=== PATIENT | male | born 1990 | race Caucasian/White ===

== ENCOUNTER 2017-03-31 16:52 | Emergency (ER) | payer BC, OTHER ==
[~2017-03-31] VITALS: Ht 175.3 cm; Wt 5.0 kg
[~2017-03-31 16:52] MED LIST: DIAZ5 PO; VIST50CA PO
[2017-03-31 16:57] VITALS: BP 122/81; PULSE 81; RESP 16; TEMP 98.4; O2SAT 99
[2017-03-31] MEDS ORDERED: IBUP-232 PO (17:19)
[2017-03-31] MEDS ORDERED: NORC5TAB PO (17:19)
[2017-03-31] MEDS ORDERED: ORPH100T99 PO (17:19)
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
== END 2017-03-31 17:25 | disposition home or self-care (01) ==
LOC: PHEFT 16:52
DX: S16.1XXA Strain of muscle, fascia and tendon at neck level, initial encounter (principal); M54.5 Low back pain; F17.210 Nicotine dependence, cigarettes, uncomplicated; V43.52XA Car driver injured in collision with other type car in traffic accident, initial encounter; Y93.89 Activity, other specified; Y92.410 Unspecified street and highway as the place of occurrence of the external cause; Y99.8 Other external cause status
CPT/HCPCS: 99283

== ENCOUNTER 2017-06-12 03:24 | Emergency (ER) | payer BC, OTHER ==
[~2017-06-12] VITALS: Ht 175.3 cm; Wt 61.4 kg
[~2017-06-12 03:24] MED LIST changes: -DIAZ5 PO; +IBUP-232 PO; +NORC5TAB PO; +ORPH100T99 PO; -VIST50CA PO
[2017-06-12 03:29] VITALS: BP 135/85; PULSE 80; RESP 12; TEMP 98.2; O2SAT 100
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
[2017-06-12] MEDS ORDERED: PERC5TAB12 PO ×2 (03:56)
[2017-06-12] MEDS ORDERED: oxyCODONE/ACETAMINOPHEN 10 MG/325 MG TAB PO ONE ×2 (04:00)
[2017-06-12] MEDS ORDERED: SILVER SULFADIAZINE 1% CR 50 GM JAR TOPICAL ONE ×2 (04:15)
[2017-06-12 04:33] VITALS: BP 132/71; RESP 16
== END 2017-06-12 04:33 | disposition home or self-care (01) ==
LOC: PHED 03:24
DX: T22.212A Burn of second degree of left forearm, initial encounter (principal); T20.13XA Burn of first degree of chin, initial encounter; T31.0 Burns involving less than 10% of body surface; F17.200 Nicotine dependence, unspecified, uncomplicated; Z86.69 Personal history of other diseases of the nervous system and sense organs; Z86.59 Personal history of other mental and behavioral disorders; X10.2XXA Contact with fats and cooking oils, initial encounter; Y92.511 Restaurant or cafe as the place of occurrence of the external cause; Y99.0 Civilian activity done for income or pay
CPT/HCPCS: 16020

== ENCOUNTER 2018-06-14 08:54 | Inpatient (IN) ==
[2018-06-14 09:54] LABS: Baso % (Auto) 0.3 % (0.0-2.0); Eos # (Auto) 0.1 th/mm3 (0.0-0.4); Eos % (Auto) 0.7 % (0.0-4.0); Hematocrit 43.6 % (39.0-51.0); Hemoglobin 15.2 gm/dL (13.0-17.0); Lymph # (Auto) 2.5 th/mm3 (1.0-4.8); Lymph % (Auto) 17.3 % (9.0-44.0); Mean Corpuscular HGB Conc 34.8 % (32.0-36.0); Mean Corpuscular Hemoglobin 29.2 pg (27.0-34.0); Mean Corpuscular Volume 83.9 fL (80.0-100.0); Mean Platelet Volume 8.1 fL (7.0-11.0); Mono # (Auto) 1.2 th/mm3 (0.0-0.9); Mono % (Auto) 8.2 % (0.0-8.0); Neut # (Auto) 10.4 th/mm3 (1.8-7.7); Neut % (Auto) 73.5 % (16.0-70.0); Platelet Count 254 th/mm3 (150-450); Red Cell Distribution Width 13.5 % (11.6-17.2); White Blood Count 14.2 th/mm3 (4.0-11.0)
[2018-06-14 10:15] LABS: Anion Gap 10 meq/L (5-15); Blood Urea Nitrogen 16 mg/dL (7-18); Calcium 7.8 mg/dL (8.5-10.1); Carbon Dioxide 25.8 meq/L (21.0-32.0); Chloride 105 meq/L (98-107); Glomerular Filtration Rate Greater Than 89 mL/min (>89); Glucose,Random 104 mg/dL (74-106); Potassium 3.5 meq/L (3.5-5.1); Sodium 141 meq/L (136-145)
[2018-06-14] MEDS ORDERED: Sod Chloride 0.9% Inj 1,000 ML IV.SIG ONE ×3 (10:44→13:05)
[2018-06-14 12:41] LABS: CKMB Percent 1.1 % (0.0-4.0); Creatine Kinase MB 4.1 ng/mL (0.5-3.6)
--- NOTE | 2018-06-14 13:03 | ED ---
HPI General Chief Complaint: Overdose Stated Complaint: Medical Time Seen by Provider: 06/14/18 09:20 Mode of arrival: EMS Limitations: altered mental status History of Present Illness HPI Narrative: The patient is a 27-year-old male brought in by [facility] after drug overdose. Reportedly the patient has been having history of opiate abuse and IV drug abuse and as per boyfriend that came later he was missing last night he came this morning around 6:30 AM and he was unconsolable complaining of abdominal pain thrashing around therefore his boyfriend called EMS. On arrival here will follow that the patient had done cocaine, meth, marijuana and MDMA. Onset (ago): unknown Intent: unwilling to say How Overdose Was Discovered: family/friend present at time Context: Intentional Overdose: drug/ETOH problems Context: Accidental Overdose: wanted to get high Associated symptoms: paranoia and hallucinations Treatments Prior to Arrival: IV fluids Related Data Home Medications Medication Instructions Recorded Confirmed No Known Home Medications 06/14/18 06/14/18 Allergies Allergy/AdvReac Type Severity Reaction Status Date / Time isosorbide Allergy Severe THROAT Verified 06/14/18 12:44 SWELLS nitroglycerin Allergy Severe THROAT Verified 06/14/18 12:44 SWELLS nitroprusside sodium Allergy Severe THROAT Verified 06/14/18 12:44 SWELLS sulfite Allergy Severe THROAT Verified 06/14/18 12:44 SWELLS penicillin G AdvReac Severe STS SHOCK, Verified 06/14/18 12:44 RASH Review of Systems ROS Unobtainable ROS Unobtainable: unobtainable due to mental status PMFSH Medical History Medical History Medical history unknown (Acute) Social History Social History Second Hand Smoke Exposure: Yes Smoking Status: Current every day smoker Tobacco Type: Cigarettes How Often Do You Have a Drink Containing Alcohol: 2 to 3 times a week Recent Travel in [facility] within the Last 8 Weeks: No Recent Out of Country Travel within the Last 8 Weeks: No Substance Abuse Detail Methamphetamine: Substance Use Status: Active Route Used Substance Abuse: By Mouth Marijuana: Substance Use Status: Active Route Used Substance Abuse: Inhalation Other: Substance Use Type Other:: AMY Substance Use Status: Active Route Used Substance Abuse: By Mouth Immunization History Tetanus Immunization: Unable to Assess Hx Influenza Vaccine This Season: Unable to Assess Exam Narrative Exam Narrative: GENERAL: Patient is awake thrashing all extremities in distress grunting not answering questions. Appears to have akathisia SKIN: Focused skin assessment warm/dry. HEAD: Atraumatic. Normocephalic. EYES: Pupils equal and round. No scleral icterus. No injection or drainage. ENT: No nasal bleeding or discharge. Mucous membranes pink and moist. NECK: Trachea midline. No JVD. CARDIOVASCULAR: Sinus tachycardia. No murmur appreciated. RESPIRATORY: No accessory muscle use. Clear to auscultation. Breath sounds equal bilaterally. GASTROINTESTINAL: Abdomen soft, non-tender, nondistended. Hepatic and splenic margins not palpable. MUSCULOSKELETAL: No obvious deformities. No clubbing. No cyanosis. No edema. NEUROLOGICAL: Awake and alert. No obvious cranial nerve deficits. Motor grossly within normal limits. Normal speech. PSYCHIATRIC: Unable to assess Course Hospital Course: And received several doses of IV Ativan to assist with his psychosis secondary to stimulants. He had several episodes of coffee-ground emesis for which she was given Protonix drip. Imaging was not suggestive of free air. Initial Documented Vital Signs Temperature 98.2 F 06/14/18 09:55 Pulse Rate 89 06/14/18 09:55 Respiratory Rate 21 06/14/18 09:55 Blood Pressure 140/74 06/14/18 09:55 Pulse Oximetry 96 06/14/18 09:55 Last Documented Vital Signs Temperature 98.9 F 06/14/18 17:54 Pulse Rate 123 H 06/14/18 17:56 Respiratory Rate 18 06/14/18 17:56 Blood Pressure 169/89 H 06/14/18 17:56 Pulse Oximetry 95 06/14/18 14:10 Critical Care Time Critical Care Time: Yes Total Critical Care Time: 45 Attestation: Aggregate critical care time was 45 minutes. Time to perform other separately billable procedures was not included in the critical care time. My time did not include minutes spent treating any other patients simultaneously or on activities that did not directly contribute to the patient's treatment. The services I provided to this patient were to treat and/or prevent clinically significant deterioration that could result in: Permanent disability loss of current living style I provided critical care services requiring my management, as noted below: Chart data review, documentation time, medication orders and management, vital sign assessments/reviewing monitor data, ordering and reviewing lab tests, ordering and interpreting/reviewing x-rays and diagnostic studies, care of the patient and discussion of the patient with the admitting physicians. Medical Decision Making MDM Narrative Medical decision making narrative: Patient with acute psychosis secondary to polysubstance abuse. Mildly elevated CK for which he was given IV fluids. She was given several doses of IV Ativan. He also had a coffee-ground emesis for which he was put on Protonix drip. Hemodynamically stable admitting team will order a psych evaluation. Medical Screen Exam Complete: Yes Emergency Medical Condition: Yes Lab Data Lab results reviewed: Yes I reviewed the patient's lab results. Result diagrams: 06/14/18 09:15 06/14/18 09:15 Lab Results 06/14/18 06/14/18 06/14/18 Range/Units 09:15 09:15 09:15 WBC 14.2 H (4.0-11.0) th/mm3 RBC 5.20 (4.50-5.90) mil/mm3 Hgb 15.2 (13.0-17.0) gm/dL Hct 43.6 (39.0-51.0) % MCV 83.9 (80.0-100.0) fL MCH 29.2 (27.0-34.0) pg MCHC 34.8 (32.0-36.0) % RDW 13.5 (11.6-17.2) % Plt Count 254 (150-450) th/mm3 MPV 8.1 (7.0-11.0) fL Neut % (Auto) 73.5 H (16.0-70.0) % Lymph % (Auto) 17.3 (9.0-44.0) % Sherman % (Auto) 8.2 H (0.0-8.0) % Eos % (Auto) 0.7 (0.0-4.0) % Baso % (Auto) 0.3 (0.0-2.0) % Neut # (Auto) 10.4 H (1.8-7.7) th/mm3 Lymph # (Auto) 2.5 (1.0-4.8) th/mm3 Sherman # (Auto) 1.2 H (0.0-0.9) th/mm3 Eos # (Auto) 0.1 (0.0-0.4) th/mm3 Baso # (Auto) 0.0 (0.0-0.2) th/mm3 WBC Differential . Differential Comment Auto diff final Sodium 141 (136-145) meq/L Potassium 3.5 (3.5-5.1) meq/L Chloride 105 (98-107) meq/L Carbon Dioxide 25.8 (21.0-32.0) meq/L Anion Gap 10 (5-15) meq/L BUN 16 (7-18) mg/dL Creatinine 0.89 (0.60-1.30) mg/dL Estimated GFR Greater than 89 (>89) mL/min Random Glucose 104 (74-106) mg/dL Calcium 7.8 L (8.5-10.1) mg/dL Total Creatine Kinase 374 H (39-308) U/L CK-MB (CK-2) 4.1 H (0.5-3.6) ng/mL CK-MB (CK-2) % 1.1 (0.0-4.0) % Troponin I (0.02-0.05) ng/mL Urine Opiates Screen (Neg) Ur Barbiturates Screen (Neg) Ur Amphetamine Screen (Neg) U Benzodiazepines Scrn (Neg) Urine Cocaine Screen (Neg) U Cannabinoids Screen (Neg) Serum Alcohol Less than 3 (0-5) mg/dL Hepatitis A IgM Ab (Nonreactive) Hep Bs Antigen (Nonreactive) Hep B Core IgM Ab (Nonreactive) Hep C IgG Ab (Nonreactive) 06/14/18 06/14/18 06/14/18 Range/Units 15:00 15:50 17:25 WBC (4.0-11.0) th/mm3 RBC (4.50-5.90) mil/mm3 Hgb (13.0-17.0) gm/dL Hct (39.0-51.0) % MCV (80.0-100.0) fL MCH (27.0-34.0) pg MCHC (32.0-36.0) % RDW (11.6-17.2) % Plt Count (150-450) th/mm3 MPV (7.0-11.0) fL Neut % (Auto) (16.0-70.0) % Lymph % (Auto) (9.0-44.0) % Sherman % (Auto) (0.0-8.0) % Eos % (Auto) (0.0-4.0) % Baso % (Auto) (0.0-2.0) % Neut # (Auto) (1.8-7.7) th/mm3 Lymph # (Auto) (1.0-4.8) th/mm3 Sherman # (Auto) (0.0-0.9) th/mm3 Eos # (Auto) (0.0-0.4) th/mm3 Baso # (Auto) (0.0-0.2) th/mm3 WBC Differential Differential Comment Sodium (136-145) meq/L Potassium (3.5-5.1) meq/L Chloride (98-107) meq/L Carbon Dioxide (21.0-32.0) meq/L Anion Gap (5-15) meq/L BUN (7-18) mg/dL Creatinine (0.60-1.30) mg/dL Estimated GFR (>89) mL/min Random Glucose (74-106) mg/dL Calcium (8.5-10.1) mg/dL Total Creatine Kinase (39-308) U/L CK-MB (CK-2) (0.5-3.6) ng/mL CK-MB (CK-2) % (0.0-4.0) % Troponin I Less than 0.02 L (0.02-0.05) ng/mL Urine Opiates Screen Neg (Neg) Ur Barbiturates Screen Neg (Neg) Ur Amphetamine Screen Pos H (Neg) U Benzodiazepines Scrn Neg (Neg) Urine Cocaine Screen Neg (Neg) U Cannabinoids Screen Pos H (Neg) Serum Alcohol (0-5) mg/dL Hepatitis A IgM Ab Nonreactive (Nonreactive) Hep Bs Antigen Nonreactive (Nonreactive) Hep B Core IgM Ab Nonreactive (Nonreactive) Hep C IgG Ab Reactive H (Nonreactive) Discharge Plan Discharge Disposition Patient Disposition: 30 Still Patient Discharge Condition Condition: Stable Discharge Details Diagnosis: Acute psychosis, Substance abuse, Amphetamine abuse, continuous Physicians Team ED Provider: Ferny Blount Primary Care Provider: Primary Care Hueyi,Sara Attending Provider: Vey,Gunjan Other Providers: Remi Tran Discharge Interventions Interventions: ED Discharge Assessment Last Done: 06/14/18 17:40 Vital Signs Last Done: 06/14/18 17:56 Status ED Status: Left Department Discharge Information Discharge Date/Time: 06/14/18 17:40
[2018-06-14] MEDS: Pantoprazole Inj 80 MG in Sodium Chlor 0.9% Inj 100 ML IV.CONT SCH (13:30)
--- NOTE | 2018-06-14 14:05 | P.HPFP ---
History of Present Illness Primary Care Physician: No Primary Care Physician <Gunjan Simms - 06/14/18 20:58> No Primary Care Physician <Fadumo Mooney - 06/14/18 17:25> Chief Complaint: Overdose <Fadumo Mooney - 06/14/18 17:25> History of Present Illness: History provided by patient's boyfriend as the patient is thrashing about and unable to respond to questions. 27-year-old male who presented to the ED via [facility] after drug overdose. Boyfriend states patient has a history of opioid addiction and IV drug use and has been clean for many years, but the boyfriend noticed patient's behavior changing over the last month. Patient's boyfriend states that the patient woke him up this morning about 6:30 AM begging for him to help him, grunting, and complaining of severe abdominal pain. Patient's boyfriend states that the patient has a history of Dilaudid and Suboxone use. He also uses cocaine, meth, marijuana, and MDMA. Boyfriend is not sure which substances patient used last night and this morning, but is confident that he overdosed. Patient has a history of severe gastritis in which he uses Zantac. Patient had 1 bout of coffee ground emesis in the ED. The boyfriend is not aware of any other past medical or surgical history. <Fadumo Mooney - 06/14/18 18:02> - Diagnosis (1) Overdose (2) Gastritis (3) Weight loss (4) IVDU (intravenous drug user) (5) Nutrition, metabolism, and development symptoms (6) DVT prophylaxis <Gunjan Simms - 06/14/18 20:58> (1) Overdose (2) Gastritis (3) Weight loss (4) IVDU (intravenous drug user) (5) Nutrition, metabolism, and development symptoms (6) DVT prophylaxis <Fadumo Mooney 06/14/18 17:29> Inpatient Certification: I certify that the inpatient services were ordered in accordance with Medicare regulations governing the order. This includes certification that hospital inpatient services are reasonable and necessary and in the case of services not specified as inpatient-only under 42 CFR 419.22(n), that they are appropriately provided as inpatient services in accordance to with the 2-midnight benchmark under 43 CFR 412.3(e) <Gunjan Simms 06/14/18 20:58> Review of Systems unobtainable due to mental status <VinicioFadumo Gaines 06/14/18 17:25> PMFSH - History History Provided By: Significant Other <CataudayFadumo A 06/14/18 17:25> - Medical / Surgical Hx Neg / Unobtainable Medical Problems Denied: Unable to Obtain <VinicioFadumo Gaines 06/14/18 17:25> Surgical History: Unable to Obtain <VinicioFadumo Gaines 06/14/18 17:25> - Medical History Medical History: Medical History (Last Updated 06/14/18 @ 09:57 by Carlito Marin) Medical history unknown <Gunjan Simms 06/14/18 20:58> Medical History (Last Updated 06/14/18 @ 09:57 by Carlito Marin) Medical history unknown <VinicioFadumo Gaines 06/14/18 14:05> - Tobacco History Second Hand Smoke Exposure: Yes <QuirinoaditividalFadumo Gaines 06/14/18 14:05> Tobacco Use In Past 30 Days: Yes <VinicioFadumo A 06/14/18 14:05> Smoking Status: Current every day smoker <QuirinoreannaFadumo A 06/14/18 14:05> Tobacco Type: Cigarettes <VinicioFadumo A 06/14/18 14:05> - Alcohol History How Often Do You Have a Drink Containing Alcohol: 2 to 3 times a week < VinicioFadumo A 06/14/18 14:05> - Substance Use Type Marijuana Status: Active <VinicioFadumo Aaron 06/14/18 14:05> Route Used: Inhalation <VinicioFadumo Aaron 06/14/18 14:05> Methamphetamine Status: Active <VinicioFadumo Aaron 06/14/18 14:05> Route Used: By Mouth <Fadumo Mooney Aaron 06/14/18 14:05> Other Type: AMY <Fadumo Mooney - 06/14/18 14:05> Status: Active <Fadumo Mooney 06/14/18 14:05> Route Used: By Mouth <Fadumo Mooney 06/14/18 14:05> - Travel History Recent Travel in the [facility] Within the Last 8 Weeks: No <Fadumo Mooney 01/26 14:05> Recent Travel Out of the Country Within the Last 8 Weeks: No <Fadumo Mooney 06/14/18 14:05> - Immunization History Tetanus Immunization: Unable to Assess <Fadumo Mooney 06/14/18 14:05> Hx Influenza Vaccine This Season: Unable to Assess <Fadumo Mooney 14:05> Medications and Allergies Allergies Allergy/AdvReac Type Severity Reaction Status Date / Time isosorbide Allergy Severe THROAT Verified 06/14/18 12:44 SWELLS nitroglycerin Allergy Severe THROAT Verified 06/14/18 12:44 SWELLS nitroprusside sodium Allergy Severe THROAT Verified 06/14/18 12:44 SWELLS sulfite Allergy Severe THROAT Verified 06/14/18 12:44 SWELLS penicillin G AdvReac Severe STS SHOCK, Verified 06/14/18 12:44 RASH <Gunjan Simms - 06/14/18 20:58> Home Medications Medication Instructions Recorded Confirmed Type No Known Home Medications 06/14/18 06/14/18 History <Gunjan Simms - 06/14/18 20:58> Active Medications: Active Medications Acetaminophen (Tylenol) 650 mg PO Q4H PRN PRN Reason: Temp > 100.4 Al Hydroxide/Mg Hydroxide (Milk Of Magnesia Liq) 30 ml PO Q12H PRN PRN Reason: Mild Constipation Bisacodyl (Dulcolax Supp) 10 mg RECTAL DAILY PRN PRN Reason: SEVERE CONSITIPATION Flumazenil (Romazecon Inj) 0.2 mg IV.PUSH Q1M PRN PRN Reason: OVERSEDATION Haloperidol Lactate (Haldol Inj) 1 mg IV.PUSH Q15M PRN PRN Reason: for severe agitation Pantoprazole Sodium 80 mg/ (Sodium Chloride) 100 mls @ 10 mls/hr IV.CONT CONT [facility] Last Admin: 06/14/18 13:30 Dose: 10 mls/hr Sodium Chloride (Ns Inj) 1,000 mls @ 120 mls/hr IV.CONT .Q8H20M [facility] Last Admin: 06/14/18 17:26 Dose: 120 mls/hr Lactulose (Lactulose Liq) 30 ml PO DAILY PRN PRN Reason: SEVERE CONSITIPATION Lorazepam (Ativan) 1 mg PO Q4H PRN PRN Reason: for CIWA 8-10 Lorazepam (Ativan Inj) 2 mg IV.PUSH Q2H PRN PRN Reason: for CIWA 11-14 Last Admin: 06/14/18 18:53 Dose: 2 mg Lorazepam (Ativan Inj) 2 mg IV.PUSH Q1H PRN PRN Reason: for CIWA 15-20 Lorazepam (Ativan Inj) 2 mg IV.PUSH Q15M PRN PRN Reason: for CIWA > 20 Last Admin: 06/14/18 19:55 Dose: 2 mg Lorazepam (Ativan Inj) 1 mg IV.PUSH Q4H PRN PRN Reason: for CIWA 8-10 Lorazepam (Ativan) 2 mg PO Q2H PRN PRN Reason: for CIWA 11-14 Ondansetron HCl (Zofran Inj) 4 mg IV.PUSH Q6H PRN PRN Reason: NAUSEA OR VOMITING Sennosides (Senokot) 17.2 mg PO Q12H PRN PRN Reason: Moderate Constipation <Gunjan Simms - 06/14/18 20:58> Active Medications Pantoprazole Sodium 80 mg/ (Sodium Chloride) 100 mls @ 10 mls/hr IV.CONT CONT [facility] Last Admin: 06/14/18 13:30 Dose: 10 mls/hr <Fadumo Mooney - 06/14/18 14:05> Exam Vital signs: Vital Signs 06/14/18 09:55 06/14/18 12:45 06/14/18 12:51 Temperature 98.2 F Pulse Rate 89 121 H 121 H Respiratory Rate 21 16 25 H Blood Pressure 140/74 204/139 H 231/95 H Pulse Oximetry 96 95 95 06/14/18 14:10 06/14/18 14:15 06/14/18 17:54 Temperature 98.9 F Pulse Rate 110 H 130 H Respiratory Rate 18 Blood Pressure 129/75 119/75 Pulse Oximetry 95 06/14/18 17:56 Temperature Pulse Rate 123 H Respiratory Rate 18 Blood Pressure 169/89 H Pulse Oximetry Intake & Output 06/14/18 06/14/18 06/15/18 06:59 18:59 06:59 Intake Total 1000 / 1000 Output Total 300 / 300 Balance 700 / 700 Weight 79.379 kg Intake: IV 1000 / 1000 NS Inj 1,000 ML @ Wide Open IV. 1000 / 1000 SIG BOLUS ONE Rx#:[id number] Output: Urine 300 / 300 <Gunjan Simms - 06/14/18 20:58> Vital Signs 06/14/18 09:55 06/14/18 12:45 06/14/18 12:51 Temperature 98.2 F Pulse Rate 89 121 H 121 H Respiratory Rate 21 16 25 H Blood Pressure 140/74 204/139 H 231/95 H Pulse Oximetry 96 95 95 Intake & Output 06/13/18 06/14/18 06/14/18 18:59 06:59 18:59 Intake Total 1000 / 1000 Balance 1000 / 1000 Weight 79.379 kg Intake: IV 1000 / 1000 NS Inj 1,000 ML @ Wide Open IV. 1000 / 1000 SIG BOLUS ONE Rx#:[id number] <Fadumo Mooney - 06/14/18 14:05> Narrative: General: Patient in distress, thrashing all 4 extremities, grunting, unresponsive to questioning, cachectic Extremities: Full range of motion Respiratory: nonlabored breathing <Fadumo Mooney - 06/14/18 18:02> Results - Labs Result diagrams: 06/14/18 09:15 06/14/18 09:15 <DemiMarisole - 06/14/18 20:58> Abnormal lab results 06/14/18 06/14/18 06/14/18 Range/Units 09:15 09:15 09:15 WBC 14.2 H (4.0-11.0) th/mm3 Neut % (Auto) 73.5 H (16.0-70.0) % [place] % (Auto) 8.2 H (0.0-8.0) % Neut # (Auto) 10.4 H (1.8-7.7) th/mm3 [place] # (Auto) 1.2 H (0.0-0.9) th/mm3 Calcium 7.8 L (8.5-10.1) mg/dL Total Bilirubin (0.2-1.0) mg/dL Indirect Bilirubin (0.0-0.8) mg/dL AST (15-37) U/L Total Creatine Kinase 374 H (39-308) U/L CK-MB (CK-2) 4.1 H (0.5-3.6) ng/mL Troponin I (0.02-0.05) ng/mL Total Protein (6.4-8.2) g/dL Ur Amphetamine Screen (Neg) U Cannabinoids Screen (Neg) Hep C IgG Ab (Nonreactive) 06/14/18 06/14/18 06/14/18 Range/Units 09:15 15:00 15:50 WBC (4.0-11.0) th/mm3 Neut % (Auto) (16.0-70.0) % [place] % (Auto) (0.0-8.0) % Neut # (Auto) (1.8-7.7) th/mm3 [place] # (Auto) (0.0-0.9) th/mm3 Calcium (8.5-10.1) mg/dL Total Bilirubin 1.5 H (0.2-1.0) mg/dL Indirect Bilirubin 1.3 H (0.0-0.8) mg/dL AST 40 H (15-37) U/L Total Creatine Kinase (39-308) U/L CK-MB (CK-2) (0.5-3.6) ng/mL Troponin I Less than 0.02 L (0.02-0.05) ng/mL Total Protein 6.0 L (6.4-8.2) g/dL Ur Amphetamine Screen (Neg) U Cannabinoids Screen (Neg) Hep C IgG Ab Reactive H (Nonreactive) 06/14/18 Range/Units 17:25 WBC (4.0-11.0) th/mm3 Neut % (Auto) (16.0-70.0) % [place] % (Auto) (0.0-8.0) % Neut # (Auto) (1.8-7.7) th/mm3 [place] # (Auto) (0.0-0.9) th/mm3 Calcium (8.5-10.1) mg/dL Total Bilirubin (0.2-1.0) mg/dL Indirect Bilirubin (0.0-0.8) mg/dL AST (15-37) U/L Total Creatine Kinase (39-308) U/L CK-MB (CK-2) (0.5-3.6) ng/mL Troponin I (0.02-0.05) ng/mL Total Protein (6.4-8.2) g/dL Ur Amphetamine Screen Pos H (Neg) U Cannabinoids Screen Pos H (Neg) Hep C IgG Ab (Nonreactive) Short CBC 06/14/18 Range/Units 09:15 WBC 14.2 H (4.0-11.0) th/mm3 Hgb 15.2 (13.0-17.0) gm/dL Hct 43.6 (39.0-51.0) % Plt Count 254 (150-450) th/mm3 [facility] 06/14/18 09:15 Sodium 141 Potassium 3.5 Chloride 105 Carbon Dioxide 25.8 BUN 16 Creatinine 0.89 Calcium 7.8 L Cardiac Enzymes 06/14/18 06/14/18 Range/Units 09:15 15:00 Total Creatine Kinase 374 H (39-308) U/L CK-MB (CK-2) 4.1 H (0.5-3.6) ng/mL Troponin I Less than 0.02 L (0.02-0.05) ng/mL Liver Function 06/14/18 Range/Units 09:15 Total Bilirubin 1.5 H (0.2-1.0) mg/dL Direct Bilirubin 0.2 (0.0-0.2) mg/dL AST 40 H (15-37) U/L ALT 42 (12-78) U/L Alkaline Phosphatase 65 (45-117) U/L Albumin 3.6 (3.4-5.0) g/dL <Gunjan Simms - 06/14/18 20:58> Abnormal lab results 06/14/18 06/14/18 06/14/18 Range/Units 09:15 09:15 09:15 WBC 14.2 H (4.0-11.0) th/mm3 Neut % (Auto) 73.5 H (16.0-70.0) % [place] % (Auto) 8.2 H (0.0-8.0) % Neut # (Auto) 10.4 H (1.8-7.7) th/mm3 [place] # (Auto) 1.2 H (0.0-0.9) th/mm3 Calcium 7.8 L (8.5-10.1) mg/dL Total Creatine Kinase 374 H (39-308) U/L CK-MB (CK-2) 4.1 H (0.5-3.6) ng/mL Short CBC 06/14/18 Range/Units 09:15 WBC 14.2 H (4.0-11.0) th/mm3 Hgb 15.2 (13.0-17.0) gm/dL Hct 43.6 (39.0-51.0) % Plt Count 254 (150-450) th/mm3 BMP 06/14/18 09:15 Sodium 141 Potassium 3.5 Chloride 105 Carbon Dioxide 25.8 BUN 16 Creatinine 0.89 Calcium 7.8 L Cardiac Enzymes 06/14/18 Range/Units 09:15 Total Creatine Kinase 374 H (39-308) U/L CK-MB (CK-2) 4.1 H (0.5-3.6) ng/mL <Fadumo Mooney - 06/14/18 14:05> - Imaging Impressions Abdomen X-Ray 06/14/18 00:00 CONCLUSION: 1. No radiopaque foreign body is noted. 2. No bowel obstruction, ileus or perforation. Chest X-Ray 06/14/18 00:00 CONCLUSION: Negative examination. <Gunjan Simms - 06/14/18 20:58> Caprini VTE Risk Assessment Caprini VTE Risk Assessment: No/Low Risk (score <= 1) <Fadumo Mooney - 01/26 17:25> Caprini Risk Assessment Model: Point Value = 1 Point Value = 2 Point Value = 3 Point Value = 5 Age 41-60 Minor surgery BMI > 25 kg/m2 Swollen legs Varicose veins or History of unexplained or recurrent spontaneous Oral contraceptives or hormone replacement Sepsis (< 1 month) Serious lung disease, including pneumonia (< 1 month) Abnormal pulmonary function Acute myocardial infarction Congestive heart failure (< 1 month) History of inflammatory bowel disease Medical patient at bed rest Age 61-74 Arthroscopic surgery Major open surgery (> 45 min) Laparoscopic surgery (> 45 min) Malignancy Confined to bed (> 72 hours) Immobilizing plaster cast Central venous access Age >= 75 History of VTE Family history of VTE Factor V Leiden Prothrombin [id number] Lupus anticoagulant Anticardiolipin antibodies Elevated serum homocysteine Heparin-induced thrombocytopenia Other congenital or acquired thrombophilia Stroke (< 1 month) Elective arthroplasty Hip, pelvis, or leg fracture Acute spinal cord injury (< 1 month) <Gunjan Simms - 06/14/18 20:58> Point Value = 1 Point Value = 2 Point Value = 3 Point Value = 5 Age 41-60 Minor surgery BMI > 25 kg/m2 Swollen legs Varicose veins or History of unexplained or recurrent spontaneous Oral contraceptives or hormone replacement Sepsis (< 1 month) Serious lung disease, including pneumonia (< 1 month) Abnormal pulmonary function Acute myocardial infarction Congestive heart failure (< 1 month) History of inflammatory bowel disease Medical patient at bed rest Age 61-74 Arthroscopic surgery Major open surgery (> 45 min) Laparoscopic surgery (> 45 min) Malignancy Confined to bed (> 72 hours) Immobilizing plaster cast Central venous access Age >= 75 History of VTE Family history of VTE Factor V Leiden Prothrombin [id number] Lupus anticoagulant Anticardiolipin antibodies Elevated serum homocysteine Heparin-induced thrombocytopenia Other congenital or acquired thrombophilia Stroke (< 1 month) Elective arthroplasty Hip, pelvis, or leg fracture Acute spinal cord injury (< 1 month) <Fadumo Mooney - 06/14/18 17:25> Prophylaxis Regimen: Total Risk Factor Score Risk Level Prophylaxis Regimen 0-1 Low Early ambulation 2 Moderate Order ONE of the following: *Sequential Compression Device (SCD) *Heparin 5000 units SQ BID 3-4 Higher Order ONE of the following medications: *Heparin 5000 units SQ TID *Enoxaparin/Lovenox 40 mg SQ daily (WT < 150 kg, CrCl > 30 mL/min) *Enoxaparin/Lovenox 30 mg SQ daily (WT < 150 kg, CrCl > 10-29 mL/min) *Enoxaparin/Lovenox 30 mg SQ BID (WT < 150 kg, CrCl > 30 mL/min) AND/OR *Sequential Compression Device (SCD) 5 or more Highest Order ONE of the following medications: *Heparin 5000 units SQ TID (Preferred with Epidurals) *Enoxaparin/Lovenox 40 mg SQ daily (WT < 150 kg, CrCl > 30 mL/min) *Enoxaparin/Lovenox 30 mg SQ daily (WT < 150 kg, CrCl > 10-29 mL/min) *Enoxaparin/Lovenox 30 mg SQ BID (WT < 150 kg, CrCl > 30 mL/min) AND *Sequential Compression Device (SCD) <Gunjan Simms - 06/14/18 20:58> Total Risk Factor Score Risk Level Prophylaxis Regimen 0-1 Low Early ambulation 2 Moderate Order ONE of the following: *Sequential Compression Device (SCD) *Heparin 5000 units SQ BID 3-4 Higher Order ONE of the following medications: *Heparin 5000 units SQ TID *Enoxaparin/Lovenox 40 mg SQ daily (WT < 150 kg, CrCl > 30 mL/min) *Enoxaparin/Lovenox 30 mg SQ daily (WT < 150 kg, CrCl > 10-29 mL/min) *Enoxaparin/Lovenox 30 mg SQ BID (WT < 150 kg, CrCl > 30 mL/min) AND/OR *Sequential Compression Device (SCD) 5 or more Highest Order ONE of the following medications: *Heparin 5000 units SQ TID (Preferred with Epidurals) *Enoxaparin/Lovenox 40 mg SQ daily (WT < 150 kg, CrCl > 30 mL/min) *Enoxaparin/Lovenox 30 mg SQ daily (WT < 150 kg, CrCl > 10-29 mL/min) *Enoxaparin/Lovenox 30 mg SQ BID (WT < 150 kg, CrCl > 30 mL/min) AND *Sequential Compression Device (SCD) <Fadumo Mooney - 06/14/18 14:05> Assessment and Plan - Assessment (1) Overdose Code(s): T50.901A - Poisoning by unspecified drugs, medicaments and biological substances, accidental (unintentional), initial encounter Status: Acute (2) Gastritis Code(s): K29.70 - Gastritis, unspecified, without bleeding Status: Acute (3) Weight loss Code(s): R63.4 - Abnormal weight loss Status: Acute (4) IVDU (intravenous drug user) Code(s): F19.90 - Other psychoactive substance use, unspecified, uncomplicated Status: Acute (5) Nutrition, metabolism, and development symptoms Code(s): R63.8 - Other symptoms and signs concerning food and fluid intake Status: Acute (6) DVT prophylaxis Status: Acute <Gunjan Simms - 06/14/18 20:58> (1) Overdose Code(s): T50.901A - Poisoning by unspecified drugs, medicaments and biological substances, accidental (unintentional), initial encounter Status: Acute Plan: 27 yo who overdosed on an unknown mixture of opiates, cocaine, meth, and MDMA admitted for acute psychosis. ED course: Patient received 1 mg lorazepam X4 in ED -Mild leukocytosis at 14.2 likely acute reactant -Calcium low at 7.8 -Creatine kinase 374 -Troponin <0.02 -OB\psych drug screen PENDING -Serum alcohol NEGATIVE -Sitter ordered -[facility] protocol -Monitor CBC, LFTs, UA, CMP -CXR and abdomen XR: ORDERED (2) Gastritis Code(s): K29.70 - Gastritis, unspecified, without bleeding Status: Acute Plan: 27-year-old male with coffee-ground emesis, and chronic gastritis. -Consult gastroenterology, appreciate recommendations -Protonix drip -NPO diet -Per gastroenterology note, will consider EGD once patient is stable. They will reevaluate within the next 24 hours. (3) Weight loss Code(s): R63.4 - Abnormal weight loss Status: Acute Plan: Patient has had a significant weight loss in the past month according to patient 's significant other. Gastritis versus drug use versus hepatitis versus immunodeficiency (HIV). -Supportive care -Continue fluids until patient is able to tolerate diet by mouth -Hepatitis panel pending -We will discuss HIV testing when patient is able to consent (4) IVDU (intravenous drug user) Code(s): F19.90 - Other psychoactive substance use, unspecified, uncomplicated Status: Acute Plan: Patient with a history of IV drug use. -Blood cultures pending -Hepatitis panel pending -Case management consult to help with possible rehab placement when stable if patient is willing (5) Nutrition, metabolism, and development symptoms Code(s): R63.8 - Other symptoms and signs concerning food and fluid intake Status: Acute Plan: -NPO diet -Continue fluids at 120 mils per hour (6) DVT prophylaxis Status: Acute Plan: -Bilateral SCDs for DVT prophylaxis <Fadumo Mooney - 06/14/18 17:29> - Attending Attestation Patient seen and examined in ED, discussed with resident team. I agree with assessment and management as documented and discussed with me. I certify that inpatient stay is warranted for reasons documented in resident H& P and that 2 midnight stay is expected. Overdose: Continue supportive care. Pt currently able to support his airway. Coffee ground emesis - Protonix, GI consult, zofran. EGD when stable. Abd x-ray nonrevealing. Additional diagnosis: leukocytosis: Likely secondary to drug use. No obvious infectious etiology. CXR nonrevealing. Blood cultures pending. <Gunjan Simms - 06/14/18 20:58>
[2018-06-14] MEDS ORDERED: Bisacodyl 10 MG Supp RECTAL PRN (14:06)
[2018-06-14] MEDS ORDERED: LORazepam 1 MG Tablet PO PRN (14:15)
--- NOTE | 2018-06-14 16:03 | P.CONGI ---
History of Present Illness Consult date: 06/14/18 Consult reason: Coffee-ground emesis, gastritis Chief complaint: Drug induced Psychosis, UGI Bleed History of Present Illness: This is a slim 27-year-old male who was brought into the emergency room by a male significant other when he was found at home in acute delirium and psychosis status post drug overdose. According to the record patient had been doing methamphetamines, Maria De Jesus and marijuana for the past 24 hours. According to significant other patient was screaming with gastric abdominal pain to minimal palpation and has been noted in the past to have possible GI ulcers and gastritis. Onset of the symptoms has been in the past 24 hours. patient also had 2 large coffee-ground hematocrit emesis, nausea and vomiting with symptoms of dyspepsia uncontrolled. Unable to evaluate pain scale, aggravating factors to his coffee-ground emesis and possible gastritis are probably related to illicit drugs. Patient has been on prescription Zantac for an unspecified length of time. Current labs show hemoglobin 15.2, WBC count 14.2, platelet count 185. Patient was also currently started on a Protonix drip. Gastroenterology was consulted for his gastritis and coffee-ground emesis and assist with this plan of care. Currently patient appears to be in acute psychosis with four-point restraints for his safety, padded rails and thrashing in the bed with his eyes closed. He is moaning at times and not responding to verbal communication. No known endoscopy in the past no known colonoscopy in the past unknown family history. Most of the information obtained is being gathered from his significant other in the chart. Current heart rate is labile between 108 and 130 patient is receiving IV Ativan. <Mercedes Mohamud - Last Filed: 06/14/18 15:47> Review of Systems unobtainable due to mental condition <Mercedes Mohamud - Last Filed: 06/14/18 15:47> [facility] - History History Provided By: Patient - Medical History Medical History: Medical History (Last Updated 06/14/18 @ 09:57 by Carlito Marin) Medical history unknown - Tobacco History Second Hand Smoke Exposure: Yes Tobacco Use In Past 30 Days: Yes Smoking Status: Current every day smoker Tobacco Type: Cigarettes - Alcohol History How Often Do You Have a Drink Containing Alcohol: 2 to 3 times a week - Substance Use Type Methamphetamine Status: Active Route Used: By Mouth Marijuana Status: Active Route Used: Inhalation Other Type: MARIA DE JESUS Status: Active Route Used: By Mouth - Travel History Recent Travel in the [place] Within the Last 8 Weeks: No Recent Travel Out of the Country Within the Last 8 Weeks: No - Immunization History Tetanus Immunization: Unable to Assess Hx Influenza Vaccine This Season: Unable to Assess <Mercedes Mohamud - Last Filed: 06/14/18 15:47> - Medical History Medical History: Medical History (Last Updated 06/14/18 @ 09:57 by Carlito Marin) Medical history unknown <Remi Tran - Last Filed: 06/14/18 18:05> Medications and Allergies Active Medications: Active Medications Acetaminophen (Tylenol) 650 mg PO Q4H PRN PRN Reason: Temp > 100.4 Al Hydroxide/Mg Hydroxide (Milk Of Magnesia Liq) 30 ml PO Q12H PRN PRN Reason: Mild Constipation Bisacodyl (Dulcolax Supp) 10 mg RECTAL DAILY PRN PRN Reason: SEVERE CONSITIPATION Flumazenil (Romazecon Inj) 0.2 mg IV.PUSH Q1M PRN PRN Reason: OVERSEDATION Haloperidol Lactate (Haldol Inj) 1 mg IV.PUSH Q15M PRN PRN Reason: for severe agitation Pantoprazole Sodium 80 mg/ (Sodium Chloride) 100 mls @ 10 mls/hr IV.CONT CONT TEOFILO Last Admin: 06/14/18 13:30 Dose: 10 mls/hr Sodium Chloride (Ns Inj) 1,000 mls @ 120 mls/hr IV.CONT .Q8H20M TEOFILO Lactulose (Lactulose Liq) 30 ml PO DAILY PRN PRN Reason: SEVERE CONSITIPATION Lorazepam (Ativan) 1 mg PO Q4H PRN PRN Reason: for CIWA 8-10 Lorazepam (Ativan Inj) 2 mg IV.PUSH Q2H PRN PRN Reason: for CIWA 11-14 Lorazepam (Ativan Inj) 2 mg IV.PUSH Q1H PRN PRN Reason: for CIWA 15-20 Lorazepam (Ativan Inj) 2 mg IV.PUSH Q15M PRN PRN Reason: for CIWA > 20 Lorazepam (Ativan Inj) 1 mg IV.PUSH Q4H PRN PRN Reason: for CIWA 8-10 Lorazepam (Ativan) 2 mg PO Q2H PRN PRN Reason: for CIWA 11-14 Ondansetron HCl (Zofran Inj) 4 mg IV.PUSH Q6H PRN PRN Reason: NAUSEA OR VOMITING Sennosides (Senokot) 17.2 mg PO Q12H PRN PRN Reason: Moderate Constipation <Mercedes Mohamud M - Last Filed: 06/14/18 15:47> Active Medications: Active Medications Acetaminophen (Tylenol) 650 mg PO Q4H PRN PRN Reason: Temp > 100.4 Al Hydroxide/Mg Hydroxide (Milk Of Magnesia Liq) 30 ml PO Q12H PRN PRN Reason: Mild Constipation Bisacodyl (Dulcolax Supp) 10 mg RECTAL DAILY PRN PRN Reason: SEVERE CONSITIPATION Flumazenil (Romazecon Inj) 0.2 mg IV.PUSH Q1M PRN PRN Reason: OVERSEDATION Haloperidol Lactate (Haldol Inj) 1 mg IV.PUSH Q15M PRN PRN Reason: for severe agitation Pantoprazole Sodium 80 mg/ (Sodium Chloride) 100 mls @ 10 mls/hr IV.CONT CONT [facility] Last Admin: 06/14/18 13:30 Dose: 10 mls/hr Sodium Chloride (Ns Inj) 1,000 mls @ 120 mls/hr IV.CONT .Q8H20M [facility] Last Admin: 06/14/18 17:26 Dose: 120 mls/hr Lactulose (Lactulose Liq) 30 ml PO DAILY PRN PRN Reason: SEVERE CONSITIPATION Lorazepam (Ativan) 1 mg PO Q4H PRN PRN Reason: for CIWA 8-10 Last Admin: 06/14/18 17:57 Dose: 1 mg Lorazepam (Ativan Inj) 2 mg IV.PUSH Q2H PRN PRN Reason: for CIWA 11-14 Last Admin: 06/14/18 17:58 Dose: 2 mg Lorazepam (Ativan Inj) 2 mg IV.PUSH Q1H PRN PRN Reason: for CIWA 15-20 Lorazepam (Ativan Inj) 2 mg IV.PUSH Q15M PRN PRN Reason: for CIWA > 20 Lorazepam (Ativan Inj) 1 mg IV.PUSH Q4H PRN PRN Reason: for CIWA 8-10 Lorazepam (Ativan) 2 mg PO Q2H PRN PRN Reason: for CIWA 11-14 Ondansetron HCl (Zofran Inj) 4 mg IV.PUSH Q6H PRN PRN Reason: NAUSEA OR VOMITING Sennosides (Senokot) 17.2 mg PO Q12H PRN PRN Reason: Moderate Constipation <Remi Tran - Last Filed: 06/14/18 18:05> Allergies Allergy/AdvReac Type Severity Reaction Status Date / Time isosorbide Allergy Severe THROAT Verified 06/14/18 12:44 SWELLS nitroglycerin Allergy Severe THROAT Verified 06/14/18 12:44 SWELLS nitroprusside sodium Allergy Severe THROAT Verified 06/14/18 12:44 SWELLS sulfite Allergy Severe THROAT Verified 06/14/18 12:44 SWELLS penicillin G AdvReac Severe STS SHOCK, Verified 06/14/18 12:44 RASH Home Medications Medication Instructions Recorded Confirmed Type No Known Home Medications 06/14/18 06/14/18 History Exam Vital signs: Vital Signs 06/14/18 09:55 06/14/18 12:45 06/14/18 12:51 Temperature 98.2 F Pulse Rate 89 121 H 121 H Respiratory Rate 21 16 25 H Blood Pressure 140/74 204/139 H 231/95 H Pulse Oximetry 96 95 95 06/14/18 14:10 Temperature Pulse Rate Respiratory Rate Blood Pressure Pulse Oximetry 95 Intake & Output 06/13/18 06/14/18 06/14/18 18:59 06:59 18:59 Intake Total 1000 / 1000 Balance 1000 / 1000 Weight 79.379 kg Intake: IV 1000 / 1000 NS Inj 1,000 ML @ Wide Open IV. 1000 / 1000 SIG BOLUS ONE Rx#:[id number] - Constitutional severe distress, thin, cachectic, combative, agitated - Routine HEENT Exam ENT: Present: mucous membranes dry - Routine Neck Exam Present: supple - Routine Abdominal Exam Present: rigid (taut, soft bowel sounds present) - Routine Extremities Exam Present: full ROM - Routine Neurological Exam Present: altered mental status, moving all extremities (Thrashing with uncontrollable 4 point extremity movement) <Mercedes Mohamud - Last Filed: 06/14/18 15:47> Vital signs: Vital Signs 06/14/18 09:55 06/14/18 12:45 06/14/18 12:51 Temperature 98.2 F Pulse Rate 89 121 H 121 H Respiratory Rate 21 16 25 H Blood Pressure 140/74 204/139 H 231/95 H Pulse Oximetry 96 95 95 06/14/18 14:10 06/14/18 14:15 06/14/18 17:54 Temperature 98.9 F Pulse Rate 110 H 130 H Respiratory Rate 18 Blood Pressure 129/75 119/75 Pulse Oximetry 95 06/14/18 17:56 Temperature Pulse Rate 123 H Respiratory Rate 18 Blood Pressure 169/89 H Pulse Oximetry Intake & Output 06/13/18 06/14/18 06/14/18 18:59 06:59 18:59 Intake Total 1000 / 1000 Balance 1000 / 1000 Weight 79.379 kg Intake: IV 1000 / 1000 NS Inj 1,000 ML @ Wide Open IV. 1000 / 1000 SIG BOLUS ONE Rx#:[id number] <Remi Tran - Last Filed: 06/14/18 18:05> Results - Labs CBC & Chem 7: 06/14/18 09:15 06/14/18 09:15 Labs: Laboratory Results - last 24 hr 06/14/18 06/14/18 06/14/18 09:15 09:15 09:15 WBC 14.2 H RBC 5.20 Hgb 15.2 Hct 43.6 MCV 83.9 MCH 29.2 MCHC 34.8 RDW 13.5 Plt Count 254 MPV 8.1 Neut % (Auto) 73.5 H Lymph % (Auto) 17.3 [place] % (Auto) 8.2 H Eos % (Auto) 0.7 Baso % (Auto) 0.3 Neut # (Auto) 10.4 H Lymph # (Auto) 2.5 [place] # (Auto) 1.2 H Eos # (Auto) 0.1 Baso # (Auto) 0.0 WBC Differential . Differential Comment Auto diff final Sodium 141 Potassium 3.5 Chloride 105 Carbon Dioxide 25.8 Anion Gap 10 BUN 16 Creatinine 0.89 Estimated GFR Greater than 89 Random Glucose 104 Calcium 7.8 L Total Creatine Kinase 374 H CK-MB (CK-2) 4.1 H CK-MB (CK-2) % 1.1 Serum Alcohol Less than 3 <Cade,Mercedes M - Last Filed: 06/14/18 15:47> - Labs CBC & Chem 7: 06/14/18 09:15 06/14/18 09:15 Labs: Laboratory Results - last 24 hr 06/14/18 06/14/18 06/14/18 09:15 09:15 09:15 WBC 14.2 H RBC 5.20 Hgb 15.2 Hct 43.6 MCV 83.9 MCH 29.2 MCHC 34.8 RDW 13.5 Plt Count 254 MPV 8.1 Neut % (Auto) 73.5 H Lymph % (Auto) 17.3 [place] % (Auto) 8.2 H Eos % (Auto) 0.7 Baso % (Auto) 0.3 Neut # (Auto) 10.4 H Lymph # (Auto) 2.5 [place] # (Auto) 1.2 H Eos # (Auto) 0.1 Baso # (Auto) 0.0 WBC Differential . Differential Comment Auto diff final Sodium 141 Potassium 3.5 Chloride 105 Carbon Dioxide 25.8 Anion Gap 10 BUN 16 Creatinine 0.89 Estimated GFR Greater than 89 Random Glucose 104 Calcium 7.8 L Total Creatine Kinase 374 H CK-MB (CK-2) 4.1 H CK-MB (CK-2) % 1.1 Troponin I Urine Opiates Screen Ur Barbiturates Screen Ur Amphetamine Screen U Benzodiazepines Scrn Urine Cocaine Screen U Cannabinoids Screen Serum Alcohol Less than 3 Hepatitis A IgM Ab Hep Bs Antigen Hep B Core IgM Ab Hep C IgG Ab 06/14/18 06/14/18 06/14/18 15:00 15:50 17:25 WBC RBC Hgb Hct MCV MCH MCHC RDW Plt Count MPV Neut % (Auto) Lymph % (Auto) [place] % (Auto) Eos % (Auto) Baso % (Auto) Neut # (Auto) Lymph # (Auto) [place] # (Auto) Eos # (Auto) Baso # (Auto) WBC Differential Differential Comment Sodium Potassium Chloride Carbon Dioxide Anion Gap BUN Creatinine Estimated GFR Random Glucose Calcium Total Creatine Kinase CK-MB (CK-2) CK-MB (CK-2) % Troponin I Less than 0.02 L Urine Opiates Screen Neg Ur Barbiturates Screen Neg Ur Amphetamine Screen Pos H U Benzodiazepines Scrn Neg Urine Cocaine Screen Neg U Cannabinoids Screen Pos H Serum Alcohol Hepatitis A IgM Ab Nonreactive Hep Bs Antigen Nonreactive Hep B Core IgM Ab Nonreactive Hep C IgG Ab Reactive H <Remi Tran - Last Filed: 06/14/18 18:05> Assessment and Plan (1) Upper GI bleed Status: Acute Code(s): K92.2 - Gastrointestinal hemorrhage, unspecified (2) Gastritis Status: Acute Code(s): K29.70 - Gastritis, unspecified, without bleeding - Plan 27-year-old male, came home early this a.m. some time with altered mental status and acute psychosis. This is probable due to an overdose of methamphetamines, Maria De Jesus, and and marijuana. Drug overdose with acute psychosis Coffee-ground emesis, vomiting 2 large amount this a.m. History of and acute gastritis and possible ulcers has been prescription Zantac for an undisclosed amount of time. This could be related to his drug inhalation. As well as GERD and dyspepsia Leukocytosis unspecified, Gastroenterology was been consulted to assist with patient's symptoms and plan of care. Currently the patient is unresponsive but is breathing on his own. Patient is tachycardic with heart rate anywhere from 108-130 sinus tach, nonresponsive to verbal stimuli. Patient has four-point restraints and thrashing in the bed with padded rails. Currently appears to be unstable for any procedures to be monitored for the next 24 hours. We will consider NG tube if patient continues to vomit, but currently concerned with the patient would pull it out and cause more trauma. Plan N.p.o. Consider EGD once patient is stable, will reevaluate within the next 24 hour. Protonix drip Monitor labs Supportive care to patient's family Further recommendations to follow Patient was seen per myself and Dr. Tran, this note was written on his behalf <Mercedes Mohamud - Last Filed: 06/14/18 15:47> (1) Upper GI bleed Status: Acute Code(s): K92.2 - Gastrointestinal hemorrhage, unspecified (2) Gastritis Status: Acute Code(s): K29.70 - Gastritis, unspecified, without bleeding - Attending Attestation Seen and examined with nani Long as above. Will follow up with you, currently not stable for EGD. Thank you for the consult. <Remi Tran - Last Filed: 06/14/18 18:05>
[2018-06-14] MEDS: Sod Chloride 0.9% Inj 1,000 ML IV.CONT SCH (17:26)
[2018-06-14 17:50] LABS: Benzodiazepine Urine With Conf Neg (Neg)
[2018-06-14 17:58] LABS: Amphetamine Urine With Conf Pos (Neg)
[2018-06-14 17:59] LABS: Hepatitis A IgM Antibody Nonreactive (Nonreactive)
[2018-06-14 18:00] LABS: Hepatitits B Surface Antigen Nonreactive (Nonreactive)
[2018-06-14 19:52] LABS: Albumin 3.6 g/dL (3.4-5.0)
--- NOTE | 2018-06-14 20:14 | XR ---
EXAM DATE: 06/14/2018 8:07 PM EDT AGE/SEX: 27 years / Male INDICATIONS: Evaluate for foreign body. CLINICAL DATA: This is the patient's initial encounter. Patient reports that signs and symptoms have been present for 1 day and indicates a pain score of Nonresponsive. MEDICAL/SURGICAL HISTORY: Non-responsive. Non-responsive. COMPARISON: . FINDINGS: A single AP view of the chest demonstrates the lungs to be symmetrically aerated without evidence of mass, infiltrate or effusion. The cardiomediastinal contours are unremarkable. Osseous structures a re intact. CONCLUSION: Negative examination. Electronically signed by: Remy Lau MD 06/14/2018 8:12 PM EDT
--- NOTE | 2018-06-14 20:18 | XR ---
EXAM DATE: 06/14/2018 8:08 PM EDT AGE/SEX: 27 years / Male INDICATIONS: Evaluate for foreign body. CLINICAL DATA: This is the patient's initial encounter. Patient reports that signs and symptoms have been present for 1 day and indicates a pain score of Nonresponsive. MEDICAL/SURGICAL HISTORY: Non-responsive. Non-responsive. COMPARISON: . FINDINGS: Examination of the abdomen demonstrates a normal bowel gas pattern. No free air is identified. No o rganomegaly is evident. Osseous structures are intact. No radiopaque foreign body is noted. CONCLUSION: 1. No radiopaque foreign body is noted. 2. No bowel obstruction, ileus or perforation. Electronically signed by: Remy Lau MD 06/14/2018 8:17 PM EDT
[2018-06-14 21:06] LABS: Baso % (Auto) 0.1 % (0.0-2.0); Hematocrit 57.3 % (39.0-51.0); Hemoglobin 19.3 gm/dL (13.0-17.0); Lymph # (Auto) 1.2 th/mm3 (1.0-4.8); Lymph % (Auto) 15.1 % (9.0-44.0); Mean Corpuscular HGB Conc 33.7 % (32.0-36.0); Mean Corpuscular Hemoglobin 28.9 pg (27.0-34.0); Mean Corpuscular Volume 85.8 fL (80.0-100.0); Mono # (Auto) 0.7 th/mm3 (0.0-0.9); Mono % (Auto) 9.1 % (0.0-8.0); Neut # (Auto) 5.8 th/mm3 (1.8-7.7); Neut % (Auto) 75.7 % (16.0-70.0); Platelet Count 316 th/mm3 (150-450); Red Blood Count 6.68 mil/mm3 (4.50-5.90); Red Cell Distribution Width 14.1 % (11.6-17.2); White Blood Count 7.7 th/mm3 (4.0-11.0)
--- NOTE | 2018-06-14 22:26 | P.PNADD ---
Addendum to Inpatient Note Reason for Addendum: Additional Documentation Additional information: Called poison control at 10:15PM. Discussed patient's case. They have low suspicion for MDMA at this time since patient is not hypothermic. Recommended aspirin, tylenol, PT/INR from earliest available blood draw. She recommends repeating the PT/INR as many street drugs have been cut with rat poison recently. She also recommended continued symptomatic support with lorazepam. Avoid beta blockers at this time.
[2018-06-15] MEDS: Sod Chloride 0.9% Inj 1,000 ML IV.CONT SCH (00:07)
[2018-06-15 03:11] LABS: Baso % (Auto) 0.1 % (0.0-2.0); Hematocrit 58.2 % (39.0-51.0); Hemoglobin 20.3 gm/dL (13.0-17.0); Lymph # (Auto) 1.5 th/mm3 (1.0-4.8); Lymph % (Auto) 13.7 % (9.0-44.0); Mean Corpuscular HGB Conc 34.9 % (32.0-36.0); Mean Corpuscular Hemoglobin 29.6 pg (27.0-34.0); Mean Corpuscular Volume 84.9 fL (80.0-100.0); Mean Platelet Volume 8.6 fL (7.0-11.0); Mono # (Auto) 0.9 th/mm3 (0.0-0.9); Neut # (Auto) 8.6 th/mm3 (1.8-7.7); Neut % (Auto) 78.2 % (16.0-70.0); Platelet Count 350 th/mm3 (150-450); Red Blood Count 6.86 mil/mm3 (4.50-5.90); Red Cell Distribution Width 13.9 % (11.6-17.2)
[2018-06-15 03:16] LABS: INR 1.5 Ratio; Prothrombin Time 15.5 sec (9.8-11.6)
[2018-06-15 03:37] LABS: Alanine Aminotransferase 38 U/L (12-78); Albumin 2.7 g/dL (3.4-5.0); Alkaline Phosphatase 49 U/L (45-117); Anion Gap 16 meq/L (5-15); Aspartate Aminotransferase 63 U/L (15-37); Blood Urea Nitrogen 28 mg/dL (7-18); Calcium 7.8 mg/dL (8.5-10.1); Carbon Dioxide 16.6 meq/L (21.0-32.0); Chloride 112 meq/L (98-107); Glomerular Filtration Rate 47 mL/min (>89); Glucose,Random 90 mg/dL (74-106); Potassium 4.7 meq/L (3.5-5.1); Sodium 145 meq/L (136-145); Total Protein 5.4 g/dL (6.4-8.2)
[2018-06-15] MEDS: Pantoprazole Inj 80 MG in Sodium Chlor 0.9% Inj 100 ML IV.CONT SCH (04:30)
[2018-06-15] MEDS ORDERED: Sod Chloride 0.9% Inj 1,000 ML IV.SIG SCH ×2 (06:34→21:45)
[2018-06-15] MEDS ORDERED: Dextrose 5%/NaCl 0.45% Inj 1,000 ML IV.CONT SCH (09:00)
[2018-06-15] MEDS: Dexmedetomidine Inj 200 MCG in Sodium Chlor 0.9% Inj 48 ML IV.CONT PRN ×3 (09:21→13:48)
[2018-06-15 09:39] LABS: Hematocrit 52.4 % (39.0-51.0); Hemoglobin 17.4 gm/dL (13.0-17.0); Lymph # (Auto) 1.3 th/mm3 (1.0-4.8); Lymph % (Auto) 9.4 % (9.0-44.0); Mean Corpuscular HGB Conc 33.3 % (32.0-36.0); Mean Corpuscular Volume 87.2 fL (80.0-100.0); Mean Platelet Volume 8.9 fL (7.0-11.0); Mono # (Auto) 1.2 th/mm3 (0.0-0.9); Mono % (Auto) 8.5 % (0.0-8.0); Neut # (Auto) 11.2 th/mm3 (1.8-7.7); Neut % (Auto) 82.1 % (16.0-70.0); Platelet Count 313 th/mm3 (150-450); White Blood Count 13.6 th/mm3 (4.0-11.0)
--- NOTE | 2018-06-15 09:49 | MB ---
cc: Tennille Henley MD DATE: 06/15/2018 HISTORY OF PRESENT ILLNESS: The patient is a 27-year-old male with a history of gastritis, opioid addiction, and IV drug use. He presented to [facility] ED via E-Evac with altered mental status and drug overdose. His urine drug screen was positive for amphetamines and cannabinoids. The patient also is complaining of severe abdominal pain on arrival. His initial laboratory data showed leukocytosis with a WBC of 14.2. The patient was admitted under family medicine and critical care medicine was consulted for critical care management. He was placed on a CIWA protocol by the primary team for his altered mental status. His labs today showed worsening renal function with creatinine of 1.75 from 0.89. He received approximately 3 liters of crystalloids. When seen, the patient is confused, thrashing in bed. History is limited and most of the history was obtained from reviewing medical records. He had a KUB yesterday, which showed no evidence of any obstruction, ileus, or perforation. In addition, a chest x-ray in the ED negative for acute process. NG tube was placed and he had approximately 150 of coffee-ground emesis. The patient was started on a Protonix drip and was seen by GI service. GI is planning for upper endoscopy when he is more stable. PAST MEDICAL HISTORY: Significant for gastritis and polysubstance abuse. PAST SURGICAL HISTORY: Unknown. ALLERGIES: MULTIPLE WHICH INCLUDE NITROGLYCERIN, ISOSORBIDE, PENICILLIN, SULFIDE. SOCIAL HISTORY: The patient is an active smoker, drinker. FAMILY HISTORY: Noncontributory to present illness. REVIEW OF SYSTEMS: As per HPI. The rest of review of systems is not obtainable. PHYSICAL EXAMINATION: GENERAL: A 27-year-old male, lethargic and restless in bed. VITAL SIGNS: Temperature 98, pulse of 122, blood pressure 107/76, saturation of 100% on room air. HEENT: Atraumatic, normocephalic. Pupils are equal, round, and reactive to accommodation. Extraocular muscles intact. Conjunctivae pink. Nonicteric sclerae. Oral mucosa within normal. NECK: Supple. No JVD, adenopathy ,or thyromegaly. Trachea in the midline. CARDIOVASCULAR: Tachycardic. Normal S1, S2. No murmurs, rubs, or gallops noted. PULMONARY: Bilateral air entry. No rales or wheezing. ABDOMEN: Soft, nontender. No distention. Positive bowel sounds. EXTREMITIES: No cyanosis, clubbing, edema. NEUROLOGIC: Restless, agitated. No focal sensory deficit. LABORATORY DATA: WBC 11, hemoglobin 20, hematocrit 58, platelet count 350. INR 1.5, PT 15.5. Sodium 145, potassium 4.7, chloride 112, CO2 of 16, BUN 28, creatinine 1.75, and glucose of 90. Total bilirubin 1.9, AST 63, ALT 38, alkaline phosphatase 49, albumin 2.7. Urine drug screen positive for amphetamines and cannabinoids. Hepatitis C IgG antibody reactive. RADIOGRAPHIC STUDIES: Chest x-ray and KUB, no acute findings. IMPRESSION: 1. Altered mental status. 2. Polysubstance abuse. Urine drug screen positive for amphetamines and cannabinoids. 3. Abdominal pain on arrival. 4. Acute kidney injury. 5. Elevated AST. 6. Hepatitis C. IgG antibody reactive. RECOMMENDATIONS: 1. Monitor neuro status closely and will place on a Precedex drip for agitation. 2. We will proceed with a CT scan of the brain without contrast to rule out acute intracranial process. 3. Continue with oxygen to maintain sats above 92%. 4. Bronchodilators and aspiration precautions. 5. If there is any worsening of mental status, we will proceed with intubation and mechanical ventilation for airway protection. A chest x-ray on arrival showed no acute findings. 6. Monitor heart rate and blood pressure closely and maintain MAP greater than 65 mmHg. 7. We will obtain baseline lactic acid level. 8. Monitor renal function, I's and O's, and avoid nephrotoxins. He received 3 liters of crystalloids so far. We will place on D5 1/2 NS at 100 mL an hour. 9. Continue with n.p.o. and Protonix drip. GI is following. Plan for EGD when more stable. 10. Monitor for signs of infection, which include fever and WBC. Follow up on blood cultures. Hold off on antibiotics at this time as there is no evidence of any infectious process. 11. Patient is for a CT abdomen and pelvis without contrast. 12. Place on sliding scale insulin with Accu-Cheks to maintain euglycemia. 13. Monitor CBC and coags. INR was 1.5 this morning. 14. GI prophylaxis on Protonix drip and DVT prophylaxis with SCDs for now given mild coagulopathy on arrival. 15. Further recommendations will be based on hospital course. MD BERNARD Fields/laura , 09:02 AM , 09:14 AM
[2018-06-15 09:51] LABS: Alanine Aminotransferase 46 U/L (12-78); Albumin 2.2 g/dL (3.4-5.0); Anion Gap 17 meq/L (5-15); Aspartate Aminotransferase 137 U/L (15-37); Blood Urea Nitrogen 39 mg/dL (7-18); Calcium 7.5 mg/dL (8.5-10.1); Carbon Dioxide 16.1 meq/L (21.0-32.0); Chloride 114 meq/L (98-107); Glomerular Filtration Rate 32 mL/min (>89); Glucose,Random 91 mg/dL (74-106); Potassium 4.6 meq/L (3.5-5.1); Sodium 147 meq/L (136-145)
[2018-06-15 10:14] LABS: Alkaline Phosphatase 41 U/L (45-117); Creatine Kinase 8857 U/L (39-308); Total Protein 4.6 g/dL (6.4-8.2)
[2018-06-15 10:32] LABS: CKMB Percent 0.2 % (0.0-4.0); Creatine Kinase MB 18.9 ng/mL (0.5-3.6)
[2018-06-15 11:06] LABS: Lymphocytes 4 % (9-44); Monocytes 1 % (0-8); Toxic Granulation 2+
[2018-06-15 11:07] LABS: Platelet Estimate Normal (Normal); Platelet Morphology Normal (Normal)
--- NOTE | 2018-06-15 11:12 | P.PNFP ---
Subjective Interval history: Patient was seen and examined this morning. He remains altered, confused, and restless in bed on the soft 4-limb restraints. An NG tube was placed overnight which returned about 150 mL's of coffee-ground emesis. <EkoYanique U - 06/15/18 11:49> Results - Labs Result diagrams: 06/15/18 14:30 06/15/18 14:30 <Gunjan Simms - 06/15/18 17:01> Abnormal lab results 06/14/18 06/14/18 06/14/18 Range/Units 09:15 15:00 15:00 WBC (4.0-11.0) th/mm3 RBC (4.50-5.90) mil/mm3 Hgb (13.0-17.0) gm/dL Hct (39.0-51.0) % Neut % (Auto) (16.0-70.0) % [place] % (Auto) (0.0-8.0) % Neut # (Auto) (1.8-7.7) th/mm3 [place] # (Auto) (0.0-0.9) th/mm3 Band Neuts % (Manual) (0-6) % Lymphocytes % (Manual) (9-44) % Metamyelocytes % (Man) (0-1) % Myelocytes % (Man) (0-0) % Abs Neuts (Manual) (1.8-7.7) th/mm3 Toxic Granulation (None) Platelet Morphology (Normal) PT (9.8-11.6) sec ABG pH (7.380-7.420) ABG pCO2 (38-42) mmHg ABG HCO3 (22-26) mmol/L ABG O2 Content (12.0-20.0) Vol % ABG Base Excess (-2-2) mmol/L Hemoglobin (12.0-16.0) G/DL Sodium (136-145) meq/L Chloride (98-107) meq/L Carbon Dioxide (21.0-32.0) meq/L Anion Gap (5-15) meq/L BUN (7-18) mg/dL Creatinine (0.60-1.30) mg/dL Estimated GFR (>89) mL/min POC Glucose (68-110) mg/dl Random Glucose (74-106) mg/dL Lactic Acid (0.4-2.0) mmol/L Calcium (8.5-10.1) mg/dL Phosphorus (2.5-4.9) mg/dL Total Bilirubin 1.5 H (0.2-1.0) mg/dL Indirect Bilirubin 1.3 H (0.0-0.8) mg/dL AST 40 H (15-37) U/L Alkaline Phosphatase (45-117) U/L Total Creatine Kinase (39-308) U/L CK-MB (CK-2) (0.5-3.6) ng/mL Troponin I Less than 0.02 L (0.02-0.05) ng/mL Total Protein 6.0 L (6.4-8.2) g/dL Albumin (3.4-5.0) g/dL Salicylates Less than 1.7 L (2.8-20.0) mg/dL Acetaminophen (10.0-30.0) mcg/mL Ur Amphetamine Screen (Neg) U Cannabinoids Screen (Neg) Hep C IgG Ab (Nonreactive) 06/14/18 06/14/18 06/14/18 Range/Units 15:00 15:50 17:25 WBC (4.0-11.0) th/mm3 RBC (4.50-5.90) mil/mm3 Hgb (13.0-17.0) gm/dL Hct (39.0-51.0) % Neut % (Auto) (16.0-70.0) % [place] % (Auto) (0.0-8.0) % Neut # (Auto) (1.8-7.7) th/mm3 [place] # (Auto) (0.0-0.9) th/mm3 Band Neuts % (Manual) (0-6) % Lymphocytes % (Manual) (9-44) % Metamyelocytes % (Man) (0-1) % Myelocytes % (Man) (0-0) % Abs Neuts (Manual) (1.8-7.7) th/mm3 Toxic Granulation (None) Platelet Morphology (Normal) PT (9.8-11.6) sec ABG pH (7.380-7.420) ABG pCO2 (38-42) mmHg ABG HCO3 (22-26) mmol/L ABG O2 Content (12.0-20.0) Vol % ABG Base Excess (-2-2) mmol/L Hemoglobin (12.0-16.0) G/DL Sodium (136-145) meq/L Chloride (98-107) meq/L Carbon Dioxide (21.0-32.0) meq/L Anion Gap (5-15) meq/L BUN (7-18) mg/dL Creatinine (0.60-1.30) mg/dL Estimated GFR (>89) mL/min POC Glucose (68-110) mg/dl Random Glucose (74-106) mg/dL Lactic Acid (0.4-2.0) mmol/L Calcium (8.5-10.1) mg/dL Phosphorus (2.5-4.9) mg/dL Total Bilirubin (0.2-1.0) mg/dL Indirect Bilirubin (0.0-0.8) mg/dL AST (15-37) U/L Alkaline Phosphatase (45-117) U/L Total Creatine Kinase (39-308) U/L CK-MB (CK-2) (0.5-3.6) ng/mL Troponin I (0.02-0.05) ng/mL Total Protein (6.4-8.2) g/dL Albumin (3.4-5.0) g/dL Salicylates (2.8-20.0) mg/dL Acetaminophen 4.9 L (10.0-30.0) mcg/mL Ur Amphetamine Screen Pos H (Neg) U Cannabinoids Screen Pos H (Neg) Hep C IgG Ab Reactive H (Nonreactive) 06/14/18 06/15/18 06/15/18 Range/Units 20:40 02:42 02:42 WBC (4.0-11.0) th/mm3 RBC 6.68 H 6.86 H (4.50-5.90) mil/mm3 Hgb 19.3 H D 20.3 H (13.0-17.0) gm/dL Hct 57.3 H 58.2 H (39.0-51.0) % Neut % (Auto) 75.7 H 78.2 H (16.0-70.0) % [place] % (Auto) 9.1 H (0.0-8.0) % Neut # (Auto) 8.6 H (1.8-7.7) th/mm3 [place] # (Auto) (0.0-0.9) th/mm3 Band Neuts % (Manual) (0-6) % Lymphocytes % (Manual) (9-44) % Metamyelocytes % (Man) (0-1) % Myelocytes % (Man) (0-0) % Abs Neuts (Manual) (1.8-7.7) th/mm3 Toxic Granulation (None) Platelet Morphology (Normal) PT 15.5 H (9.8-11.6) sec ABG pH (7.380-7.420) ABG pCO2 (38-42) mmHg ABG HCO3 (22-26) mmol/L ABG O2 Content (12.0-20.0) Vol % ABG Base Excess (-2-2) mmol/L Hemoglobin (12.0-16.0) G/DL Sodium (136-145) meq/L Chloride (98-107) meq/L Carbon Dioxide (21.0-32.0) meq/L Anion Gap (5-15) meq/L BUN (7-18) mg/dL Creatinine (0.60-1.30) mg/dL Estimated GFR (>89) mL/min POC Glucose (68-110) mg/dl Random Glucose (74-106) mg/dL Lactic Acid (0.4-2.0) mmol/L Calcium (8.5-10.1) mg/dL Phosphorus (2.5-4.9) mg/dL Total Bilirubin (0.2-1.0) mg/dL Indirect Bilirubin (0.0-0.8) mg/dL AST (15-37) U/L Alkaline Phosphatase (45-117) U/L Total Creatine Kinase (39-308) U/L CK-MB (CK-2) (0.5-3.6) ng/mL Troponin I (0.02-0.05) ng/mL Total Protein (6.4-8.2) g/dL Albumin (3.4-5.0) g/dL Salicylates (2.8-20.0) mg/dL Acetaminophen (10.0-30.0) mcg/mL Ur Amphetamine Screen (Neg) U Cannabinoids Screen (Neg) Hep C IgG Ab (Nonreactive) 06/15/18 06/15/18 06/15/18 Range/Units 02:42 08:52 08:52 WBC 13.6 H (4.0-11.0) th/mm3 RBC 6.00 H (4.50-5.90) mil/mm3 Hgb 17.4 H D (13.0-17.0) gm/dL Hct 52.4 H (39.0-51.0) % Neut % (Auto) 82.1 H (16.0-70.0) % [place] % (Auto) 8.5 H (0.0-8.0) % Neut # (Auto) 11.2 H (1.8-7.7) th/mm3 [place] # (Auto) 1.2 H (0.0-0.9) th/mm3 Band Neuts % (Manual) 65 H (0-6) % Lymphocytes % (Manual) 4 L (9-44) % Metamyelocytes % (Man) (0-1) % Myelocytes % (Man) (0-0) % Abs Neuts (Manual) 12.9 H (1.8-7.7) th/mm3 Toxic Granulation 2+ H (None) Platelet Morphology (Normal) PT (9.8-11.6) sec ABG pH (7.380-7.420) ABG pCO2 (38-42) mmHg ABG HCO3 (22-26) mmol/L ABG O2 Content (12.0-20.0) Vol % ABG Base Excess (-2-2) mmol/L Hemoglobin (12.0-16.0) G/DL Sodium 147 H (136-145) meq/L Chloride 112 H 114 H (98-107) meq/L Carbon Dioxide 16.6 L D 16.1 L (21.0-32.0) meq/L Anion Gap 16 H 17 H (5-15) meq/L BUN 28 H 39 H (7-18) mg/dL Creatinine 1.75 H 2.46 H (0.60-1.30) mg/dL Estimated GFR 47 L 32 L (>89) mL/min POC Glucose (68-110) mg/dl Random Glucose (74-106) mg/dL Lactic Acid (0.4-2.0) mmol/L Calcium 7.8 L 7.5 L (8.5-10.1) mg/dL Phosphorus (2.5-4.9) mg/dL Total Bilirubin 1.9 H 1.4 H (0.2-1.0) mg/dL Indirect Bilirubin (0.0-0.8) mg/dL AST 63 H 137 H (15-37) U/L Alkaline Phosphatase 41 L (45-117) U/L Total Creatine Kinase 8857 H (39-308) U/L CK-MB (CK-2) 18.9 H (0.5-3.6) ng/mL Troponin I (0.02-0.05) ng/mL Total Protein 5.4 L D 4.6 L D (6.4-8.2) g/dL Albumin 2.7 L D 2.2 L (3.4-5.0) g/dL Salicylates (2.8-20.0) mg/dL Acetaminophen (10.0-30.0) mcg/mL Ur Amphetamine Screen (Neg) U Cannabinoids Screen (Neg) Hep C IgG Ab (Nonreactive) 06/15/18 06/15/18 06/15/18 Range/Units 12:20 12:39 14:30 WBC (4.0-11.0) th/mm3 RBC (4.50-5.90) mil/mm3 Hgb (13.0-17.0) gm/dL Hct (39.0-51.0) % Neut % (Auto) (16.0-70.0) % [place] % (Auto) (0.0-8.0) % Neut # (Auto) (1.8-7.7) th/mm3 [place] # (Auto) (0.0-0.9) th/mm3 Band Neuts % (Manual) (0-6) % Lymphocytes % (Manual) (9-44) % Metamyelocytes % (Man) (0-1) % Myelocytes % (Man) (0-0) % Abs Neuts (Manual) (1.8-7.7) th/mm3 Toxic Granulation (None) Platelet Morphology (Normal) PT (9.8-11.6) sec ABG pH 7.36 L (7.380-7.420) ABG pCO2 24 L* (38-42) mmHg ABG HCO3 13 L* (22-26) mmol/L ABG O2 Content 24.5 H (12.0-20.0) Vol % ABG Base Excess -11.6 L (-2-2) mmol/L Hemoglobin 18.2 H (12.0-16.0) G/DL Sodium (136-145) meq/L Chloride (98-107) meq/L Carbon Dioxide (21.0-32.0) meq/L Anion Gap (5-15) meq/L BUN (7-18) mg/dL Creatinine (0.60-1.30) mg/dL Estimated GFR (>89) mL/min POC Glucose 146 H (68-110) mg/dl Random Glucose (74-106) mg/dL Lactic Acid 6.5 H* (0.4-2.0) mmol/L Calcium (8.5-10.1) mg/dL Phosphorus (2.5-4.9) mg/dL Total Bilirubin (0.2-1.0) mg/dL Indirect Bilirubin (0.0-0.8) mg/dL AST (15-37) U/L Alkaline Phosphatase (45-117) U/L Total Creatine Kinase (39-308) U/L CK-MB (CK-2) (0.5-3.6) ng/mL Troponin I (0.02-0.05) ng/mL Total Protein (6.4-8.2) g/dL Albumin (3.4-5.0) g/dL Salicylates (2.8-20.0) mg/dL Acetaminophen (10.0-30.0) mcg/mL Ur Amphetamine Screen (Neg) U Cannabinoids Screen (Neg) Hep C IgG Ab (Nonreactive) 06/15/18 06/15/18 06/15/18 Range/Units 14:30 14:30 14:30 WBC 16.1 H (4.0-11.0) th/mm3 RBC (4.50-5.90) mil/mm3 Hgb (13.0-17.0) gm/dL Hct (39.0-51.0) % Neut % (Auto) 81.7 H (16.0-70.0) % [place] % (Auto) (0.0-8.0) % Neut # (Auto) 13.1 H (1.8-7.7) th/mm3 [place] # (Auto) 1.1 H (0.0-0.9) th/mm3 Band Neuts % (Manual) 53 H (0-6) % Lymphocytes % (Manual) 3 L (9-44) % Metamyelocytes % (Man) 10 H (0-1) % Myelocytes % (Man) 1 H (0-0) % Abs Neuts (Manual) 14.7 H (1.8-7.7) th/mm3 Toxic Granulation (None) Platelet Morphology Enlarged H (Normal) PT 20.1 H (9.8-11.6) sec ABG pH (7.380-7.420) ABG pCO2 (38-42) mmHg ABG HCO3 (22-26) mmol/L ABG O2 Content (12.0-20.0) Vol % ABG Base Excess (-2-2) mmol/L Hemoglobin (12.0-16.0) G/DL Sodium 148 H (136-145) meq/L Chloride 114 H (98-107) meq/L Carbon Dioxide 18.9 L (21.0-32.0) meq/L Anion Gap (5-15) meq/L BUN 46 H (7-18) mg/dL Creatinine 2.91 H (0.60-1.30) mg/dL Estimated GFR 26 L (>89) mL/min POC Glucose (68-110) mg/dl Random Glucose 112 H (74-106) mg/dL Lactic Acid (0.4-2.0) mmol/L Calcium 7.1 L* (8.5-10.1) mg/dL Phosphorus 6.3 H (2.5-4.9) mg/dL Total Bilirubin 1.2 H (0.2-1.0) mg/dL Indirect Bilirubin (0.0-0.8) mg/dL AST 127 H (15-37) U/L Alkaline Phosphatase 37 L (45-117) U/L Total Creatine Kinase (39-308) U/L CK-MB (CK-2) (0.5-3.6) ng/mL Troponin I (0.02-0.05) ng/mL Total Protein 4.5 L (6.4-8.2) g/dL Albumin 2.0 L (3.4-5.0) g/dL Salicylates (2.8-20.0) mg/dL Acetaminophen (10.0-30.0) mcg/mL Ur Amphetamine Screen (Neg) U Cannabinoids Screen (Neg) Hep C IgG Ab (Nonreactive) Short CBC 06/14/18 06/15/18 06/15/18 Range/Units 20:40 02:42 08:52 WBC 7.7 11.0 13.6 H (4.0-11.0) th/mm3 Hgb 19.3 H D 20.3 H 17.4 H D (13.0-17.0) gm/dL Hct 57.3 H 58.2 H 52.4 H (39.0-51.0) % Plt Count 316 350 313 (150-450) th/mm3 06/15/18 Range/Units 14:30 WBC 16.1 H (4.0-11.0) th/mm3 Hgb 16.1 (13.0-17.0) gm/dL Hct 48.3 (39.0-51.0) % Plt Count 316 (150-450) th/mm3 BMP 06/15/18 06/15/18 06/15/18 02:42 08:52 14:30 Sodium 145 147 H 148 H Potassium 4.7 D 4.6 4.8 Chloride 112 H 114 H 114 H Carbon Dioxide 16.6 L D 16.1 L 18.9 L BUN 28 H 39 H 46 H Creatinine 1.75 H 2.46 H 2.91 H Calcium 7.8 L 7.5 L 7.1 L* Cardiac Enzymes 06/14/18 06/15/18 Range/Units 15:00 08:52 Total Creatine Kinase 8857 H (39-308) U/L CK-MB (CK-2) 18.9 H (0.5-3.6) ng/mL Troponin I Less than 0.02 L (0.02-0.05) ng/mL Liver Function 06/14/18 06/15/18 06/15/18 Range/Units 09:15 02:42 08:52 Total Bilirubin 1.5 H 1.9 H 1.4 H (0.2-1.0) mg/dL Direct Bilirubin 0.2 (0.0-0.2) mg/dL AST 40 H 63 H 137 H (15-37) U/L ALT 42 38 46 (12-78) U/L Alkaline Phosphatase 65 49 41 L (45-117) U/L Albumin 3.6 2.7 L D 2.2 L (3.4-5.0) g/dL 06/15/18 Range/Units 14:30 Total Bilirubin 1.2 H (0.2-1.0) mg/dL Direct Bilirubin (0.0-0.2) mg/dL AST 127 H (15-37) U/L ALT 44 (12-78) U/L Alkaline Phosphatase 37 L (45-117) U/L Albumin 2.0 L (3.4-5.0) g/dL <Gunjan Simms - 06/15/18 17:01> Abnormal lab results 06/14/18 06/14/18 06/14/18 Range/Units 09:15 09:15 15:00 WBC (4.0-11.0) th/mm3 RBC (4.50-5.90) mil/mm3 Hgb (13.0-17.0) gm/dL Hct (39.0-51.0) % Neut % (Auto) (16.0-70.0) % [place] % (Auto) (0.0-8.0) % Neut # (Auto) (1.8-7.7) th/mm3 [place] # (Auto) (0.0-0.9) th/mm3 Band Neuts % (Manual) (0-6) % Lymphocytes % (Manual) (9-44) % Abs Neuts (Manual) (1.8-7.7) th/mm3 Toxic Granulation (None) PT (9.8-11.6) sec Sodium (136-145) meq/L Chloride (98-107) meq/L Carbon Dioxide (21.0-32.0) meq/L Anion Gap (5-15) meq/L BUN (7-18) mg/dL Creatinine (0.60-1.30) mg/dL Estimated GFR (>89) mL/min Calcium (8.5-10.1) mg/dL Total Bilirubin 1.5 H (0.2-1.0) mg/dL Indirect Bilirubin 1.3 H (0.0-0.8) mg/dL AST 40 H (15-37) U/L Alkaline Phosphatase (45-117) U/L Total Creatine Kinase 374 H (39-308) U/L CK-MB (CK-2) 4.1 H (0.5-3.6) ng/mL Troponin I Less than 0.02 L (0.02-0.05) ng/mL Total Protein 6.0 L (6.4-8.2) g/dL Albumin (3.4-5.0) g/dL Salicylates (2.8-20.0) mg/dL Acetaminophen (10.0-30.0) mcg/mL Ur Amphetamine Screen (Neg) U Cannabinoids Screen (Neg) Hep C IgG Ab (Nonreactive) 06/14/18 06/14/18 06/14/18 Range/Units 15:00 15:00 15:50 WBC (4.0-11.0) th/mm3 RBC (4.50-5.90) mil/mm3 Hgb (13.0-17.0) gm/dL Hct (39.0-51.0) % Neut % (Auto) (16.0-70.0) % [place] % (Auto) (0.0-8.0) % Neut # (Auto) (1.8-7.7) th/mm3 [place] # (Auto) (0.0-0.9) th/mm3 Band Neuts % (Manual) (0-6) % Lymphocytes % (Manual) (9-44) % Abs Neuts (Manual) (1.8-7.7) th/mm3 Toxic Granulation (None) PT (9.8-11.6) sec Sodium (136-145) meq/L Chloride (98-107) meq/L Carbon Dioxide (21.0-32.0) meq/L Anion Gap (5-15) meq/L BUN (7-18) mg/dL Creatinine (0.60-1.30) mg/dL Estimated GFR (>89) mL/min Calcium (8.5-10.1) mg/dL Total Bilirubin (0.2-1.0) mg/dL Indirect Bilirubin (0.0-0.8) mg/dL AST (15-37) U/L Alkaline Phosphatase (45-117) U/L Total Creatine Kinase (39-308) U/L CK-MB (CK-2) (0.5-3.6) ng/mL Troponin I (0.02-0.05) ng/mL Total Protein (6.4-8.2) g/dL Albumin (3.4-5.0) g/dL Salicylates Less than 1.7 L (2.8-20.0) mg/dL Acetaminophen 4.9 L (10.0-30.0) mcg/mL Ur Amphetamine Screen (Neg) U Cannabinoids Screen (Neg) Hep C IgG Ab Reactive H (Nonreactive) 06/14/18 06/14/18 06/15/18 Range/Units 17:25 20:40 02:42 WBC (4.0-11.0) th/mm3 RBC 6.68 H 6.86 H (4.50-5.90) mil/mm3 Hgb 19.3 H D 20.3 H (13.0-17.0) gm/dL Hct 57.3 H 58.2 H (39.0-51.0) % Neut % (Auto) 75.7 H 78.2 H (16.0-70.0) % [place] % (Auto) 9.1 H (0.0-8.0) % Neut # (Auto) 8.6 H (1.8-7.7) th/mm3 [place] # (Auto) (0.0-0.9) th/mm3 Band Neuts % (Manual) (0-6) % Lymphocytes % (Manual) (9-44) % Abs Neuts (Manual) (1.8-7.7) th/mm3 Toxic Granulation (None) PT (9.8-11.6) sec Sodium (136-145) meq/L Chloride (98-107) meq/L Carbon Dioxide (21.0-32.0) meq/L Anion Gap (5-15) meq/L BUN (7-18) mg/dL Creatinine (0.60-1.30) mg/dL Estimated GFR (>89) mL/min Calcium (8.5-10.1) mg/dL Total Bilirubin (0.2-1.0) mg/dL Indirect Bilirubin (0.0-0.8) mg/dL AST (15-37) U/L Alkaline Phosphatase (45-117) U/L Total Creatine Kinase (39-308) U/L CK-MB (CK-2) (0.5-3.6) ng/mL Troponin I (0.02-0.05) ng/mL Total Protein (6.4-8.2) g/dL Albumin (3.4-5.0) g/dL Salicylates (2.8-20.0) mg/dL Acetaminophen (10.0-30.0) mcg/mL Ur Amphetamine Screen Pos H (Neg) U Cannabinoids Screen Pos H (Neg) Hep C IgG Ab (Nonreactive) 06/15/18 06/15/18 06/15/18 Range/Units 02:42 02:42 08:52 WBC (4.0-11.0) th/mm3 RBC (4.50-5.90) mil/mm3 Hgb (13.0-17.0) gm/dL Hct (39.0-51.0) % Neut % (Auto) (16.0-70.0) % [place] % (Auto) (0.0-8.0) % Neut # (Auto) (1.8-7.7) th/mm3 [place] # (Auto) (0.0-0.9) th/mm3 Band Neuts % (Manual) (0-6) % Lymphocytes % (Manual) (9-44) % Abs Neuts (Manual) (1.8-7.7) th/mm3 Toxic Granulation (None) PT 15.5 H (9.8-11.6) sec Sodium 147 H (136-145) meq/L Chloride 112 H 114 H (98-107) meq/L Carbon Dioxide 16.6 L D 16.1 L (21.0-32.0) meq/L Anion Gap 16 H 17 H (5-15) meq/L BUN 28 H 39 H (7-18) mg/dL Creatinine 1.75 H 2.46 H (0.60-1.30) mg/dL Estimated GFR 47 L 32 L (>89) mL/min Calcium 7.8 L 7.5 L (8.5-10.1) mg/dL Total Bilirubin 1.9 H 1.4 H (0.2-1.0) mg/dL Indirect Bilirubin (0.0-0.8) mg/dL AST 63 H 137 H (15-37) U/L Alkaline Phosphatase 41 L (45-117) U/L Total Creatine Kinase 8857 H (39-308) U/L CK-MB (CK-2) 18.9 H (0.5-3.6) ng/mL Troponin I (0.02-0.05) ng/mL Total Protein 5.4 L D 4.6 L D (6.4-8.2) g/dL Albumin 2.7 L D 2.2 L (3.4-5.0) g/dL Salicylates (2.8-20.0) mg/dL Acetaminophen (10.0-30.0) mcg/mL Ur Amphetamine Screen (Neg) U Cannabinoids Screen (Neg) Hep C IgG Ab (Nonreactive) 06/15/18 Range/Units 08:52 WBC 13.6 H (4.0-11.0) th/mm3 RBC 6.00 H (4.50-5.90) mil/mm3 Hgb 17.4 H D (13.0-17.0) gm/dL Hct 52.4 H (39.0-51.0) % Neut % (Auto) 82.1 H (16.0-70.0) % [place] % (Auto) 8.5 H (0.0-8.0) % Neut # (Auto) 11.2 H (1.8-7.7) th/mm3 [place] # (Auto) 1.2 H (0.0-0.9) th/mm3 Band Neuts % (Manual) 65 H (0-6) % Lymphocytes % (Manual) 4 L (9-44) % Abs Neuts (Manual) 12.9 H (1.8-7.7) th/mm3 Toxic Granulation 2+ H (None) PT (9.8-11.6) sec Sodium (136-145) meq/L Chloride (98-107) meq/L Carbon Dioxide (21.0-32.0) meq/L Anion Gap (5-15) meq/L BUN (7-18) mg/dL Creatinine (0.60-1.30) mg/dL Estimated GFR (>89) mL/min Calcium (8.5-10.1) mg/dL Total Bilirubin (0.2-1.0) mg/dL Indirect Bilirubin (0.0-0.8) mg/dL AST (15-37) U/L Alkaline Phosphatase (45-117) U/L Total Creatine Kinase (39-308) U/L CK-MB (CK-2) (0.5-3.6) ng/mL Troponin I (0.02-0.05) ng/mL Total Protein (6.4-8.2) g/dL Albumin (3.4-5.0) g/dL Salicylates (2.8-20.0) mg/dL Acetaminophen (10.0-30.0) mcg/mL Ur Amphetamine Screen (Neg) U Cannabinoids Screen (Neg) Hep C IgG Ab (Nonreactive) Short CBC 06/14/18 06/15/18 06/15/18 Range/Units 20:40 02:42 08:52 WBC 7.7 11.0 13.6 H (4.0-11.0) th/mm3 Hgb 19.3 H D 20.3 H 17.4 H D (13.0-17.0) gm/dL Hct 57.3 H 58.2 H 52.4 H (39.0-51.0) % Plt Count 316 350 313 (150-450) th/mm3 BMP 06/15/18 06/15/18 02:42 08:52 Sodium 145 147 H Potassium 4.7 D 4.6 Chloride 112 H 114 H Carbon Dioxide 16.6 L D 16.1 L BUN 28 H 39 H Creatinine 1.75 H 2.46 H Calcium 7.8 L 7.5 L Cardiac Enzymes 06/14/18 06/14/18 06/15/18 Range/Units 09:15 15:00 08:52 Total Creatine Kinase 374 H 8857 H (39-308) U/L CK-MB (CK-2) 4.1 H 18.9 H (0.5-3.6) ng/mL Troponin I Less than 0.02 L (0.02-0.05) ng/mL Liver Function 06/14/18 06/15/18 06/15/18 Range/Units 09:15 02:42 08:52 Total Bilirubin 1.5 H 1.9 H 1.4 H (0.2-1.0) mg/dL Direct Bilirubin 0.2 (0.0-0.2) mg/dL AST 40 H 63 H 137 H (15-37) U/L ALT 42 38 46 (12-78) U/L Alkaline Phosphatase 65 49 41 L (45-117) U/L Albumin 3.6 2.7 L D 2.2 L (3.4-5.0) g/dL <Yanique Zepeda U - 06/15/18 11:12> - Imaging Impressions Abdomen X-Ray 06/14/18 00:00 CONCLUSION: 1. No radiopaque foreign body is noted. 2. No bowel obstruction, ileus or perforation. Chest X-Ray 06/14/18 00:00 CONCLUSION: Negative examination. Chest X-Ray 06/15/18 00:00 CONCLUSION: Status post interval intubation with the tip of the endotracheal tube just above the level of the clavicles. The lungs are clear. Head CT 06/15/18 00:00 CONCLUSION: 1. Negative CT Head non contrast. . Abdomen/Pelvis CT 06/15/18 08:46 CONCLUSION: 1. Pneumoperitoneum with diffusely thickened fluid-filled small bowel and moderate amount of ascites. 2. Small bilateral pleural effusions. 3. I spoke with the clinical team concerning the findings. Chest X-Ray 06/15/18 16:23 CONCLUSION: Stable endotracheal tube with the tip just above the level of the clavicles. New right-sided central line which terminates within the mid SVC. <Gunjan Simms - 06/15/18 17:01> Impressions Abdomen X-Ray 06/14/18 00:00 CONCLUSION: 1. No radiopaque foreign body is noted. 2. No bowel obstruction, ileus or perforation. Chest X-Ray 06/14/18 00:00 CONCLUSION: Negative examination. <Yanique Zepeda U - 06/15/18 11:49> Physical Exam Vital signs: Vital Signs 06/14/18 17:54 06/14/18 17:56 06/14/18 20:00 Temperature 98.9 F 98 F Pulse Rate 130 H 123 H 129 H Respiratory Rate 18 43 H Blood Pressure 119/75 169/89 H 109/75 Pulse Oximetry 99 06/14/18 21:00 06/14/18 22:00 06/14/18 23:00 Temperature Pulse Rate 132 H 124 H 126 H Respiratory Rate 41 H 35 H 32 H Blood Pressure 105/63 98/66 L 121/67 Pulse Oximetry 98 98 98 06/14/18 23:25 06/15/18 00:00 06/15/18 01:00 Temperature 98 F Pulse Rate 125 H 127 H Respiratory Rate 30 H 44 H Blood Pressure 129/76 123/81 Pulse Oximetry 98 99 99 06/15/18 02:00 06/15/18 03:00 06/15/18 03:34 Temperature Pulse Rate 125 H 124 H Respiratory Rate 50 H 46 H Blood Pressure 137/64 111/58 L Pulse Oximetry 99 99 98 06/15/18 04:00 06/15/18 05:00 06/15/18 06:00 Temperature Pulse Rate 126 H 128 H 128 H Respiratory Rate 47 H 39 H 45 H Blood Pressure 136/60 137/92 H 114/70 Pulse Oximetry 96 98 98 06/15/18 07:00 06/15/18 08:00 06/15/18 09:00 Temperature 98.3 F Pulse Rate 128 H 135 H 124 H Respiratory Rate 45 H 49 H 38 H Blood Pressure 114/70 107/76 99/71 L Pulse Oximetry 99 97 97 06/15/18 09:29 06/15/18 09:42 06/15/18 10:00 Temperature Pulse Rate 125 H 123 H 122 H Respiratory Rate 38 H 40 H 38 H Blood Pressure 98/65 L Pulse Oximetry 98 98 95 06/15/18 10:09 06/15/18 11:00 06/15/18 11:07 Temperature Pulse Rate 123 H 122 H 120 H Respiratory Rate 37 H 37 H 38 H Blood Pressure 98/74 L 82/58 L Pulse Oximetry 98 98 97 06/15/18 15:18 Temperature Pulse Rate Respiratory Rate 24 Blood Pressure Pulse Oximetry 98 Intake & Output 06/14/18 06/15/18 06/15/18 18:59 06:59 18:59 Intake Total 1000 / 1000 1100 / 1100 100 / 100 Output Total 300 / 300 100 / 100 Balance 700 / 700 1000 / 1000 100 / 100 Weight 79.379 kg 68 kg Intake: IV 1000 / 1000 1100 / 1100 100 / 100 Precedex Inj 200 MCG In NS Inj 100 / 100 48 ML @ 0.2 MCG/KG/HR 3.4 mls/ hr IV.CONT TITRATE PRN Rx#: [id number] Protonix Inj 80 MG In NS Inj 100 / 100 100 ML @ 10 mls/hr IV.CONT CONT [facility] Rx#:[id number] NS Inj 1,000 ML @ 120 mls/hr IV 1000 / 1000 .CONT .Q8H20M [facility] Rx#:[id number] NS Inj 1,000 ML @ Wide Open IV. 1000 / 1000 SIG BOLUS ONE Rx#:[id number] Output: Urine 300 / 300 Urine Amount (Catheter) 100 / 100 Indwelling Urethral Catheter 100 / 100 <Marisol Simmse - 06/15/18 17:01> Vital Signs 06/14/18 12:45 06/14/18 12:51 06/14/18 14:10 Temperature Pulse Rate 121 H 121 H Respiratory Rate 16 25 H Blood Pressure 204/139 H 231/95 H Pulse Oximetry 95 95 95 06/14/18 14:15 06/14/18 17:54 06/14/18 17:56 Temperature 98.9 F Pulse Rate 110 H 130 H 123 H Respiratory Rate 18 18 Blood Pressure 129/75 119/75 169/89 H Pulse Oximetry 06/14/18 20:00 06/14/18 21:00 06/14/18 22:00 Temperature 98 F Pulse Rate 129 H 132 H 124 H Respiratory Rate 43 H 41 H 35 H Blood Pressure 109/75 105/63 98/66 L Pulse Oximetry 99 98 98 06/14/18 23:00 06/14/18 23:25 06/15/18 00:00 Temperature 98 F Pulse Rate 126 H 125 H Respiratory Rate 32 H 30 H Blood Pressure 121/67 129/76 Pulse Oximetry 98 98 99 06/15/18 01:00 06/15/18 02:00 06/15/18 03:00 Temperature Pulse Rate 127 H 125 H 124 H Respiratory Rate 44 H 50 H 46 H Blood Pressure 123/81 137/64 111/58 L Pulse Oximetry 99 99 99 06/15/18 03:34 06/15/18 04:00 06/15/18 05:00 Temperature Pulse Rate 126 H 128 H Respiratory Rate 47 H 39 H Blood Pressure 136/60 137/92 H Pulse Oximetry 98 96 98 06/15/18 06:00 06/15/18 07:00 06/15/18 08:00 Temperature 98.3 F Pulse Rate 128 H 128 H 135 H Respiratory Rate 45 H 45 H 49 H Blood Pressure 114/70 114/70 107/76 Pulse Oximetry 98 99 97 06/15/18 09:00 06/15/18 09:29 06/15/18 09:42 Temperature Pulse Rate 124 H 125 H 123 H Respiratory Rate 38 H 38 H 40 H Blood Pressure 99/71 L 98/65 L Pulse Oximetry 97 98 98 06/15/18 10:00 06/15/18 10:09 Temperature Pulse Rate 122 H 123 H Respiratory Rate 38 H 37 H Blood Pressure 98/74 L Pulse Oximetry 95 98 Intake & Output 06/14/18 06/15/18 06/15/18 18:59 06:59 18:59 Intake Total 1000 / 1000 1100 / 1100 50 / 50 Output Total 300 / 300 100 / 100 Balance 700 / 700 1000 / 1000 50 / 50 Weight 79.379 kg 68 kg Intake: IV 1000 / 1000 1100 / 1100 50 / 50 Precedex Inj 200 MCG In NS Inj 50 / 50 48 ML @ 0.2 MCG/KG/HR 3.4 mls/ hr IV.CONT TITRATE PRN Rx#: [id number] Protonix Inj 80 MG In NS Inj 100 / 100 100 ML @ 10 mls/hr IV.CONT CONT [facility] Rx#:[id number] NS Inj 1,000 ML @ 120 mls/hr IV 1000 / 1000 .CONT .Q8H20M [facility] Rx#:[id number] NS Inj 1,000 ML @ Wide Open IV. 1000 / 1000 SIG BOLUS ONE Rx#:[id number] Output: Urine 300 / 300 Urine Amount (Catheter) 100 / 100 Indwelling Urethral Catheter 100 / 100 <Yanique Zepeda - 06/15/18 11:12> Narrative: Gen: Patient lying in bed, trashing around, acutely altered, responded to some commands like to open eyes Skin: Warm and dry CV: Tachycardic rate and normal rhythm Resp: CTAB, unlabored breathing but the kidney Abd: Moderately firm to palpation, hypoactive bowel sounds Ext: No cyanosis or edema, calves nontender to palpation Neuro/psych: Not oriented 3 <Yanique Zepeda - 06/15/18 12:25> - Urinary Catheter Management Indwelling Urethral Catheter Cath placed during this visit: no <Gunjan Simms - 06/15/18 17:01> no <Yanique Zepeda - 06/15/18 12:27> Assessment and Plan - Assessment (1) Overdose Code(s): T50.901A - Poisoning by unspecified drugs, medicaments and biological substances, accidental (unintentional), initial encounter Status: Acute (2) Rhabdomyolysis Code(s): M62.82 - Rhabdomyolysis Status: Acute (3) ARMANI (acute kidney injury) Code(s): N17.9 - Acute kidney failure, unspecified Status: Acute (4) Gastritis Code(s): K29.70 - Gastritis, unspecified, without bleeding Status: Acute (5) Weight loss Code(s): R63.4 - Abnormal weight loss Status: Acute (6) IVDU (intravenous drug user) Code(s): F19.90 - Other psychoactive substance use, unspecified, uncomplicated Status: Acute (7) Nutrition, metabolism, and development symptoms Code(s): R63.8 - Other symptoms and signs concerning food and fluid intake Status: Acute (8) DVT prophylaxis Status: Acute <DemiGunjan - 06/15/18 17:01> (1) Overdose Code(s): T50.901A - Poisoning by unspecified drugs, medicaments and biological substances, accidental (unintentional), initial encounter Status: Acute Plan: -Mild leukocytosis at 13.6 likely acute reactant -OB\psych drug screen positive for amphetamine and cannabinoids, negative for opiates, other metabolites are pending PENDING -Serum alcohol and aspirin NEGATIVE -Sitter ordered -Ballast Regulator Operator consulted -appreciate help management * Started on Precedex drip for agitation * CT abdomen and pelvis pending * CT head without contrast to rule out acute intracranial process * Lactic acid level pending * Continuous monitoring of heart rate and BP, maintain map greater than 65 mmHg * Maintain oxygen saturation above 92% * Monitor CBC and coags, INR 1 was 1.5 this morning * Start D5 half-normal saline at 100 mL/h (2) Rhabdomyolysis Code(s): M62.82 - Rhabdomyolysis Status: Acute Plan: -CK 374 on admission -Increase to 8857 today -Currently on bicarb drip with dextrose at 125 mL's per hour -Continue IV hydration (3) ARMANI (acute kidney injury) Code(s): N17.9 - Acute kidney failure, unspecified Status: Acute Plan: -Creatinine 1.75 this a.m with anion gap of 16 -Concerning for metabolic acidosis -Continue bicarb drip as above -Avoid nephrotoxic substances (4) Gastritis Code(s): K29.70 - Gastritis, unspecified, without bleeding Status: Acute Plan: -NGT placed overnight due to recurrent coffee ground emesis -Continue Protonix drip -Continue NPO -Gastroenterology on board, appreciate recommendations * Will perform EGD when patient is stable * Reevaluate within the next 24 hours (5) Weight loss Code(s): R63.4 - Abnormal weight loss Status: Acute Plan: Patient has had a significant weight loss in the past month according to patient 's significant other. Gastritis versus drug use versus hepatitis versus immunodeficiency (HIV). -Supportive care -Continue fluids until patient is able to tolerate diet by mouth -Hepatitis panel positive for hepatitis C antibody -We will discuss HIV testing when patient is able to consent (6) IVDU (intravenous drug user) Code(s): F19.90 - Other psychoactive substance use, unspecified, uncomplicated Status: Acute Plan: Patient with a history of IV drug use -Blood cultures no growth in 1 day -Hepatitis panel positive for hep C -Case management consult to help with possible rehab placement when stable if patient is willing (7) Nutrition, metabolism, and development symptoms Code(s): R63.8 - Other symptoms and signs concerning food and fluid intake Status: Acute Plan: -NPO diet -Continue bicarb drip with dextrose at 125 mL's per hour (8) DVT prophylaxis Status: Acute Plan: -Bilateral SCDs for DVT prophylaxis <Yanique Zepeda - 06/15/18 12:27> - Assessment and Plan Discussed Condition With: Pt's nurse, attending, billet header <Yanique Zepeda [facility] 06/15/18 11:49> Discharge Planning: Pending clinical improvement <Yanique Zepeda [facility] 06/15/18 11:49> - Attending Attestation Patient seen, examined, and discussed with resident team this morning on rounds. I agree with assessment and management as documented and discussed with me. Ballast Regulator Operator consulted this morning to assist with sedation and with clinical worsening. Precedex started. After rounds, CK was resulted, with marked increase in value - nephrology has been consulted for rhabdomyolysis. Additional diagnosis: Hepatitis C: Should patient clinicalyl improve, he is a poor candidate for treatment due to continued drug use. <Gunjan Simms - 06/15/18 17:01> <Eko,Yanique U - Last Filed: 06/15/18 12:27> (4) Gastritis Qualifiers: Gastritis type: unspecified gastritis Chronicity: acute Gastritis bleeding: with bleeding Qualified Code(s): K29.01 - Acute gastritis with bleeding <Vey,Gunjan - Last Filed: 06/15/18 17:01> (4) Gastritis Qualifiers: Gastritis type: unspecified gastritis Chronicity: acute Gastritis bleeding: with bleeding Qualified Code(s): K29.01 - Acute gastritis with bleeding <Eko,Yanique U - Last Filed: 06/15/18 12:27> (4) Gastritis Qualifiers: Gastritis type: unspecified gastritis Chronicity: acute Gastritis bleeding: with bleeding Qualified Code(s): K29.01 - Acute gastritis with bleeding <Vey,Gunjan - Last Filed: 06/15/18 17:01> (4) Gastritis Qualifiers: Gastritis type: unspecified gastritis Chronicity: acute Gastritis bleeding: with bleeding Qualified Code(s): K29.01 - Acute gastritis with bleeding
[2018-06-15] MEDS ORDERED: Sodium Bicarbonate 8.4% Inj 50 MEQ/50 ML Syringe IV.PUSH ONE (12:45)
[2018-06-15] MEDS: Haloperidol Inj 5 MG/ML Ampul IV.PUSH PRN (13:00)
[2018-06-15] MEDS: Insulin NovoLIN Regular Correctional Sugar Inj SQ SCH ×2 (13:01→19:00)
[2018-06-15 13:15] LABS: ABG Base Excess -11.6 mmol/L (-2-2); ABG PCO2 24 mmHg (38-42); ABG PO2 110 mmHG (61-120)
[2018-06-15] MEDS ORDERED: Sodium Bicarbonate 8.4% Inj 100 MEQ in Dextrose 5% in Water Inj 900 ML IV.CONT SCH ×2 (14:00)
[2018-06-15 14:52] LABS: Baso % (Auto) 0.2 % (0.0-2.0); Hematocrit 48.3 % (39.0-51.0); Hemoglobin 16.1 gm/dL (13.0-17.0); Lymph # (Auto) 1.8 th/mm3 (1.0-4.8); Lymph % (Auto) 11.3 % (9.0-44.0); Mean Corpuscular HGB Conc 33.4 % (32.0-36.0); Mean Corpuscular Hemoglobin 29.1 pg (27.0-34.0); Mean Corpuscular Volume 87.1 fL (80.0-100.0); Mono # (Auto) 1.1 th/mm3 (0.0-0.9); Mono % (Auto) 6.8 % (0.0-8.0); Neut # (Auto) 13.1 th/mm3 (1.8-7.7); Neut % (Auto) 81.7 % (16.0-70.0); Platelet Count 316 th/mm3 (150-450); Prothrombin Time 20.1 sec (9.8-11.6); Red Blood Count 5.55 mil/mm3 (4.50-5.90); White Blood Count 16.1 th/mm3 (4.0-11.0)
[2018-06-15] MEDS ORDERED: Vancomycin Inj 1,000 MG in Sodium Chlor 0.9% Inj 250 ML IV.SIG ONE (15:00)
[2018-06-15] MEDS ORDERED: fentaNYL Citrate Inj 100 MCG/2 ML Ampul ONE ×3 (15:08→19:08)
[2018-06-15] MEDS ORDERED: Etomidate Inj 40 MG/20 ML Vial IV.PUSH ONE (15:08)
[2018-06-15] MEDS ORDERED: Dexmedetomidine Inj 200 MCG in Sodium Chlor 0.9% Inj 50 ML IV.CONT PRN (15:30)
[2018-06-15 15:37] LABS: Calcium 7.1 mg/dL (8.5-10.1); Carbon Dioxide 18.9 meq/L (21.0-32.0); Phosphorus 6.3 mg/dL (2.5-4.9); Potassium 4.8 meq/L (3.5-5.1); Total Protein 4.5 g/dL (6.4-8.2)
--- NOTE | 2018-06-15 15:54 | CT ---
EXAM DATE: 06/15/2018 3:49 PM EDT AGE/SEX: 27 years / Male INDICATIONS: Altered mental status. CLINICAL DATA: This is the patient's initial encounter. Patient reports that signs and symptoms have been present for 1 day and indicates a pain score of Nonresponsive. MEDICAL/SURGICAL HISTORY: None. None. RADIATION DOSE: 66.34 CTDI (mGy) COMPARISON: No prior exams available for comparison. TECHNIQUE: CT of the head without contrast. Using automated exposure control and adjustment of the mA and/or kV according to patient size, radiation dose was kept as low as reasonably achievable to ob tain optimal diagnostic quality images. DICOM format image data is available electronically for revi ew and comparison. FINDINGS: Cerebrum: The ventricles are normal for age. No evidence of midline shift, mass lesion, hemorrhage or acute infarction. No extraaxial fluid collections are seen. Posterior Fossa: The cerebellum and brainstem are intact. The 4th ventricle is midline. The cerebe llopontine angle is unremarkable. Extracranial: The visualized portion of the orbits is intact. Skull: The calvaria is intact. No evidence of skull fracture. CONCLUSION: 1. Negative CT Head non contrast. . Electronically signed by: Kishor Funes MD 06/15/2018 3:52 PM EDT
[2018-06-15] MEDS ORDERED: RASS Change Order MISCELLANE ONE (16:00)
--- NOTE | 2018-06-15 16:04 | CT ---
EXAM DATE: 06/15/2018 3:51 PM EDT AGE/SEX: 27 years / Male INDICATIONS: Tender abdomen, evaluate for GI bleed. CLINICAL DATA: This is the patient's initial encounter. Patient reports that signs and symptoms have been present for 1 day and indicates a pain score of Nonresponsive. MEDICAL/SURGICAL HISTORY: None. None. RADIATION DOSE: 6.57 CTDI (mGy) COMPARISON: No prior exams available for comparison. TECHNIQUE: Multiple contiguous axial images were obtained through the abdomen. Images were obtained using multiple row detector helical technique. Using automated exposure control and adjustment of the mA and/or kV according to patient size, radiation dose was kept as low as reasonably achievable to o btain optimal diagnostic quality images. DICOM format image data is available electronically for rev iew and comparison. FINDINGS: Lower Lungs: Small bilateral pleural effusions with associated passive atelectasis.. Liver: The liver has a homogeneous density without space-occupying lesion. There is no dilation of th e biliary tree. Layering high density material within an otherwise normal-appearing gallbladder sugge sting sludge or mildly calcified stones. Spleen: Homogeneous density without enlargement. Pancreas: Unremarkable without mass or calcification. Kidneys: Normal in size and shape. No evidence of mass or hydronephrosis. Adrenal Glands: Unremarkable. Aorta: The aorta and proximal iliac vessels are grossly unremarkable without aneurysmal dilation. Bowel/Mesentery: Pneumoperitoneum is seen. There is a moderate amount of ascitic fluid throughout th e abdomen. A nasogastric tube is seen coiled within the stomach. Diffusely thickened small bowel loop s are seen throughout the abdomen. No significant dilatation of the small bowel loops. The colon is n ormal in appearance. I am not able to clearly identify the appendix.. Abdominal Wall: Intact. Retroperitoneum: No evidence of adenopathy in the retrocrural, para-aortic, or deep pelvic regions. Bladder: A Padilla is present in the urinary bladder totally decompressed.. Reproductive Organs: No abnormal masses or calcifications seen. Inguinal: The inguinal region is unremarkable without evidence of adenopathy. Bony Structures: Unremarkable. CONCLUSION: 1. Pneumoperitoneum with diffusely thickened fluid-filled small bowel and moderate amount of ascites . 2. Small bilateral pleural effusions. 3. I spoke with the clinical team concerning the findings. Electronically signed by: Kishor Funes MD 06/15/2018 4:02 PM EDT
[2018-06-15 16:07] LABS: Lymphocytes 3 % (9-44); Metamyelocytes 10 % (0-1); Monocytes 6 % (0-8); Myelocytes 1 % (0-0); Platelet Estimate Normal (Normal)
--- NOTE | 2018-06-15 16:09 | XR ---
EXAM DATE: 06/15/2018 4:03 PM EDT AGE/SEX: 27 years / Male INDICATIONS: Post intubation. CLINICAL DATA: This is the patient's initial encounter. Patient reports that signs and symptoms have been present for 2 days and indicates a pain score of Nonresponsive. MEDICAL/SURGICAL HISTORY: Non-responsive. Non-responsive. COMPARISON: C, CHEST 1V SINGLE AP, 06/14/2018. . FINDINGS: Single supine portable view of the chest demonstrates interval placement of an endotracheal tube with the tip at the proximal level of the clavicles. There is possible gastric tubing identified along th e midline of the mediastinum. No proximal port is identified. Multiple overlying cardiac leads. Heart size is normal. Lungs are clear. CONCLUSION: Status post interval intubation with the tip of the endotracheal tube just above the level of the cla vicles. The lungs are clear. Electronically signed by: Lubna Thompson MD 06/15/2018 4:08 PM EDT
--- NOTE | 2018-06-15 16:11 | P.CONNP ---
<Syeda Jones - Last Filed: 06/15/18 17:01> History of Present Illness Service: Nephrology Consult date: 06/15/18 Reason for Consult: Acute Renal Failure Primary Care Provider: No Primary Care Physician Family Provider: No Primary Care Physician Chief Complaint: Overdose History of Present Illness: This is a 27 y/o homosexual male with polysubstance disorder who was admitted yesterday following overdose. BP on arrival was 200/139, apparently he was agitated when he was admitted, and has normalized, now slightly low at 80/50s. He was intubated for airway protection. He later developed coffee ground emesis and is being taken to the OR as his abdomen became rigid throughout the day. His creatinine was 0.89 on arrival, has increased gradually to 2.91. He is oliguric. No other PMH reported. Other lab abnormalities include Na 148, CO2 18.9, Lactic acid 6.5. His ABG shows CO2 24, HCO3 13. He is on Levophed and bicarb gtt. The patient is unable to provide any information. Review of Systems unobtainable due to endotracheal tube PMFSH - History History Provided By: Significant Other - Medical / Surgical Hx Neg / Unobtainable Medical Problems Denied: Unable to Obtain Surgical History: Unable to Obtain - Medical History Medical History: Medical History (Last Reviewed 06/14/18 @ 19:17 by Ferny Blount DO) Medical history unknown - Tobacco History Second Hand Smoke Exposure: Yes Tobacco Use In Past 30 Days: Yes Smoking Status: Current every day smoker Tobacco Type: Cigarettes - Alcohol History How Often Do You Have a Drink Containing Alcohol: 2 to 3 times a week - Substance Use Type Methamphetamine Status: Active Route Used: By Mouth Marijuana Status: Active Route Used: Inhalation Other Type: AMY Status: Active Route Used: By Mouth - Travel History Recent Travel in the [place] Within the Last 8 Weeks: No Recent Travel Out of the Country Within the Last 8 Weeks: No - Immunization History Tetanus Immunization: Unable to Assess Hx Influenza Vaccine This Season: Unable to Assess Medications and Allergies Allergies Allergy/AdvReac Type Severity Reaction Status Date / Time isosorbide Allergy Severe THROAT Verified 06/14/18 12:44 SWELLS nitroglycerin Allergy Severe THROAT Verified 06/14/18 12:44 SWELLS nitroprusside sodium Allergy Severe THROAT Verified 06/14/18 12:44 SWELLS sulfite Allergy Severe THROAT Verified 06/14/18 12:44 SWELLS penicillin G AdvReac Severe STS SHOCK, Verified 06/14/18 12:44 RASH Home Medications Medication Instructions Recorded Confirmed Type No Known Home Medications 06/14/18 06/14/18 History Active Medications: Active Medications Acetaminophen (Tylenol) 650 mg PO Q4H PRN PRN Reason: Temp > 100.4 Albuterol (Duoneb Neb (Prn)) 1 ampul NEB Q6HR NEB PRN PRN Reason: DYSPNEA Bisacodyl (Dulcolax Supp) 10 mg RECTAL DAILY PRN PRN Reason: SEVERE CONSITIPATION Dextrose (D50w Vial) 50 ml IV.PUSH UNSCH PRN PRN Reason: PER HYPOGLYCEMIA PROTOCOL Flumazenil (Romazecon Inj) 0.2 mg IV.PUSH Q1M PRN PRN Reason: OVERSEDATION Glucagon (Glucagon Inj) 1 mg OTHER UNSCH PRN PRN Reason: for Hypoglycemia Protocol Haloperidol Lactate (Haldol Inj) 1 mg IV.PUSH Q15M PRN PRN Reason: for severe agitation Last Admin: 06/15/18 13:00 Dose: 1 mg Pantoprazole Sodium 80 mg/ (Sodium Chloride) 100 mls @ 10 mls/hr IV.CONT CONT [facility] Last Admin: 06/15/18 04:30 Dose: 10 mls/hr Sodium Bicarbonate 100 meq/ (Dextrose) 1,000 mls @ 125 mls/hr IV.CONT .Q8H [facility] Vancomycin HCl 1,000 mg/ (Sodium Chloride) 250 mls @ 250 mls/hr IV.SIG ONCE ONE Stop: 06/15/18 15:59 Aztreonam 1,000 mg/ Sodium (Chloride) 100 mls @ 200 mls/hr IV.SIG Q8H [facility] Fentanyl (Fentanyl 10 Mcg/Ml Premix Drip) 2,500 mcg in 250 mls @ 5 mls/hr IV.SIG TITRATE PRN; Protocol PRN Reason: Per Protocol Dexmedetomidine HCl 200 mcg/ (Sodium Chloride) 52 mls @ 3.53 mls/hr IV.CONT TITRATE PRN; Protocol PRN Reason: Per Protocol Metronidazole/Sodium Chloride (Flagyl 500 Mg Inj) 100 mls @ 100 mls/hr IV.SIG Q8H [facility] Insulin Human Regular (Novolin R Correctional Sugar Inj) 0 units SQ Q6HR [facility]; Protocol Last Admin: 06/15/18 13:01 Dose: Not Given Miscellaneous Information (Misc Rass Change Order) 1 each MISCELLANE ONCE ONE Stop: 06/15/18 16:01 Ondansetron HCl (Zofran Inj) 4 mg IV.PUSH Q6H PRN PRN Reason: NAUSEA OR VOMITING Sennosides (Senokot) 17.2 mg PO Q12H PRN PRN Reason: Moderate Constipation Exam Vital signs: Vital Signs 06/14/18 17:54 06/14/18 17:56 06/14/18 20:00 Temperature 98.9 F 98 F Pulse Rate 130 H 123 H 129 H Respiratory Rate 18 43 H Blood Pressure 119/75 169/89 H 109/75 Pulse Oximetry 99 06/14/18 21:00 06/14/18 22:00 06/14/18 23:00 Temperature Pulse Rate 132 H 124 H 126 H Respiratory Rate 41 H 35 H 32 H Blood Pressure 105/63 98/66 L 121/67 Pulse Oximetry 98 98 98 06/14/18 23:25 06/15/18 00:00 06/15/18 01:00 Temperature 98 F Pulse Rate 125 H 127 H Respiratory Rate 30 H 44 H Blood Pressure 129/76 123/81 Pulse Oximetry 98 99 99 06/15/18 02:00 06/15/18 03:00 06/15/18 03:34 Temperature Pulse Rate 125 H 124 H Respiratory Rate 50 H 46 H Blood Pressure 137/64 111/58 L Pulse Oximetry 99 99 98 06/15/18 04:00 06/15/18 05:00 06/15/18 06:00 Temperature Pulse Rate 126 H 128 H 128 H Respiratory Rate 47 H 39 H 45 H Blood Pressure 136/60 137/92 H 114/70 Pulse Oximetry 96 98 98 06/15/18 07:00 06/15/18 08:00 06/15/18 09:00 Temperature 98.3 F Pulse Rate 128 H 135 H 124 H Respiratory Rate 45 H 49 H 38 H Blood Pressure 114/70 107/76 99/71 L Pulse Oximetry 99 97 97 06/15/18 09:29 06/15/18 09:42 06/15/18 10:00 Temperature Pulse Rate 125 H 123 H 122 H Respiratory Rate 38 H 40 H 38 H Blood Pressure 98/65 L Pulse Oximetry 98 98 95 06/15/18 10:09 06/15/18 11:00 06/15/18 11:07 Temperature Pulse Rate 123 H 122 H 120 H Respiratory Rate 37 H 37 H 38 H Blood Pressure 98/74 L 82/58 L Pulse Oximetry 98 98 97 06/15/18 15:18 Temperature Pulse Rate Respiratory Rate 24 Blood Pressure Pulse Oximetry 98 Intake & Output 06/14/18 06/15/18 06/15/18 18:59 06:59 18:59 Intake Total 1000 / 1000 1100 / 1100 100 / 100 Output Total 300 / 300 100 / 100 Balance 700 / 700 1000 / 1000 100 / 100 Weight 79.379 kg 68 kg Intake: IV 1000 / 1000 1100 / 1100 100 / 100 Precedex Inj 200 MCG In NS Inj 100 / 100 48 ML @ 0.2 MCG/KG/HR 3.4 mls/ hr IV.CONT TITRATE PRN Rx#: [id number] Protonix Inj 80 MG In NS Inj 100 / 100 100 ML @ 10 mls/hr IV.CONT CONT [facility] Rx#:[id number] NS Inj 1,000 ML @ 120 mls/hr IV 1000 / 1000 .CONT .Q8H20M [facility] Rx#:[id number] NS Inj 1,000 ML @ Wide Open IV. 1000 / 1000 SIG BOLUS ONE Rx#:[id number] Output: Urine 300 / 300 Urine Amount (Catheter) 100 / 100 Indwelling Urethral Catheter 100 / 100 - Constitutional no acute distress, thin Comments: intubated, unresponsive thin ill appearing young male patient. - Routine HEENT Exam Head: Present: normocephalic - Routine Neck Exam Present: supple, full ROM - Routine Respiratory Exam Present: patient mechanically ventilated, CTA bilaterally - Routine Cardiovascular Exam Present: RRR, S1, S2 - Routine Abdominal Exam Present: soft, normoactive bowel sounds - Routine Extremities Exam Present: full ROM, pulses intact. Absent: edema - Routine Skin Exam Present: intact, dry, warm - Routine Neurological Exam sedated on vent - Detailed Neurological Exam: Coma Scale Eye Opening: To pressure Verbal Response: None Motor Response: Abnormal flexion Teresa Coma Scale Total: 6 - Routine Psychiatric Exam Present: unable to assess Results - Lab Results 06/15/18 14:30 06/15/18 14:30 Most recent lab results ABG pH 7.36 (7.380-7.420) L 06/15/18 12:20 ABG pCO2 24 mmHg (38-42) L* 06/15/18 12:20 ABG pO2 110 mmHG (61-120) 06/15/18 12:20 ABG HCO3 13 mmol/L (22-26) L* 06/15/18 12:20 Calcium 7.1 mg/dL (8.5-10.1) L* 06/15/18 14:30 Phosphorus 6.3 mg/dL (2.5-4.9) H 06/15/18 14:30 Magnesium 2.0 mg/dL (1.5-2.5) 06/15/18 14:30 - Image Kidney/bladder ultrasound: pending Assessment and Plan - Assessment (1) ARMANI (acute kidney injury) Code(s): N17.9 - Acute kidney failure, unspecified Status: Acute Plan: Normal renal function at baseline ARMANI may be due to renal hypoperfusion secondary to rapid lowering of BP. Possibly sepsis. May have progressed to ATN. In addition his CPK is elevated, early rhabdomyolysis is on the differential. He has severe metabolic acidosis, on bicarb gtt (D5W with 100 mEq at 125cc/hr) His urine output is marginal. Obtain UA. Obtain renal US. Monitor labs daily including CPK. Avoid nephrotoxic agents. He may need dialysis if no improvement. (2) Upper GI bleed Code(s): K92.2 - Gastrointestinal hemorrhage, unspecified Status: Acute Plan: On Protonix gtt Monitor Hb, transfuse if needed. going to OR now. (3) Substance abuse Code(s): F19.10 - Other psychoactive substance abuse, uncomplicated Status: Acute Plan: May need psych evaluation Cessation will be discussed. <Kartik Garcia - Last Filed: 06/16/18 20:55> History of Present Illness Primary Care Provider: No Primary Care Physician Family Provider: No Primary Care Physician [facility] - Medical History Medical History: Medical History (Last Reviewed 06/14/18 @ 19:17 by Ferny Blount DO) Medical history unknown Medications and Allergies Active Medications: Active Medications Acetaminophen (Tylenol) 650 mg PO Q4H PRN PRN Reason: Temp > 100.4 Albuterol (Duoneb Neb (Prn)) 1 ampul NEB Q6HR NEB PRN PRN Reason: DYSPNEA Bisacodyl (Dulcolax Supp) 10 mg RECTAL DAILY PRN PRN Reason: SEVERE CONSITIPATION Dextrose (D50w Vial) 50 ml IV.PUSH UNSCH PRN PRN Reason: PER HYPOGLYCEMIA PROTOCOL Flumazenil (Romazecon Inj) 0.2 mg IV.PUSH Q1M PRN PRN Reason: OVERSEDATION Flumazenil (Romazecon Inj) 0.2 mg IV.PUSH Q1M PRN PRN Reason: OVERSEDATION Glucagon (Glucagon Inj) 1 mg OTHER UNSCH PRN PRN Reason: for Hypoglycemia Protocol Haloperidol Lactate (Haldol Inj) 1 mg IV.PUSH Q15M PRN PRN Reason: for severe agitation Last Admin: 06/15/18 13:00 Dose: 1 mg Haloperidol Lactate (Haldol Inj) 1 mg IV.PUSH Q15M PRN PRN Reason: for severe agitation Heparin Sodium (Porcine) (Heparin Inj) 5,[address] [facility] Last Admin: 06/16/18 15:51 Dose: 5,000 units Aztreonam 1,000 mg/ Sodium (Chloride) 100 mls @ 200 mls/hr IV.SIG Q8H [facility] Last Infusion: 06/16/18 17:54 Dose: Infused Fentanyl (Fentanyl 10 Mcg/Ml Premix Drip) 2,500 mcg in 250 mls @ 5 mls/hr IV.SIG TITRATE PRN; Protocol PRN Reason: Per Protocol Last Admin: 06/16/18 15:40 Dose: 100 mcg/hr, 10 mls/hr Metronidazole/Sodium Chloride (Flagyl 500 Mg Inj) 100 mls @ 100 mls/hr IV.SIG Q8H [facility] Last Infusion: 06/16/18 17:54 Dose: Infused Pantoprazole Sodium 80 mg/ (Sodium Chloride) 100 mls @ 10 mls/hr IV.CONT Q10H [facility] Last Admin: 06/16/18 20:28 Dose: 10 mls/hr Phenylephrine HCl 40 mg/ (Dextrose) 500 mls @ 30 mls/hr IV.CONT TITRATE PRN; Protocol PRN Reason: Per Protocol Last Titration: 06/16/18 15:48 Dose: 50 mcg/min, 37.5 mls/hr Fluconazole (Diflucan 400 Mg Premix Bag) 200 mls @ 100 mls/hr IV.SIG Q24H [facility] Sodium Chloride (1/2 Normal Saline Inj) 1,000 mls @ 100 mls/hr IV.CONT .Q10H [facility] Last Admin: 06/16/18 13:15 Dose: 100 mls/hr Dexmedetomidine HCl 1,000 mcg/ (Sodium Chloride) 250 mls @ 3.4 mls/hr IV.CONT TITRATE PRN; Protocol PRN Reason: Per Protocol Last Titration: 06/16/18 13:23 Dose: 1.3 mcg/kg/hr, 22.1 mls/hr Insulin Human Regular (Novolin R Correctional Sugar Inj) 0 units SQ Q6HR [facility]; Protocol Last Admin: 06/15/18 19:00 Dose: Not Given Lorazepam (Ativan) 1 mg PO Q4H PRN PRN Reason: for CIWA 8-10 Lorazepam (Ativan) 2 mg PO Q2H PRN PRN Reason: for CIWA 11-14 Lorazepam (Ativan Inj) 2 mg IV.PUSH Q1H PRN PRN Reason: for CIWA 15-20 Last Admin: 06/16/18 10:30 Dose: 2 mg Lorazepam (Ativan Inj) 2 mg IV.PUSH Q15M PRN PRN Reason: for CIWA > 20 Lorazepam (Ativan Inj) 1 mg IV.PUSH Q4H PRN PRN Reason: for CIWA 8-10 Lorazepam (Ativan Inj) 2 mg IV.PUSH Q2H PRN PRN Reason: for CIWA 11-14 Miscellaneous Information ([facility] Ordered Lab Info) 0 each OTHER ONCE ONE Stop: 06/17/18 23:46 Ondansetron HCl (Zofran Inj) 4 mg IV.PUSH Q6H PRN PRN Reason: NAUSEA OR VOMITING Sennosides (Senokot) 17.2 mg PO Q12H PRN PRN Reason: Moderate Constipation Terbutaline Sulfate (Brethine Inj) 1 mg SQ UNSCH PRN PRN Reason: For Extravasation Exam Vital signs: Vital Signs 06/15/18 21:00 06/15/18 21:30 06/15/18 22:00 Temperature 96.4 F L 96.4 F L 96.4 F L Pulse Rate 112 H 110 H 116 H Respiratory Rate 16 16 16 Blood Pressure 88/53 L 87/51 L 92/54 L Pulse Oximetry 100 99 99 06/15/18 22:30 06/15/18 22:45 06/16/18 00:00 Temperature 97.6 F 97.6 F 100.0 F H Pulse Rate 119 H 122 H 132 H Respiratory Rate 16 16 16 Blood Pressure 92/50 L 100/49 L 95/42 L Pulse Oximetry 99 99 97 06/16/18 00:32 06/16/18 04:00 06/16/18 07:58 Temperature 99.7 F H Pulse Rate 96 H Respiratory Rate 16 16 16 Blood Pressure 108/54 L Pulse Oximetry 95 95 96 06/16/18 08:00 06/16/18 10:00 06/16/18 10:26 Temperature 97.8 F Pulse Rate 84 80 Respiratory Rate 16 22 Blood Pressure 120/60 Pulse Oximetry 96 97 06/16/18 12:00 06/16/18 13:20 06/16/18 14:00 Temperature 98.3 F Pulse Rate 81 76 Respiratory Rate 16 16 Blood Pressure 104/57 L Pulse Oximetry 99 100 06/16/18 16:00 06/16/18 16:20 06/16/18 20:43 Temperature 98.0 F Pulse Rate 77 Respiratory Rate 16 16 16 Blood Pressure 98/52 L Pulse Oximetry 99 99 96 Intake & Output 06/16/18 06/16/18 06/17/18 06:59 18:59 06:59 Intake Total 2250 / 2250 3512.5 / 3512.5 100 / 100 Output Total 1920 / 1920 2240 / 2240 Balance 330 / 330 1272.5 / 1272.5 100 / 100 Weight 66.9 kg Intake: IV 2250 / 2250 2512.5 / 2512.5 100 / 100 Precedex Inj 200 MCG In NS Inj 50 / 50 48 ML @ 0.2 MCG/KG/HR 3.4 mls/ hr IV.CONT TITRATE PRN Rx#: [id number] Protonix Inj 80 MG In NS Inj 100 / 100 100 ML @ 10 mls/hr IV.CONT Q10H [facility] Rx#:[id number] Neosynephrine Inj 40 MG In D5W 1000 / 1000 Inj 496 ML @ 40 MCG/MIN 30 mls/ hr IV.CONT TITRATE PRN Rx#: [id number] Sodium Bicarbonate 8.4% Inj 150 400 / 400 MEQ In D5W Inj 850 ML @ 125 mls/hr IV.CONT .Q8H [facility] Rx#: [id number] Azactam Inj 1,000 MG In NS Inj 100 / 100 200 / 200 100 ML @ 200 mls/hr IV.SIG Q8H [facility] Rx#:[id number] Diflucan 400 mg Premix Bag 200 200 / 200 ML @ 100 mls/hr IV.SIG ONCE ONE Rx#:[id number] LR 1000 mL Inj 1,000 ML @ 999 2000 / 2000 mls/hr IV.SIG .Q1H1M [facility] Rx#: [id number] Vancomycin Inj 1,250 MG In NS 262.5 / 262.5 Inj 250 ML @ 250 mls/hr IV.SIG Q18H [facility] Rx#:[id number] fentaNYL 10 mcg/mL Premix Drip 250 / 250 2,500 mcg In 250 ml @ 50 MCG/HR 5 mls/hr IV.SIG TITRATE PRN Rx #:[id number] Flagyl 500 MG Inj 100 ML @ 100 100 / 100 200 / 200 mls/hr IV.SIG Q8H [facility] Rx#: [id number] Other 1000 / 1000 Output: Urine Amount (Catheter) 1300 / 1300 1100 / 1100 Indwelling Urethral Catheter 1300 / 1300 1100 / 1100 Gastric Drainage 400 / 400 300 / 300 Left Nare Nasogastric Tube 400 / 400 300 / 300 Wound Drainage 220 / 220 840 / 840 # 1 Left Lateral Abdomen 110 / 110 660 / 660 # 2 Abdomen Db 110 / 110 180 / 180 Other: # Bowel Movements 0 Results - Lab Results 06/16/18 13:55 06/16/18 05:10 Most recent lab results ABG pH 7.41 (7.380-7.420) 06/16/18 02:34 ABG pCO2 40 mmHg (38-42) 06/16/18 02:34 ABG pO2 124 mmHg (61-120) H 06/16/18 02:34 ABG HCO3 25 mmol/L (22-26) 06/16/18 02:34 Calcium 6.7 mg/dL (8.5-10.1) L* 06/16/18 05:10 Phosphorus 3.8 mg/dL (2.5-4.9) D 06/16/18 05:10 Magnesium 2.0 mg/dL (1.5-2.5) 06/15/18 14:30 Assessment and Plan - Assessment (1) ARMANI (acute kidney injury) Code(s): N17.9 - Acute kidney failure, unspecified Status: Acute (2) Upper GI bleed Code(s): K92.2 - Gastrointestinal hemorrhage, unspecified Status: Acute (3) Sepsis Code(s): A41.9 - Sepsis, unspecified organism Status: Acute (4) Substance abuse Code(s): F19.10 - Other psychoactive substance abuse, uncomplicated Status: Acute - Attending Attestation patient was seen and examined. on 06/15/18. I saw him in PACU after his emergency surgery. He had Theron patch over the perforated ulcer. Continue resuscitation, monitor urine output. Avoid nephrotoxic agents.
[2018-06-15] MEDS ORDERED: Gelatin Size 100 Topical Foam ONE (16:32)
[2018-06-15] MEDS ORDERED: Bupivacaine/Epinephrine 0.5% Inj 50 ML Vial ONE (16:32)
[2018-06-15] MEDS ORDERED: Heparin - SQ 10,000 UNITS/ML Vial ONE (16:32)
[2018-06-15] MEDS ORDERED: Thrombin Topical Soln 5,000 UNIT Vial TOPICAL ONE (16:32)
[2018-06-15] MEDS ORDERED: Bupivacaine/Epinephrine PF Inj 0.25% 10 ML Vial ONE (16:32)
--- NOTE | 2018-06-15 16:38 | P.PCN ---
Date of procedure: 06/15/18 Procedure: PROCEDURE PERFORMED Right subclavian central line Indications: Hemodynamic monitoring, IV access ANESTHESIA Local injection of 1% Lidocaine DESCRIPTION OF THE PROCEDURE The patient was placed in supine, mild Trendelenburg position. The area was exposed and cleansed with ChloraPrep, times two. Large sterile drape was used to cover the patient, with the site exposed, under sterile conditions including cap, face mask, sterile gown, and sterile gloves. On single attempt, the introducer needle was inserted with negative pressure in syringe and venous flash was obtained. The guide wire was then advanced without any restriction and the needle was removed. The dilator was used without any complications. Using Seldinger technique the central line catheter was advanced over the guide wire to a depth of 20 centimeters. The guide wire was removed. All ports were aspirated with dark venous blood return and flushed easily with sterile saline. All ports were capped. Antibiotic disc was placed around central line at puncture site. The central line was secured to the skin with two interrupted 2.0 silk sutures. The area was bandaged with sterile see-through central line bandage. RADIOLOGICAL DATA Stat chest x-ray was ordered to verify line placement. COMPLICATIONS: No apparent complications ESTIMATED BLOOD LOSS: Less than 5 cc
[2018-06-15] MEDS ORDERED: Phenylephrine/NS 1000 MCG/10ML Syringe IV.PUSH ONE (16:40)
[2018-06-15] MEDS ORDERED: Norepinephrine Inj 4 MG/4 ML Ampul IV.CONT ONE (16:40)
--- NOTE | 2018-06-15 16:55 | XR ---
EXAM DATE: 06/15/2018 4:48 PM EDT AGE/SEX: 27 years / Male INDICATIONS: Central line placement. CLINICAL DATA: This is the patient's subsequent encounter. Patient reports that signs and symptoms h ave been present for 2 days and indicates a pain score of Nonresponsive. MEDICAL/SURGICAL HISTORY: Non-responsive. Non-responsive. COMPARISON: [facility] [place] CHEST 1V SINGLE AP, 06/15/2018. . FINDINGS: Single AP view of the chest again demonstrates an endotracheal tube with the tip just above the level of the clavicles, stable. Multiple overlying lines and tubes. There is a new right-sided central reyna e which terminates over the SVC. The lungs remain clear. Heart size is normal. CONCLUSION: Stable endotracheal tube with the tip just above the level of the clavicles. New right-sided central line which terminates within the mid SVC. Electronically signed by: Lubna Thompson MD 06/15/2018 4:53 PM EDT
--- NOTE | 2018-06-15 16:57 | P.OP ---
- Preoperative Diagnosis (1) Perforated abdominal viscus - Postoperative Diagnosis (1) Perforated abdominal viscus Date of procedure: 06/15/18 Procedure: ex lap modified marti patch repair of perf gastric ulcer surgical pericentesis of 3 L marly Anesthesia: GETA Surgeon: Winston Sabillon MD IV fluids (mL): 5,000 Urine output (mL): 300 Pathology: other (small bowel) Operation and Findings: sb perf
[2018-06-15 17:03] LABS: Amorphous Sediment,Urine Few /hpf; Bacteria,Urine Few /hpf; Bilirubin,Urine Negative (Negative); Clarity,Urine Cloudy (Clear); Color,Urine Amber (Yellw/Straw); Glucose,Urine (UA) 50 mg/dL (Negative); Hyaline Casts,Urine 73 /lpf (0-3); Leukocyte Esterase,Urine Trace (Negative); Mucus,Urine Few /lpf (Occasional); Nitrite,Urine Negative (Negative); Specific Gravity,Urine 1.019 (1.002-1.035); Squamous Epithelial Cell,Urine 2 /hpf (0-5); Urobilinogen,Urine 4 or Greater mg/dL (Less than 2)
[2018-06-15] MEDS ORDERED: Calcium Chloride Inj 1 GM/10 ML Syringe ONE (17:16)
[2018-06-15] MEDS ORDERED: Sodium Bicarbonate 8.4% Inj 50 MEQ/50 ML Syringe ONE (17:17)
[2018-06-15] MEDS ORDERED: Albumin Human 5% Inj 500 ML IV.SIG ONE (17:19)
[2018-06-15 18:52] LABS: ABG Base Excess -1.8 mmol/L (-2-2); ABG PCO2 37 mmHg (38-42); ABG PO2 524 mmHG (61-120)
[2018-06-15] MEDS ORDERED: Sodium Chlor 0.9% Inj 50 ML ONE ×2 (18:55→18:56)
[2018-06-15 19:25] LABS: Baso % (Auto) 0.2 % (0.0-2.0); Eos % (Auto) 0.1 % (0.0-4.0); Hematocrit 39.9 % (39.0-51.0); Hemoglobin 14.2 gm/dL (13.0-17.0); Lymph # (Auto) 1.2 th/mm3 (1.0-4.8); Lymph % (Auto) 18.5 % (9.0-44.0); Mean Corpuscular HGB Conc 35.6 % (32.0-36.0); Mean Corpuscular Hemoglobin 29.7 pg (27.0-34.0); Mean Corpuscular Volume 83.4 fL (80.0-100.0); Mean Platelet Volume 8.2 fL (7.0-11.0); Mono # (Auto) 0.5 th/mm3 (0.0-0.9); Mono % (Auto) 7.9 % (0.0-8.0); Neut # (Auto) 4.6 th/mm3 (1.8-7.7); Neut % (Auto) 73.3 % (16.0-70.0); Platelet Count 180 th/mm3 (150-450); Red Blood Count 4.79 mil/mm3 (4.50-5.90); Red Cell Distribution Width 13.8 % (11.6-17.2); White Blood Count 6.3 th/mm3 (4.0-11.0)
[2018-06-15 19:55] LABS: Calcium 6.6 mg/dL (8.5-10.1); Potassium 3.7 meq/L (3.5-5.1)
[2018-06-15 20:39] LABS: Total Protein 2.6 g/dL (6.4-8.2)
[2018-06-15 21:13] LABS: Lymphocytes 2 % (9-44); Metamyelocytes 4 % (0-1); Monocytes 2 % (0-8); Platelet Estimate Normal (Normal); Platelet Morphology Normal (Normal); Toxic Granulation 1+; Toxic Vacuolation Present
--- NOTE | 2018-06-15 23:21 | MP ---
cc: Winston Sabillon MD DATE OF OPERATION: 06/15/2018 PREOPERATIVE DIAGNOSES: Perforated viscus, acute abdomen, sepsis. POSTOPERATIVE DIAGNOSES: Perforated viscus, acute abdomen, sepsis, perforated gastric ulcer. SURGEON: Winston Sabillon MD PARAPROFESSIONAL AIDE TEACHER: See OR sheet. ANESTHESIA: GETA. PROCEDURE PERFORMED: 1. Exploratory laparotomy. 2. Repair of perforated gastric ulcer with modified Theron patch. 3. Surgical paracentesis, 3.5 L. 4. MOOSE dressing placement. IV FLUIDS: 4.5 L, 2 of albumin. COMPLICATIONS: None. WOUND CLASSIFICATION: Dirty contaminated. SPECIMENS: None. FINDINGS: Large volume bilious ascites. Anterior gastric ulcer perforation. [place] and viable bowel. No evidence of other abnormality. INDICATIONS: The patient is a 27-year-old male who presents with history of gastritis, gastric ulcers, IVDA, and drug abuse, presented with the acute onset of severe abdominal pain. The patient in acute respiratory failure, intubated. CT finding of large volume ascites with free intraperitoneal air. Therefore, decision was made for operative intervention including exploratory laparotomy. DETAILS OF PROCEDURE: The patient was taken to the operating suite, placed in a supine position. He was prepped and draped in the usual sterile fashion after induction of general endotracheal anesthesia. Brief timeout was done, stating correct patient, procedure, surgical site. We were all in agreement with this. Attention was first directed to the midline abdomen. A midline incision was made with a 10 blade. Further dissection was done with electro Bovie electrocautery down through the fascia and the peritoneum. Peritoneum was grasped with DeBakey graspers, and Metzenbaum was used to cut into the peritoneum. On entrance, there was noted to be a large volume of bilious fluid that was suction irrigated. The incision was continued and extended. The bowel noted to have lots of purulent drainage containing on it. It was pink and viable but thickened and irritated. After examining all of the small bowel, attention directed to the stomach with noting of a 1 cm perforation gastric ulcer. The abdomen was washed out with multiple liters of normal saline. The commencement of repair was done. A tongue of omentum was obtained, 2-0 Vicryl sutures were used in order to approximate the ulcer defect. The tails were left long, and a tongue of omentum was tied into the anterior repair in order to facilitate in doing a modified Theron patch repair. The abdomen was then irrigated with 3 more liters of warm saline, again severe significant contamination throughout the abdomen due to the perforated gastric ulcer, in all 4 quadrants was done until lavage was clear. Next, examined the colon and noted no evidence of abnormality. At this point, decision was made for 2 drain placements including a 19-Cuban Db drain placement in the pelvis, a stab ajit incision down to the left lower quadrant, and a right upper quadrant drain was placed across the ulcer repair. The patient's clinical status was improving. He was off Levophed. He did remain critical, however. The abdomen was closed with running #1 looped PDS x2, and eulalia were then placed. The MOOSE dressing was placed. The drains were secured in place with 2-0 nylon sutures. The patient tolerated the procedure. No operative complications. All lap and instrument counts were correct at the end of the procedure. DRAINS: A #1 MIHAELA drain in left lower quadrant, placed in the pelvis. A 19-Cuban second drain, right upper quadrant. A 19-Cuban placed across repair. MD ABBEY Dick/yessenia , 09:11 PM , 09:23 PM
[2018-06-16] MEDS: fentaNYL 10 mcg/mL Premix Drip 2,500 MCG/250 ML BAG IV.SIG PRN ×2 (01:00→15:40)
[2018-06-16] MEDS ORDERED: Haloperidol Inj 5 MG/ML Ampul IV.PUSH PRN (01:13)
[2018-06-16 01:39] LABS: Hematocrit 38.6 % (39.0-51.0); Hemoglobin 13.7 gm/dL (13.0-17.0)
--- NOTE | 2018-06-16 01:52 | MB ---
cc: Winston Sabillon MD DATE: 06/15/2018 CHIEF COMPLAINT/REASON FOR CONSULTATION: Acute abdomen, perforated viscus. Consultation from Dr. Ennis with critical care HISTORY OF PRESENT ILLNESS: The patient is a 27-year-old male brought to the emergency department by his significant other. He was found in acute delirium psychosis with a drug overdose. According to reports, as the patient is currently intubated, he has an extensive drug history including methamphetamine, Maria De Jesus, and marijuana. He also was noted to have history of gastric ulcer and was complaining of severe gastric abdominal pain. The patient was noted to be agitated on arrival; however, he acutely decompensated requiring intubation due to acute respiratory failure. He had no leukocytosis, lactic acidosis, and became profoundly hypotensive and in septic shock. CT scan obtained showing free intra-abdominal air and concern for perforated viscus with significant ascites. Therefore, Surgery was consulted. The patient is again currently in septic and critical state, planning for an emergent operative intervention. PAST MEDICAL HISTORY: Hepatitis C, gastric ulcers, drug abuse. PAST SURGICAL HISTORY: The patient has per documents no surgical history. SOCIAL HISTORY: Positive ETOH, positive smoking, positive IVDA, cocaine, Maria De Jesus, THC. ALLERGIES: 1. PENICILLIN. 2. SULFITE. 3. NITROPRUSSIDE. 4 . NITROGLYCERIN. 5. ISOSORBIDE. MEDICATIONS: See EMR. FAMILY HISTORY: Denies hypertension or diabetes. REVIEW OF SYSTEMS: Full review of systems unable to do due to the patient's intubated state. PHYSICAL EXAMINATION: GENERAL: The patient in severe distress. VITAL SIGNS: Temperature 96.4, pulse 106, respirations 16, blood pressure 93/56, saturation 100% on 40% FiO2. HEENT: Pupils equal, round, reactive. NECK: Supple. Trachea midline. LUNGS: Bilateral expansion, clear. ET tube in place. HEART: S1, S2, tachycardic. ABDOMEN: Diffuse tenderness peritoneal distention with ascites. EXTREMITIES: Warm and well perfused. NEUROLOGIC: Sedated, intubated. Moves extremities. INTEGUMENT: No obvious masses or lesions. LABORATORY AND DIAGNOSTIC DATA: WBC 16.1, hemoglobin 16.1, hematocrit 48.3, platelets 316. Sodium 128, potassium 4.8, chloride 114, BUN 46, creatinine 2.9, lactate 6.5. INR 2. CT reviewed by myself showing thickened small bowel, multiple intra-abdominal areas of free air, massive ascites. ASSESSMENT: The patient is a 27-year-old male with acute abdominal pain, drug overdose, perforated viscus, septic shock, acute respiratory failure. PLAN: After full workup, the patient has above-noted issues. At this point, the patient needs aggressive resuscitation, IV fluids, pain control, vent per ICU. We will take the patient emergently to the OR for exploration. Discussed with the patient's mother and discussed with medical staff. The patient noted to be critically ill and again concern for necrotic bowel versus perforated viscus. Winston Sabillon MD LSN/sv , 01:05 AM , 01:15 AM [email or web address]
[2018-06-16] MEDS: Pantoprazole Inj 80 MG in Sodium Chlor 0.9% Inj 100 ML IV.CONT SCH ×3 (01:59→20:28)
[2018-06-16] MEDS: Phenylephrine Inj 40 MG in Dextrose 5% in Water Inj 496 ML IV.CONT PRN ×6 (02:00→14:02)
[2018-06-16 02:54] LABS: ABG Base Excess 0.5 mmol/L (-2-2); ABG PCO2 40 mmHg (38-42); ABG PO2 124 mmHg (61-120)
[2018-06-16] MEDS: Dexmedetomidine Inj 200 MCG in Sodium Chlor 0.9% Inj 48 ML IV.CONT PRN ×3 (03:00→10:42)
[2018-06-16 06:12] LABS: Albumin 1.7 g/dL (3.4-5.0); Calcium 6.7 mg/dL (8.5-10.1); Carbon Dioxide 26.3 meq/L (21.0-32.0); Phosphorus 3.8 mg/dL (2.5-4.9)
[2018-06-16 06:29] LABS: CKMB Percent 1.5 % (0.0-4.0); Creatine Kinase MB 98.3 ng/mL (0.5-3.6)
[2018-06-16] MEDS ORDERED: Vancomycin Consult Pharmacy OTHER PRN (08:54)
[2018-06-16] MEDS ORDERED: Vancomycin Inj 1 GM/200 ML PIGGYBACK IV.SIG ONE (08:54)
[2018-06-16] MEDS ORDERED: Vancomycin Inj 1,000 MG in Sodium Chlor 0.9% Inj 250 ML IV.SIG ONE (10:00)
--- NOTE | 2018-06-16 10:23 | P.PNFP ---
Subjective Interval history: Patient seen and examined this morning bedside. Patient is currently intubated and on mechanical ventilation, on 40% O2. There are plans to attempt CPAP trials possibly later later this afternoon, and more likely tomorrow. Patient is currently on pressors and sedated. <Jagruti Arroyo - 06/16/18 10:36> Results - Labs Result diagrams: 06/16/18 13:55 06/16/18 05:10 <Gunjan Simms - 06/16/18 16:55> Abnormal lab results 06/15/18 06/15/18 06/15/18 Range/Units 15:02 18:40 19:13 RBC (4.50-5.90) mil/mm3 Hgb (13.0-17.0) gm/dL Hct (39.0-51.0) % Neut % (Auto) (16.0-70.0) % [place] % (Auto) (0.0-8.0) % Band Neuts % (Manual) (0-6) % Lymphocytes % (Manual) (9-44) % Metamyelocytes % (Man) (0-1) % Toxic Granulation (None) Toxic Vacuolation (None) PT (9.8-11.6) sec APTT (24.3-30.1) sec ABG pCO2 37 L (38-42) mmHg ABG pO2 524 H (61-120) mmHG Sodium (136-145) meq/L Chloride (98-107) meq/L BUN (7-18) mg/dL Creatinine (0.60-1.30) mg/dL Estimated GFR (>89) mL/min POC Glucose (68-110) mg/dl Random Glucose (74-106) mg/dL Lactic Acid 2.8 H (0.4-2.0) mmol/L Calcium (8.5-10.1) mg/dL Total Creatine Kinase (39-308) U/L CK-MB (CK-2) (0.5-3.6) ng/mL Total Protein (6.4-8.2) g/dL Albumin (3.4-5.0) g/dL Urine Clarity Cloudy H (Clear) Urine Protein 30 H (Neg-Trace) mg/dL Urine Occult Blood Large H (Negative) Ur Leukocyte Esterase Trace H (Negative) Urine RBC 59 H (0-3) /hpf Urine WBC 17 H (0-5) /hpf Urine WBC Clumps Rare H (None) Amorphous Sediment Few H (None) /hpf Urine Bacteria Few H (None) /hpf Urine Mucus Few H (Occasional) /lpf 06/15/18 06/15/18 06/15/18 Range/Units 19:13 19:13 19:24 RBC (4.50-5.90) mil/mm3 Hgb (13.0-17.0) gm/dL Hct (39.0-51.0) % Neut % (Auto) 73.3 H (16.0-70.0) % [place] % (Auto) (0.0-8.0) % Band Neuts % (Manual) 59 H (0-6) % Lymphocytes % (Manual) 2 L (9-44) % Metamyelocytes % (Man) 4 H (0-1) % Toxic Granulation 1+ H (None) Toxic Vacuolation Present H (None) PT (9.8-11.6) sec APTT (24.3-30.1) sec ABG pCO2 (38-42) mmHg ABG pO2 (61-120) mmHG Sodium 149 H (136-145) meq/L Chloride 114 H (98-107) meq/L BUN 44 H (7-18) mg/dL Creatinine 1.91 H (0.60-1.30) mg/dL Estimated GFR 42 L (>89) mL/min POC Glucose 122 H (68-110) mg/dl Random Glucose 134 H (74-106) mg/dL Lactic Acid (0.4-2.0) mmol/L Calcium 6.6 L* (8.5-10.1) mg/dL Total Creatine Kinase (39-308) U/L CK-MB (CK-2) (0.5-3.6) ng/mL Total Protein 2.6 L D (6.4-8.2) g/dL Albumin (3.4-5.0) g/dL Urine Clarity (Clear) Urine Protein (Neg-Trace) mg/dL Urine Occult Blood (Negative) Ur Leukocyte Esterase (Negative) Urine RBC (0-3) /hpf Urine WBC (0-5) /hpf Urine WBC Clumps (None) Amorphous Sediment (None) /hpf Urine Bacteria (None) /hpf Urine Mucus (Occasional) /lpf 06/16/18 06/16/18 06/16/18 Range/Units 01:21 02:34 05:10 RBC (4.50-5.90) mil/mm3 Hgb (13.0-17.0) gm/dL Hct 38.6 L (39.0-51.0) % Neut % (Auto) (16.0-70.0) % [place] % (Auto) (0.0-8.0) % Band Neuts % (Manual) (0-6) % Lymphocytes % (Manual) (9-44) % Metamyelocytes % (Man) (0-1) % Toxic Granulation (None) Toxic Vacuolation (None) PT (9.8-11.6) sec APTT (24.3-30.1) sec ABG pCO2 (38-42) mmHg ABG pO2 124 H (61-120) mmHG Sodium 148 H (136-145) meq/L Chloride 113 H (98-107) meq/L BUN 42 H (7-18) mg/dL Creatinine 1.68 H (0.60-1.30) mg/dL Estimated GFR 49 L (>89) mL/min POC Glucose (68-110) mg/dl Random Glucose 134 H (74-106) mg/dL Lactic Acid (0.4-2.0) mmol/L Calcium 6.7 L* (8.5-10.1) mg/dL Total Creatine Kinase 6389 H (39-308) U/L CK-MB (CK-2) 98.3 H (0.5-3.6) ng/mL Total Protein (6.4-8.2) g/dL Albumin 1.7 L (3.4-5.0) g/dL Urine Clarity (Clear) Urine Protein (Neg-Trace) mg/dL Urine Occult Blood (Negative) Ur Leukocyte Esterase (Negative) Urine RBC (0-3) /hpf Urine WBC (0-5) /hpf Urine WBC Clumps (None) Amorphous Sediment (None) /hpf Urine Bacteria (None) /hpf Urine Mucus (Occasional) /lpf 06/16/18 06/16/18 06/16/18 Range/Units 05:13 13:10 13:55 RBC 4.23 L (4.50-5.90) mil/mm3 Hgb 12.7 L (13.0-17.0) gm/dL Hct 35.6 L (39.0-51.0) % Neut % (Auto) 73.2 H (16.0-70.0) % [place] % (Auto) 8.7 H (0.0-8.0) % Band Neuts % (Manual) (0-6) % Lymphocytes % (Manual) (9-44) % Metamyelocytes % (Man) (0-1) % Toxic Granulation (None) Toxic Vacuolation (None) PT (9.8-11.6) sec APTT (24.3-30.1) sec ABG pCO2 (38-42) mmHg ABG pO2 (61-120) mmHG Sodium (136-145) meq/L Chloride (98-107) meq/L BUN (7-18) mg/dL Creatinine (0.60-1.30) mg/dL Estimated GFR (>89) mL/min POC Glucose 147 H (68-110) mg/dl Random Glucose (74-106) mg/dL Lactic Acid (0.4-2.0) mmol/L Calcium (8.5-10.1) mg/dL Total Creatine Kinase 5914 H (39-308) U/L CK-MB (CK-2) 80.3 H (0.5-3.6) ng/mL Total Protein (6.4-8.2) g/dL Albumin (3.4-5.0) g/dL Urine Clarity (Clear) Urine Protein (Neg-Trace) mg/dL Urine Occult Blood (Negative) Ur Leukocyte Esterase (Negative) Urine RBC (0-3) /hpf Urine WBC (0-5) /hpf Urine WBC Clumps (None) Amorphous Sediment (None) /hpf Urine Bacteria (None) /hpf Urine Mucus (Occasional) /lpf 06/16/18 Range/Units 13:55 RBC (4.50-5.90) mil/mm3 Hgb (13.0-17.0) gm/dL Hct (39.0-51.0) % Neut % (Auto) (16.0-70.0) % [place] % (Auto) (0.0-8.0) % Band Neuts % (Manual) (0-6) % Lymphocytes % (Manual) (9-44) % Metamyelocytes % (Man) (0-1) % Toxic Granulation (None) Toxic Vacuolation (None) PT 13.0 H (9.8-11.6) sec APTT 43.3 H (24.3-30.1) sec ABG pCO2 (38-42) mmHg ABG pO2 (61-120) mmHG Sodium (136-145) meq/L Chloride (98-107) meq/L BUN (7-18) mg/dL Creatinine (0.60-1.30) mg/dL Estimated GFR (>89) mL/min POC Glucose (68-110) mg/dl Random Glucose (74-106) mg/dL Lactic Acid (0.4-2.0) mmol/L Calcium (8.5-10.1) mg/dL Total Creatine Kinase (39-308) U/L CK-MB (CK-2) (0.5-3.6) ng/mL Total Protein (6.4-8.2) g/dL Albumin (3.4-5.0) g/dL Urine Clarity (Clear) Urine Protein (Neg-Trace) mg/dL Urine Occult Blood (Negative) Ur Leukocyte Esterase (Negative) Urine RBC (0-3) /hpf Urine WBC (0-5) /hpf Urine WBC Clumps (None) Amorphous Sediment (None) /hpf Urine Bacteria (None) /hpf Urine Mucus (Occasional) /lpf Short CBC 06/15/18 06/16/18 06/16/18 Range/Units 19:13 01:21 13:55 WBC 6.3 D 7.4 (4.0-11.0) th/mm3 Hgb 14.2 13.7 12.7 L (13.0-17.0) gm/dL Hct 39.9 38.6 L 35.6 L (39.0-51.0) % Plt Count 180 D 187 (150-450) th/mm3 BMP 06/15/18 06/16/18 19:13 05:10 Sodium 149 H 148 H Potassium 3.7 D 4.0 Chloride 114 H 113 H Carbon Dioxide 25.0 26.3 BUN 44 H 42 H Creatinine 1.91 H 1.68 H Calcium 6.6 L* 6.7 L* Cardiac Enzymes 06/16/18 06/16/18 Range/Units 05:10 13:10 Total Creatine Kinase 6389 H 5914 H (39-308) U/L CK-MB (CK-2) 98.3 H 80.3 H (0.5-3.6) ng/mL Liver Function 06/16/18 Range/Units 05:10 Albumin 1.7 L (3.4-5.0) g/dL Urine 06/15/18 Range/Units 15:02 Urine Color Chanelle (Yellw/Straw) Urine Clarity Cloudy H (Clear) Urine pH 5.0 (5.0-8.5) Ur Specific [place] 1.019 (1.002-1.035) Urine Protein 30 H (Neg-Trace) mg/dL Urine Glucose (UA) 50 (Negative) mg/dL <DemiGunjan - 06/16/18 16:55> Abnormal lab results 06/15/18 06/15/18 06/15/18 Range/Units 08:52 08:52 12:20 WBC (4.0-11.0) th/mm3 Hct (39.0-51.0) % Neut % (Auto) (16.0-70.0) % Neut # (Auto) (1.8-7.7) th/mm3 [place] # (Auto) (0.0-0.9) th/mm3 Band Neuts % (Manual) 65 H (0-6) % Lymphocytes % (Manual) 4 L (9-44) % Metamyelocytes % (Man) (0-1) % Myelocytes % (Man) (0-0) % Abs Neuts (Manual) 12.9 H (1.8-7.7) th/mm3 Toxic Granulation 2+ H (None) Toxic Vacuolation (None) Platelet Morphology (Normal) PT (9.8-11.6) sec ABG pH 7.36 L (7.380-7.420) ABG pCO2 24 L* (38-42) mmHg ABG pO2 (61-120) mmHG ABG HCO3 13 L* (22-26) mmol/L ABG O2 Content 24.5 H (12.0-20.0) Vol % ABG Base Excess -11.6 L (-2-2) mmol/L Hemoglobin 18.2 H (12.0-16.0) G/DL Sodium (136-145) meq/L Chloride (98-107) meq/L Carbon Dioxide (21.0-32.0) meq/L BUN (7-18) mg/dL Creatinine (0.60-1.30) mg/dL Estimated GFR (>89) mL/min POC Glucose (68-110) mg/dl Random Glucose (74-106) mg/dL Lactic Acid (0.4-2.0) mmol/L Calcium (8.5-10.1) mg/dL Phosphorus (2.5-4.9) mg/dL Total Bilirubin (0.2-1.0) mg/dL AST (15-37) U/L Alkaline Phosphatase (45-117) U/L Total Creatine Kinase (39-308) U/L CK-MB (CK-2) 18.9 H (0.5-3.6) ng/mL Total Protein (6.4-8.2) g/dL Albumin (3.4-5.0) g/dL Urine Clarity (Clear) Urine Protein (Neg-Trace) mg/dL Urine Occult Blood (Negative) Ur Leukocyte Esterase (Negative) Urine RBC (0-3) /hpf Urine WBC (0-5) /hpf Urine WBC Clumps (None) Amorphous Sediment (None) /hpf Urine Bacteria (None) /hpf Urine Mucus (Occasional) /lpf 06/15/18 06/15/18 06/15/18 Range/Units 12:39 14:30 14:30 WBC (4.0-11.0) th/mm3 Hct (39.0-51.0) % Neut % (Auto) (16.0-70.0) % Neut # (Auto) (1.8-7.7) th/mm3 [place] # (Auto) (0.0-0.9) th/mm3 Band Neuts % (Manual) (0-6) % Lymphocytes % (Manual) (9-44) % Metamyelocytes % (Man) (0-1) % Myelocytes % (Man) (0-0) % Abs Neuts (Manual) (1.8-7.7) th/mm3 Toxic Granulation (None) Toxic Vacuolation (None) Platelet Morphology (Normal) PT (9.8-11.6) sec ABG pH (7.380-7.420) ABG pCO2 (38-42) mmHg ABG pO2 (61-120) mmHG ABG HCO3 (22-26) mmol/L ABG O2 Content (12.0-20.0) Vol % ABG Base Excess (-2-2) mmol/L Hemoglobin (12.0-16.0) G/DL Sodium 148 H (136-145) meq/L Chloride 114 H (98-107) meq/L Carbon Dioxide 18.9 L (21.0-32.0) meq/L BUN 46 H (7-18) mg/dL Creatinine 2.91 H (0.60-1.30) mg/dL Estimated GFR 26 L (>89) mL/min POC Glucose 146 H (68-110) mg/dl Random Glucose 112 H (74-106) mg/dL Lactic Acid 6.5 H* (0.4-2.0) mmol/L Calcium 7.1 L* (8.5-10.1) mg/dL Phosphorus 6.3 H (2.5-4.9) mg/dL Total Bilirubin 1.2 H (0.2-1.0) mg/dL AST 127 H (15-37) U/L Alkaline Phosphatase 37 L (45-117) U/L Total Creatine Kinase (39-308) U/L CK-MB (CK-2) (0.5-3.6) ng/mL Total Protein 4.5 L (6.4-8.2) g/dL Albumin 2.0 L (3.4-5.0) g/dL Urine Clarity (Clear) Urine Protein (Neg-Trace) mg/dL Urine Occult Blood (Negative) Ur Leukocyte Esterase (Negative) Urine RBC (0-3) /hpf Urine WBC (0-5) /hpf Urine WBC Clumps (None) Amorphous Sediment (None) /hpf Urine Bacteria (None) /hpf Urine Mucus (Occasional) /lpf 06/15/18 06/15/18 06/15/18 Range/Units 14:30 14:30 15:02 WBC 16.1 H (4.0-11.0) th/mm3 Hct (39.0-51.0) % Neut % (Auto) 81.7 H (16.0-70.0) % Neut # (Auto) 13.1 H (1.8-7.7) th/mm3 [place] # (Auto) 1.1 H (0.0-0.9) th/mm3 Band Neuts % (Manual) 53 H (0-6) % Lymphocytes % (Manual) 3 L (9-44) % Metamyelocytes % (Man) 10 H (0-1) % Myelocytes % (Man) 1 H (0-0) % Abs Neuts (Manual) 14.7 H (1.8-7.7) th/mm3 Toxic Granulation (None) Toxic Vacuolation (None) Platelet Morphology Enlarged H (Normal) PT 20.1 H (9.8-11.6) sec ABG pH (7.380-7.420) ABG pCO2 (38-42) mmHg ABG pO2 (61-120) mmHG ABG HCO3 (22-26) mmol/L ABG O2 Content (12.0-20.0) Vol % ABG Base Excess (-2-2) mmol/L Hemoglobin (12.0-16.0) G/DL Sodium (136-145) meq/L Chloride (98-107) meq/L Carbon Dioxide (21.0-32.0) meq/L BUN (7-18) mg/dL Creatinine (0.60-1.30) mg/dL Estimated GFR (>89) mL/min POC Glucose (68-110) mg/dl Random Glucose (74-106) mg/dL Lactic Acid (0.4-2.0) mmol/L Calcium (8.5-10.1) mg/dL Phosphorus (2.5-4.9) mg/dL Total Bilirubin (0.2-1.0) mg/dL AST (15-37) U/L Alkaline Phosphatase (45-117) U/L Total Creatine Kinase (39-308) U/L CK-MB (CK-2) (0.5-3.6) ng/mL Total Protein (6.4-8.2) g/dL Albumin (3.4-5.0) g/dL Urine Clarity Cloudy H (Clear) Urine Protein 30 H (Neg-Trace) mg/dL Urine Occult Blood Large H (Negative) Ur Leukocyte Esterase Trace H (Negative) Urine RBC 59 H (0-3) /hpf Urine WBC 17 H (0-5) /hpf Urine WBC Clumps Rare H (None) Amorphous Sediment Few H (None) /hpf Urine Bacteria Few H (None) /hpf Urine Mucus Few H (Occasional) /lpf 06/15/18 06/15/18 06/15/18 Range/Units 18:40 19:13 19:13 WBC (4.0-11.0) th/mm3 Hct (39.0-51.0) % Neut % (Auto) 73.3 H (16.0-70.0) % Neut # (Auto) (1.8-7.7) th/mm3 [place] # (Auto) (0.0-0.9) th/mm3 Band Neuts % (Manual) 59 H (0-6) % Lymphocytes % (Manual) 2 L (9-44) % Metamyelocytes % (Man) 4 H (0-1) % Myelocytes % (Man) (0-0) % Abs Neuts (Manual) (1.8-7.7) th/mm3 Toxic Granulation 1+ H (None) Toxic Vacuolation Present H (None) Platelet Morphology (Normal) PT (9.8-11.6) sec ABG pH (7.380-7.420) ABG pCO2 37 L (38-42) mmHg ABG pO2 524 H (61-120) mmHG ABG HCO3 (22-26) mmol/L ABG O2 Content (12.0-20.0) Vol % ABG Base Excess (-2-2) mmol/L Hemoglobin (12.0-16.0) G/DL Sodium (136-145) meq/L Chloride (98-107) meq/L Carbon Dioxide (21.0-32.0) meq/L BUN (7-18) mg/dL Creatinine (0.60-1.30) mg/dL Estimated GFR (>89) mL/min POC Glucose (68-110) mg/dl Random Glucose (74-106) mg/dL Lactic Acid 2.8 H (0.4-2.0) mmol/L Calcium (8.5-10.1) mg/dL Phosphorus (2.5-4.9) mg/dL Total Bilirubin (0.2-1.0) mg/dL AST (15-37) U/L Alkaline Phosphatase (45-117) U/L Total Creatine Kinase (39-308) U/L CK-MB (CK-2) (0.5-3.6) ng/mL Total Protein (6.4-8.2) g/dL Albumin (3.4-5.0) g/dL Urine Clarity (Clear) Urine Protein (Neg-Trace) mg/dL Urine Occult Blood (Negative) Ur Leukocyte Esterase (Negative) Urine RBC (0-3) /hpf Urine WBC (0-5) /hpf Urine WBC Clumps (None) Amorphous Sediment (None) /hpf Urine Bacteria (None) /hpf Urine Mucus (Occasional) /lpf 06/15/18 06/15/18 06/16/18 Range/Units 19:13 19:24 01:21 WBC (4.0-11.0) th/mm3 Hct 38.6 L (39.0-51.0) % Neut % (Auto) (16.0-70.0) % Neut # (Auto) (1.8-7.7) th/mm3 [place] # (Auto) (0.0-0.9) th/mm3 Band Neuts % (Manual) (0-6) % Lymphocytes % (Manual) (9-44) % Metamyelocytes % (Man) (0-1) % Myelocytes % (Man) (0-0) % Abs Neuts (Manual) (1.8-7.7) th/mm3 Toxic Granulation (None) Toxic Vacuolation (None) Platelet Morphology (Normal) PT (9.8-11.6) sec ABG pH (7.380-7.420) ABG pCO2 (38-42) mmHg ABG pO2 (61-120) mmHG ABG HCO3 (22-26) mmol/L ABG O2 Content (12.0-20.0) Vol % ABG Base Excess (-2-2) mmol/L Hemoglobin (12.0-16.0) G/DL Sodium 149 H (136-145) meq/L Chloride 114 H (98-107) meq/L Carbon Dioxide (21.0-32.0) meq/L BUN 44 H (7-18) mg/dL Creatinine 1.91 H (0.60-1.30) mg/dL Estimated GFR 42 L (>89) mL/min POC Glucose 122 H (68-110) mg/dl Random Glucose 134 H (74-106) mg/dL Lactic Acid (0.4-2.0) mmol/L Calcium 6.6 L* (8.5-10.1) mg/dL Phosphorus (2.5-4.9) mg/dL Total Bilirubin (0.2-1.0) mg/dL AST (15-37) U/L Alkaline Phosphatase (45-117) U/L Total Creatine Kinase (39-308) U/L CK-MB (CK-2) (0.5-3.6) ng/mL Total Protein 2.6 L D (6.4-8.2) g/dL Albumin (3.4-5.0) g/dL Urine Clarity (Clear) Urine Protein (Neg-Trace) mg/dL Urine Occult Blood (Negative) Ur Leukocyte Esterase (Negative) Urine RBC (0-3) /hpf Urine WBC (0-5) /hpf Urine WBC Clumps (None) Amorphous Sediment (None) /hpf Urine Bacteria (None) /hpf Urine Mucus (Occasional) /lpf 06/16/18 06/16/18 06/16/18 Range/Units 02:34 05:10 05:13 WBC (4.0-11.0) th/mm3 Hct (39.0-51.0) % Neut % (Auto) (16.0-70.0) % Neut # (Auto) (1.8-7.7) th/mm3 [place] # (Auto) (0.0-0.9) th/mm3 Band Neuts % (Manual) (0-6) % Lymphocytes % (Manual) (9-44) % Metamyelocytes % (Man) (0-1) % Myelocytes % (Man) (0-0) % Abs Neuts (Manual) (1.8-7.7) th/mm3 Toxic Granulation (None) Toxic Vacuolation (None) Platelet Morphology (Normal) PT (9.8-11.6) sec ABG pH (7.380-7.420) ABG pCO2 (38-42) mmHg ABG pO2 124 H (61-120) mmHG ABG HCO3 (22-26) mmol/L ABG O2 Content (12.0-20.0) Vol % ABG Base Excess (-2-2) mmol/L Hemoglobin (12.0-16.0) G/DL Sodium 148 H (136-145) meq/L Chloride 113 H (98-107) meq/L Carbon Dioxide (21.0-32.0) meq/L BUN 42 H (7-18) mg/dL Creatinine 1.68 H (0.60-1.30) mg/dL Estimated GFR 49 L (>89) mL/min POC Glucose 147 H (68-110) mg/dl Random Glucose 134 H (74-106) mg/dL Lactic Acid (0.4-2.0) mmol/L Calcium 6.7 L* (8.5-10.1) mg/dL Phosphorus (2.5-4.9) mg/dL Total Bilirubin (0.2-1.0) mg/dL AST (15-37) U/L Alkaline Phosphatase (45-117) U/L Total Creatine Kinase 6389 H (39-308) U/L CK-MB (CK-2) 98.3 H (0.5-3.6) ng/mL Total Protein (6.4-8.2) g/dL Albumin 1.7 L (3.4-5.0) g/dL Urine Clarity (Clear) Urine Protein (Neg-Trace) mg/dL Urine Occult Blood (Negative) Ur Leukocyte Esterase (Negative) Urine RBC (0-3) /hpf Urine WBC (0-5) /hpf Urine WBC Clumps (None) Amorphous Sediment (None) /hpf Urine Bacteria (None) /hpf Urine Mucus (Occasional) /lpf Short CBC 06/15/18 06/15/18 06/16/18 Range/Units 14:30 19:13 01:21 WBC 16.1 H 6.3 D (4.0-11.0) th/mm3 Hgb 16.1 14.2 13.7 (13.0-17.0) gm/dL Hct 48.3 39.9 38.6 L (39.0-51.0) % Plt Count 316 180 D (150-450) th/mm3 BMP 06/15/18 06/15/18 06/16/18 14:30 19:13 05:10 Sodium 148 H 149 H 148 H Potassium 4.8 3.7 D 4.0 Chloride 114 H 114 H 113 H Carbon Dioxide 18.9 L 25.0 26.3 BUN 46 H 44 H 42 H Creatinine 2.91 H 1.91 H 1.68 H Calcium 7.1 L* 6.6 L* 6.7 L* Cardiac Enzymes 06/15/18 06/16/18 Range/Units 08:52 05:10 Total Creatine Kinase 6389 H (39-308) U/L CK-MB (CK-2) 18.9 H 98.3 H (0.5-3.6) ng/mL Liver Function 06/15/18 06/16/18 Range/Units 14:30 05:10 Total Bilirubin 1.2 H (0.2-1.0) mg/dL AST 127 H (15-37) U/L ALT 44 (12-78) U/L Alkaline Phosphatase 37 L (45-117) U/L Albumin 2.0 L 1.7 L (3.4-5.0) g/dL Urine 06/15/18 Range/Units 15:02 Urine Color Chanelle (Yellw/Straw) Urine Clarity Cloudy H (Clear) Urine pH 5.0 (5.0-8.5) Ur Specific [place] 1.019 (1.002-1.035) Urine Protein 30 H (Neg-Trace) mg/dL Urine Glucose (UA) 50 (Negative) mg/dL <Jagruti Arroyo - 06/16/18 10:36> - Imaging Impressions Chest X-Ray 06/15/18 16:23 CONCLUSION: Stable endotracheal tube with the tip just above the level of the clavicles. New right-sided central line which terminates within the mid SVC. <Gunjan Simms - 06/16/18 16:55> Impressions Chest X-Ray 06/15/18 00:00 CONCLUSION: Status post interval intubation with the tip of the endotracheal tube just above the level of the clavicles. The lungs are clear. Head CT 06/15/18 00:00 CONCLUSION: 1. Negative CT Head non contrast. . Abdomen/Pelvis CT 06/15/18 08:46 CONCLUSION: 1. Pneumoperitoneum with diffusely thickened fluid-filled small bowel and moderate amount of ascites. 2. Small bilateral pleural effusions. 3. I spoke with the clinical team concerning the findings. Chest X-Ray 06/15/18 16:23 CONCLUSION: Stable endotracheal tube with the tip just above the level of the clavicles. New right-sided central line which terminates within the mid SVC. <Jagruti Arroyo - 06/16/18 10:23> Physical Exam Vital signs: Vital Signs 06/15/18 18:52 06/15/18 19:00 06/15/18 19:15 Temperature 96.4 F L 96.4 F L 96.4 F L Pulse Rate 96 H 96 H 96 H Respiratory Rate 14 16 16 Blood Pressure 94/57 L 97/60 L 97/62 L Pulse Oximetry 98 97 100 06/15/18 19:30 06/15/18 19:45 06/15/18 20:00 Temperature 96.4 F L 96.4 F L 96.4 F L Pulse Rate 97 H 100 H 100 H Respiratory Rate 16 16 16 Blood Pressure 98/63 L 97/67 L 94/59 L Pulse Oximetry 100 100 100 06/15/18 20:10 06/15/18 20:30 06/15/18 21:00 Temperature 96.4 F L 96.4 F L Pulse Rate 106 H 112 H Respiratory Rate 16 16 16 Blood Pressure 93/56 L 88/53 L Pulse Oximetry 100 100 100 06/15/18 21:30 06/15/18 22:00 06/15/18 22:30 Temperature 96.4 F L 96.4 F L 97.6 F Pulse Rate 110 H 116 H 119 H Respiratory Rate 16 16 16 Blood Pressure 87/51 L 92/54 L 92/50 L Pulse Oximetry 99 99 99 06/15/18 22:45 06/16/18 00:00 06/16/18 00:32 Temperature 97.6 F 100.0 F H Pulse Rate 122 H 132 H Respiratory Rate 16 16 16 Blood Pressure 100/49 L 95/42 L Pulse Oximetry 99 97 95 06/16/18 04:00 06/16/18 07:58 06/16/18 08:00 Temperature 99.7 F H 97.8 F Pulse Rate 96 H 83 Respiratory Rate 16 16 16 Blood Pressure 108/54 L 120/60 Pulse Oximetry 95 96 96 06/16/18 10:26 06/16/18 12:00 06/16/18 13:20 Temperature 98.3 F Pulse Rate 81 Respiratory Rate 22 16 16 Blood Pressure 104/57 L Pulse Oximetry 97 99 100 06/16/18 16:20 Temperature Pulse Rate Respiratory Rate 16 Blood Pressure Pulse Oximetry 99 Intake & Output 06/15/18 06/16/18 06/16/18 18:59 06:59 18:59 Intake Total 9300 / 9300 2250 / 2250 3312.5 / 3312.5 Output Total 1010 / 1010 1920 / 1920 730 / 730 Balance 8290 / 8290 330 / 330 2582.5 / 2582.5 Weight 66.9 kg Intake: IV 300 / 300 2250 / 2250 2312.5 / 2312.5 Precedex Inj 200 MCG In NS Inj 100 / 100 50 / 50 48 ML @ 0.2 MCG/KG/HR 3.4 mls/ hr IV.CONT TITRATE PRN Rx#: [id number] Neosynephrine Inj 40 MG In D5W 1000 / 1000 Inj 496 ML @ 40 MCG/MIN 30 mls/ hr IV.CONT TITRATE PRN Rx#: [id number] Sodium Bicarbonate 8.4% Inj 150 400 / 400 MEQ In D5W Inj 850 ML @ 125 mls/hr IV.CONT .Q8H [facility] Rx#: [id number] Azactam Inj 1,000 MG In NS Inj 100 / 100 100 / 100 100 / 100 100 ML @ 200 mls/hr IV.SIG Q8H [facility] Rx#:[id number] Diflucan 400 mg Premix Bag 200 200 / 200 ML @ 100 mls/hr IV.SIG ONCE ONE Rx#:[id number] LR 1000 mL Inj 1,000 ML @ 999 2000 / 2000 mls/hr IV.SIG .Q1H1M [facility] Rx#: [id number] Vancomycin Inj 1,250 MG In NS 262.5 / 262.5 Inj 250 ML @ 250 mls/hr IV.SIG Q18H [facility] Rx#:[id number] fentaNYL 10 mcg/mL Premix Drip 250 / 250 2,500 mcg In 250 ml @ 50 MCG/HR 5 mls/hr IV.SIG TITRATE PRN Rx #:[id number] Flagyl 500 MG Inj 100 ML @ 100 100 / 100 100 / 100 100 / 100 mls/hr IV.SIG Q8H [facility] Rx#: [id number] Anesthesia Amount 9000 / 9000 Other 1000 / 1000 Output: Urine 300 / 300 Estimated Blood Loss 60 / 60 Urine Amount (Catheter) 600 / 600 1300 / 1300 Indwelling Urethral Catheter 600 / 600 1300 / 1300 Gastric Drainage 400 / 400 Left Nare Nasogastric Tube 400 / 400 Wound Drainage 50 / 50 220 / 220 730 / 730 # 1 Left Lateral Abdomen 30 / 30 110 / 110 570 / 570 # 2 Abdomen Db 20 / 20 110 / 110 160 / 160 <Vey,Gunjan - 06/16/18 16:55> Vital Signs 06/15/18 11:00 06/15/18 11:07 06/15/18 12:00 Temperature 99.6 F Pulse Rate 122 H 120 H 116 H Respiratory Rate 37 H 38 H 40 H Blood Pressure 82/58 L Pulse Oximetry 98 97 06/15/18 12:17 06/15/18 13:00 06/15/18 14:00 Temperature Pulse Rate 115 H 111 H 110 H Respiratory Rate 38 H 38 H 36 H Blood Pressure 116/56 L 113/74 67/46 L Pulse Oximetry 98 100 06/15/18 14:04 06/15/18 14:51 06/15/18 14:53 Temperature Pulse Rate 110 H 109 H 112 H Respiratory Rate 37 H 39 H 39 H Blood Pressure 70/44 L 64/41 L 69/45 L Pulse Oximetry 100 99 90 L 06/15/18 14:55 06/15/18 15:00 06/15/18 15:06 Temperature Pulse Rate 112 H 109 H 110 H Respiratory Rate 38 H 37 H 37 H Blood Pressure 70/44 L 68/41 L 72/40 L Pulse Oximetry 97 89 L 85 L 06/15/18 15:17 06/15/18 15:18 06/15/18 15:34 Temperature Pulse Rate 108 H 107 H Respiratory Rate 31 H 24 23 Blood Pressure 106/55 L 83/53 L Pulse Oximetry 87 L 98 100 06/15/18 15:45 06/15/18 16:00 06/15/18 16:04 Temperature Pulse Rate 110 H 114 H 112 H Respiratory Rate 22 28 H 14 Blood Pressure 129/81 107/78 108/75 Pulse Oximetry 100 06/15/18 16:09 06/15/18 16:15 06/15/18 16:26 Temperature Pulse Rate 110 H 110 H 112 H Respiratory Rate 46 H 33 H 32 H Blood Pressure 112/77 105/61 98/64 L Pulse Oximetry 100 99 100 06/15/18 16:30 06/15/18 18:52 06/15/18 19:00 Temperature 96.4 F L 96.4 F L Pulse Rate 113 H 96 H 96 H Respiratory Rate 16 14 16 Blood Pressure 103/63 94/57 L 97/60 L Pulse Oximetry 100 98 97 06/15/18 19:15 06/15/18 19:30 06/15/18 19:45 Temperature 96.4 F L 96.4 F L 96.4 F L Pulse Rate 96 H 97 H 100 H Respiratory Rate 16 16 16 Blood Pressure 97/62 L 98/63 L 97/67 L Pulse Oximetry 100 100 100 06/15/18 20:00 06/15/18 20:10 06/15/18 20:30 Temperature 96.4 F L 96.4 F L Pulse Rate 100 H 106 H Respiratory Rate 16 16 16 Blood Pressure 94/59 L 93/56 L Pulse Oximetry 100 100 100 06/15/18 21:00 06/15/18 21:30 06/15/18 22:00 Temperature 96.4 F L 96.4 F L 96.4 F L Pulse Rate 112 H 110 H 116 H Respiratory Rate 16 16 16 Blood Pressure 88/53 L 87/51 L 92/54 L Pulse Oximetry 100 99 99 06/15/18 22:30 06/15/18 22:45 06/16/18 00:00 Temperature 97.6 F 97.6 F 100.0 F H Pulse Rate 119 H 122 H 132 H Respiratory Rate 16 16 16 Blood Pressure 92/50 L 100/49 L 95/42 L Pulse Oximetry 99 99 97 06/16/18 00:32 06/16/18 04:00 06/16/18 07:58 Temperature 99.7 F H Pulse Rate 96 H Respiratory Rate 16 16 16 Blood Pressure 108/54 L Pulse Oximetry 95 95 96 Intake & Output 06/15/18 06/16/18 06/16/18 18:59 06:59 18:59 Intake Total 9300 / 9300 2250 / 2250 500 / 500 Output Total 1010 / 1010 1920 / 1920 160 / 160 Balance 8290 / 8290 330 / 330 340 / 340 Weight 66.9 kg Intake: IV 300 / 300 2250 / 2250 500 / 500 Precedex Inj 200 MCG In NS Inj 100 / 100 50 / 50 48 ML @ 0.2 MCG/KG/HR 3.4 mls/ hr IV.CONT TITRATE PRN Rx#: [id number] Neosynephrine Inj 40 MG In D5W 500 / 500 Inj 496 ML @ 40 MCG/MIN 30 mls/ hr IV.CONT TITRATE PRN Rx#: [id number] Azactam Inj 1,000 MG In NS Inj 100 / 100 100 / 100 100 ML @ 200 mls/hr IV.SIG Q8H [facility] Rx#:[id number] LR 1000 mL Inj 1,000 ML @ 999 2000 / 2000 mls/hr IV.SIG .Q1H1M [facility] Rx#: [id number] Flagyl 500 MG Inj 100 ML @ 100 100 / 100 100 / 100 mls/hr IV.SIG Q8H [facility] Rx#: [id number] Anesthesia Amount 9000 / 9000 Output: Urine 300 / 300 Estimated Blood Loss 60 / 60 Urine Amount (Catheter) 600 / 600 1300 / 1300 Indwelling Urethral Catheter 600 / 600 1300 / 1300 Gastric Drainage 400 / 400 Left Nare Nasogastric Tube 400 / 400 Wound Drainage 50 / 50 220 / 220 160 / 160 # 1 Left Lateral Abdomen 30 / 30 110 / 110 90 / 90 # 2 Abdomen Db 20 / 20 110 / 110 70 / 70 <Jagruti Arroyo - 06/16/18 10:23> Narrative: Gen: Patient lying in bed, sedated and intubated, on mechanical ventilation Skin: Warm and dry, subclavian line in place CV: Tachycardic rate and normal rhythm Resp: CTAB, unlabored breathing Abd: Bowel sounds present, large vertical incision with bandage overlying. No drainage from incision. 2 drains placed with 1 mL serosanguineous fluid draining. Ext: No cyanosis or edema, calves nontender to palpation Neuro/psych: Sedated <Jagruti Arroyo - 06/16/18 10:36> - Urinary Catheter Management Indwelling Urethral Catheter Cath placed during this visit: no <Gunjan Simms - 06/16/18 16:55> yes <Jagruti Arroyo - 06/16/18 10:36> Reason for continuing: Hourly intake/output <Jagruti Arroyo - 06/16/18 10:23> Insertion date: 06/15/18 <Jagruti Arroyo 06/16/18 10:23> Assessment and Plan - Assessment (1) Overdose Code(s): T50.901A - Poisoning by unspecified drugs, medicaments and biological substances, accidental (unintentional), initial encounter Status: Acute (2) Rhabdomyolysis Code(s): M62.82 - Rhabdomyolysis Status: Acute (3) ARMANI (acute kidney injury) Code(s): N17.9 - Acute kidney failure, unspecified Status: Acute (4) Gastritis Code(s): K29.70 - Gastritis, unspecified, without bleeding Status: Acute (5) Weight loss Code(s): R63.4 - Abnormal weight loss Status: Acute (6) IVDU (intravenous drug user) Code(s): F19.90 - Other psychoactive substance use, unspecified, uncomplicated Status: Acute (7) Nutrition, metabolism, and development symptoms Code(s): R63.8 - Other symptoms and signs concerning food and fluid intake Status: Acute (8) DVT prophylaxis Status: Acute <AnithaGunjan dawn - 06/16/18 16:55> (1) Overdose Code(s): T50.901A - Poisoning by unspecified drugs, medicaments and biological substances, accidental (unintentional), initial encounter Status: Acute Plan: -OB\psych drug screen positive for amphetamine and cannabinoids, negative for opiates, other metabolites are pending PENDING -Serum alcohol and aspirin NEGATIVE -Extrusion Manager consulted -appreciate help management * Continue Precedex drip for agitation * Continue postoperative care * Lactic acid level pending this afternoon, lactic acid 2.8 preop yesterday on * Continuous monitoring of heart rate and BP, maintain map greater than 65 mmHg * Maintain oxygen saturation above 92% * Monitor CBC and coags * Start D5 water with sodium bicarb at 150 with: Alkalinization of urine with pH of 5.5 or above (2) Rhabdomyolysis Code(s): M62.82 - Rhabdomyolysis Status: Acute Plan: -CK 374 on admission -Increased to 8857 on 06/15 -Restart bicarb drip as above -Continue IV hydration -Follow creatinine, alkalinize urine (3) ARMANI (acute kidney injury) Code(s): N17.9 - Acute kidney failure, unspecified Status: Acute Plan: -Creatinine 1.68 this a.m , continue to follow-up creatinine -Concerning for metabolic acidosis -Continue bicarb drip as above -Avoid nephrotoxic substances (4) Gastritis Code(s): K29.70 - Gastritis, unspecified, without bleeding Status: Acute Plan: Gastritis with perforated gastric ulcer, postop day #1 from ex lap -NGT placed, n.p.o. -Continue Protonix drip, follow-up recommendations of general surgery -Gastroenterology on board, follow-up recommendations Neurosurgery on board, follow-up recommendation * (5) Weight loss Code(s): R63.4 - Abnormal weight loss Status: Acute Plan: Patient has had a significant weight loss in the past month according to patient 's significant other. Gastritis versus drug use versus hepatitis versus immunodeficiency (HIV). -Supportive care -Continue fluids until patient is able to tolerate diet by mouth -Hepatitis panel positive for hepatitis C antibody -We will discuss HIV testing when patient is able to consent (6) IVDU (intravenous drug user) Code(s): F19.90 - Other psychoactive substance use, unspecified, uncomplicated Status: Acute Plan: Patient with a history of IV drug use -Blood cultures no growth in 1 day -Repeat blood cultures drawn today, follow-up repeat -Hepatitis panel positive for hep C -Case management consult to help with possible rehab placement when stable if patient is willing (7) Nutrition, metabolism, and development symptoms Code(s): R63.8 - Other symptoms and signs concerning food and fluid intake Status: Acute Plan: -NPO diet, patient sedated and ventilated -D5W with bicarb (8) DVT prophylaxis Status: Acute Plan: -Bilateral SCDs for DVT prophylaxis -Follow-up recommendations of general surgery to restart anticoagulation postop <Jagruti Arroyo - 06/16/18 10:24> - Attending Attestation Patient seen and examined this morning, discussed with Dr. Arroyo. I agree with assessment and management as documented and discussed with me. Pt remains intubated and sedated. Appreciate multiple specialists involved in patient's care. FM team working to determine who is medical decision maker for this patient. <Gunjan Simms - 06/16/18 16:55> <Jagruti Arroyo - Last Filed: 06/16/18 10:24> (4) Gastritis Qualifiers: Gastritis type: unspecified gastritis Chronicity: acute Gastritis bleeding: with bleeding Qualified Code(s): K29.01 - Acute gastritis with bleeding <Gunjan Simms - Last Filed: 06/16/18 16:55> (4) Gastritis Qualifiers: Gastritis type: unspecified gastritis Chronicity: acute Gastritis bleeding: with bleeding Qualified Code(s): K29.01 - Acute gastritis with bleeding <JohnypaJagruti - Last Filed: 06/16/18 10:24> (4) Gastritis Qualifiers: Gastritis type: unspecified gastritis Chronicity: acute Gastritis bleeding: with bleeding Qualified Code(s): K29.01 - Acute gastritis with bleeding <VeyGunjan - Last Filed: 06/16/18 16:55> (4) Gastritis Qualifiers: Gastritis type: unspecified gastritis Chronicity: acute Gastritis bleeding: with bleeding Qualified Code(s): K29.01 - Acute gastritis with bleeding
[2018-06-16] MEDS ORDERED: Sodium Bicarbonate 8.4% Inj 150 MEQ in Dextrose 5% in Water Inj 850 ML IV.CONT SCH ×2 (11:00)
--- NOTE | 2018-06-16 11:42 | P.PNNP ---
Subjective Interval history: Taken to the OR for emergent small bowel perforation. Seen in [facility]. Remains intubated, sedated, hypotensive on pressors. Non oliguric, renal function has improved. <Syeda Jones - Last Filed: 06/16/18 11:27> Physical Exam Vital signs: Vital Signs 06/15/18 12:00 06/15/18 12:17 06/15/18 13:00 Temperature 99.6 F Pulse Rate 116 H 115 H 111 H Respiratory Rate 40 H 38 H 38 H Blood Pressure 116/56 L 113/74 Pulse Oximetry 98 06/15/18 14:00 06/15/18 14:04 06/15/18 14:51 Temperature Pulse Rate 110 H 110 H 109 H Respiratory Rate 36 H 37 H 39 H Blood Pressure 67/46 L 70/44 L 64/41 L Pulse Oximetry 100 100 99 06/15/18 14:53 06/15/18 14:55 06/15/18 15:00 Temperature Pulse Rate 112 H 112 H 109 H Respiratory Rate 39 H 38 H 37 H Blood Pressure 69/45 L 70/44 L 68/41 L Pulse Oximetry 90 L 97 89 L 06/15/18 15:06 06/15/18 15:17 06/15/18 15:18 Temperature Pulse Rate 110 H 108 H Respiratory Rate 37 H 31 H 24 Blood Pressure 72/40 L 106/55 L Pulse Oximetry 85 L 87 L 98 06/15/18 15:34 06/15/18 15:45 06/15/18 16:00 Temperature Pulse Rate 107 H 110 H 114 H Respiratory Rate 23 22 28 H Blood Pressure 83/53 L 129/81 107/78 Pulse Oximetry 100 06/15/18 16:04 06/15/18 16:09 06/15/18 16:15 Temperature Pulse Rate 112 H 110 H 110 H Respiratory Rate 14 46 H 33 H Blood Pressure 108/75 112/77 105/61 Pulse Oximetry 100 100 99 06/15/18 16:26 06/15/18 16:30 06/15/18 18:52 Temperature 96.4 F L Pulse Rate 112 H 113 H 96 H Respiratory Rate 32 H 16 14 Blood Pressure 98/64 L 103/63 94/57 L Pulse Oximetry 100 100 98 06/15/18 19:00 06/15/18 19:15 06/15/18 19:30 Temperature 96.4 F L 96.4 F L 96.4 F L Pulse Rate 96 H 96 H 97 H Respiratory Rate 16 16 16 Blood Pressure 97/60 L 97/62 L 98/63 L Pulse Oximetry 97 100 100 06/15/18 19:45 06/15/18 20:00 06/15/18 20:10 Temperature 96.4 F L 96.4 F L Pulse Rate 100 H 100 H Respiratory Rate 16 16 16 Blood Pressure 97/67 L 94/59 L Pulse Oximetry 100 100 100 06/15/18 20:30 06/15/18 21:00 06/15/18 21:30 Temperature 96.4 F L 96.4 F L 96.4 F L Pulse Rate 106 H 112 H 110 H Respiratory Rate 16 16 16 Blood Pressure 93/56 L 88/53 L 87/51 L Pulse Oximetry 100 100 99 06/15/18 22:00 06/15/18 22:30 06/15/18 22:45 Temperature 96.4 F L 97.6 F 97.6 F Pulse Rate 116 H 119 H 122 H Respiratory Rate 16 16 16 Blood Pressure 92/54 L 92/50 L 100/49 L Pulse Oximetry 99 99 99 06/16/18 00:00 06/16/18 00:32 06/16/18 04:00 Temperature 100.0 F H 99.7 F H Pulse Rate 132 H 96 H Respiratory Rate 16 16 16 Blood Pressure 95/42 L 108/54 L Pulse Oximetry 97 95 95 06/16/18 07:58 06/16/18 10:26 Temperature Pulse Rate Respiratory Rate 16 22 Blood Pressure Pulse Oximetry 96 97 Intake & Output 06/15/18 06/16/18 06/16/18 18:59 06:59 18:59 Intake Total 9300 / 9300 2250 / 2250 500 / 500 Output Total 1010 / 1010 1920 / 1920 160 / 160 Balance 8290 / 8290 330 / 330 340 / 340 Weight 66.9 kg Intake: IV 300 / 300 2250 / 2250 500 / 500 Precedex Inj 200 MCG In NS Inj 100 / 100 50 / 50 48 ML @ 0.2 MCG/KG/HR 3.4 mls/ hr IV.CONT TITRATE PRN Rx#: [id number] Neosynephrine Inj 40 MG In D5W 500 / 500 Inj 496 ML @ 40 MCG/MIN 30 mls/ hr IV.CONT TITRATE PRN Rx#: [id number] Azactam Inj 1,000 MG In NS Inj 100 / 100 100 / 100 100 ML @ 200 mls/hr IV.SIG Q8H [facility] Rx#:[id number] LR 1000 mL Inj 1,000 ML @ 999 2000 / 2000 mls/hr IV.SIG .Q1H1M [facility] Rx#: [id number] Flagyl 500 MG Inj 100 ML @ 100 100 / 100 100 / 100 mls/hr IV.SIG Q8H [facility] Rx#: [id number] Anesthesia Amount 9000 / 9000 Output: Urine 300 / 300 Estimated Blood Loss 60 / 60 Urine Amount (Catheter) 600 / 600 1300 / 1300 Indwelling Urethral Catheter 600 / 600 1300 / 1300 Gastric Drainage 400 / 400 Left Nare Nasogastric Tube 400 / 400 Wound Drainage 50 / 50 220 / 220 160 / 160 # 1 Left Lateral Abdomen 30 / 30 110 / 110 90 / 90 # 2 Abdomen Db 20 / 20 110 / 110 70 / 70 - Constitutional no acute distress Comments: young, male, intubated on multiple gtts. - Routine HEENT Exam Head: Present: normocephalic - Routine Neck Exam Present: supple, full ROM - Routine Respiratory Exam Present: patient mechanically ventilated, CTA bilaterally - Routine Cardiovascular Exam Present: RRR, S1, S2 - Routine Abdominal Exam Present: soft, normoactive bowel sounds, drain - Routine Extremities Exam Present: full ROM, pulses intact, normal capillary refill. Absent: edema - Routine Skin Exam Present: dry, warm - Detailed Neurological Exam: Coma Scale Eye Opening: None Verbal Response: None Motor Response: None [place] Coma Scale Total: 3 - Routine Psychiatric Exam Present: unable to assess - Urinary Catheter Management Indwelling Urethral Catheter Cath placed during this visit: yes Reason for continuing: Hourly intake/output Insertion date: 06/15/18 <Syeda Jones - Last Filed: 06/16/18 11:27> Vital signs: Vital Signs 06/15/18 21:30 06/15/18 22:00 06/15/18 22:30 Temperature 96.4 F L 96.4 F L 97.6 F Pulse Rate 110 H 116 H 119 H Respiratory Rate 16 16 16 Blood Pressure 87/51 L 92/54 L 92/50 L Pulse Oximetry 99 99 99 06/15/18 22:45 06/16/18 00:00 06/16/18 00:32 Temperature 97.6 F 100.0 F H Pulse Rate 122 H 132 H Respiratory Rate 16 16 16 Blood Pressure 100/49 L 95/42 L Pulse Oximetry 99 97 95 06/16/18 04:00 06/16/18 07:58 06/16/18 08:00 Temperature 99.7 F H 97.8 F Pulse Rate 96 H 84 Respiratory Rate 16 16 16 Blood Pressure 108/54 L 120/60 Pulse Oximetry 95 96 96 06/16/18 10:00 06/16/18 10:26 06/16/18 12:00 Temperature 98.3 F Pulse Rate 80 81 Respiratory Rate 22 16 Blood Pressure 104/57 L Pulse Oximetry 97 99 06/16/18 13:20 06/16/18 14:00 06/16/18 16:00 Temperature 98.0 F Pulse Rate 76 77 Respiratory Rate 16 16 Blood Pressure 98/52 L Pulse Oximetry 100 99 06/16/18 16:20 06/16/18 20:43 Temperature Pulse Rate Respiratory Rate 16 16 Blood Pressure Pulse Oximetry 99 96 Intake & Output 06/16/18 06/16/18 06/17/18 06:59 18:59 06:59 Intake Total 2250 / 2250 3512.5 / 3512.5 100 / 100 Output Total 1920 / 1920 2240 / 2240 Balance 330 / 330 1272.5 / 1272.5 100 / 100 Weight 66.9 kg Intake: IV 2250 / 2250 2512.5 / 2512.5 100 / 100 Precedex Inj 200 MCG In NS Inj 50 / 50 48 ML @ 0.2 MCG/KG/HR 3.4 mls/ hr IV.CONT TITRATE PRN Rx#: [id number] Protonix Inj 80 MG In NS Inj 100 / 100 100 ML @ 10 mls/hr IV.CONT Q10H [facility] Rx#:[id number] Neosynephrine Inj 40 MG In D5W 1000 / 1000 Inj 496 ML @ 40 MCG/MIN 30 mls/ hr IV.CONT TITRATE PRN Rx#: [id number] Sodium Bicarbonate 8.4% Inj 150 400 / 400 MEQ In D5W Inj 850 ML @ 125 mls/hr IV.CONT .Q8H [facility] Rx#: [id number] Azactam Inj 1,000 MG In NS Inj 100 / 100 200 / 200 100 ML @ 200 mls/hr IV.SIG Q8H [facility] Rx#:[id number] Diflucan 400 mg Premix Bag 200 200 / 200 ML @ 100 mls/hr IV.SIG ONCE ONE Rx#:[id number] LR 1000 mL Inj 1,000 ML @ 999 2000 / 2000 mls/hr IV.SIG .Q1H1M [facility] Rx#: [id number] Vancomycin Inj 1,250 MG In NS 262.5 / 262.5 Inj 250 ML @ 250 mls/hr IV.SIG Q18H [facility] Rx#:[id number] fentaNYL 10 mcg/mL Premix Drip 250 / 250 2,500 mcg In 250 ml @ 50 MCG/HR 5 mls/hr IV.SIG TITRATE PRN Rx #:[id number] Flagyl 500 MG Inj 100 ML @ 100 100 / 100 200 / 200 mls/hr IV.SIG Q8H [facility] Rx#: [id number] Other 1000 / 1000 Output: Urine Amount (Catheter) 1300 / 1300 1100 / 1100 Indwelling Urethral Catheter 1300 / 1300 1100 / 1100 Gastric Drainage 400 / 400 300 / 300 Left Nare Nasogastric Tube 400 / 400 300 / 300 Wound Drainage 220 / 220 840 / 840 # 1 Left Lateral Abdomen 110 / 110 660 / 660 # 2 Abdomen Db 110 / 110 180 / 180 Other: # Bowel Movements 0 - Urinary Catheter Management Indwelling Urethral Catheter Cath placed during this visit: no <Kartik Garcia - Last Filed: 06/16/18 21:35> Assessment and Plan - Assessment (1) ARMANI (acute kidney injury) Code(s): N17.9 - Acute kidney failure, unspecified Status: Acute Plan: Normal renal function at baseline ARMANI most likely due to renal hypoperfusion secondary to sepsis. His renal function is better. Bicarb gtt continues. Given IVF boluses today. On phenylephrine for BP support. He has been making urine. Possible UTI noted. Imaging negative for obstruction CPK improving, not likely rhabdomyolysis. Monitor labs daily including CPK. Avoid nephrotoxic agents. Dialysis is not required. (2) Upper GI bleed Code(s): K92.2 - Gastrointestinal hemorrhage, unspecified Status: Acute Plan: On Protonix gtt s/p emergent surgery for pneumoperitoneum and gastric ulcer. Management per surgical team (3) Sepsis Code(s): A41.9 - Sepsis, unspecified organism Status: Acute Plan: On Flagyl, Aztreonam, Vancomycin. Intraabdominal sepsis. Monitor hemodynamics. (4) Substance abuse Code(s): F19.10 - Other psychoactive substance abuse, uncomplicated Status: Acute Plan: May need psych evaluation Cessation will be discussed when awake. Monitor for withdrawal. <Syeda Jones - Last Filed: 06/16/18 11:27> - Assessment (1) ARMANI (acute kidney injury) Code(s): N17.9 - Acute kidney failure, unspecified Status: Acute (2) Upper GI bleed Code(s): K92.2 - Gastrointestinal hemorrhage, unspecified Status: Acute (3) Sepsis Code(s): A41.9 - Sepsis, unspecified organism Status: Acute (4) Substance abuse Code(s): F19.10 - Other psychoactive substance abuse, uncomplicated Status: Acute - Attending Attestation patient was seen and examined. Hypernatremia is noted. No need for bicarbonate drip. I have changed the fluids to 1/2NS. Taper off fluids soon, avoid excessive fluid administration. <Kartik Garcia - Last Filed: 06/16/18 21:35>
[2018-06-16] MEDS ORDERED: Vancomycin Inj 1,250 MG in Sodium Chlor 0.9% Inj 250 ML IV.SIG SCH (12:00)
[2018-06-16] MEDS: Sodium Chloride 0.45 % Inj 1,000 ML IV.CONT SCH ×2 (13:15→22:47)
[2018-06-16] MEDS: Dexmedetomidine Inj 1,000 MCG in Sodium Chlor 0.9% Inj 240 ML IV.CONT PRN (13:23)
--- NOTE | 2018-06-16 13:54 | P.PNCC ---
Subjective Subjective Remarks/Hospital Course: 06/16: Patient underwent emergent laparotomy on 06/15 and was found to have a perforated gastric ulcer with significant peritoneal contamination with gastric contents for which he underwent peritoneal washout and Theron patch repair and was subsequently transferred to ICU intubated on mechanical ventilation. He has been hypotensive overnight requiring pressors. Remains sedated, orally intubated on mechanical ventilation. CPK remains elevated in the 6000 range. Objective Vital Signs / I&O: Vital Signs 06/15/18 14:00 06/15/18 14:04 06/15/18 14:51 Temperature Pulse Rate 110 H 110 H 109 H Respiratory Rate 36 H 37 H 39 H Blood Pressure 67/46 L 70/44 L 64/41 L Pulse Oximetry 100 100 99 06/15/18 14:53 06/15/18 14:55 06/15/18 15:00 Temperature Pulse Rate 112 H 112 H 109 H Respiratory Rate 39 H 38 H 37 H Blood Pressure 69/45 L 70/44 L 68/41 L Pulse Oximetry 90 L 97 89 L 06/15/18 15:06 06/15/18 15:17 06/15/18 15:18 Temperature Pulse Rate 110 H 108 H Respiratory Rate 37 H 31 H 24 Blood Pressure 72/40 L 106/55 L Pulse Oximetry 85 L 87 L 98 06/15/18 15:34 06/15/18 15:45 06/15/18 16:00 Temperature Pulse Rate 107 H 110 H 114 H Respiratory Rate 23 22 28 H Blood Pressure 83/53 L 129/81 107/78 Pulse Oximetry 100 06/15/18 16:04 06/15/18 16:09 06/15/18 16:15 Temperature Pulse Rate 112 H 110 H 110 H Respiratory Rate 14 46 H 33 H Blood Pressure 108/75 112/77 105/61 Pulse Oximetry 100 100 99 06/15/18 16:26 06/15/18 16:30 06/15/18 18:52 Temperature 96.4 F L Pulse Rate 112 H 113 H 96 H Respiratory Rate 32 H 16 14 Blood Pressure 98/64 L 103/63 94/57 L Pulse Oximetry 100 100 98 06/15/18 19:00 06/15/18 19:15 06/15/18 19:30 Temperature 96.4 F L 96.4 F L 96.4 F L Pulse Rate 96 H 96 H 97 H Respiratory Rate 16 16 16 Blood Pressure 97/60 L 97/62 L 98/63 L Pulse Oximetry 97 100 100 06/15/18 19:45 06/15/18 20:00 06/15/18 20:10 Temperature 96.4 F L 96.4 F L Pulse Rate 100 H 100 H Respiratory Rate 16 16 16 Blood Pressure 97/67 L 94/59 L Pulse Oximetry 100 100 100 06/15/18 20:30 06/15/18 21:00 06/15/18 21:30 Temperature 96.4 F L 96.4 F L 96.4 F L Pulse Rate 106 H 112 H 110 H Respiratory Rate 16 16 16 Blood Pressure 93/56 L 88/53 L 87/51 L Pulse Oximetry 100 100 99 06/15/18 22:00 06/15/18 22:30 06/15/18 22:45 Temperature 96.4 F L 97.6 F 97.6 F Pulse Rate 116 H 119 H 122 H Respiratory Rate 16 16 16 Blood Pressure 92/54 L 92/50 L 100/49 L Pulse Oximetry 99 99 99 06/16/18 00:00 06/16/18 00:32 06/16/18 04:00 Temperature 100.0 F H 99.7 F H Pulse Rate 132 H 96 H Respiratory Rate 16 16 16 Blood Pressure 95/42 L 108/54 L Pulse Oximetry 97 95 95 06/16/18 07:58 06/16/18 10:26 06/16/18 13:20 Temperature Pulse Rate Respiratory Rate 16 22 16 Blood Pressure Pulse Oximetry 96 97 100 Intake & Output 06/15/18 06/16/18 06/16/18 18:59 06:59 18:59 Intake Total 9300 / 9300 2250 / 2250 2100 / 2100 Output Total 1010 / 1010 1920 / 1920 580 / 580 Balance 8290 / 8290 330 / 330 1520 / 1520 Weight 66.9 kg Intake: IV 300 / 300 2250 / 2250 1100 / 1100 Precedex Inj 200 MCG In NS Inj 100 / 100 50 / 50 48 ML @ 0.2 MCG/KG/HR 3.4 mls/ hr IV.CONT TITRATE PRN Rx#: [id number] Neosynephrine Inj 40 MG In D5W 500 / 500 Inj 496 ML @ 40 MCG/MIN 30 mls/ hr IV.CONT TITRATE PRN Rx#: [id number] Sodium Bicarbonate 8.4% Inj 150 400 / 400 MEQ In D5W Inj 850 ML @ 125 mls/hr IV.CONT .Q8H [facility] Rx#: [id number] Azactam Inj 1,000 MG In NS Inj 100 / 100 100 / 100 100 / 100 100 ML @ 200 mls/hr IV.SIG Q8H [facility] Rx#:[id number] LR 1000 mL Inj 1,000 ML @ 999 2000 / 2000 mls/hr IV.SIG .Q1H1M [facility] Rx#: [id number] Flagyl 500 MG Inj 100 ML @ 100 100 / 100 100 / 100 100 / 100 mls/hr IV.SIG Q8H [facility] Rx#: [id number] Anesthesia Amount 9000 / 9000 Other 1000 / 1000 Output: Urine 300 / 300 Estimated Blood Loss 60 / 60 Urine Amount (Catheter) 600 / 600 1300 / 1300 Indwelling Urethral Catheter 600 / 600 1300 / 1300 Gastric Drainage 400 / 400 Left Nare Nasogastric Tube 400 / 400 Wound Drainage 50 / 50 220 / 220 580 / 580 # 1 Left Lateral Abdomen 30 / 30 110 / 110 470 / 470 # 2 Abdomen Db 20 / 20 110 / 110 110 / 110 Result Diagrams: 06/16/18 01:21 06/16/18 05:10 Objective Remarks: HEENT/ Neuro: Sedated, orally intubated, no pallor, no icterus, tongue/ mucosa moist Neck: No JVD Chest/Pulm: on mech vent, good air entry bilaterally, no wheezing or crackles CVS: S1-S2 regular, no murmur GI/abdomen: soft, dressing over surgical site clean dry and intact. MIHAELA drains 2 with serosanguineous drainage. Bowel sounds not appreciated. Extremities: warm bilaterally, no edema Assessment and Plan - Assessment and Plan Plan: 27-year-old male with: Septic shock Acute respiratory failure on mechanical ventilation Perforated gastric ulcer status post expiratory laparotomy with Theron patch repair and peritoneal washout Perforation peritonitis Overdose History of substance abuse Rhabdomyolysis ARMANI Plan: Neuro: Sedation with Precedex/fentanyl for analgesia. Daily sedation vacation. Follow neuro status. Ativan/Haldol as needed as needed for agitation. Cardiovascular: IV hydration, watch for hypotension. Phenylephrine for pressor support. We will add vasopressin low-dose. Trend lactic acid. Pulmonary: Continue mechanical ventilation, vent bundle, bronchodilators as needed. Initiate CPAP trials when hemodynamically stable. GI/liver: N.p.o., NG suction. Surgery following status post laparotomy. Follow MIHAELA drainage. Renal/: IV hydration, strict intake output, monitor and replete electrodes, follow BN creatinine. IV fluid change to bicarb drip to alkalinize urine due to rhabdomyolysis. Follow CPK. ID: Empiric antibiotic coverage with IV vancomycin/aztreonam/Flagyl. Follow-up cultures. Endocrine: Watch for hyperglycemia, SSI for glycemic control if needed. Prophylaxis: On Protonix GTT, consider switching to twice daily Protonix. SCDs. Start subcu Lovenox when okay with general surgery. Discussed with family medicine team, discussed with Dr. Sabillon from surgery. Condition critical Time spent on critical care excluding procedures 45 minutes
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
[2018-06-16 14:14] LABS: Baso % (Auto) 0.2 % (0.0-2.0); Eos % (Auto) 0.2 % (0.0-4.0); Hematocrit 35.6 % (39.0-51.0); Hemoglobin 12.7 gm/dL (13.0-17.0); Lymph # (Auto) 1.3 th/mm3 (1.0-4.8); Lymph % (Auto) 17.7 % (9.0-44.0); Mean Corpuscular HGB Conc 35.6 % (32.0-36.0); Mean Corpuscular Hemoglobin 29.9 pg (27.0-34.0); Mean Corpuscular Volume 84.1 fL (80.0-100.0); Mono # (Auto) 0.6 th/mm3 (0.0-0.9); Mono % (Auto) 8.7 % (0.0-8.0); Neut # (Auto) 5.4 th/mm3 (1.8-7.7); Neut % (Auto) 73.2 % (16.0-70.0); Platelet Count 187 th/mm3 (150-450); Red Blood Count 4.23 mil/mm3 (4.50-5.90); Red Cell Distribution Width 14.2 % (11.6-17.2); White Blood Count 7.4 th/mm3 (4.0-11.0)
[2018-06-16 14:20] LABS: Activated Partial Thrombo Time 43.3 sec (24.3-30.1); INR 1.3 Ratio
--- NOTE | 2018-06-16 14:52 | P.PNGI ---
Subjective Interval history: Pt is sedated on a vent, NGT to LIWS with gastric output, no bleeding. <Gabriela Jackson - Last Filed: 06/16/18 16:00> Physical Exam Vital signs: Vital Signs 06/15/18 15:45 06/15/18 16:00 06/15/18 16:04 Temperature Pulse Rate 110 H 114 H 112 H Respiratory Rate 22 28 H 14 Blood Pressure 129/81 107/78 108/75 Pulse Oximetry 100 06/15/18 16:09 06/15/18 16:15 06/15/18 16:26 Temperature Pulse Rate 110 H 110 H 112 H Respiratory Rate 46 H 33 H 32 H Blood Pressure 112/77 105/61 98/64 L Pulse Oximetry 100 99 100 06/15/18 16:30 06/15/18 18:52 06/15/18 19:00 Temperature 96.4 F L 96.4 F L Pulse Rate 113 H 96 H 96 H Respiratory Rate 16 14 16 Blood Pressure 103/63 94/57 L 97/60 L Pulse Oximetry 100 98 97 06/15/18 19:15 06/15/18 19:30 06/15/18 19:45 Temperature 96.4 F L 96.4 F L 96.4 F L Pulse Rate 96 H 97 H 100 H Respiratory Rate 16 16 16 Blood Pressure 97/62 L 98/63 L 97/67 L Pulse Oximetry 100 100 100 06/15/18 20:00 06/15/18 20:10 06/15/18 20:30 Temperature 96.4 F L 96.4 F L Pulse Rate 100 H 106 H Respiratory Rate 16 16 16 Blood Pressure 94/59 L 93/56 L Pulse Oximetry 100 100 100 06/15/18 21:00 06/15/18 21:30 06/15/18 22:00 Temperature 96.4 F L 96.4 F L 96.4 F L Pulse Rate 112 H 110 H 116 H Respiratory Rate 16 16 16 Blood Pressure 88/53 L 87/51 L 92/54 L Pulse Oximetry 100 99 99 06/15/18 22:30 06/15/18 22:45 06/16/18 00:00 Temperature 97.6 F 97.6 F 100.0 F H Pulse Rate 119 H 122 H 132 H Respiratory Rate 16 16 16 Blood Pressure 92/50 L 100/49 L 95/42 L Pulse Oximetry 99 99 97 06/16/18 00:32 06/16/18 04:00 06/16/18 07:58 Temperature 99.7 F H Pulse Rate 96 H Respiratory Rate 16 16 16 Blood Pressure 108/54 L Pulse Oximetry 95 95 96 06/16/18 10:26 06/16/18 13:20 Temperature Pulse Rate Respiratory Rate 22 16 Blood Pressure Pulse Oximetry 97 100 Intake & Output 06/15/18 06/16/18 06/16/18 18:59 06:59 18:59 Intake Total 9300 / 9300 2250 / 2250 3312.5 / 3312.5 Output Total 1010 / 1010 1920 / 1920 580 / 580 Balance 8290 / 8290 330 / 330 2732.5 / 2732.5 Weight 66.9 kg Intake: IV 300 / 300 2250 / 2250 2312.5 / 2312.5 Precedex Inj 200 MCG In NS Inj 100 / 100 50 / 50 48 ML @ 0.2 MCG/KG/HR 3.4 mls/ hr IV.CONT TITRATE PRN Rx#: [id number] Neosynephrine Inj 40 MG In D5W 1000 / 1000 Inj 496 ML @ 40 MCG/MIN 30 mls/ hr IV.CONT TITRATE PRN Rx#: [id number] Sodium Bicarbonate 8.4% Inj 150 400 / 400 MEQ In D5W Inj 850 ML @ 125 mls/hr IV.CONT .Q8H TEOFILO Rx#: [id number] Azactam Inj 1,000 MG In NS Inj 100 / 100 100 / 100 100 / 100 100 ML @ 200 mls/hr IV.SIG Q8H TEOF[place]O Rx#:[id number] Diflucan 400 mg Premix Bag 200 200 / 200 ML @ 100 mls/hr IV.SIG ONCE ONE Rx#:[id number] LR 1000 mL Inj 1,000 ML @ 999 2000 / 2000 mls/hr IV.SIG .Q1H1M TEOFILO Rx#: [id number] Vancomycin Inj 1,250 MG In NS 262.5 / 262.5 Inj 250 ML @ 250 mls/hr IV.SIG Q18H TEOF[facility]O Rx#:[id number] fentaNYL 10 mcg/mL Premix Drip 250 / 250 2,500 mcg In 250 ml @ 50 MCG/HR 5 mls/hr IV.SIG TITRATE PRN Rx #:[id number] Flagyl 500 MG Inj 100 ML @ 100 100 / 100 100 / 100 100 / 100 mls/hr IV.SIG Q8H TEOFILO Rx#: [id number] Anesthesia Amount 9000 / 9000 Other 1000 / 1000 Output: Urine 300 / 300 Estimated Blood Loss 60 / 60 Urine Amount (Catheter) 600 / 600 1300 / 1300 Indwelling Urethral Catheter 600 / 600 1300 / 1300 Gastric Drainage 400 / 400 Left Nare Nasogastric Tube 400 / 400 Wound Drainage 50 / 50 220 / 220 580 / 580 # 1 Left Lateral Abdomen 30 / 30 110 / 110 470 / 470 # 2 Abdomen Db 20 / 20 110 / 110 110 / 110 - Urinary Catheter Management Indwelling Urethral Catheter Cath placed during this visit: no <Remi Tran - Last Filed: 06/16/18 15:41> Vital signs: Vital Signs 06/15/18 14:51 06/15/18 14:53 06/15/18 14:55 Temperature Pulse Rate 109 H 112 H 112 H Respiratory Rate 39 H 39 H 38 H Blood Pressure 64/41 L 69/45 L 70/44 L Pulse Oximetry 99 90 L 97 06/15/18 15:00 06/15/18 15:06 06/15/18 15:17 Temperature Pulse Rate 109 H 110 H 108 H Respiratory Rate 37 H 37 H 31 H Blood Pressure 68/41 L 72/40 L 106/55 L Pulse Oximetry 89 L 85 L 87 L 06/15/18 15:18 06/15/18 15:34 06/15/18 15:45 Temperature Pulse Rate 107 H 110 H Respiratory Rate 24 23 22 Blood Pressure 83/53 L 129/81 Pulse Oximetry 98 100 06/15/18 16:00 06/15/18 16:04 06/15/18 16:09 Temperature Pulse Rate 114 H 112 H 110 H Respiratory Rate 28 H 14 46 H Blood Pressure 107/78 108/75 112/77 Pulse Oximetry 100 100 06/15/18 16:15 06/15/18 16:26 06/15/18 16:30 Temperature Pulse Rate 110 H 112 H 113 H Respiratory Rate 33 H 32 H 16 Blood Pressure 105/61 98/64 L 103/63 Pulse Oximetry 99 100 100 06/15/18 18:52 06/15/18 19:00 06/15/18 19:15 Temperature 96.4 F L 96.4 F L 96.4 F L Pulse Rate 96 H 96 H 96 H Respiratory Rate 14 16 16 Blood Pressure 94/57 L 97/60 L 97/62 L Pulse Oximetry 98 97 100 06/15/18 19:30 06/15/18 19:45 06/15/18 20:00 Temperature 96.4 F L 96.4 F L 96.4 F L Pulse Rate 97 H 100 H 100 H Respiratory Rate 16 16 16 Blood Pressure 98/63 L 97/67 L 94/59 L Pulse Oximetry 100 100 100 06/15/18 20:10 06/15/18 20:30 06/15/18 21:00 Temperature 96.4 F L 96.4 F L Pulse Rate 106 H 112 H Respiratory Rate 16 16 16 Blood Pressure 93/56 L 88/53 L Pulse Oximetry 100 100 100 06/15/18 21:30 06/15/18 22:00 06/15/18 22:30 Temperature 96.4 F L 96.4 F L 97.6 F Pulse Rate 110 H 116 H 119 H Respiratory Rate 16 16 16 Blood Pressure 87/51 L 92/54 L 92/50 L Pulse Oximetry 99 99 99 06/15/18 22:45 06/16/18 00:00 06/16/18 00:32 Temperature 97.6 F 100.0 F H Pulse Rate 122 H 132 H Respiratory Rate 16 16 16 Blood Pressure 100/49 L 95/42 L Pulse Oximetry 99 97 95 06/16/18 04:00 06/16/18 07:58 06/16/18 10:26 Temperature 99.7 F H Pulse Rate 96 H Respiratory Rate 16 16 22 Blood Pressure 108/54 L Pulse Oximetry 95 96 97 06/16/18 13:20 Temperature Pulse Rate Respiratory Rate 16 Blood Pressure Pulse Oximetry 100 Intake & Output 06/15/18 06/16/18 06/16/18 18:59 06:59 18:59 Intake Total 9300 / 9300 2250 / 2250 2862.5 / 2862.5 Output Total 1010 / 1010 1920 / 1920 580 / 580 Balance 8290 / 8290 330 / 330 2282.5 / 2282.5 Weight 66.9 kg Intake: IV 300 / 300 2250 / 2250 1862.5 / 1862.5 Precedex Inj 200 MCG In NS Inj 100 / 100 50 / 50 48 ML @ 0.2 MCG/KG/HR 3.4 mls/ hr IV.CONT TITRATE PRN Rx#: [id number] Neosynephrine Inj 40 MG In D5W 1000 / 1000 Inj 496 ML @ 40 MCG/MIN 30 mls/ hr IV.CONT TITRATE PRN Rx#: [id number] Sodium Bicarbonate 8.4% Inj 150 400 / 400 MEQ In D5W Inj 850 ML @ 125 mls/hr IV.CONT .Q8H TEOFILO Rx#: [id number] Azactam Inj 1,000 MG In NS Inj 100 / 100 100 / 100 100 / 100 100 ML @ 200 mls/hr IV.SIG Q8H TEOFILO Rx#:[id number] LR 1000 mL Inj 1,000 ML @ 999 2000 / 2000 mls/hr IV.SIG .Q1H1M TEOF[facility]O Rx#: [id number] Vancomycin Inj 1,250 MG In NS 262.5 / 262.5 Inj 250 ML @ 250 mls/hr IV.SIG Q18H TEOFILO Rx#:[id number] Flagyl 500 MG Inj 100 ML @ 100 100 / 100 100 / 100 100 / 100 mls/hr IV.SIG Q8H TEOFILO Rx#: [id number] Anesthesia Amount 9000 / 9000 Other 1000 / 1000 Output: Urine 300 / 300 Estimated Blood Loss 60 / 60 Urine Amount (Catheter) 600 / 600 1300 / 1300 Indwelling Urethral Catheter 600 / 600 1300 / 1300 Gastric Drainage 400 / 400 Left Nare Nasogastric Tube 400 / 400 Wound Drainage 50 / 50 220 / 220 580 / 580 # 1 Left Lateral Abdomen 30 / 30 110 / 110 470 / 470 # 2 Abdomen Db 20 / 20 110 / 110 110 / 110 - Constitutional no acute distress - Routine HEENT Exam Head: Present: normocephalic - Routine Respiratory Exam Present: patient mechanically ventilated - Routine Cardiovascular Exam Present: RRR - Routine Abdominal Exam Present: soft, drain Comments: dressing to mid abd - Routine Skin Exam Present: intact, dry - Routine Neurological Exam sedated on a vent - Urinary Catheter Management Indwelling Urethral Catheter Cath placed during this visit: yes Reason for continuing: Hourly intake/output Insertion date: 06/15/18 <Gabriela Jackson - Last Filed: 06/16/18 16:00> Results - Labs CBC & Chem 7: 06/16/18 13:55 06/16/18 05:10 Laboratory Results - last 24 hr 06/15/18 06/15/18 06/15/18 08:20 14:30 15:02 WBC RBC Hgb Hct MCV MCH MCHC RDW Plt Count MPV Prelim Diff (Auto) Neut % (Auto) Lymph % (Auto) Walker % (Auto) Eos % (Auto) Baso % (Auto) Neut # (Auto) Lymph # (Auto) Walker # (Auto) Eos # (Auto) Baso # (Auto) WBC Differential Manual diff final Seg Neuts % (Manual) 27 Band Neuts % (Manual) 53 H Lymphocytes % (Manual) 3 L Monocytes % (Manual) 6 Metamyelocytes % (Man) 10 H Myelocytes % (Man) 1 H Abs Neuts (Manual) 14.7 H Differential Comment Toxic Granulation Toxic Vacuolation Platelet Estimate Normal Platelet Morphology Enlarged H PT INR APTT Puncture Site Patient Temperature O2 Saturation ABG pH ABG pCO2 ABG pO2 ABG HCO3 ABG O2 Content ABG Base Excess ABG Methemoglobin Madi Test Hemoglobin Carboxyhemoglobin O2 Delivery Device Vent Setting Inspired O2 Critical Value Sodium Potassium Chloride Carbon Dioxide Anion Gap BUN Creatinine Estimated GFR POC Glucose Random Glucose Lactic Acid Calcium Prot Corrected Calcium Phosphorus Total Creatine Kinase CK-MB (CK-2) CK-MB (CK-2) % Total Protein Albumin Urine Color Chanelle Urine Clarity Cloudy H Urine pH 5.0 Ur Specific [place] 1.019 Urine Protein 30 H Urine Glucose (UA) 50 Urine Ketones Negative Urine Occult Blood Large H Urine Nitrate Negative Urine Bilirubin Negative Urine Urobilinogen 4 or greater Ur Leukocyte Esterase Trace H Urine RBC 59 H Urine WBC 17 H Urine WBC Clumps Rare H Ur Squamous Epith Cells 2 Amorphous Sediment Few H Urine Bacteria Few H Hyaline Casts 73 Urine Mucus Few H Micro UA Comment Culture indicated Ur Microscopic Review Not Reportable Urine Culture Comments Culture indicated Nasal Screen MRSA (PCR) Not detected 06/15/18 06/15/18 06/15/18 18:40 19:13 19:13 WBC 6.3 D RBC 4.79 Hgb 14.2 Hct 39.9 MCV 83.4 D MCH 29.7 MCHC 35.6 RDW 13.8 Plt Count 180 D MPV 8.2 Prelim Diff (Auto) Slide review pending Neut % (Auto) 73.3 H Lymph % (Auto) 18.5 Walker % (Auto) 7.9 Eos % (Auto) 0.1 Baso % (Auto) 0.2 Neut # (Auto) 4.6 Lymph # (Auto) 1.2 Walker # (Auto) 0.5 Eos # (Auto) 0.0 Baso # (Auto) 0.0 WBC Differential Manual diff final Seg Neuts % (Manual) 33 Band Neuts % (Manual) 59 H Lymphocytes % (Manual) 2 L Monocytes % (Manual) 2 Metamyelocytes % (Man) 4 H Myelocytes % (Man) Abs Neuts (Manual) 6.0 Differential Comment . Toxic Granulation 1+ H Toxic Vacuolation Present H Platelet Estimate Normal Platelet Morphology Normal PT INR APTT Puncture Site Drawn in or Patient Temperature 98.6 O2 Saturation 98 ABG pH 7.40 ABG pCO2 37 L ABG pO2 524 H ABG HCO3 22 ABG O2 Content 18.3 ABG Base Excess -1.8 ABG Methemoglobin 1.4 Madi Test Present Hemoglobin 12.4 Carboxyhemoglobin 0.7 O2 Delivery Device Ventilator Vent Setting Or settings Inspired O2 21 Critical Value No Sodium Potassium Chloride Carbon Dioxide Anion Gap BUN Creatinine Estimated GFR POC Glucose Random Glucose Lactic Acid 2.8 H Calcium Prot Corrected Calcium Phosphorus Total Creatine Kinase CK-MB (CK-2) CK-MB (CK-2) % Total Protein Albumin Urine Color Urine Clarity Urine pH Ur Specific [place] Urine Protein Urine Glucose (UA) Urine Ketones Urine Occult Blood Urine Nitrate Urine Bilirubin Urine Urobilinogen Ur Leukocyte Esterase Urine RBC Urine WBC Urine WBC Clumps Ur Squamous Epith Cells Amorphous Sediment Urine Bacteria Hyaline Casts Urine Mucus Micro UA Comment Ur Microscopic Review Urine Culture Comments Nasal Screen MRSA (PCR) 06/15/18 06/15/18 06/16/18 19:13 19:24 01:21 WBC RBC Hgb 13.7 Hct 38.6 L MCV MCH MCHC RDW Plt Count MPV Prelim Diff (Auto) Neut % (Auto) Lymph % (Auto) Walker % (Auto) Eos % (Auto) Baso % (Auto) Neut # (Auto) Lymph # (Auto) Walker # (Auto) Eos # (Auto) Baso # (Auto) WBC Differential Seg Neuts % (Manual) Band Neuts % (Manual) Lymphocytes % (Manual) Monocytes % (Manual) Metamyelocytes % (Man) Myelocytes % (Man) Abs Neuts (Manual) Differential Comment Toxic Granulation Toxic Vacuolation Platelet Estimate Platelet Morphology PT INR APTT Puncture Site Patient Temperature O2 Saturation ABG pH ABG pCO2 ABG pO2 ABG HCO3 ABG O2 Content ABG Base Excess ABG Methemoglobin Madi Test Hemoglobin Carboxyhemoglobin O2 Delivery Device Vent Setting Inspired O2 Critical Value Sodium 149 H Potassium 3.7 D Chloride 114 H Carbon Dioxide 25.0 Anion Gap 10 BUN 44 H Creatinine 1.91 H Estimated GFR 42 L POC Glucose 122 H Random Glucose 134 H Lactic Acid Calcium 6.6 L* Prot Corrected Calcium 9.3 Phosphorus Total Creatine Kinase CK-MB (CK-2) CK-MB (CK-2) % Total Protein 2.6 L D Albumin Urine Color Urine Clarity Urine pH Ur Specific [place] Urine Protein Urine Glucose (UA) Urine Ketones Urine Occult Blood Urine Nitrate Urine Bilirubin Urine Urobilinogen Ur Leukocyte Esterase Urine RBC Urine WBC Urine WBC Clumps Ur Squamous Epith Cells Amorphous Sediment Urine Bacteria Hyaline Casts Urine Mucus Micro UA Comment Ur Microscopic Review Urine Culture Comments Nasal Screen MRSA (PCR) 06/16/18 06/16/18 06/16/18 02:34 05:10 05:13 WBC RBC Hgb Hct MCV MCH MCHC RDW Plt Count MPV Prelim Diff (Auto) Neut % (Auto) Lymph % (Auto) Walker % (Auto) Eos % (Auto) Baso % (Auto) Neut # (Auto) Lymph # (Auto) Walker # (Auto) Eos # (Auto) Baso # (Auto) WBC Differential Seg Neuts % (Manual) Band Neuts % (Manual) Lymphocytes % (Manual) Monocytes % (Manual) Metamyelocytes % (Man) Myelocytes % (Man) Abs Neuts (Manual) Differential Comment Toxic Granulation Toxic Vacuolation Platelet Estimate Platelet Morphology PT INR APTT Puncture Site Kiera Patient Temperature 98.6 O2 Saturation 97 ABG pH 7.41 ABG pCO2 40 ABG pO2 124 H ABG HCO3 25 ABG O2 Content 18.1 ABG Base Excess 0.5 ABG Methemoglobin 0.7 Madi Test Hemoglobin 13.1 Carboxyhemoglobin 0.9 O2 Delivery Device Ventilator Vent Setting See comment Inspired O2 40 Critical Value No Sodium 148 H Potassium 4.0 Chloride 113 H Carbon Dioxide 26.3 Anion Gap 9 BUN 42 H Creatinine 1.68 H Estimated GFR 49 L POC Glucose 147 H Random Glucose 134 H Lactic Acid Calcium 6.7 L* Prot Corrected Calcium Phosphorus 3.8 D Total Creatine Kinase 6389 H CK-MB (CK-2) 98.3 H CK-MB (CK-2) % 1.5 Total Protein Albumin 1.7 L Urine Color Urine Clarity Urine pH Ur Specific [place] Urine Protein Urine Glucose (UA) Urine Ketones Urine Occult Blood Urine Nitrate Urine Bilirubin Urine Urobilinogen Ur Leukocyte Esterase Urine RBC Urine WBC Urine WBC Clumps Ur Squamous Epith Cells Amorphous Sediment Urine Bacteria Hyaline Casts Urine Mucus Micro UA Comment Ur Microscopic Review Urine Culture Comments Nasal Screen MRSA (PCR) 06/16/18 06/16/18 06/16/18 13:10 13:55 13:55 WBC 7.4 RBC 4.23 L Hgb 12.7 L Hct 35.6 L MCV 84.1 MCH 29.9 MCHC 35.6 RDW 14.2 Plt Count 187 MPV 8.0 Prelim Diff (Auto) Neut % (Auto) 73.2 H Lymph % (Auto) 17.7 Walker % (Auto) 8.7 H Eos % (Auto) 0.2 Baso % (Auto) 0.2 Neut # (Auto) 5.4 Lymph # (Auto) 1.3 Walker # (Auto) 0.6 Eos # (Auto) 0.0 Baso # (Auto) 0.0 WBC Differential . Seg Neuts % (Manual) Band Neuts % (Manual) Lymphocytes % (Manual) Monocytes % (Manual) Metamyelocytes % (Man) Myelocytes % (Man) Abs Neuts (Manual) Differential Comment Auto diff final Toxic Granulation Toxic Vacuolation Platelet Estimate Platelet Morphology PT INR APTT Puncture Site Patient Temperature O2 Saturation ABG pH ABG pCO2 ABG pO2 ABG HCO3 ABG O2 Content ABG Base Excess ABG Methemoglobin Madi Test Hemoglobin Carboxyhemoglobin O2 Delivery Device Vent Setting Inspired O2 Critical Value Sodium Potassium Chloride Carbon Dioxide Anion Gap BUN Creatinine Estimated GFR POC Glucose Random Glucose Lactic Acid 1.3 Calcium Prot Corrected Calcium Phosphorus Total Creatine Kinase 5914 H CK-MB (CK-2) CK-MB (CK-2) % Total Protein Albumin Urine Color Urine Clarity Urine pH Ur Specific [place] Urine Protein Urine Glucose (UA) Urine Ketones Urine Occult Blood Urine Nitrate Urine Bilirubin Urine Urobilinogen Ur Leukocyte Esterase Urine RBC Urine WBC Urine WBC Clumps Ur Squamous Epith Cells Amorphous Sediment Urine Bacteria Hyaline Casts Urine Mucus Micro UA Comment Ur Microscopic Review Urine Culture Comments Nasal Screen MRSA (PCR) 06/16/18 13:55 WBC RBC Hgb Hct MCV MCH MCHC RDW Plt Count MPV Prelim Diff (Auto) Neut % (Auto) Lymph % (Auto) Walker % (Auto) Eos % (Auto) Baso % (Auto) Neut # (Auto) Lymph # (Auto) Walker # (Auto) Eos # (Auto) Baso # (Auto) WBC Differential Seg Neuts % (Manual) Band Neuts % (Manual) Lymphocytes % (Manual) Monocytes % (Manual) Metamyelocytes % (Man) Myelocytes % (Man) Abs Neuts (Manual) Differential Comment Toxic Granulation Toxic Vacuolation Platelet Estimate Platelet Morphology PT 13.0 H INR 1.3 APTT 43.3 H Puncture Site Patient Temperature O2 Saturation ABG pH ABG pCO2 ABG pO2 ABG HCO3 ABG O2 Content ABG Base Excess ABG Methemoglobin Madi Test Hemoglobin Carboxyhemoglobin O2 Delivery Device Vent Setting Inspired O2 Critical Value Sodium Potassium Chloride Carbon Dioxide Anion Gap BUN Creatinine Estimated GFR POC Glucose Random Glucose Lactic Acid Calcium Prot Corrected Calcium Phosphorus Total Creatine Kinase CK-MB (CK-2) CK-MB (CK-2) % Total Protein Albumin Urine Color Urine Clarity Urine pH Ur Specific [place] Urine Protein Urine Glucose (UA) Urine Ketones Urine Occult Blood Urine Nitrate Urine Bilirubin Urine Urobilinogen Ur Leukocyte Esterase Urine RBC Urine WBC Urine WBC Clumps Ur Squamous Epith Cells Amorphous Sediment Urine Bacteria Hyaline Casts Urine Mucus Micro UA Comment Ur Microscopic Review Urine Culture Comments Nasal Screen MRSA (PCR) Microbiology 06/15/18 15:02 Clean Catch Urine Urine Culture - Preliminary No growth in 24 hours 06/14/18 15:10 Blood - Peripheral Aerobic Blood Culture - Preliminary No growth in 2 days 06/14/18 15:10 Blood - Peripheral Anaerobic Blood Culture - Preliminary No growth in 2 days 06/14/18 15:00 Blood - Peripheral Aerobic Blood Culture - Preliminary No growth in 2 days 06/14/18 15:00 Blood - Peripheral Anaerobic Blood Culture - Preliminary No growth in 2 days - Imaging Impressions Chest X-Ray 06/15/18 00:00 CONCLUSION: Status post interval intubation with the tip of the endotracheal tube just above the level of the clavicles. The lungs are clear. Head CT 06/15/18 00:00 CONCLUSION: 1. Negative CT Head non contrast. . Abdomen/Pelvis CT 06/15/18 08:46 CONCLUSION: 1. Pneumoperitoneum with diffusely thickened fluid-filled small bowel and moderate amount of ascites. 2. Small bilateral pleural effusions. 3. I spoke with the clinical team concerning the findings. Chest X-Ray 06/15/18 16:23 CONCLUSION: Stable endotracheal tube with the tip just above the level of the clavicles. New right-sided central line which terminates within the mid SVC. <Remi Tran - Last Filed: 06/16/18 15:41> - Labs CBC & Chem 7: 06/16/18 13:55 06/16/18 05:10 Laboratory Results - last 24 hr 06/15/18 06/15/18 06/15/18 08:20 14:30 14:30 WBC RBC Hgb Hct MCV MCH MCHC RDW Plt Count MPV Prelim Diff (Auto) Neut % (Auto) Lymph % (Auto) Walker % (Auto) Eos % (Auto) Baso % (Auto) Neut # (Auto) Lymph # (Auto) Walker # (Auto) Eos # (Auto) Baso # (Auto) WBC Differential Seg Neuts % (Manual) Band Neuts % (Manual) Lymphocytes % (Manual) Monocytes % (Manual) Metamyelocytes % (Man) Myelocytes % (Man) Abs Neuts (Manual) Differential Comment Toxic Granulation Toxic Vacuolation Platelet Estimate Platelet Morphology PT INR APTT Puncture Site Patient Temperature O2 Saturation ABG pH ABG pCO2 ABG pO2 ABG HCO3 ABG O2 Content ABG Base Excess ABG Methemoglobin Madi Test Hemoglobin Carboxyhemoglobin O2 Delivery Device Vent Setting Inspired O2 Critical Value Sodium 148 H Potassium 4.8 Chloride 114 H Carbon Dioxide 18.9 L Anion Gap 15 BUN 46 H Creatinine 2.91 H Estimated GFR 26 L POC Glucose Random Glucose 112 H Lactic Acid 6.5 H* Calcium 7.1 L* Prot Corrected Calcium 8.5 Phosphorus 6.3 H Magnesium 2.0 Total Bilirubin 1.2 H AST 127 H ALT 44 Alkaline Phosphatase 37 L Total Creatine Kinase CK-MB (CK-2) CK-MB (CK-2) % Total Protein 4.5 L Albumin 2.0 L Urine Color Urine Clarity Urine pH Ur Specific [place] Urine Protein Urine Glucose (UA) Urine Ketones Urine Occult Blood Urine Nitrate Urine Bilirubin Urine Urobilinogen Ur Leukocyte Esterase Urine RBC Urine WBC Urine WBC Clumps Ur Squamous Epith Cells Amorphous Sediment Urine Bacteria Hyaline Casts Urine Mucus Micro UA Comment Ur Microscopic Review Urine Culture Comments Nasal Screen MRSA (PCR) Not detected 06/15/18 06/15/18 06/15/18 14:30 14:30 15:02 WBC 16.1 H RBC 5.55 Hgb 16.1 Hct 48.3 MCV 87.1 MCH 29.1 MCHC 33.4 RDW 14.0 Plt Count 316 MPV 9.0 Prelim Diff (Auto) Slide review pending Neut % (Auto) 81.7 H Lymph % (Auto) 11.3 Walker % (Auto) 6.8 Eos % (Auto) 0.0 Baso % (Auto) 0.2 Neut # (Auto) 13.1 H Lymph # (Auto) 1.8 Walker # (Auto) 1.1 H Eos # (Auto) 0.0 Baso # (Auto) 0.0 WBC Differential Manual diff final Seg Neuts % (Manual) 27 Band Neuts % (Manual) 53 H Lymphocytes % (Manual) 3 L Monocytes % (Manual) 6 Metamyelocytes % (Man) 10 H Myelocytes % (Man) 1 H Abs Neuts (Manual) 14.7 H Differential Comment . Toxic Granulation Toxic Vacuolation Platelet Estimate Normal Platelet Morphology Enlarged H PT 20.1 H INR 2.0 APTT Puncture Site Patient Temperature O2 Saturation ABG pH ABG pCO2 ABG pO2 ABG HCO3 ABG O2 Content ABG Base Excess ABG Methemoglobin Madi Test Hemoglobin Carboxyhemoglobin O2 Delivery Device Vent Setting Inspired O2 Critical Value Sodium Potassium Chloride Carbon Dioxide Anion Gap BUN Creatinine Estimated GFR POC Glucose Random Glucose Lactic Acid Calcium Prot Corrected Calcium Phosphorus Magnesium Total Bilirubin AST ALT Alkaline Phosphatase Total Creatine Kinase CK-MB (CK-2) CK-MB (CK-2) % Total Protein Albumin Urine Color Chanelle Urine Clarity Cloudy H Urine pH 5.0 Ur Specific [place] 1.019 Urine Protein 30 H Urine Glucose (UA) 50 Urine Ketones Negative Urine Occult Blood Large H Urine Nitrate Negative Urine Bilirubin Negative Urine Urobilinogen 4 or greater Ur Leukocyte Esterase Trace H Urine RBC 59 H Urine WBC 17 H Urine WBC Clumps Rare H Ur Squamous Epith Cells 2 Amorphous Sediment Few H Urine Bacteria Few H Hyaline Casts 73 Urine Mucus Few H Micro UA Comment Culture indicated Ur Microscopic Review Not Reportable Urine Culture Comments Culture indicated Nasal Screen MRSA (PCR) 06/15/18 06/15/18 06/15/18 18:40 19:13 19:13 WBC 6.3 D RBC 4.79 Hgb 14.2 Hct 39.9 MCV 83.4 D MCH 29.7 MCHC 35.6 RDW 13.8 Plt Count 180 D MPV 8.2 Prelim Diff (Auto) Slide review pending Neut % (Auto) 73.3 H Lymph % (Auto) 18.5 Walker % (Auto) 7.9 Eos % (Auto) 0.1 Baso % (Auto) 0.2 Neut # (Auto) 4.6 Lymph # (Auto) 1.2 Walker # (Auto) 0.5 Eos # (Auto) 0.0 Baso # (Auto) 0.0 WBC Differential Manual diff final Seg Neuts % (Manual) 33 Band Neuts % (Manual) 59 H Lymphocytes % (Manual) 2 L Monocytes % (Manual) 2 Metamyelocytes % (Man) 4 H Myelocytes % (Man) Abs Neuts (Manual) 6.0 Differential Comment . Toxic Granulation 1+ H Toxic Vacuolation Present H Platelet Estimate Normal Platelet Morphology Normal PT INR APTT Puncture Site Drawn in or Patient Temperature 98.6 O2 Saturation 98 ABG pH 7.40 ABG pCO2 37 L ABG pO2 524 H ABG HCO3 22 ABG O2 Content 18.3 ABG Base Excess -1.8 ABG Methemoglobin 1.4 Madi Test Present Hemoglobin 12.4 Carboxyhemoglobin 0.7 O2 Delivery Device Ventilator Vent Setting Or settings Inspired O2 21 Critical Value No Sodium Potassium Chloride Carbon Dioxide Anion Gap BUN Creatinine Estimated GFR POC Glucose Random Glucose Lactic Acid 2.8 H Calcium Prot Corrected Calcium Phosphorus Magnesium Total Bilirubin AST ALT Alkaline Phosphatase Total Creatine Kinase CK-MB (CK-2) CK-MB (CK-2) % Total Protein Albumin Urine Color Urine Clarity Urine pH Ur Specific [place] Urine Protein Urine Glucose (UA) Urine Ketones Urine Occult Blood Urine Nitrate Urine Bilirubin Urine Urobilinogen Ur Leukocyte Esterase Urine RBC Urine WBC Urine WBC Clumps Ur Squamous Epith Cells Amorphous Sediment Urine Bacteria Hyaline Casts Urine Mucus Micro UA Comment Ur Microscopic Review Urine Culture Comments Nasal Screen MRSA (PCR) 06/15/18 06/15/18 06/16/18 19:13 19:24 01:21 WBC RBC Hgb 13.7 Hct 38.6 L MCV MCH MCHC RDW Plt Count MPV Prelim Diff (Auto) Neut % (Auto) Lymph % (Auto) Walker % (Auto) Eos % (Auto) Baso % (Auto) Neut # (Auto) Lymph # (Auto) Walker # (Auto) Eos # (Auto) Baso # (Auto) WBC Differential Seg Neuts % (Manual) Band Neuts % (Manual) Lymphocytes % (Manual) Monocytes % (Manual) Metamyelocytes % (Man) Myelocytes % (Man) Abs Neuts (Manual) Differential Comment Toxic Granulation Toxic Vacuolation Platelet Estimate Platelet Morphology PT INR APTT Puncture Site Patient Temperature O2 Saturation ABG pH ABG pCO2 ABG pO2 ABG HCO3 ABG O2 Content ABG Base Excess ABG Methemoglobin Madi Test Hemoglobin Carboxyhemoglobin O2 Delivery Device Vent Setting Inspired O2 Critical Value Sodium 149 H Potassium 3.7 D Chloride 114 H Carbon Dioxide 25.0 Anion Gap 10 BUN 44 H Creatinine 1.91 H Estimated GFR 42 L POC Glucose 122 H Random Glucose 134 H Lactic Acid Calcium 6.6 L* Prot Corrected Calcium 9.3 Phosphorus Magnesium Total Bilirubin AST ALT Alkaline Phosphatase Total Creatine Kinase CK-MB (CK-2) CK-MB (CK-2) % Total Protein 2.6 L D Albumin Urine Color Urine Clarity Urine pH Ur Specific [place] Urine Protein Urine Glucose (UA) Urine Ketones Urine Occult Blood Urine Nitrate Urine Bilirubin Urine Urobilinogen Ur Leukocyte Esterase Urine RBC Urine WBC Urine WBC Clumps Ur Squamous Epith Cells Amorphous Sediment Urine Bacteria Hyaline Casts Urine Mucus Micro UA Comment Ur Microscopic Review Urine Culture Comments Nasal Screen MRSA (PCR) 06/16/18 06/16/18 06/16/18 02:34 05:10 05:13 WBC RBC Hgb Hct MCV MCH MCHC RDW Plt Count MPV Prelim Diff (Auto) Neut % (Auto) Lymph % (Auto) Walker % (Auto) Eos % (Auto) Baso % (Auto) Neut # (Auto) Lymph # (Auto) Walker # (Auto) Eos # (Auto) Baso # (Auto) WBC Differential Seg Neuts % (Manual) Band Neuts % (Manual) Lymphocytes % (Manual) Monocytes % (Manual) Metamyelocytes % (Man) Myelocytes % (Man) Abs Neuts (Manual) Differential Comment Toxic Granulation Toxic Vacuolation Platelet Estimate Platelet Morphology PT INR APTT Puncture Site [place] Patient Temperature 98.6 O2 Saturation 97 ABG pH 7.41 ABG pCO2 40 ABG pO2 124 H ABG HCO3 25 ABG O2 Content 18.1 ABG Base Excess 0.5 ABG Methemoglobin 0.7 Madi Test Hemoglobin 13.1 Carboxyhemoglobin 0.9 O2 Delivery Device Ventilator Vent Setting See comment Inspired O2 40 Critical Value No Sodium 148 H Potassium 4.0 Chloride 113 H Carbon Dioxide 26.3 Anion Gap 9 BUN 42 H Creatinine 1.68 H Estimated GFR 49 L POC Glucose 147 H Random Glucose 134 H Lactic Acid Calcium 6.7 L* Prot Corrected Calcium Phosphorus 3.8 D Magnesium Total Bilirubin AST ALT Alkaline Phosphatase Total Creatine Kinase 6389 H CK-MB (CK-2) 98.3 H CK-MB (CK-2) % 1.5 Total Protein Albumin 1.7 L Urine Color Urine Clarity Urine pH Ur Specific [place] Urine Protein Urine Glucose (UA) Urine Ketones Urine Occult Blood Urine Nitrate Urine Bilirubin Urine Urobilinogen Ur Leukocyte Esterase Urine RBC Urine WBC Urine WBC Clumps Ur Squamous Epith Cells Amorphous Sediment Urine Bacteria Hyaline Casts Urine Mucus Micro UA Comment Ur Microscopic Review Urine Culture Comments Nasal Screen MRSA (PCR) 06/16/18 06/16/18 06/16/18 13:10 13:55 13:55 WBC 7.4 RBC 4.23 L Hgb 12.7 L Hct 35.6 L MCV 84.1 MCH 29.9 MCHC 35.6 RDW 14.2 Plt Count 187 MPV 8.0 Prelim Diff (Auto) Neut % (Auto) 73.2 H Lymph % (Auto) 17.7 Walker % (Auto) 8.7 H Eos % (Auto) 0.2 Baso % (Auto) 0.2 Neut # (Auto) 5.4 Lymph # (Auto) 1.3 Walker # (Auto) 0.6 Eos # (Auto) 0.0 Baso # (Auto) 0.0 WBC Differential . Seg Neuts % (Manual) Band Neuts % (Manual) Lymphocytes % (Manual) Monocytes % (Manual) Metamyelocytes % (Man) Myelocytes % (Man) Abs Neuts (Manual) Differential Comment Auto diff final Toxic Granulation Toxic Vacuolation Platelet Estimate Platelet Morphology PT INR APTT Puncture Site Patient Temperature O2 Saturation ABG pH ABG pCO2 ABG pO2 ABG HCO3 ABG O2 Content ABG Base Excess ABG Methemoglobin Madi Test Hemoglobin Carboxyhemoglobin O2 Delivery Device Vent Setting Inspired O2 Critical Value Sodium Potassium Chloride Carbon Dioxide Anion Gap BUN Creatinine Estimated GFR POC Glucose Random Glucose Lactic Acid 1.3 Calcium Prot Corrected Calcium Phosphorus Magnesium Total Bilirubin AST ALT Alkaline Phosphatase Total Creatine Kinase 5914 H CK-MB (CK-2) CK-MB (CK-2) % Total Protein Albumin Urine Color Urine Clarity Urine pH Ur Specific [place] Urine Protein Urine Glucose (UA) Urine Ketones Urine Occult Blood Urine Nitrate Urine Bilirubin Urine Urobilinogen Ur Leukocyte Esterase Urine RBC Urine WBC Urine WBC Clumps Ur Squamous Epith Cells Amorphous Sediment Urine Bacteria Hyaline Casts Urine Mucus Micro UA Comment Ur Microscopic Review Urine Culture Comments Nasal Screen MRSA (PCR) 06/16/18 13:55 WBC RBC Hgb Hct MCV MCH MCHC RDW Plt Count MPV Prelim Diff (Auto) Neut % (Auto) Lymph % (Auto) Walker % (Auto) Eos % (Auto) Baso % (Auto) Neut # (Auto) Lymph # (Auto) Walker # (Auto) Eos # (Auto) Baso # (Auto) WBC Differential Seg Neuts % (Manual) Band Neuts % (Manual) Lymphocytes % (Manual) Monocytes % (Manual) Metamyelocytes % (Man) Myelocytes % (Man) Abs Neuts (Manual) Differential Comment Toxic Granulation Toxic Vacuolation Platelet Estimate Platelet Morphology PT 13.0 H INR 1.3 APTT 43.3 H Puncture Site Patient Temperature O2 Saturation ABG pH ABG pCO2 ABG pO2 ABG HCO3 ABG O2 Content ABG Base Excess ABG Methemoglobin Madi Test Hemoglobin Carboxyhemoglobin O2 Delivery Device Vent Setting Inspired O2 Critical Value Sodium Potassium Chloride Carbon Dioxide Anion Gap BUN Creatinine Estimated GFR POC Glucose Random Glucose Lactic Acid Calcium Prot Corrected Calcium Phosphorus Magnesium Total Bilirubin AST ALT Alkaline Phosphatase Total Creatine Kinase CK-MB (CK-2) CK-MB (CK-2) % Total Protein Albumin Urine Color Urine Clarity Urine pH Ur Specific [place] Urine Protein Urine Glucose (UA) Urine Ketones Urine Occult Blood Urine Nitrate Urine Bilirubin Urine Urobilinogen Ur Leukocyte Esterase Urine RBC Urine WBC Urine WBC Clumps Ur Squamous Epith Cells Amorphous Sediment Urine Bacteria Hyaline Casts Urine Mucus Micro UA Comment Ur Microscopic Review Urine Culture Comments Nasal Screen MRSA (PCR) Microbiology 06/14/18 15:10 Blood - Peripheral Aerobic Blood Culture - Preliminary No growth in 2 days 06/14/18 15:10 Blood - Peripheral Anaerobic Blood Culture - Preliminary No growth in 2 days 06/14/18 15:00 Blood - Peripheral Aerobic Blood Culture - Preliminary No growth in 2 days 06/14/18 15:00 Blood - Peripheral Anaerobic Blood Culture - Preliminary No growth in 2 days - Imaging Impressions Chest X-Ray 06/15/18 00:00 CONCLUSION: Status post interval intubation with the tip of the endotracheal tube just above the level of the clavicles. The lungs are clear. Head CT 06/15/18 00:00 CONCLUSION: 1. Negative CT Head non contrast. . Abdomen/Pelvis CT 06/15/18 08:46 CONCLUSION: 1. Pneumoperitoneum with diffusely thickened fluid-filled small bowel and moderate amount of ascites. 2. Small bilateral pleural effusions. 3. I spoke with the clinical team concerning the findings. Chest X-Ray 06/15/18 16:23 CONCLUSION: Stable endotracheal tube with the tip just above the level of the clavicles. New right-sided central line which terminates within the mid SVC. <Gabriela Jackson - Last Filed: 06/16/18 16:00> Assessment and Plan (1) Upper GI bleed Status: Acute Code(s): K92.2 - Gastrointestinal hemorrhage, unspecified (2) Gastritis Status: Acute Code(s): K29.70 - Gastritis, unspecified, without bleeding - Attending Attestation plan as above, please notify us if needed again. <Remi Tran - Last Filed: 06/16/18 15:41> (1) Upper GI bleed Status: Acute Code(s): K92.2 - Gastrointestinal hemorrhage, unspecified (2) Gastritis Status: Acute Code(s): K29.70 - Gastritis, unspecified, without bleeding - Plan 27-year-old male, came home early this a.m. some time with altered mental status and acute psychosis. This is probable due to an overdose of methamphetamines, Maria De Jesus, and and marijuana. Drug overdose with acute psychosis Coffee-ground emesis, vomiting 2 large amount this a.m. History of and acute gastritis and possible ulcers has been prescription Zantac for an undisclosed amount of time. This could be related to his drug inhalation. As well as GERD and dyspepsia Leukocytosis unspecified, Gastroenterology was been consulted to assist with patient's symptoms and plan of care. Currently the patient is unresponsive but is breathing on his own. Patient is tachycardic with heart rate anywhere from 108-130 sinus tach, nonresponsive to verbal stimuli. Patient has four-point restraints and thrashing in the bed with padded rails. Currently appears to be unstable for any procedures to be monitored for the next 24 hours. We will consider NG tube if patient continues to vomit, but currently concerned with the patient would pull it out and cause more trauma. 06/16/18 Hematemesis- Pt is s/p Exploratory laparotomy, repair of perforated gastric ulcer, surgical paracentesis 3.5 L 06/15/18 hh stable, NGT to LIWS with gastric output Hep-C (+)- status not known, consider tx OP but need to be sober first Plan Diet per GS monitor labs GI will sign off Patient was seen per myself and Dr. Tran, this note was written on his behalf <Gabriela Jackson - Last Filed: 06/16/18 16:00> <Remi Tran - Last Filed: 06/16/18 15:41> (2) Gastritis Qualifiers: Gastritis type: unspecified gastritis Chronicity: acute Gastritis bleeding: with bleeding Qualified Code(s): K29.01 - Acute gastritis with bleeding <Gabriela Jackson - Last Filed: 06/16/18 16:00> (2) Gastritis Qualifiers: Gastritis type: unspecified gastritis Chronicity: acute Gastritis bleeding: with bleeding Qualified Code(s): K29.01 - Acute gastritis with bleeding
[2018-06-16] MEDS: Heparin - SQ 10,000 UNITS/ML Vial SQ SCH ×2 (15:51→21:03)
[2018-06-16 15:52] LABS: CKMB Percent 1.4 % (0.0-4.0); Creatine Kinase MB 80.3 ng/mL (0.5-3.6)
--- NOTE | 2018-06-16 18:25 | P.PNGS ---
Subjective Patient reports: other (intubated, agitated ) Physical Exam Vital signs: Vital Signs 06/15/18 18:52 06/15/18 19:00 06/15/18 19:15 Temperature 96.4 F L 96.4 F L 96.4 F L Pulse Rate 96 H 96 H 96 H Respiratory Rate 14 16 16 Blood Pressure 94/57 L 97/60 L 97/62 L Pulse Oximetry 98 97 100 06/15/18 19:30 06/15/18 19:45 06/15/18 20:00 Temperature 96.4 F L 96.4 F L 96.4 F L Pulse Rate 97 H 100 H 100 H Respiratory Rate 16 16 16 Blood Pressure 98/63 L 97/67 L 94/59 L Pulse Oximetry 100 100 100 06/15/18 20:10 06/15/18 20:30 06/15/18 21:00 Temperature 96.4 F L 96.4 F L Pulse Rate 106 H 112 H Respiratory Rate 16 16 16 Blood Pressure 93/56 L 88/53 L Pulse Oximetry 100 100 100 06/15/18 21:30 06/15/18 22:00 06/15/18 22:30 Temperature 96.4 F L 96.4 F L 97.6 F Pulse Rate 110 H 116 H 119 H Respiratory Rate 16 16 16 Blood Pressure 87/51 L 92/54 L 92/50 L Pulse Oximetry 99 99 99 06/15/18 22:45 06/16/18 00:00 06/16/18 00:32 Temperature 97.6 F 100.0 F H Pulse Rate 122 H 132 H Respiratory Rate 16 16 16 Blood Pressure 100/49 L 95/42 L Pulse Oximetry 99 97 95 06/16/18 04:00 06/16/18 07:58 06/16/18 08:00 Temperature 99.7 F H 97.8 F Pulse Rate 96 H 84 Respiratory Rate 16 16 16 Blood Pressure 108/54 L 120/60 Pulse Oximetry 95 96 96 06/16/18 10:00 06/16/18 10:26 06/16/18 12:00 Temperature 98.3 F Pulse Rate 80 81 Respiratory Rate 22 16 Blood Pressure 104/57 L Pulse Oximetry 97 99 06/16/18 13:20 06/16/18 14:00 06/16/18 16:00 Temperature 98.0 F Pulse Rate 76 77 Respiratory Rate 16 16 Blood Pressure 98/52 L Pulse Oximetry 100 99 06/16/18 16:20 Temperature Pulse Rate Respiratory Rate 16 Blood Pressure Pulse Oximetry 99 Intake & Output 06/15/18 06/16/18 06/16/18 18:59 06:59 18:59 Intake Total 9300 / 9300 2250 / 2250 3512.5 / 3512.5 Output Total 1010 / 1010 1920 / 1920 730 / 730 Balance 8290 / 8290 330 / 330 2782.5 / 2782.5 Weight 66.9 kg Intake: IV 300 / 300 2250 / 2250 2512.5 / 2512.5 Precedex Inj 200 MCG In NS Inj 100 / 100 50 / 50 48 ML @ 0.2 MCG/KG/HR 3.4 mls/ hr IV.CONT TITRATE PRN Rx#: [id number] Neosynephrine Inj 40 MG In D5W 1000 / 1000 Inj 496 ML @ 40 MCG/MIN 30 mls/ hr IV.CONT TITRATE PRN Rx#: [id number] Sodium Bicarbonate 8.4% Inj 150 400 / 400 MEQ In D5W Inj 850 ML @ 125 mls/hr IV.CONT .Q8H TEOFILO Rx#: [id number] Azactam Inj 1,000 MG In NS Inj 100 / 100 100 / 100 200 / 200 100 ML @ 200 mls/hr IV.SIG Q8H TEOFILO Rx#:[id number] Diflucan 400 mg Premix Bag 200 200 / 200 ML @ 100 mls/hr IV.SIG ONCE ONE Rx#:[id number] LR 1000 mL Inj 1,000 ML @ 999 2000 / 2000 mls/hr IV.SIG .Q1H1M TEOFILO Rx#: [id number] Vancomycin Inj 1,250 MG In NS 262.5 / 262.5 Inj 250 ML @ 250 mls/hr IV.SIG Q18H TEOFILO Rx#:[id number] fentaNYL 10 mcg/mL Premix Drip 250 / 250 2,500 mcg In 250 ml @ 50 MCG/HR 5 mls/hr IV.SIG TITRATE PRN Rx #:[id number] Flagyl 500 MG Inj 100 ML @ 100 100 / 100 100 / 100 200 / 200 mls/hr IV.SIG Q8H TEOFILO Rx#: [id number] Anesthesia Amount 9000 / 9000 Other 1000 / 1000 Output: Urine 300 / 300 Estimated Blood Loss 60 / 60 Urine Amount (Catheter) 600 / 600 1300 / 1300 Indwelling Urethral Catheter 600 / 600 1300 / 1300 Gastric Drainage 400 / 400 Left Nare Nasogastric Tube 400 / 400 Wound Drainage 50 / 50 220 / 220 730 / 730 # 1 Left Lateral Abdomen 30 / 30 110 / 110 570 / 570 # 2 Abdomen Db 20 / 20 110 / 110 160 / 160 - Constitutional mild distress - Routine Respiratory Exam Present: patient mechanically ventilated - Routine Cardiovascular Exam Present: RRR, tachycardia - Routine Abdominal Exam Present: soft (incision with marly c/d/i, eduin x 2 serous) - Urinary Catheter Management Indwelling Urethral Catheter Cath placed during this visit: yes Reason for continuing: Hourly intake/output Insertion date: 06/15/18 Assessment and Plan - Plan POD 1 Ex lap. repair or gastric ulcer marti patch washout eduin x2 PLAN keep vented sedated mgnt per isc iv abx, ppi gtt eduin sxn marly hoffman for Is and Os clinically improving, wean pressors ok for dvt ppx
[2018-06-17] MEDS: Insulin NovoLIN Regular Correctional Sugar Inj SQ SCH ×6 (00:06→17:39)
[2018-06-17] MEDS: Dexmedetomidine Inj 1,000 MCG in Sodium Chlor 0.9% Inj 240 ML IV.CONT PRN ×3 (01:15→14:26)
[2018-06-17] MEDS: Phenylephrine Inj 40 MG in Dextrose 5% in Water Inj 496 ML IV.CONT PRN ×2 (04:09)
[2018-06-17] MEDS: Haloperidol Inj 5 MG/ML Ampul IV.PUSH PRN (04:17)
[2018-06-17] MEDS: fentaNYL 10 mcg/mL Premix Drip 2,500 MCG/250 ML BAG IV.SIG PRN (04:18)
[2018-06-17] MEDS: Pantoprazole Inj 80 MG in Sodium Chlor 0.9% Inj 100 ML IV.CONT SCH ×3 (06:47→16:49)
[2018-06-17] MEDS: Heparin - SQ 10,000 UNITS/ML Vial SQ SCH ×3 (06:48→22:35)
[2018-06-17 07:39] LABS: Albumin 1.4 g/dL (3.4-5.0); Anion Gap 7 meq/L (5-15); Blood Urea Nitrogen 22 mg/dL (7-18); Calcium 6.9 mg/dL (8.5-10.1); Carbon Dioxide 26.4 meq/L (21.0-32.0); Chloride 112 meq/L (98-107); Creatine Kinase 4836 U/L (39-308); Glomerular Filtration Rate Greater Than 89 mL/min (>89); Glucose,Random 86 mg/dL (74-106); Phosphorus 1.9 mg/dL (2.5-4.9); Potassium 3.6 meq/L (3.5-5.1); Sodium 145 meq/L (136-145)
[2018-06-17 07:56] LABS: CKMB Percent 0.9 % (0.0-4.0)
[2018-06-17 07:57] LABS: Creatine Kinase MB 43.3 ng/mL (0.5-3.6)
[2018-06-17] MEDS: Sodium Chloride 0.45 % Inj 1,000 ML IV.CONT SCH ×3 (08:03→23:05)
[2018-06-17] MEDS ORDERED: Magnesium Sulfate Inj 4 GM in Sodium Chlor 0.9% Inj 92 ML IV.SIG PRN (09:25)
[2018-06-17] MEDS ORDERED: Magnesium Sulfate Inj 2 GM in Sodium Chlor 0.9% Inj 96 ML IV.SIG PRN (09:25)
[2018-06-17] MEDS ORDERED: Potassium Phosphate Inj 30 MMOL in Sodium Chlor 0.9% Inj 250 ML IV.SIG PRN (09:25)
[2018-06-17] MEDS ORDERED: Potassium Chloride 25 MEQ Effervescent Tablet PO PRN (09:25)
[2018-06-17] MEDS ORDERED: Sodium Phosphate Inj 30 MMOL in Sodium Chlor 0.9% Inj 250 ML IV.SIG PRN (09:25)
[2018-06-17] MEDS ORDERED: Potassium Phosphate 500 MG Soluble Tablet PO PRN ×2 (09:25)
[2018-06-17] MEDS ORDERED: Potassium Chlor 40 mEq Premix 40 MEQ/100 ML PIGGYBACK IV.SIG PRN (09:25)
[2018-06-17] MEDS ORDERED: Potassium Chlor 20 mEq Premix 20 MEQ/100 ML PIGGYBACK IV.SIG PRN ×2 (09:25)
[2018-06-17] MEDS ORDERED: Magnesium Oxide 400 MG Tablet PO PRN (09:25)
[2018-06-17] MEDS ORDERED: Potassium Phosphate Inj 30 MMOL in Sodium Chlor 0.9% Inj 250 ML IV.SIG ONE (10:00)
[2018-06-17 10:10] LABS: Total Protein 3.9 g/dL (6.4-8.2)
--- NOTE | 2018-06-17 10:33 | P.PNFP ---
Subjective Interval history: Patient seen and examined at bedside this morning. Patient is currently intubated and mechanically ventilated. He remains on 30 mcg of phenylephrine. Plan is to wean him to CPAP today. Family medicine team is attempting to establish who is the patient's medical decision maker. <Fadumo Mooney - 06/17/18 10:32> Results - Labs Result diagrams: 06/16/18 13:55 06/18/18 06:00 <Gunjan Simms - 06/18/18 14:11> Abnormal lab results 06/17/18 06/17/18 06/18/18 Range/Units 17:36 18:03 05:57 Chloride (98-107) meq/L BUN (7-18) mg/dL POC Glucose 65 L 139 H 45 L* (68-110) mg/dl Calcium (8.5-10.1) mg/dL Total Creatine Kinase (39-308) U/L CK-MB (CK-2) (0.5-3.6) ng/mL Albumin (3.4-5.0) g/dL 06/18/18 Range/Units 06:00 Chloride 110 H (98-107) meq/L BUN 21 H (7-18) mg/dL POC Glucose (68-110) mg/dl Calcium 7.4 L* (8.5-10.1) mg/dL Total Creatine Kinase 4237 H (39-308) U/L CK-MB (CK-2) 24.7 H (0.5-3.6) ng/mL Albumin 1.4 L (3.4-5.0) g/dL BMP 06/17/18 06/18/18 19:50 06:00 Sodium 143 Potassium 4.0 4.4 Chloride 110 H Carbon Dioxide 24.5 BUN 21 H Creatinine 0.63 Calcium 7.4 L* Cardiac Enzymes 06/18/18 Range/Units 06:00 Total Creatine Kinase 4237 H (39-308) U/L CK-MB (CK-2) 24.7 H (0.5-3.6) ng/mL Liver Function 06/18/18 Range/Units 06:00 Albumin 1.4 L (3.4-5.0) g/dL <Gunjan Simms - 06/18/18 14:11> Abnormal lab results 06/16/18 06/16/18 06/16/18 Range/Units 13:10 13:55 13:55 RBC 4.23 L (4.50-5.90) mil/mm3 Hgb 12.7 L (13.0-17.0) gm/dL Hct 35.6 L (39.0-51.0) % Neut % (Auto) 73.2 H (16.0-70.0) % [place] % (Auto) 8.7 H (0.0-8.0) % PT 13.0 H (9.8-11.6) sec APTT 43.3 H (24.3-30.1) sec Chloride (98-107) meq/L BUN (7-18) mg/dL Calcium (8.5-10.1) mg/dL Phosphorus (2.5-4.9) mg/dL Total Creatine Kinase 5914 H (39-308) U/L CK-MB (CK-2) 80.3 H (0.5-3.6) ng/mL Total Protein (6.4-8.2) g/dL Albumin (3.4-5.0) g/dL 06/17/18 Range/Units 06:26 RBC (4.50-5.90) mil/mm3 Hgb (13.0-17.0) gm/dL Hct (39.0-51.0) % Neut % (Auto) (16.0-70.0) % [place] % (Auto) (0.0-8.0) % PT (9.8-11.6) sec APTT (24.3-30.1) sec Chloride 112 H (98-107) meq/L BUN 22 H (7-18) mg/dL Calcium 6.9 L* (8.5-10.1) mg/dL Phosphorus 1.9 L D (2.5-4.9) mg/dL Total Creatine Kinase 4836 H (39-308) U/L CK-MB (CK-2) 43.3 H (0.5-3.6) ng/mL Total Protein 3.9 L D (6.4-8.2) g/dL Albumin 1.4 L (3.4-5.0) g/dL Short CBC 06/16/18 Range/Units 13:55 WBC 7.4 (4.0-11.0) th/mm3 Hgb 12.7 L (13.0-17.0) gm/dL Hct 35.6 L (39.0-51.0) % Plt Count 187 (150-450) th/mm3 BMP 06/17/18 06/17/18 06:26 06:26 Sodium 145 Potassium 3.6 Chloride 112 H Carbon Dioxide 26.4 BUN 22 H Creatinine 0.73 Calcium 6.9 L* Cancelled Cardiac Enzymes 06/16/18 06/17/18 Range/Units 13:10 06:26 Total Creatine Kinase 5914 H 4836 H (39-308) U/L CK-MB (CK-2) 80.3 H 43.3 H (0.5-3.6) ng/mL Liver Function 06/17/18 Range/Units 06:26 Albumin 1.4 L (3.4-5.0) g/dL <DeeptividalFadumo A - 06/17/18 10:32> Physical Exam Vital signs: Vital Signs 06/17/18 16:00 06/17/18 16:29 06/17/18 19:59 Temperature 97.5 F L Pulse Rate 64 Respiratory Rate 10 L 12 9 L Blood Pressure 112/60 Pulse Oximetry 97 95 95 06/17/18 20:00 06/18/18 00:00 06/18/18 00:26 Temperature 97.8 F 98.1 F Pulse Rate 66 74 Respiratory Rate 15 9 L 12 Blood Pressure 96/63 L 96/59 L Pulse Oximetry 95 97 98 06/18/18 03:54 06/18/18 04:00 06/18/18 08:00 Temperature 98.3 F 98.1 F Pulse Rate 72 68 Respiratory Rate 17 11 L 12 Blood Pressure 103/70 113/66 Pulse Oximetry 95 94 L 97 06/18/18 08:22 Temperature Pulse Rate Respiratory Rate 9 L Blood Pressure Pulse Oximetry 97 Intake & Output 06/17/18 06/18/18 06/18/18 18:59 06:59 18:59 Intake Total 2210 / 2210 1625 / 1625 1700 / 1700 Output Total 1795 / 1795 1535 / 1535 70 / 70 Balance 415 / 415 90 / 90 1630 / 1630 Weight 66.1 kg Intake: IV 2210 / 2210 1625 / 1625 1700 / 1700 Precedex Inj 1,000 MCG In NS 250 / 250 250 / 250 75 / 75 Inj 240 ML @ 0.2 MCG/KG/HR 3.4 mls/hr IV.CONT TITRATE PRN Rx#: [id number] Protonix Inj 80 MG In NS Inj 100 / 100 100 / 100 100 / 100 100 ML @ 10 mls/hr IV.CONT Q10H [facility] Rx#:[id number] 1/2 Normal Saline Inj 1,000 ML 1000 / 1000 975 / 975 1000 / 1000 @ 100 mls/hr IV.CONT .Q10H [facility] Rx#:[id number] Pitressin Inj 40 UNIT In D5W 100 / 100 Inj 98 ML @ 0.04 UNITS/MIN 6 mls/hr IV.CONT CONT [facility] Rx#: [id number] Azactam Inj 1,000 MG In NS Inj 200 / 200 100 / 100 100 / 100 100 ML @ 200 mls/hr IV.SIG Q8H [facility] Rx#:[id number] Diflucan 400 mg Premix Bag 200 200 / 200 200 / 200 ML @ 100 mls/hr IV.SIG Q24H [facility] Rx#:[id number] Potassium Phosphate Inj 30 MMOL 260 / 260 In NS Inj 250 ML @ 43.333 mls/ hr IV.SIG ONCE ONE Rx#:[id number] fentaNYL 10 mcg/mL Premix Drip 125 / 125 2,500 mcg In 250 ml @ 50 MCG/HR 5 mls/hr IV.SIG TITRATE PRN Rx #:[id number] Flagyl 500 MG Inj 100 ML @ 100 200 / 200 100 / 100 100 / 100 mls/hr IV.SIG Q8H [facility] Rx#: [id number] Output: Urine Amount (Catheter) 1400 / 1400 1000 / 1000 Indwelling Urethral Catheter 1400 / 1400 1000 / 1000 Gastric Drainage 125 / 125 Left Nare Nasogastric Tube 125 / 125 Wound Drainage 395 / 395 410 / 410 70 / 70 # 1 Left Lateral Abdomen 285 / 285 250 / 250 70 / 70 # 2 Abdomen Db 110 / 110 160 / 160 <Gunjan Simms - 06/18/18 14:11> Vital Signs 06/16/18 10:26 06/16/18 12:00 06/16/18 13:20 Temperature 98.3 F Pulse Rate 81 Respiratory Rate 22 16 16 Blood Pressure 104/57 L Pulse Oximetry 97 99 100 06/16/18 14:00 06/16/18 16:00 06/16/18 16:20 Temperature 98.0 F Pulse Rate 76 77 Respiratory Rate 16 16 Blood Pressure 98/52 L Pulse Oximetry 99 99 06/16/18 20:00 06/16/18 20:43 06/17/18 00:00 Temperature 97.7 F 97.7 F Pulse Rate 72 68 Respiratory Rate 16 16 16 Blood Pressure 112/64 112/76 Pulse Oximetry 99 96 96 06/17/18 00:17 06/17/18 04:00 06/17/18 04:59 Temperature 97.6 F Pulse Rate 68 Respiratory Rate 16 16 16 Blood Pressure 100/65 Pulse Oximetry 97 96 06/17/18 07:51 Temperature Pulse Rate Respiratory Rate 16 Blood Pressure Pulse Oximetry 95 Intake & Output 06/16/18 06/17/18 06/17/18 18:59 06:59 18:59 Intake Total 3512.5 / 3512.5 2340 / 2340 1250 / 1250 Output Total 2240 / 2240 1750 / 1750 Balance 1272.5 / 1272.5 590 / 590 1250 / 1250 Weight 66.9 kg Intake: IV 2512.5 / 2512.5 2340 / 2340 1250 / 1250 Precedex Inj 1,000 MCG In NS 250 / 250 250 / 250 Inj 240 ML @ 0.2 MCG/KG/HR 3.4 mls/hr IV.CONT TITRATE PRN Rx#: [id number] Protonix Inj 80 MG In NS Inj 200 / 200 100 ML @ 10 mls/hr IV.CONT Q10H [facility] Rx#:[id number] Neosynephrine Inj 40 MG In D5W 1000 / 1000 475 / 475 Inj 496 ML @ 40 MCG/MIN 30 mls/ hr IV.CONT TITRATE PRN Rx#: [id number] Sodium Bicarbonate 8.4% Inj 150 400 / 400 MEQ In D5W Inj 850 ML @ 125 mls/hr IV.CONT .Q8H [facility] Rx#: [id number] 1/2 Normal Saline Inj 1,000 ML 975 / 975 1000 / 1000 @ 100 mls/hr IV.CONT .Q10H [facility] Rx#:[id number] Azactam Inj 1,000 MG In NS Inj 200 / 200 100 / 100 100 ML @ 200 mls/hr IV.SIG Q8H [facility] Rx#:[id number] Diflucan 400 mg Premix Bag 200 200 / 200 ML @ 100 mls/hr IV.SIG ONCE ONE Rx#:[id number] Vancomycin Inj 1,250 MG In NS 262.5 / 262.5 Inj 250 ML @ 250 mls/hr IV.SIG Q18H [facility] Rx#:[id number] fentaNYL 10 mcg/mL Premix Drip 250 / 250 240 / 240 2,500 mcg In 250 ml @ 50 MCG/HR 5 mls/hr IV.SIG TITRATE PRN Rx #:[id number] Flagyl 500 MG Inj 100 ML @ 100 200 / 200 100 / 100 mls/hr IV.SIG Q8H [facility] Rx#: [id number] Other 1000 / 1000 Output: Urine Amount (Catheter) 1100 / 1100 1200 / 1200 Indwelling Urethral Catheter 1100 / 1100 1200 / 1200 Gastric Drainage 300 / 300 50 / 50 Left Nare Nasogastric Tube 300 / 300 50 / 50 Wound Drainage 840 / 840 500 / 500 # 1 Left Lateral Abdomen 660 / 660 360 / 360 # 2 Abdomen Db 180 / 180 140 / 140 Other: # Bowel Movements 0 <Fadumo Mooney - 06/17/18 10:32> Narrative: Gen: Patient lying in bed, sedated and intubated, on mechanical ventilation Skin: Warm and dry, subclavian line in place CV: regular rate and rhythm Resp: CTAB anteriorly Abd: Bowel sounds present, large vertical incision with bandage overlying. No drainage from incision. 2 drains placed with serosanguineous fluid draining. Ext: mild edema of hands, no edema of lower extremities Neuro/psych: Sedated <Fadumo Mooney - 06/17/18 10:32> - Urinary Catheter Management Indwelling Urethral Catheter Cath placed during this visit: no <Gunjan Simms - 06/18/18 14:11> yes <Fadumo Mooney - 06/17/18 10:32> Reason for continuing: Hourly intake/output <Fadumo Mooney - 06/17/18 10: 32> Insertion date: 06/15/18 <Fadumo Mooney - 06/17/18 10:32> Assessment and Plan - Assessment (1) Overdose Code(s): T50.901A - Poisoning by unspecified drugs, medicaments and biological substances, accidental (unintentional), initial encounter Status: Acute (2) Gastric ulcer with perforation Code(s): K25.5 - Chronic or unspecified gastric ulcer with perforation Status : Acute (3) Rhabdomyolysis Code(s): M62.82 - Rhabdomyolysis Status: Acute (4) ARMANI (acute kidney injury) Code(s): N17.9 - Acute kidney failure, unspecified Status: Acute (5) Weight loss Code(s): R63.4 - Abnormal weight loss Status: Acute (6) IVDU (intravenous drug user) Code(s): F19.90 - Other psychoactive substance use, unspecified, uncomplicated Status: Acute (7) Nutrition, metabolism, and development symptoms Code(s): R63.8 - Other symptoms and signs concerning food and fluid intake Status: Acute (8) DVT prophylaxis Status: Acute <Gunjan Simms - 06/18/18 14:11> (1) Overdose Code(s): T50.901A - Poisoning by unspecified drugs, medicaments and biological substances, accidental (unintentional), initial encounter Status: Acute Plan: -OB\psych drug screen positive for amphetamine and cannabinoids, negative for opiates, other metabolites are PENDING -Serum alcohol and aspirin NEGATIVE -[employer] consulted -appreciate help management * Continue Precedex drip for agitation * Continue postoperative care * Lactic acid level 1.3 on 06/16 down from 2.8 on 06/15 * Continuous monitoring of heart rate and BP, maintain map greater than 65 mmHg * Maintain oxygen saturation above 92% * Monitor CBC and coags * Discontinue D5 water with sodium bicarb at 150 with: Alkalinization of urine with pH of 5.5 or above * Start NS @ 100mls/hour (2) Gastric ulcer with perforation Code(s): K25.5 - Chronic or unspecified gastric ulcer with perforation Status : Acute Plan: Gastritis with perforated gastric ulcer, postop day #2 from ex lap -NGT placed, n.p.o. -Continue Protonix drip, follow recommendations of general surgery -Gastroenterology signed off (3) Rhabdomyolysis Code(s): M62.82 - Rhabdomyolysis Status: Acute Plan: -CK 374 on admission -CK 4836 today down from 8857 on 06/15 -Creatinine normalized to 0.73 today from 1.68 on 06/16 -Continue NS @ 100mls/hour (4) ARMANI (acute kidney injury) Code(s): N17.9 - Acute kidney failure, unspecified Status: Acute Plan: Improving. -Creatinine 0.73 this a.m , continue to follow creatinine -Concerning for metabolic acidosis -Continue IV hydration -Avoid nephrotoxic substances (5) Weight loss Code(s): R63.4 - Abnormal weight loss Status: Acute Plan: Patient has had a significant weight loss in the past month according to patient 's significant other. Gastritis versus drug use versus hepatitis versus immunodeficiency (HIV). -Supportive care -Continue fluids until patient is able to tolerate diet by mouth -Hepatitis panel positive for hepatitis C antibody -We will discuss HIV testing if and when patient is able to consent (6) IVDU (intravenous drug user) Code(s): F19.90 - Other psychoactive substance use, unspecified, uncomplicated Status: Acute Plan: Patient with a history of IV drug use. -Blood cultures no growth in 2 day -Repeat blood cultures PENDING -Hepatitis panel positive for hep C -Case management consult to help with possible rehab placement when stable if patient is willing (7) Nutrition, metabolism, and development symptoms Code(s): R63.8 - Other symptoms and signs concerning food and fluid intake Status: Acute Plan: -NPO diet, patient sedated and ventilated -Continue IV hydration (8) DVT prophylaxis Status: Acute Plan: -Bilateral SCDs for DVT prophylaxis -Continue Heparin as general surgery approved restarting dvt prophylaxis <Fadumo Mooney - 06/17/18 10:10> - Assessment and Plan Discussed Condition With: Patient SDW Dr. Simms <Fadumo Mooney - 06/17/18 10:32> - Attending Attestation Patient seen, examined, and discussed with Dr Mooney on 06/17 morning rounds. I agree with assessment and management as documented and discussed with me. Pt remains intubated, sedated, and on pressors. <Gunjan Simms - 06/18/18 14:11>
--- NOTE | 2018-06-17 13:41 | P.PNGS ---
Subjective Patient reports: no bowel movement (intubated sedated) Physical Exam Vital signs: Vital Signs 06/16/18 14:00 06/16/18 16:00 06/16/18 16:20 Temperature 98.0 F Pulse Rate 76 77 Respiratory Rate 16 16 Blood Pressure 98/52 L Pulse Oximetry 99 99 06/16/18 20:00 06/16/18 20:43 06/17/18 00:00 Temperature 97.7 F 97.7 F Pulse Rate 72 68 Respiratory Rate 16 16 16 Blood Pressure 112/64 112/76 Pulse Oximetry 99 96 96 06/17/18 00:17 06/17/18 04:00 06/17/18 04:59 Temperature 97.6 F Pulse Rate 68 Respiratory Rate 16 16 16 Blood Pressure 100/65 Pulse Oximetry 97 96 06/17/18 07:51 06/17/18 08:00 06/17/18 13:07 Temperature 97.6 F Pulse Rate 58 L Respiratory Rate 16 16 13 Blood Pressure 120/70 Pulse Oximetry 95 95 96 Intake & Output 06/16/18 06/17/18 06/17/18 18:59 06:59 18:59 Intake Total 3512.5 / 3512.5 2340 / 2340 1650 / 1650 Output Total 2240 / 2240 1750 / 1750 Balance 1272.5 / 1272.5 590 / 590 1650 / 1650 Weight 66.9 kg Intake: IV 2512.5 / 2512.5 2340 / 2340 1650 / 1650 Precedex Inj 1,000 MCG In NS 250 / 250 250 / 250 Inj 240 ML @ 0.2 MCG/KG/HR 3.4 mls/hr IV.CONT TITRATE PRN Rx#: [id number] Protonix Inj 80 MG In NS Inj 200 / 200 100 ML @ 10 mls/hr IV.CONT Q10H [facility] Rx#:[id number] Neosynephrine Inj 40 MG In D5W 1000 / 1000 475 / 475 Inj 496 ML @ 40 MCG/MIN 30 mls/ hr IV.CONT TITRATE PRN Rx#: [id number] Sodium Bicarbonate 8.4% Inj 150 400 / 400 MEQ In D5W Inj 850 ML @ 125 mls/hr IV.CONT .Q8H [facility] Rx#: [id number] 1/2 Normal Saline Inj 1,000 ML 975 / 975 1000 / 1000 @ 100 mls/hr IV.CONT .Q10H [facility] Rx#:[id number] Azactam Inj 1,000 MG In NS Inj 200 / 200 100 / 100 100 / 100 100 ML @ 200 mls/hr IV.SIG Q8H [facility] Rx#:[id number] Diflucan 400 mg Premix Bag 200 200 / 200 200 / 200 ML @ 100 mls/hr IV.SIG Q24H [facility] Rx#:[id number] Vancomycin Inj 1,250 MG In NS 262.5 / 262.5 Inj 250 ML @ 250 mls/hr IV.SIG Q18H [facility] Rx#:[id number] fentaNYL 10 mcg/mL Premix Drip 250 / 250 240 / 240 2,500 mcg In 250 ml @ 50 MCG/HR 5 mls/hr IV.SIG TITRATE PRN Rx #:[id number] Flagyl 500 MG Inj 100 ML @ 100 200 / 200 100 / 100 100 / 100 mls/hr IV.SIG Q8H [facility] Rx#: [id number] Other 1000 / 1000 Output: Urine Amount (Catheter) 1100 / 1100 1200 / 1200 Indwelling Urethral Catheter 1100 / 1100 1200 / 1200 Gastric Drainage 300 / 300 50 / 50 Left Nare Nasogastric Tube 300 / 300 50 / 50 Wound Drainage 840 / 840 500 / 500 # 1 Left Lateral Abdomen 660 / 660 360 / 360 # 2 Abdomen Db 180 / 180 140 / 140 Other: # Bowel Movements 0 - Routine Respiratory Exam Present: CTA bilaterally - Routine Cardiovascular Exam Present: RRR - Routine Abdominal Exam Present: soft (incision with marly, eduin serous x2, high output, ) - Urinary Catheter Management Indwelling Urethral Catheter Cath placed during this visit: yes Reason for continuing: Hourly intake/output Insertion date: 06/15/18 Assessment and Plan - Plan POD 2 Ex lap. repair or gastric ulcer marti patch washout eduin x2 PLAN wean vent, possible extubation per isc possible cpap iv abx, ppi gtt eduin sxn marly hoffman for Is and Os clinically improving, wean pressors ok for dvt ppx
--- NOTE | 2018-06-17 13:49 | P.PNADD ---
Addendum to Inpatient Note Reason for Addendum: Additional Documentation Additional information: Patient's estranged (Steve Marrufo) contacted. He would like to defer medical decision making to patient's mother, but he would like to be updated daily. His phone number is [phone]. I updated Mr. Marrufo about patient's current status. He was appreciative of the information. All questions answered to the best of my ability.
--- NOTE | 2018-06-17 14:08 | P.DIET ---
Nutritional Evaluation Screening comments: Pt has been npo x 3 days. She is s/p exp lap, modified marti patch and surgical paracentesis (06/15). Consult RD if needed.
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
--- NOTE | 2018-06-17 16:30 | P.PNCC ---
Subjective Subjective Remarks/Hospital Course: 06/16: Patient underwent emergent laparotomy on 06/15 and was found to have a perforated gastric ulcer with significant peritoneal contamination with gastric contents for which he underwent peritoneal washout and Theron patch repair and was subsequently transferred to ICU intubated on mechanical ventilation. He has been hypotensive overnight requiring pressors. Remains sedated, orally intubated on mechanical ventilation. CPK remains elevated in the 6000 range. 06/17: Remains sedated, arousable, orally intubated on mechanical ventilation. Still requiring pressors. Significant drainage from MIHAELA drains. Objective Vital Signs / I&O: Vital Signs 06/16/18 20:00 06/16/18 20:43 06/17/18 00:00 Temperature 97.7 F 97.7 F Pulse Rate 72 68 Respiratory Rate 16 16 16 Blood Pressure 112/64 112/76 Pulse Oximetry 99 96 96 06/17/18 00:17 06/17/18 04:00 06/17/18 04:59 Temperature 97.6 F Pulse Rate 68 Respiratory Rate 16 16 16 Blood Pressure 100/65 Pulse Oximetry 97 96 06/17/18 07:51 06/17/18 08:00 06/17/18 12:00 Temperature 97.6 F 97.6 F Pulse Rate 58 L 60 Respiratory Rate 16 16 10 L Blood Pressure 120/70 93/62 L Pulse Oximetry 95 95 95 06/17/18 13:07 Temperature Pulse Rate Respiratory Rate 13 Blood Pressure Pulse Oximetry 96 Intake & Output 06/16/18 06/17/18 06/17/18 18:59 06:59 18:59 Intake Total 3512.5 / 3512.5 2340 / 2340 1650 / 1650 Output Total 2240 / 2240 1750 / 1750 Balance 1272.5 / 1272.5 590 / 590 1650 / 1650 Weight 66.9 kg Intake: IV 2512.5 / 2512.5 2340 / 2340 1650 / 1650 Precedex Inj 1,000 MCG In NS 250 / 250 250 / 250 Inj 240 ML @ 0.2 MCG/KG/HR 3.4 mls/hr IV.CONT TITRATE PRN Rx#: [id number] Protonix Inj 80 MG In NS Inj 200 / 200 100 ML @ 10 mls/hr IV.CONT Q10H [facility] Rx#:[id number] Neosynephrine Inj 40 MG In D5W 1000 / 1000 475 / 475 Inj 496 ML @ 40 MCG/MIN 30 mls/ hr IV.CONT TITRATE PRN Rx#: [id number] Sodium Bicarbonate 8.4% Inj 150 400 / 400 MEQ In D5W Inj 850 ML @ 125 mls/hr IV.CONT .Q8H [facility] Rx#: [id number] 1/2 Normal Saline Inj 1,000 ML 975 / 975 1000 / 1000 @ 100 mls/hr IV.CONT .Q10H [facility] Rx#:[id number] Azactam Inj 1,000 MG In NS Inj 200 / 200 100 / 100 100 / 100 100 ML @ 200 mls/hr IV.SIG Q8H [facility] Rx#:[id number] Diflucan 400 mg Premix Bag 200 200 / 200 200 / 200 ML @ 100 mls/hr IV.SIG Q24H [facility] Rx#:[id number] Vancomycin Inj 1,250 MG In NS 262.5 / 262.5 Inj 250 ML @ 250 mls/hr IV.SIG Q18H [facility] Rx#:[id number] fentaNYL 10 mcg/mL Premix Drip 250 / 250 240 / 240 2,500 mcg In 250 ml @ 50 MCG/HR 5 mls/hr IV.SIG TITRATE PRN Rx #:[id number] Flagyl 500 MG Inj 100 ML @ 100 200 / 200 100 / 100 100 / 100 mls/hr IV.SIG Q8H [facility] Rx#: [id number] Other 1000 / 1000 Output: Urine Amount (Catheter) 1100 / 1100 1200 / 1200 Indwelling Urethral Catheter 1100 / 1100 1200 / 1200 Gastric Drainage 300 / 300 50 / 50 Left Nare Nasogastric Tube 300 / 300 50 / 50 Wound Drainage 840 / 840 500 / 500 # 1 Left Lateral Abdomen 660 / 660 360 / 360 # 2 Abdomen Db 180 / 180 140 / 140 Other: # Bowel Movements 0 Result Diagrams: 06/16/18 13:55 06/17/18 06:26 Objective Remarks: HEENT/ Neuro: Sedated, orally intubated, no pallor, no icterus, tongue/ mucosa moist Neck: No JVD Chest/Pulm: on mech vent, good air entry bilaterally, no wheezing or crackles CVS: S1-S2 regular, no murmur GI/abdomen: soft, dressing over surgical site clean dry and intact. MIHAELA drains 2 with serosanguineous drainage. Bowel sounds not appreciated. Extremities: warm bilaterally, no edema Assessment and Plan - Assessment and Plan Plan: 27-year-old male with: Septic shock Acute respiratory failure on mechanical ventilation Perforated gastric ulcer status post expiratory laparotomy with Theron patch repair and peritoneal washout Perforation peritonitis Overdose History of substance abuse Rhabdomyolysis RAMANI Plan: Neuro: Sedation with Precedex/fentanyl for analgesia. Daily sedation vacation. Follow neuro status. Ativan/Haldol as needed as needed for agitation. Cardiovascular: IV hydration, watch for hypotension. Phenylephrine for pressor support. vasopressin low-dose. Trend lactic acid. Pulmonary: Continue mechanical ventilation, vent bundle, bronchodilators as needed. Initiate CPAP trials when hemodynamically stable. GI/liver: N.p.o., NG suction. Surgery following status post laparotomy. Follow MIHAELA drainage. Renal/: IV hydration, strict intake output, monitor and replete electrodes, follow BUN creatinine. Continue bicarb drip to alkalinize urine due to rhabdomyolysis. Follow CPK. ID: Empiric antibiotic coverage with IV vancomycin/aztreonam/Flagyl. Follow-up cultures. ID following. Endocrine: Watch for hyperglycemia, SSI for glycemic control if needed. Prophylaxis: On Protonix GTT, consider switching to twice daily Protonix. SCDs. Start subcu Lovenox when okay with general surgery. Discussed with family medicine team, discussed with Dr. Sabillon from surgery. Condition critical D/W Family medicine, D/W Dr. Sabillon Time spent on critical care excluding procedures 35 minutes
--- NOTE | 2018-06-17 17:27 | P.PNNP ---
Subjective Interval history: Renal function has improved. We will sign off at this time. Thanks. Physical Exam Vital signs: Vital Signs 06/16/18 20:00 06/16/18 20:43 06/17/18 00:00 Temperature 97.7 F 97.7 F Pulse Rate 72 68 Respiratory Rate 16 16 16 Blood Pressure 112/64 112/76 Pulse Oximetry 99 96 96 06/17/18 00:17 06/17/18 04:00 06/17/18 04:59 Temperature 97.6 F Pulse Rate 68 Respiratory Rate 16 16 16 Blood Pressure 100/65 Pulse Oximetry 97 96 06/17/18 07:51 06/17/18 08:00 06/17/18 12:00 Temperature 97.6 F 97.6 F Pulse Rate 58 L 60 Respiratory Rate 16 16 10 L Blood Pressure 120/70 93/62 L Pulse Oximetry 95 95 95 06/17/18 13:07 06/17/18 16:29 Temperature Pulse Rate Respiratory Rate 13 12 Blood Pressure Pulse Oximetry 96 95 Intake & Output 06/16/18 06/17/18 06/17/18 18:59 06:59 18:59 Intake Total 3512.5 / 3512.5 2340 / 2340 2210 / 2210 Output Total 2240 / 2240 1750 / 1750 Balance 1272.5 / 1272.5 590 / 590 2210 / 2210 Weight 66.9 kg Intake: IV 2512.5 / 2512.5 2340 / 2340 2210 / 2210 Precedex Inj 1,000 MCG In NS 250 / 250 250 / 250 Inj 240 ML @ 0.2 MCG/KG/HR 3.4 mls/hr IV.CONT TITRATE PRN Rx#: [id number] Protonix Inj 80 MG In NS Inj 200 / 200 100 / 100 100 ML @ 10 mls/hr IV.CONT Q10H [facility] Rx#:[id number] Neosynephrine Inj 40 MG In D5W 1000 / 1000 475 / 475 Inj 496 ML @ 40 MCG/MIN 30 mls/ hr IV.CONT TITRATE PRN Rx#: [id number] Sodium Bicarbonate 8.4% Inj 150 400 / 400 MEQ In D5W Inj 850 ML @ 125 mls/hr IV.CONT .Q8H [facility] Rx#: [id number] 1/2 Normal Saline Inj 1,000 ML 975 / 975 1000 / 1000 @ 100 mls/hr IV.CONT .Q10H [facility] Rx#:[id number] Azactam Inj 1,000 MG In NS Inj 200 / 200 100 / 100 200 / 200 100 ML @ 200 mls/hr IV.SIG Q8H [facility] Rx#:[id number] Diflucan 400 mg Premix Bag 200 200 / 200 200 / 200 ML @ 100 mls/hr IV.SIG Q24H [facility] Rx#:[id number] Potassium Phosphate Inj 30 MMOL 260 / 260 In NS Inj 250 ML @ 43.333 mls/ hr IV.SIG ONCE ONE Rx#:[id number] Vancomycin Inj 1,250 MG In NS 262.5 / 262.5 Inj 250 ML @ 250 mls/hr IV.SIG Q18H [facility] Rx#:[id number] fentaNYL 10 mcg/mL Premix Drip 250 / 250 240 / 240 2,500 mcg In 250 ml @ 50 MCG/HR 5 mls/hr IV.SIG TITRATE PRN Rx #:[id number] Flagyl 500 MG Inj 100 ML @ 100 200 / 200 100 / 100 200 / 200 mls/hr IV.SIG Q8H [facility] Rx#: [id number] Other 1000 / 1000 Output: Urine Amount (Catheter) 1100 / 1100 1200 / 1200 Indwelling Urethral Catheter 1100 / 1100 1200 / 1200 Gastric Drainage 300 / 300 50 / 50 Left Nare Nasogastric Tube 300 / 300 50 / 50 Wound Drainage 840 / 840 500 / 500 # 1 Left Lateral Abdomen 660 / 660 360 / 360 # 2 Abdomen Db 180 / 180 140 / 140 Other: # Bowel Movements 0 - Urinary Catheter Management Indwelling Urethral Catheter Cath placed during this visit: yes Reason for continuing: Hourly intake/output Insertion date: 06/15/18 Assessment and Plan - Assessment (1) ARMANI (acute kidney injury) Code(s): N17.9 - Acute kidney failure, unspecified Status: Acute Plan: Improved. Continue supportive care. Avoid nephrotoxic agents. (2) Upper GI bleed Code(s): K92.2 - Gastrointestinal hemorrhage, unspecified Status: Acute Plan: On Protonix gtt s/p emergent surgery for pneumoperitoneum and gastric ulcer. Management per surgical team (3) Sepsis Code(s): A41.9 - Sepsis, unspecified organism Status: Acute Plan: On Flagyl, Aztreonam, Vancomycin. Intraabdominal sepsis. Monitor hemodynamics. (4) Substance abuse Code(s): F19.10 - Other psychoactive substance abuse, uncomplicated Status: Acute Plan: May need psych evaluation Cessation will be discussed when awake. Monitor for withdrawal.
[2018-06-17] MEDS: Dextrose 50% in Water 50 ML Vial IV.PUSH PRN (17:39)
[2018-06-17] MEDS: Vasopressin Inj 40 UNIT in Dextrose 5% in Water Inj 98 ML IV.CONT SCH ×2 (18:13)
[2018-06-17] MEDS ORDERED: Pharmacy Ordered Lab Info OTHER ONE (23:45)
[2018-06-18] MEDS: Insulin NovoLIN Regular Correctional Sugar Inj SQ SCH ×4 (01:39→18:44)
[2018-06-18] MEDS: Dexmedetomidine Inj 1,000 MCG in Sodium Chlor 0.9% Inj 240 ML IV.CONT PRN (03:37)
[2018-06-18] MEDS: Pantoprazole Inj 80 MG in Sodium Chlor 0.9% Inj 100 ML IV.CONT SCH ×2 (03:38→13:16)
[2018-06-18] MEDS: Heparin - SQ 10,000 UNITS/ML Vial SQ SCH ×2 (06:17→14:47)
[2018-06-18] MEDS: Vasopressin Inj 40 UNIT in Dextrose 5% in Water Inj 98 ML IV.CONT SCH ×2 (06:40)
[2018-06-18 07:11] LABS: Albumin 1.4 g/dL (3.4-5.0); Anion Gap 9 meq/L (5-15); Blood Urea Nitrogen 21 mg/dL (7-18); Carbon Dioxide 24.5 meq/L (21.0-32.0); Chloride 110 meq/L (98-107); Creatine Kinase 4237 U/L (39-308); Glomerular Filtration Rate Greater Than 89 mL/min (>89); Glucose,Random 74 mg/dL (74-106); Phosphorus 3.5 mg/dL (2.5-4.9); Potassium 4.4 meq/L (3.5-5.1); Sodium 143 meq/L (136-145)
[2018-06-18 07:39] LABS: Calcium 7.4 mg/dL (8.5-10.1)
[2018-06-18 08:36] LABS: CKMB Percent 0.6 % (0.0-4.0); Creatine Kinase MB 24.7 ng/mL (0.5-3.6)
--- NOTE | 2018-06-18 09:12 | P.PNFP ---
Addendum entered and electronically signed by Fadumo Mooney MD, R1 15:59: Attempted to call patient's estranged to update him on patient's care. He did not answer, and his voicemail is not set-up so no message was left. Original Note: Subjective Interval history: Patient seen and examined at beside this morning. Patient intubated but initiating breaths on his own. He opened his eyes to verbal stimuli. Plans for extubation this morning. Still in 4 point restraints. <Fadumo Mooney - 06/18/18 09:12> Results - Labs Result diagrams: 06/18/18 18:35 06/18/18 06:00 <Gunjan Simms - 06/18/18 21:04> Abnormal lab results 06/18/18 06/18/18 06/18/18 Range/Units 05:57 06:00 16:18 RBC (4.50-5.90) mil/mm3 Hgb (13.0-17.0) gm/dL Hct (39.0-51.0) % Neut % (Auto) (16.0-70.0) % Lymph % (Auto) (9.0-44.0) % Larue % (Auto) (0.0-8.0) % Neut # (Auto) (1.8-7.7) th/mm3 Lymph # (Auto) (1.0-4.8) th/mm3 Larue # (Auto) (0.0-0.9) th/mm3 Chloride 110 H (98-107) meq/L BUN 21 H (7-18) mg/dL POC Glucose 45 L* 63 L (68-110) mg/dl Calcium 7.4 L* (8.5-10.1) mg/dL Total Creatine Kinase 4237 H (39-308) U/L CK-MB (CK-2) 24.7 H (0.5-3.6) ng/mL Albumin 1.4 L (3.4-5.0) g/dL 06/18/18 06/18/18 Range/Units 17:02 18:35 RBC 3.89 L (4.50-5.90) mil/mm3 Hgb 11.4 L (13.0-17.0) gm/dL Hct 33.0 L (39.0-51.0) % Neut % (Auto) 80.6 H (16.0-70.0) % Lymph % (Auto) 8.9 L (9.0-44.0) % Larue % (Auto) 10.1 H (0.0-8.0) % Neut # (Auto) 8.2 H (1.8-7.7) th/mm3 Lymph # (Auto) 0.9 L (1.0-4.8) th/mm3 Larue # (Auto) 1.0 H (0.0-0.9) th/mm3 Chloride (98-107) meq/L BUN (7-18) mg/dL POC Glucose 121 H (68-110) mg/dl Calcium (8.5-10.1) mg/dL Total Creatine Kinase (39-308) U/L CK-MB (CK-2) (0.5-3.6) ng/mL Albumin (3.4-5.0) g/dL Short CBC 06/18/18 Range/Units 18:35 WBC 10.1 (4.0-11.0) th/mm3 Hgb 11.4 L (13.0-17.0) gm/dL Hct 33.0 L (39.0-51.0) % Plt Count 216 (150-450) th/mm3 BMP 06/18/18 06:00 Sodium 143 Potassium 4.4 Chloride 110 H Carbon Dioxide 24.5 BUN 21 H Creatinine 0.63 Calcium 7.4 L* Cardiac Enzymes 06/18/18 Range/Units 06:00 Total Creatine Kinase 4237 H (39-308) U/L CK-MB (CK-2) 24.7 H (0.5-3.6) ng/mL Liver Function 06/18/18 Range/Units 06:00 Albumin 1.4 L (3.4-5.0) g/dL <Gunjan Simms - 06/18/18 21:04> Abnormal lab results 06/17/18 06/17/18 06/17/18 Range/Units 06:26 17:36 18:03 Chloride 112 H (98-107) meq/L BUN 22 H (7-18) mg/dL POC Glucose 65 L 139 H (68-110) mg/dl Calcium 6.9 L* (8.5-10.1) mg/dL Phosphorus 1.9 L D (2.5-4.9) mg/dL Total Creatine Kinase 4836 H (39-308) U/L CK-MB (CK-2) 43.3 H (0.5-3.6) ng/mL Total Protein 3.9 L D (6.4-8.2) g/dL Albumin 1.4 L (3.4-5.0) g/dL 06/18/18 06/18/18 Range/Units 05:57 06:00 Chloride 110 H (98-107) meq/L BUN 21 H (7-18) mg/dL POC Glucose 45 L* (68-110) mg/dl Calcium 7.4 L* (8.5-10.1) mg/dL Phosphorus (2.5-4.9) mg/dL Total Creatine Kinase 4237 H (39-308) U/L CK-MB (CK-2) 24.7 H (0.5-3.6) ng/mL Total Protein (6.4-8.2) g/dL Albumin 1.4 L (3.4-5.0) g/dL BMP 06/17/18 06/17/18 06/17/18 06:26 06:26 19:50 Sodium 145 Potassium 3.6 4.0 Chloride 112 H Carbon Dioxide 26.4 BUN 22 H Creatinine 0.73 Calcium 6.9 L* Cancelled 06/18/18 06:00 Sodium 143 Potassium 4.4 Chloride 110 H Carbon Dioxide 24.5 BUN 21 H Creatinine 0.63 Calcium 7.4 L* Cardiac Enzymes 06/17/18 06/18/18 Range/Units 06:26 06:00 Total Creatine Kinase 4836 H 4237 H (39-308) U/L CK-MB (CK-2) 43.3 H 24.7 H (0.5-3.6) ng/mL Liver Function 06/17/18 06/18/18 Range/Units 06:26 06:00 Albumin 1.4 L 1.4 L (3.4-5.0) g/dL <Fadumo Mooney - 06/18/18 09:12> Physical Exam Vital signs: Vital Signs 06/18/18 00:00 06/18/18 00:26 06/18/18 03:54 Temperature 98.1 F Pulse Rate 74 Respiratory Rate 9 L 12 17 Blood Pressure 96/59 L Pulse Oximetry 97 98 95 06/18/18 04:00 06/18/18 08:00 06/18/18 08:22 Temperature 98.3 F 98.1 F Pulse Rate 72 68 Respiratory Rate 11 L 12 9 L Blood Pressure 103/70 113/66 Pulse Oximetry 94 L 97 97 06/18/18 12:00 06/18/18 16:00 06/18/18 20:07 Temperature 97.6 F 99.2 F Pulse Rate 81 114 H Respiratory Rate 12 18 Blood Pressure 111/63 123/63 Pulse Oximetry 96 97 96 Intake & Output 06/18/18 06/18/18 06/19/18 06:59 18:59 06:59 Intake Total 1625 / 1625 2530 / 2530 Output Total 1535 / 1535 2645 / 2645 Balance 90 / 90 -115 / -115 Weight 66.1 kg Intake: IV 1625 / 1625 2480 / 2480 Precedex Inj 1,000 MCG In NS 250 / 250 75 / 75 Inj 240 ML @ 0.2 MCG/KG/HR 3.4 mls/hr IV.CONT TITRATE PRN Rx#: [id number] Protonix Inj 80 MG In NS Inj 100 / 100 100 / 100 100 ML @ 10 mls/hr IV.CONT Q10H [facility] Rx#:[id number] 1/2 Normal Saline Inj 1,000 ML 975 / 975 1550 / 1550 @ 100 mls/hr IV.CONT .Q10H [facility] Rx#:[id number] Pitressin Inj 40 UNIT In D5W 100 / 100 30 / 30 Inj 98 ML @ 0.04 UNITS/MIN 6 mls/hr IV.CONT CONT [facility] Rx#: [id number] Azactam Inj 1,000 MG In NS Inj 100 / 100 200 / 200 100 ML @ 200 mls/hr IV.SIG Q8H [facility] Rx#:[id number] Diflucan 400 mg Premix Bag 200 200 / 200 ML @ 100 mls/hr IV.SIG Q24H [facility] Rx#:[id number] fentaNYL 10 mcg/mL Premix Drip 125 / 125 2,500 mcg In 250 ml @ 50 MCG/HR 5 mls/hr IV.SIG TITRATE PRN Rx #:[id number] Flagyl 500 MG Inj 100 ML @ 100 100 / 100 200 / 200 mls/hr IV.SIG Q8H [facility] Rx#: [id number] Water Bolus Amount 0 / 0 Other 50 / 50 Output: Stool 0 / 0 Urine Amount (Catheter) 1000 / 1000 2375 / 2375 Indwelling Urethral Catheter 1000 / 1000 2375 / 2375 Gastric Drainage 125 / 125 100 / 100 Left Nare Nasogastric Tube 125 / 125 100 / 100 Wound Drainage 410 / 410 170 / 170 # 1 Left Lateral Abdomen 250 / 250 120 / 120 # 2 Abdomen Db 160 / 160 50 / 50 <Vey,Gunjan - 06/18/18 21:04> Vital Signs 06/17/18 12:00 06/17/18 13:07 06/17/18 16:00 Temperature 97.6 F 97.5 F L Pulse Rate 60 64 Respiratory Rate 10 L 13 10 L Blood Pressure 93/62 L 112/60 Pulse Oximetry 95 96 97 06/17/18 16:29 06/17/18 19:59 06/17/18 20:00 Temperature 97.8 F Pulse Rate 66 Respiratory Rate 12 9 L 15 Blood Pressure 96/63 L Pulse Oximetry 95 95 95 06/18/18 00:00 06/18/18 00:26 06/18/18 03:54 Temperature 98.1 F Pulse Rate 74 Respiratory Rate 9 L 12 17 Blood Pressure 96/59 L Pulse Oximetry 97 98 95 06/18/18 04:00 06/18/18 08:22 Temperature 98.3 F Pulse Rate 72 Respiratory Rate 11 L 9 L Blood Pressure 103/70 Pulse Oximetry 94 L 97 Intake & Output 06/17/18 06/18/18 06/18/18 18:59 06:59 18:59 Intake Total 2210 / 2210 1625 / 1625 Output Total 1795 / 1795 1535 / 1535 Balance 415 / 415 90 / 90 Weight 66.1 kg Intake: IV 2210 / 2210 1625 / 1625 Precedex Inj 1,000 MCG In NS 250 / 250 250 / 250 Inj 240 ML @ 0.2 MCG/KG/HR 3.4 mls/hr IV.CONT TITRATE PRN Rx#: [id number] Protonix Inj 80 MG In NS Inj 100 / 100 100 / 100 100 ML @ 10 mls/hr IV.CONT Q10H [facility] Rx#:[id number] 1/2 Normal Saline Inj 1,000 ML 1000 / 1000 975 / 975 @ 100 mls/hr IV.CONT .Q10H [facility] Rx#:[id number] Pitressin Inj 40 UNIT In D5W 100 / 100 Inj 98 ML @ 0.04 UNITS/MIN 6 mls/hr IV.CONT CONT [facility] Rx#: [id number] Azactam Inj 1,000 MG In NS Inj 200 / 200 100 / 100 100 ML @ 200 mls/hr IV.SIG Q8H [facility] Rx#:[id number] Diflucan 400 mg Premix Bag 200 200 / 200 ML @ 100 mls/hr IV.SIG Q24H [facility] Rx#:[id number] Potassium Phosphate Inj 30 MMOL 260 / 260 In NS Inj 250 ML @ 43.333 mls/ hr IV.SIG ONCE ONE Rx#:[id number] Flagyl 500 MG Inj 100 ML @ 100 200 / 200 100 / 100 mls/hr IV.SIG Q8H [facility] Rx#: [id number] Output: Urine Amount (Catheter) 1400 / 1400 1000 / 1000 Indwelling Urethral Catheter 1400 / 1400 1000 / 1000 Gastric Drainage 125 / 125 Left Nare Nasogastric Tube 125 / 125 Wound Drainage 395 / 395 410 / 410 # 1 Left Lateral Abdomen 285 / 285 250 / 250 # 2 Abdomen Db 110 / 110 160 / 160 <Fadumo Mooney - 06/18/18 09:12> Narrative: Gen: Patient lying in bed, intubated Skin: Warm and dry, subclavian line in place CV: regular rate and rhythm Resp: CTAB anteriorly Abd: Bowel sounds not heard, large vertical incision with bandage overlying. minimal areas of drainage on bandage from incision. 2 drains placed with serosanguineous fluid draining. Ext: no edema of extemities Neuro/psych: opens eyes to verbal stimuli <Fadumo Mooney - 06/18/18 09:12> - Urinary Catheter Management Indwelling Urethral Catheter Cath placed during this visit: no <Gunjan Simms - 06/18/18 21:04> yes <Fadumo Mooney - 06/18/18 09:12> Reason for continuing: Hourly intake/output <Fadumo Mooney - 06/18/18 09: 12> Insertion date: 06/15/18 <Fadumo Mooney - 06/18/18 09:12> Assessment and Plan - Assessment (1) Overdose Code(s): T50.901A - Poisoning by unspecified drugs, medicaments and biological substances, accidental (unintentional), initial encounter Status: Acute (2) Gastric ulcer with perforation Code(s): K25.5 - Chronic or unspecified gastric ulcer with perforation Status : Acute (3) Rhabdomyolysis Code(s): M62.82 - Rhabdomyolysis Status: Acute (4) ARMANI (acute kidney injury) Code(s): N17.9 - Acute kidney failure, unspecified Status: Acute (5) Weight loss Code(s): R63.4 - Abnormal weight loss Status: Acute (6) IVDU (intravenous drug user) Code(s): F19.90 - Other psychoactive substance use, unspecified, uncomplicated Status: Acute (7) Nutrition, metabolism, and development symptoms Code(s): R63.8 - Other symptoms and signs concerning food and fluid intake Status: Acute (8) DVT prophylaxis Status: Acute <AnithaGunjan adwn - 06/18/18 21:04> (1) Overdose Code(s): T50.901A - Poisoning by unspecified drugs, medicaments and biological substances, accidental (unintentional), initial encounter Status: Acute Plan: -OB\psych drug screen positive for amphetamine and cannabinoids, negative for opiates, other metabolites are PENDING -Serum alcohol and aspirin NEGATIVE -Meeting Coordinator consulted -appreciate help management * Continue Precedex drip for agitation * Continue postoperative care * Lactic acid level 1.3 on 06/16 down from 2.8 on 06/15 * Continuous monitoring of heart rate and BP, maintain map greater than 65 mmHg * Maintain oxygen saturation above 92% * Monitor CBC and coags * Discontinue D5 water with sodium bicarb at 150 with: Alkalinization of urine with pH of 5.5 or above * Continue 1/2NS @ 100mls/hour * Plans to extubate today (2) Gastric ulcer with perforation Code(s): K25.5 - Chronic or unspecified gastric ulcer with perforation Status : Acute Plan: Gastritis with perforated gastric ulcer, postop day #3 from ex lap -NGT placed, n.p.o. -Continue Protonix drip, follow recommendations of general surgery -Gastroenterology signed off (3) Rhabdomyolysis Code(s): M62.82 - Rhabdomyolysis Status: Acute Plan: -CK 374 on admission -CK 4237 today down from 4836 06/18 -Creatinine normalized to 0.63 today from 1.68 on 06/16 -Continue 1/2NS @ 100mls/hour -Nephro signed off (4) ARMANI (acute kidney injury) Code(s): N17.9 - Acute kidney failure, unspecified Status: Acute Plan: Improved. Nephro signed off. -Creatinine 0.63 this a.m , continue to follow creatinine -Continue IV hydration -Avoid nephrotoxic substances (5) Weight loss Code(s): R63.4 - Abnormal weight loss Status: Acute Plan: Patient has had a significant weight loss in the past month according to patient 's significant other. Gastritis versus drug use versus hepatitis versus immunodeficiency (HIV). -Supportive care -Continue fluids until patient is able to tolerate diet by mouth -Hepatitis panel positive for hepatitis C antibody -We will discuss HIV testing if and when patient is able to consent (6) IVDU (intravenous drug user) Code(s): F19.90 - Other psychoactive substance use, unspecified, uncomplicated Status: Acute Plan: Patient with a history of IV drug use. -Blood cultures no growth in 3 day -Repeat blood cultures no growth in 1 day -Hepatitis panel positive for hep C -Case management consult to help with possible rehab placement when stable if patient is willing (7) Nutrition, metabolism, and development symptoms Code(s): R63.8 - Other symptoms and signs concerning food and fluid intake Status: Acute Plan: -NPO diet, patient sedated and ventilated -Continue IV hydration (8) DVT prophylaxis Status: Acute Plan: -Bilateral SCDs for DVT prophylaxis -Continue Heparin as general surgery approved restarting dvt prophylaxis <Fadumo Mooney - 06/18/18 09:00> - Assessment and Plan Discussed Condition With: Sdw: Dr. Simms and Dr. Arroyo <Fadumo Mooney - 06/18/18 09:12> - Attending Attestation Patient seen and examined and discussed with resident team. I agree with assessment and management as documented and discussed with me. Pt is seen in the afternoon, and has been extubated. Boyfriend at the bedside. Pt complains of abdominal pain, and it is noted he is tachycardic. Await recs from surgery re: sips/ice chips. <Gunjan Simms - 06/18/18 21:04>
--- NOTE | 2018-06-18 09:19 | P.PNCC ---
Subjective Subjective Remarks/Hospital Course: 06/16: Patient underwent emergent laparotomy on 06/15 and was found to have a perforated gastric ulcer with significant peritoneal contamination with gastric contents for which he underwent peritoneal washout and Theron patch repair and was subsequently transferred to ICU intubated on mechanical ventilation. He has been hypotensive overnight requiring pressors. Remains sedated, orally intubated on mechanical ventilation. CPK remains elevated in the 6000 range. 06/17: Remains sedated, arousable, orally intubated on mechanical ventilation. Still requiring pressors. Significant drainage from MIHAELA drains. 06/18: Arouses off sedation, orally intubated on mechanical ventilation. On low- dose vasopressin. MIHAELA drains with serous output which appears to be slowing down. Objective Vital Signs / I&O: Vital Signs 06/17/18 12:00 06/17/18 13:07 06/17/18 16:00 Temperature 97.6 F 97.5 F L Pulse Rate 60 64 Respiratory Rate 10 L 13 10 L Blood Pressure 93/62 L 112/60 Pulse Oximetry 95 96 97 06/17/18 16:29 06/17/18 19:59 06/17/18 20:00 Temperature 97.8 F Pulse Rate 66 Respiratory Rate 12 9 L 15 Blood Pressure 96/63 L Pulse Oximetry 95 95 95 06/18/18 00:00 06/18/18 00:26 06/18/18 03:54 Temperature 98.1 F Pulse Rate 74 Respiratory Rate 9 L 12 17 Blood Pressure 96/59 L Pulse Oximetry 97 98 95 06/18/18 04:00 06/18/18 08:22 Temperature 98.3 F Pulse Rate 72 Respiratory Rate 11 L 9 L Blood Pressure 103/70 Pulse Oximetry 94 L 97 Intake & Output 06/17/18 06/18/18 06/18/18 18:59 06:59 18:59 Intake Total 2210 / 2210 1625 / 1625 Output Total 1795 / 1795 1535 / 1535 Balance 415 / 415 90 / 90 Weight 66.1 kg Intake: IV 2210 / 2210 1625 / 1625 Precedex Inj 1,000 MCG In NS 250 / 250 250 / 250 Inj 240 ML @ 0.2 MCG/KG/HR 3.4 mls/hr IV.CONT TITRATE PRN Rx#: [id number] Protonix Inj 80 MG In NS Inj 100 / 100 100 / 100 100 ML @ 10 mls/hr IV.CONT Q10H [facility] Rx#:[id number] 1/2 Normal Saline Inj 1,000 ML 1000 / 1000 975 / 975 @ 100 mls/hr IV.CONT .Q10H [facility] Rx#:[id number] Pitressin Inj 40 UNIT In D5W 100 / 100 Inj 98 ML @ 0.04 UNITS/MIN 6 mls/hr IV.CONT CONT [facility] Rx#: [id number] Azactam Inj 1,000 MG In NS Inj 200 / 200 100 / 100 100 ML @ 200 mls/hr IV.SIG Q8H [facility] Rx#:[id number] Diflucan 400 mg Premix Bag 200 200 / 200 ML @ 100 mls/hr IV.SIG Q24H [facility] Rx#:[id number] Potassium Phosphate Inj 30 MMOL 260 / 260 In NS Inj 250 ML @ 43.333 mls/ hr IV.SIG ONCE ONE Rx#:[id number] Flagyl 500 MG Inj 100 ML @ 100 200 / 200 100 / 100 mls/hr IV.SIG Q8H [facility] Rx#: [id number] Output: Urine Amount (Catheter) 1400 / 1400 1000 / 1000 Indwelling Urethral Catheter 1400 / 1400 1000 / 1000 Gastric Drainage 125 / 125 Left Nare Nasogastric Tube 125 / 125 Wound Drainage 395 / 395 410 / 410 # 1 Left Lateral Abdomen 285 / 285 250 / 250 # 2 Abdomen Db 110 / 110 160 / 160 Result Diagrams: 06/16/18 13:55 06/18/18 06:00 Objective Remarks: HEENT/ Neuro: Sedated, orally intubated, no pallor, no icterus, tongue/ mucosa moist Neck: No JVD Chest/Pulm: on mech vent, good air entry bilaterally, no wheezing or crackles CVS: S1-S2 regular, no murmur GI/abdomen: soft, dressing over surgical site clean dry and intact. MIHAELA drains 2 with serosanguineous drainage. Bowel sounds sluggish Extremities: warm bilaterally, no edema Assessment and Plan - Assessment and Plan Plan: 27-year-old male with: Septic shock Acute respiratory failure on mechanical ventilation Perforated gastric ulcer status post expiratory laparotomy with Theron patch repair and peritoneal washout Perforation peritonitis Overdose History of substance abuse Rhabdomyolysis ARMANI Plan: Neuro: Held Precedex and fentanyl GTT for CPAP trial. Follow neuro status. Ativan/Haldol as needed as needed for agitation. Cardiovascular: IV hydration, watch for hypotension. Off phenylephrine. vasopressin low-dose being titrated down. Trend lactic acid. Pulmonary: on mechanical ventilation, vent bundle, bronchodilators as needed. CPAP trial tolerated, ordered extubation GI/liver: N.p.o., NG suction. Surgery following status post laparotomy. Follow MIHAELA drainage. Renal/: IV hydration, strict intake output, monitor and replete electrodes, follow BUN creatinine. Continue bicarb drip to alkalinize urine due to rhabdomyolysis. Follow CPK. ID: Empiric antibiotic coverage with IV aztreonam/Flagyl/Diflucan. Off IV vancomycin follow-up cultures. ID following. Endocrine: Watch for hyperglycemia, SSI for glycemic control if needed. Prophylaxis: On Protonix GTT, consider switching to twice daily Protonix. SCDs. Start subcu Lovenox when okay with general surgery. Discussed with family medicine team, discussed with Dr. Sabillon from surgery. Condition critical D/W Family medicine, D/W Dr. Sabillon Time spent on critical care excluding procedures 30 minutes
[2018-06-18] MEDS: Sodium Chloride 0.45 % Inj 1,000 ML IV.CONT SCH (11:36)
[2018-06-18] MEDS: Dextrose 50% in Water 50 ML Vial IV.PUSH PRN (16:34)
[2018-06-18] MEDS: fentaNYL Citrate Inj 100 MCG/2 ML Ampul IV.PUSH PRN ×2 (16:36→20:25)
--- NOTE | 2018-06-18 18:10 | P.PN ---
Subjective Interval history: Extubated, sleepy but arousable Physical Exam Vital signs: Vital Signs 06/17/18 19:59 06/17/18 20:00 06/18/18 00:00 Temperature 97.8 F 98.1 F Pulse Rate 66 74 Respiratory Rate 9 L 15 9 L Blood Pressure 96/63 L 96/59 L Pulse Oximetry 95 95 97 06/18/18 00:26 06/18/18 03:54 06/18/18 04:00 Temperature 98.3 F Pulse Rate 72 Respiratory Rate 12 17 11 L Blood Pressure 103/70 Pulse Oximetry 98 95 94 L 06/18/18 08:00 06/18/18 08:22 06/18/18 12:00 Temperature 98.1 F 97.6 F Pulse Rate 68 81 Respiratory Rate 12 9 L 12 Blood Pressure 113/66 111/63 Pulse Oximetry 97 97 96 06/18/18 16:00 Temperature 99.2 F Pulse Rate 114 H Respiratory Rate 18 Blood Pressure 123/63 Pulse Oximetry 97 Intake & Output 06/17/18 06/18/18 06/18/18 18:59 06:59 18:59 Intake Total 2210 / 2210 1625 / 1625 1830 / 1830 Output Total 1795 / 1795 1535 / 1535 70 / 70 Balance 415 / 415 90 / 90 1760 / 1760 Weight 66.1 kg Intake: IV 2210 / 2210 1625 / 1625 1830 / 1830 Precedex Inj 1,000 MCG In NS 250 / 250 250 / 250 75 / 75 Inj 240 ML @ 0.2 MCG/KG/HR 3.4 mls/hr IV.CONT TITRATE PRN Rx#: [id number] Protonix Inj 80 MG In NS Inj 100 / 100 100 / 100 100 / 100 100 ML @ 10 mls/hr IV.CONT Q10H [facility] Rx#:[id number] 1/2 Normal Saline Inj 1,000 ML 1000 / 1000 975 / 975 1000 / 1000 @ 100 mls/hr IV.CONT .Q10H [facility] Rx#:[id number] Pitressin Inj 40 UNIT In D5W 100 / 100 30 / 30 Inj 98 ML @ 0.04 UNITS/MIN 6 mls/hr IV.CONT CONT [facility] Rx#: [id number] Azactam Inj 1,000 MG In NS Inj 200 / 200 100 / 100 200 / 200 100 ML @ 200 mls/hr IV.SIG Q8H [facility] Rx#:[id number] Diflucan 400 mg Premix Bag 200 200 / 200 200 / 200 ML @ 100 mls/hr IV.SIG Q24H [facility] Rx#:[id number] Potassium Phosphate Inj 30 MMOL 260 / 260 In NS Inj 250 ML @ 43.333 mls/ hr IV.SIG ONCE ONE Rx#:[id number] fentaNYL 10 mcg/mL Premix Drip 125 / 125 2,500 mcg In 250 ml @ 50 MCG/HR 5 mls/hr IV.SIG TITRATE PRN Rx #:[id number] Flagyl 500 MG Inj 100 ML @ 100 200 / 200 100 / 100 100 / 100 mls/hr IV.SIG Q8H [facility] Rx#: [id number] Water Bolus Amount 0 / 0 Output: Urine Amount (Catheter) 1400 / 1400 1000 / 1000 Indwelling Urethral Catheter 1400 / 1400 1000 / 1000 Gastric Drainage 125 / 125 Left Nare Nasogastric Tube 125 / 125 Wound Drainage 395 / 395 410 / 410 70 / 70 # 1 Left Lateral Abdomen 285 / 285 250 / 250 70 / 70 # 2 Abdomen Db 110 / 110 160 / 160 - Routine Respiratory Exam Present: decreased breath sounds - Routine Cardiovascular Exam Present: RRR - Routine Abdominal Exam Present: soft, wound (MOOSE dressing dry with minimal drainage), drain (130 ml output today; serosanguineous) - Urinary Catheter Management Indwelling Urethral Catheter Cath placed during this visit: yes Reason for continuing: Hourly intake/output Insertion date: 06/15/18 Results - Labs CBC & Chem 7: 06/16/18 13:55 06/18/18 06:00 Laboratory Results - last 24 hr 06/17/18 06/17/18 06/18/18 18:03 19:50 01:13 Sodium Potassium 4.0 Chloride Carbon Dioxide Anion Gap BUN Creatinine Estimated GFR POC Glucose 139 H 79 Random Glucose Calcium Phosphorus Total Creatine Kinase CK-MB (CK-2) CK-MB (CK-2) % Albumin 06/18/18 06/18/18 06/18/18 05:57 05:59 06:00 Sodium 143 Potassium 4.4 Chloride 110 H Carbon Dioxide 24.5 Anion Gap 9 BUN 21 H Creatinine 0.63 Estimated GFR Greater than 89 POC Glucose 45 L* 72 Random Glucose 74 Calcium 7.4 L* Phosphorus 3.5 D Total Creatine Kinase 4237 H CK-MB (CK-2) 24.7 H CK-MB (CK-2) % 0.6 Albumin 1.4 L 06/18/18 06/18/18 06/18/18 12:03 16:18 17:02 Sodium Potassium Chloride Carbon Dioxide Anion Gap BUN Creatinine Estimated GFR POC Glucose 70 63 L 121 H Random Glucose Calcium Phosphorus Total Creatine Kinase CK-MB (CK-2) CK-MB (CK-2) % Albumin Microbiology 06/16/18 13:15 Blood - Peripheral Aerobic Blood Culture - Preliminary No growth in 2 days 06/16/18 13:15 Blood - Peripheral Anaerobic Blood Culture - Preliminary No growth in 2 days 06/16/18 13:10 Blood - Peripheral Aerobic Blood Culture - Preliminary No growth in 2 days 06/16/18 13:10 Blood - Peripheral Anaerobic Blood Culture - Preliminary No growth in 2 days 06/14/18 15:10 Blood - Peripheral Aerobic Blood Culture - Preliminary No growth in 4 days 06/14/18 15:10 Blood - Peripheral Anaerobic Blood Culture - Preliminary No growth in 4 days 06/14/18 15:00 Blood - Peripheral Aerobic Blood Culture - Preliminary No growth in 4 days 06/14/18 15:00 Blood - Peripheral Anaerobic Blood Culture - Preliminary No growth in 4 days Assessment and Plan - Assessment (1) Perforated abdominal viscus Status: Acute Plan: Start liquids tomorrow if NG output minimal Off pressors as of this afternoon; D/C A-line in AM if stable overnight Improved - Plan Discussed Condition With: Nurse Avelina Haque - Attending Attestation I attest that I had a [id number] encounter with the patient on the same day, and personally performed and documented my assessment and findings in the medical record. The following services were provided during this hospital visit: Chart data review, vital sign assessments/reviewing monitor data Review of consultation notes if present Medication orders/review and/or management Ordering and/or reviewing lab tests Ordering and/or interpreting/reviewing x-rays and/or diagnostic studies Care of the patient and discussion of the patient with the care team Documentation time To help prompt me to consider important information that might be impacting today's encounter and assessment, Information from prior notes written by myself or my colleagues may have been "brought forward/copy and pasted" into today's note.
[2018-06-18] MEDS: Dextrose 5%/NaCl 0.45% Inj 1,000 ML IV.SIG SCH (18:44)
[2018-06-18 19:15] LABS: Baso % (Auto) 0.2 % (0.0-2.0); Eos % (Auto) 0.2 % (0.0-4.0); Hemoglobin 11.4 gm/dL (13.0-17.0); Lymph # (Auto) 0.9 th/mm3 (1.0-4.8); Lymph % (Auto) 8.9 % (9.0-44.0); Mean Corpuscular HGB Conc 34.7 % (32.0-36.0); Mean Corpuscular Hemoglobin 29.4 pg (27.0-34.0); Mean Corpuscular Volume 84.9 fL (80.0-100.0); Mean Platelet Volume 7.9 fL (7.0-11.0); Mono % (Auto) 10.1 % (0.0-8.0); Neut # (Auto) 8.2 th/mm3 (1.8-7.7); Neut % (Auto) 80.6 % (16.0-70.0); Platelet Count 216 th/mm3 (150-450); Red Blood Count 3.89 mil/mm3 (4.50-5.90); Red Cell Distribution Width 14.2 % (11.6-17.2); White Blood Count 10.1 th/mm3 (4.0-11.0)
[2018-06-19] MEDS: Pantoprazole Inj 80 MG in Sodium Chlor 0.9% Inj 100 ML IV.CONT SCH ×3 (00:02→16:12)
[2018-06-19] MEDS: Heparin - SQ 10,000 UNITS/ML Vial SQ SCH ×4 (00:03→22:28)
[2018-06-19] MEDS: Insulin NovoLIN Regular Correctional Sugar Inj SQ SCH ×5 (00:39→17:22)
[2018-06-19] MEDS: fentaNYL Citrate Inj 100 MCG/2 ML Ampul IV.PUSH PRN ×3 (02:19→22:51)
[2018-06-19] MEDS: Dextrose 5%/NaCl 0.45% Inj 1,000 ML IV.SIG SCH ×2 (05:37→14:03)
[2018-06-19 05:52] LABS: Albumin 1.5 g/dL (3.4-5.0); Anion Gap 8 meq/L (5-15); Blood Urea Nitrogen 12 mg/dL (7-18); Carbon Dioxide 29.5 meq/L (21.0-32.0); Chloride 108 meq/L (98-107); Glomerular Filtration Rate Greater Than 89 mL/min (>89); Glucose,Random 93 mg/dL (74-106); Phosphorus 2.8 mg/dL (2.5-4.9); Potassium 3.2 meq/L (3.5-5.1); Sodium 145 meq/L (136-145)
[2018-06-19] MEDS: Potassium Chlor 40 mEq Premix 40 MEQ/100 ML PIGGYBACK IV.SIG PRN ×2 (08:52→14:06)
--- NOTE | 2018-06-19 09:56 | P.DIET ---
Nutritional Evaluation Type of nutrition evaluation: follow-up Screening comments: Pt has been npo x 5 days. She is s/p exp lap, modified marti patch and surgical paracentesis (06/15). Consult RD if needed.
[2018-06-19 11:52] LABS: CKMB Percent 0.2 % (0.0-4.0); Creatine Kinase MB 7.4 ng/mL (0.5-3.6)
--- NOTE | 2018-06-19 12:07 | P.PNFP ---
Subjective Interval history: Patient extubated yesterday. He is off pressors. Still has NG tube with significant output. Difficult for the patient to talk today. He did answer yes and no questions by shaking his head. He complains of abdominal pain , cough. No difficulty swallowing. He was unaware of the course of his hospitalization, so that was explained to him. It was also explained to him the importance of having an advance directive. He would like his mother to be his medical decision maker. The nurse was going to help him complete this paper work. He wanted to know how long he should expect to be here. I explained to him that he had a large surgery and was very ill for some time, so I could not give him a date of discharge. He understood. All questions were answered to the best of my ability. <Fadumo Mooney - 06/19/18 12:48> Results - Labs Result diagrams: 06/18/18 18:35 06/20/18 05:40 <Gunjan Simms - 06/20/18 09:01> Abnormal lab results 06/19/18 06/19/18 06/20/18 Range/Units 10:20 22:30 05:40 Potassium 3.4 L (3.5-5.1) meq/L Chloride 110 H (98-107) meq/L Creatinine 0.51 L (0.60-1.30) mg/dL Random Glucose 117 H (74-106) mg/dL Calcium 7.1 L* (8.5-10.1) mg/dL Phosphorus 2.3 L (2.5-4.9) mg/dL Total Creatine Kinase 3754 H (39-308) U/L CK-MB (CK-2) 7.4 H (0.5-3.6) ng/mL Albumin 1.6 L (3.4-5.0) g/dL BMP 06/19/18 06/20/18 22:30 05:40 Sodium 145 Potassium 3.4 L 3.6 Chloride 110 H Carbon Dioxide 28.4 BUN 8 Creatinine 0.51 L Calcium 7.1 L* Cardiac Enzymes 06/19/18 Range/Units 10:20 Total Creatine Kinase 3754 H (39-308) U/L CK-MB (CK-2) 7.4 H (0.5-3.6) ng/mL Liver Function 06/20/18 Range/Units 05:40 Albumin 1.6 L (3.4-5.0) g/dL <Gunjan Simms - 06/20/18 09:01> Abnormal lab results 06/18/18 06/18/18 06/18/18 Range/Units 16:18 17:02 18:35 RBC 3.89 L (4.50-5.90) mil/mm3 Hgb 11.4 L (13.0-17.0) gm/dL Hct 33.0 L (39.0-51.0) % Neut % (Auto) 80.6 H (16.0-70.0) % Lymph % (Auto) 8.9 L (9.0-44.0) % [place] % (Auto) 10.1 H (0.0-8.0) % Neut # (Auto) 8.2 H (1.8-7.7) th/mm3 Lymph # (Auto) 0.9 L (1.0-4.8) th/mm3 [place] # (Auto) 1.0 H (0.0-0.9) th/mm3 Potassium (3.5-5.1) meq/L Chloride (98-107) meq/L POC Glucose 63 L 121 H (68-110) mg/dl Calcium (8.5-10.1) mg/dL Total Creatine Kinase (39-308) U/L CK-MB (CK-2) (0.5-3.6) ng/mL Albumin (3.4-5.0) g/dL 06/19/18 06/19/18 Range/Units 04:45 10:20 RBC (4.50-5.90) mil/mm3 Hgb (13.0-17.0) gm/dL Hct (39.0-51.0) % Neut % (Auto) (16.0-70.0) % Lymph % (Auto) (9.0-44.0) % [place] % (Auto) (0.0-8.0) % Neut # (Auto) (1.8-7.7) th/mm3 Lymph # (Auto) (1.0-4.8) th/mm3 [place] # (Auto) (0.0-0.9) th/mm3 Potassium 3.2 L D (3.5-5.1) meq/L Chloride 108 H (98-107) meq/L POC Glucose (68-110) mg/dl Calcium 7.0 L* (8.5-10.1) mg/dL Total Creatine Kinase 3754 H (39-308) U/L CK-MB (CK-2) 7.4 H (0.5-3.6) ng/mL Albumin 1.5 L (3.4-5.0) g/dL Short CBC 06/18/18 Range/Units 18:35 WBC 10.1 (4.0-11.0) th/mm3 Hgb 11.4 L (13.0-17.0) gm/dL Hct 33.0 L (39.0-51.0) % Plt Count 216 (150-450) th/mm3 BMP 06/19/18 04:45 Sodium 145 Potassium 3.2 L D Chloride 108 H Carbon Dioxide 29.5 BUN 12 Creatinine 0.64 Calcium 7.0 L* Cardiac Enzymes 06/19/18 Range/Units 10:20 Total Creatine Kinase 3754 H (39-308) U/L CK-MB (CK-2) 7.4 H (0.5-3.6) ng/mL Liver Function 06/19/18 Range/Units 04:45 Albumin 1.5 L (3.4-5.0) g/dL <Fadumo Mooney - 06/19/18 12:06> Physical Exam Vital signs: Vital Signs 06/19/18 12:00 06/19/18 16:00 06/19/18 19:51 Temperature 98.6 F 98.4 F Pulse Rate 68 75 Respiratory Rate 17 22 18 Blood Pressure 113/59 L 115/84 Pulse Oximetry 93 L 06/19/18 20:00 06/19/18 23:21 06/19/18 23:42 Temperature 97.4 F L Pulse Rate 68 Respiratory Rate 20 19 Blood Pressure 124/83 Pulse Oximetry 96 06/20/18 00:00 06/20/18 03:33 06/20/18 04:00 Temperature 98.2 F 98.2 F Pulse Rate 79 75 Respiratory Rate 22 Blood Pressure 130/80 132/84 Pulse Oximetry 06/20/18 05:41 Temperature Pulse Rate Respiratory Rate 22 Blood Pressure Pulse Oximetry Intake & Output 06/19/18 06/20/18 06/20/18 18:59 06:59 18:59 Intake Total 2200 / 2200 1500 / 1500 Output Total 2680 / 2680 1610 / 1610 Balance -480 / -480 -110 / -110 Weight 61.5 kg Intake: IV 2200 / 2200 1500 / 1500 Protonix Inj 80 MG In NS Inj 200 / 200 100 / 100 100 ML @ 10 mls/hr IV.CONT Q10H TE[facility]O Rx#:[id number] Ofirmev Inj 1,000 mg In 100 ml 200 / 200 100 / 100 @ 400 mls/hr IV.SIG Q8H PRN Rx# :[id number] Azactam Inj 1,000 MG In NS Inj 200 / 200 100 / 100 100 ML @ 200 mls/hr IV.SIG Q8H [facility] Rx#:[id number] D5W/2 NS Inj 1,000 ML @ 100 1000 / 1000 1000 / 1000 mls/hr IV.SIG .Q10H TEOF[facility]O Rx#: [id number] Diflucan 400 mg Premix Bag 200 200 / 200 ML @ 100 mls/hr IV.SIG Q24H [facility] Rx#:[id number] KCl 40 mEq Premix Inj 40 meq In 200 / 200 100 / 100 100 ml @ 25 mls/hr IV.SIG UNSCH PRN Rx#:[id number] Flagyl 500 MG Inj 100 ML @ 100 200 / 200 100 / 100 mls/hr IV.SIG Q8H TEOFILO Rx#: [id number] Output: Urine 250 / 250 1200 / 1200 Urine Amount (Catheter) 1999 Indwelling Urethral Catheter 1999 Gastric Drainage 300 / 300 50 / 50 Left Nare Nasogastric Tube 300 / 300 50 / 50 Wound Drainage 130 / 130 360 / 360 # 1 Left Lateral Abdomen 110 / 110 310 / 310 # 2 Abdomen Db 20 / 20 50 / 50 <VeyGunjan - 06/20/18 09:01> Vital Signs 06/18/18 16:00 06/18/18 20:00 06/18/18 20:07 Temperature 99.2 F 98.8 F Pulse Rate 114 H 111 H Respiratory Rate 18 20 Blood Pressure 123/63 126/72 Pulse Oximetry 97 96 96 06/19/18 00:00 06/19/18 04:00 06/19/18 08:00 Temperature 98.4 F 99 F Pulse Rate 101 H 99 H 108 H Respiratory Rate 18 20 18 Blood Pressure 124/72 125/74 Pulse Oximetry 94 L 96 Intake & Output 06/18/18 06/19/18 06/19/18 18:59 06:59 18:59 Intake Total 2530 / 2530 6946 / 6946 600 / 600 Output Total 2645 / 2645 2780 / 2780 Balance -115 / -115 4166 / 4166 600 / 600 Weight 63.3 kg Intake: IV 2480 / 2480 1300 / 1300 600 / 600 Precedex Inj 1,000 MCG In NS 75 / 75 Inj 240 ML @ 0.2 MCG/KG/HR 3.4 mls/hr IV.CONT TITRATE PRN Rx#: [id number] Protonix Inj 80 MG In NS Inj 100 / 100 100 / 100 100 / 100 100 ML @ 10 mls/hr IV.CONT Q10H [facility] Rx#:[id number] 1/2 Normal Saline Inj 1,000 ML 1550 / 1550 @ 100 mls/hr IV.CONT .Q10H [facility] Rx#:[id number] Pitressin Inj 40 UNIT In D5W 30 / 30 Inj 98 ML @ 0.04 UNITS/MIN 6 mls/hr IV.CONT CONT [facility] Rx#: [id number] Ofirmev Inj 1,000 mg In 100 ml 100 / 100 @ 400 mls/hr IV.SIG Q8H PRN Rx# :[id number] Azactam Inj 1,000 MG In NS Inj 200 / 200 100 / 100 100 / 100 100 ML @ 200 mls/hr IV.SIG Q8H [facility] Rx#:[id number] D5W/1/2 NS Inj 1,000 ML @ 100 1000 / 1000 mls/hr IV.SIG .Q10H [facility]OF[facility]O Rx#: [id number] Diflucan 400 mg Premix Bag 200 200 / 200 200 / 200 ML @ 100 mls/hr IV.SIG Q24H [facility] Rx#:[id number] fentaNYL 10 mcg/mL Premix Drip 125 / 125 2,500 mcg In 250 ml @ 50 MCG/HR 5 mls/hr IV.SIG TITRATE PRN Rx #:[id number] Flagyl 500 MG Inj 100 ML @ 100 200 / 200 100 / 100 100 / 100 mls/hr IV.SIG Q8H TEOF[facility]O Rx#: [id number] Water Bolus Amount 0 / 0 0 / 0 Other 50 / 50 5646 / 5646 Output: Stool 0 / 0 0 / 0 Urine Amount (Catheter) 237 / 2375 1600 / 1600 Indwelling Urethral Catheter 237 / 237 1600 / 1600 Gastric Drainage 100 / 100 1000 / 1000 Left Nare Nasogastric Tube 100 / 100 1000 / 1000 Wound Drainage 170 / 170 180 / 180 # 1 Left Lateral Abdomen 120 / 120 150 / 150 # 2 Abdomen Db 50 / 50 30 / 30 Other: # Bowel Movements 0 <Fadumo Mooney - 06/19/18 12:06> Narrative: Gen: Patient lying in bed Skin: Warm and dry, subclavian line in place CV: regular rate and rhythm Resp: CTAB anteriorly Abd: Bowel sounds not heard, large vertical incision with bandage overlying. minimal areas of drainage on bandage from incision. 2 MIHAELA drains placed with serosanguineous fluid draining. Ext: no edema of extremities noted Neuro/psych: drowsy but alert, responds to questions appropriately <Fadumo Mooney - 06/19/18 12:48> - Urinary Catheter Management Indwelling Urethral Catheter Cath placed during this visit: no <Gunjan Simms - 06/20/18 09:01> yes <Fadumo Mooney - 06/19/18 12:48> Reason for continuing: Hourly intake/output <Fadumo Mooney - 06/19/18 12: 06> Insertion date: 06/15/18 <Fadumo Mooney - 06/19/18 12:06> Assessment and Plan - Assessment (1) Overdose Code(s): T50.901A - Poisoning by unspecified drugs, medicaments and biological substances, accidental (unintentional), initial encounter Status: Acute (2) Gastric ulcer with perforation Code(s): K25.5 - Chronic or unspecified gastric ulcer with perforation Status : Acute (3) Rhabdomyolysis Code(s): M62.82 - Rhabdomyolysis Status: Acute (4) ARMANI (acute kidney injury) Code(s): N17.9 - Acute kidney failure, unspecified Status: Acute (5) Weight loss Code(s): R63.4 - Abnormal weight loss Status: Acute (6) IVDU (intravenous drug user) Code(s): F19.90 - Other psychoactive substance use, unspecified, uncomplicated Status: Acute (7) Nutrition, metabolism, and development symptoms Code(s): R63.8 - Other symptoms and signs concerning food and fluid intake Status: Acute (8) DVT prophylaxis Status: Acute <Gunjan Simms - 06/20/18 09:01> (1) Overdose Code(s): T50.901A - Poisoning by unspecified drugs, medicaments and biological substances, accidental (unintentional), initial encounter Status: Acute Plan: -OB\psych drug screen positive for amphetamine and cannabinoids, negative for opiates, other metabolites are PENDING -Serum alcohol and aspirin NEGATIVE -Building Construction Foreman consulted -appreciate help management * Continue postoperative care * Lactic acid level 1.3 on 06/16 down from 2.8 on 06/15 * Continuous monitoring of heart rate and BP, maintain map greater than 65 mmHg * Maintain oxygen saturation above 92% * Monitor CBC and coags * Discontinue D5 water with sodium bicarb at 150 with: Alkalinization of urine with pH of 5.5 or above * Discontinue 1/2NS @ 100mls/hour * Continue D51/2NS @ 100 mls hour (2) Gastric ulcer with perforation Code(s): K25.5 - Chronic or unspecified gastric ulcer with perforation Status : Acute Plan: Gastritis with perforated gastric ulcer, postop day #4 from ex lap -NGT placed still with large output, n.p.o. -Continue Protonix drip, follow recommendations of general surgery -Gastroenterology signed off (3) Rhabdomyolysis Code(s): M62.82 - Rhabdomyolysis Status: Acute Plan: -CK 374 on admission -CK 4237 on 06/18 -CK today- ordered -Creatinine normalized to 0.63 06/18 from 1.68 on 06/16 -Continue D51/2NS @ 100 mls hour -Nephro signed off (4) ARMANI (acute kidney injury) Code(s): N17.9 - Acute kidney failure, unspecified Status: Acute Plan: Improved. Nephro signed off. -Creatinine 0.63 06/18 -Continue IV hydration -Avoid nephrotoxic substances (5) Weight loss Code(s): R63.4 - Abnormal weight loss Status: Acute Plan: Patient has had a significant weight loss in the past month according to patient 's significant other. Gastritis versus drug use versus hepatitis versus immunodeficiency (HIV). -Supportive care -Continue fluids until patient is able to tolerate diet by mouth -Hepatitis panel positive for hepatitis C antibody -We will discuss HIV testing if and when patient is able to consent (6) IVDU (intravenous drug user) Code(s): F19.90 - Other psychoactive substance use, unspecified, uncomplicated Status: Acute Plan: Patient with a history of IV drug use. -Blood cultures no growth in 5 day -Repeat blood cultures no growth in 3 days -Hepatitis panel positive for hep C -Case management consult to help with possible rehab placement when stable if patient is willing (7) Nutrition, metabolism, and development symptoms Code(s): R63.8 - Other symptoms and signs concerning food and fluid intake Status: Acute Plan: -NPO diet until minimal output from NG tube -Continue IV hydration (8) DVT prophylaxis Status: Acute Plan: -Bilateral SCDs for DVT prophylaxis -Continue Heparin as general surgery approved restarting dvt prophylaxis <Fadumo Mooney - 06/19/18 12:33> - Attending Attestation Patient seen, examined, and discussed with resident team on 06/19/18. I agree with assessment and management as documented and discussed with me. Pt is extubated. He is more alert today. Maintaining BP off pressors. Appreciate scene painter, gen surg. <Gunjan Simms - 06/20/18 09:01>
--- NOTE | 2018-06-19 15:06 | P.PNCC ---
Subjective Subjective Remarks/Hospital Course: 06/16: Patient underwent emergent laparotomy on 06/15 and was found to have a perforated gastric ulcer with significant peritoneal contamination with gastric contents for which he underwent peritoneal washout and Theron patch repair and was subsequently transferred to ICU intubated on mechanical ventilation. He has been hypotensive overnight requiring pressors. Remains sedated, orally intubated on mechanical ventilation. CPK remains elevated in the 6000 range. 06/17: Remains sedated, arousable, orally intubated on mechanical ventilation. Still requiring pressors. Significant drainage from MIHAELA drains. 06/18: Arouses off sedation, orally intubated on mechanical ventilation. On low- dose vasopressin. MIHAELA drains with serous output which appears to be slowing down. 06/19: Extubated yesterday, tolerating well. High NG output. MIHAELA drainage has slowed down. Awake and alert. Following commands. Moves all 4 extremities. Objective Vital Signs / I&O: Vital Signs 06/18/18 16:00 06/18/18 20:00 06/18/18 20:07 Temperature 99.2 F 98.8 F Pulse Rate 114 H 111 H Respiratory Rate 18 20 Blood Pressure 123/63 126/72 Pulse Oximetry 97 96 96 06/19/18 00:00 06/19/18 04:00 06/19/18 08:00 Temperature 98.4 F 99 F 98.6 F Pulse Rate 101 H 99 H 96 H Respiratory Rate 18 20 22 Blood Pressure 124/72 125/74 137/70 Pulse Oximetry 94 L 96 92 L 06/19/18 12:00 Temperature 98.6 F Pulse Rate 68 Respiratory Rate 17 Blood Pressure 113/59 L Pulse Oximetry 93 L Intake & Output 06/18/18 06/19/18 06/19/18 18:59 06:59 18:59 Intake Total 2530 / 2530 6946 / 6946 1700 / 1700 Output Total 2645 / 2645 2780 / 2780 Balance -115 / -115 4166 / 4166 1700 / 1700 Weight 63.3 kg Intake: IV 2480 / 2480 1300 / 1300 1700 / 1700 Precedex Inj 1,000 MCG In NS 75 / 75 Inj 240 ML @ 0.2 MCG/KG/HR 3.4 mls/hr IV.CONT TITRATE PRN Rx#: [id number] Protonix Inj 80 MG In NS Inj 100 / 100 100 / 100 100 / 100 100 ML @ 10 mls/hr IV.CONT Q10H [facility] Rx#:[id number] 1/2 Normal Saline Inj 1,000 ML 1550 / 1550 @ 100 mls/hr IV.CONT .Q10H [facility] Rx#:[id number] Pitressin Inj 40 UNIT In D5W 30 / 30 Inj 98 ML @ 0.04 UNITS/MIN 6 mls/hr IV.CONT CONT [facility]O Rx#: [id number] Ofirmev Inj 1,000 mg In 100 ml 100 / 100 @ 400 mls/hr IV.SIG Q8H PRN Rx# :[id number] Azactam Inj 1,000 MG In NS Inj 200 / 200 100 / 100 100 / 100 100 ML @ 200 mls/hr IV.SIG Q8H [facility] Rx#:[id number] D5W/1/2 NS Inj 1,000 ML @ 100 1000 / 1000 1000 / 1000 mls/hr IV.SIG .Q10H [facility]OF[facility]O Rx#: [id number] Diflucan 400 mg Premix Bag 200 200 / 200 200 / 200 ML @ 100 mls/hr IV.SIG Q24H [facility] Rx#:[id number] KCl 40 mEq Premix Inj 40 meq In 100 / 100 100 ml @ 25 mls/hr IV.SIG Q2H PRN Rx#:[id number] fentaNYL 10 mcg/mL Premix Drip 125 / 125 2,500 mcg In 250 ml @ 50 MCG/HR 5 mls/hr IV.SIG TITRATE PRN Rx #:[id number] Flagyl 500 MG Inj 100 ML @ 100 200 / 200 100 / 100 100 / 100 mls/hr IV.SIG Q8H [facility]OF[facility] Rx#: [id number] Water Bolus Amount 0 / 0 0 / 0 Other 50 / 50 5646 / 5646 Output: Stool 0 / 0 0 / 0 Urine Amount (Catheter) 2375 / 2375 1600 / 1600 Indwelling Urethral Catheter 2375 / 2375 1600 / 1600 Gastric Drainage 100 / 100 1000 / 1000 Left Nare Nasogastric Tube 100 / 100 1000 / 1000 Wound Drainage 170 / 170 180 / 180 # 1 Left Lateral Abdomen 120 / 120 150 / 150 # 2 Abdomen Db 50 / 50 30 / 30 Other: # Bowel Movements 0 Result Diagrams: 06/18/18 18:35 06/19/18 04:45 Objective Remarks: HEENT/ Neuro: Awake, alert, following commands, moving all 4 extremities. No pallor, no icterus, tongue/ mucosa moist Neck: No JVD Chest/Pulm: ogood air entry bilaterally, scattered rhonchi, no wheezing or crackles CVS: S1-S2 regular, no murmur GI/abdomen: soft, dressing over surgical site clean dry and intact. MIHAELA drains 2 with serosanguineous drainage. Bowel sounds sluggish Extremities: warm bilaterally, no edema Assessment and Plan - Assessment and Plan Plan: 27-year-old male with: Septic shock Acute respiratory failure on mechanical ventilation Perforated gastric ulcer status post expiratory laparotomy with Theron patch repair and peritoneal washout Perforation peritonitis Overdose History of substance abuse Rhabdomyolysis ARMANI Plan: Neuro: Follow neuro status. Tylenol 1 g IV every 8 hourly 6 doses for pain. Fentanyl as needed. Ativan/Haldol as needed as needed for agitation. Cardiovascular: IV hydration, watch for hypotension. Off pressors Pulmonary: Extubated on 06/18, tolerating well, bronchodilators as needed. CPAP trial tolerated, ordered extubation GI/liver: N.p.o., NG suction. Surgery following status post laparotomy. Follow MIHAELA drainage. Renal/: IV hydration, strict intake output, monitor and replete electrodes, follow BUN creatinine. CPK improving ID: Empiric antibiotic coverage with IV aztreonam/Flagyl/Diflucan. Off IV vancomycin follow-up cultures. ID following. Endocrine: Watch for hyperglycemia, SSI for glycemic control if needed. Prophylaxis: On Protonix GTT, consider switching to twice daily Protonix. SCDs. Start subcu Lovenox when okay with general surgery. Discussed with family medicine team, discussed with Dr. Sabillon from surgery. Critical care will sign off at this time, please reconsult if needed.
--- NOTE | 2018-06-19 17:31 | P.PNGS ---
Subjective Patient reports: no new complaints, feels better, no bowel movement (Still has NG tube in thousand cc) Interval history: DAILY PROGRESS NOTE FOR SURGICAL ATTENDING, DR. HERMELINDO BLACKMON Physical Exam Vital signs: Vital Signs 06/18/18 20:00 06/18/18 20:07 06/19/18 00:00 Temperature 98.8 F 98.4 F Pulse Rate 111 H 101 H Respiratory Rate 20 18 Blood Pressure 126/72 124/72 Pulse Oximetry 96 96 94 L 06/19/18 04:00 06/19/18 08:00 06/19/18 12:00 Temperature 99 F 98.6 F 98.6 F Pulse Rate 99 H 96 H 68 Respiratory Rate 20 22 17 Blood Pressure 125/74 137/70 113/59 L Pulse Oximetry 96 92 L 93 L 06/19/18 16:00 Temperature 98.4 F Pulse Rate 75 Respiratory Rate 22 Blood Pressure 115/84 Pulse Oximetry Intake & Output 06/18/18 06/19/18 06/19/18 18:59 06:59 18:59 Intake Total 2530 / 2530 6946 / 6946 1900 / 1900 Output Total 2645 / 2645 2780 / 2780 Balance -115 / -115 4166 / 4166 1900 / 1900 Weight 63.3 kg Intake: IV 2480 / 2480 1300 / 1300 1900 / 1900 Precedex Inj 1,000 MCG In NS 75 / 75 Inj 240 ML @ 0.2 MCG/KG/HR 3.4 mls/hr IV.CONT TITRATE PRN Rx#: [id number] Protonix Inj 80 MG In NS Inj 100 / 100 100 / 100 200 / 200 100 ML @ 10 mls/hr IV.CONT Q10H [facility] Rx#:[id number] 1/2 Normal Saline Inj 1,000 ML 1550 / 1550 @ 100 mls/hr IV.CONT .Q10H [facility] Rx#:[id number] Pitressin Inj 40 UNIT In D5W 30 / 30 Inj 98 ML @ 0.04 UNITS/MIN 6 mls/hr IV.CONT CONT [facility] Rx#: [id number] Ofirmev Inj 1,000 mg In 100 ml 100 / 100 @ 400 mls/hr IV.SIG Q8H PRN Rx# :[id number] Azactam Inj 1,000 MG In NS Inj 200 / 200 100 / 100 200 / 200 100 ML @ 200 mls/hr IV.SIG Q8H [facility] Rx#:[id number] D5W/1/2 NS Inj 1,000 ML @ 100 1000 / 1000 1000 / 1000 mls/hr IV.SIG .Q10H [facility] Rx#: [id number] Diflucan 400 mg Premix Bag 200 200 / 200 200 / 200 ML @ 100 mls/hr IV.SIG Q24H [facility] Rx#:[id number] KCl 40 mEq Premix Inj 40 meq In 100 / 100 100 ml @ 25 mls/hr IV.SIG Q2H PRN Rx#:[id number] fentaNYL 10 mcg/mL Premix Drip 125 / 125 2,500 mcg In 250 ml @ 50 MCG/HR 5 mls/hr IV.SIG TITRATE PRN Rx #:[id number] Flagyl 500 MG Inj 100 ML @ 100 200 / 200 100 / 100 100 / 100 mls/hr IV.SIG Q8H [facility] Rx#: [id number] Water Bolus Amount 0 / 0 0 / 0 Other 50 / 50 5646 / 5646 Output: Stool 0 / 0 0 / 0 Urine Amount (Catheter) 2374 / 2375 1600 / 1600 Indwelling Urethral Catheter 2375 / 2375 1600 / 1600 Gastric Drainage 100 / 100 1000 / 1000 Left Nare Nasogastric Tube 100 / 100 1000 / 1000 Wound Drainage 170 / 170 180 / 180 # 1 Left Lateral Abdomen 120 / 120 150 / 150 # 2 Abdomen Db 50 / 50 30 / 30 Other: # Bowel Movements 0 Narrative: Gen: Patient lying in bed Skin: Warm and dry, subclavian line in place Abd: Marly dressing intact minimal areas of drainage on bandage from incision. 2 MIHAELA drains placed with serosanguineous fluid draining. Ext: no edema of extremities noted Neuro/psych: drowsy but alert, responds to questions appropriately - Additional findings Additional findings: ITS Impre Laboratory Last Values WBC 10.1 th/mm3 (4.0-11.0) 06/18/18 18:35 RBC 3.89 mil/mm3 (4.50-5.90) L 06/18/18 18:35 Hgb 11.4 gm/dL (13.0-17.0) L 06/18/18 18:35 Hct 33.0 % (39.0-51.0) L 06/18/18 18:35 MCV 84.9 fL (80.0-100.0) 06/18/18 18:35 MCH 29.4 pg (27.0-34.0) 06/18/18 18:35 MCHC 34.7 % (32.0-36.0) 06/18/18 18:35 RDW 14.2 % (11.6-17.2) 06/18/18 18:35 Plt Count 216 th/mm3 (150-450) 06/18/18 18:35 MPV 7.9 fL (7.0-11.0) 06/18/18 18:35 Prelim Diff (Auto) Slide review pending 06/15/18 19:13 Neut % (Auto) 80.6 % (16.0-70.0) H 06/18/18 18:35 Lymph % (Auto) 8.9 % (9.0-44.0) L 06/18/18 18:35 [place] % (Auto) 10.1 % (0.0-8.0) H 06/18/18 18:35 Eos % (Auto) 0.2 % (0.0-4.0) 06/18/18 18:35 Baso % (Auto) 0.2 % (0.0-2.0) 06/18/18 18:35 Neut # (Auto) 8.2 th/mm3 (1.8-7.7) H 06/18/18 18:35 Lymph # (Auto) 0.9 th/mm3 (1.0-4.8) L 06/18/18 18:35 [place] # (Auto) 1.0 th/mm3 (0.0-0.9) H 06/18/18 18:35 Eos # (Auto) 0.0 th/mm3 (0.0-0.4) 06/18/18 18:35 Baso # (Auto) 0.0 th/mm3 (0.0-0.2) 06/18/18 18:35 WBC Differential . 06/18/18 18:35 Seg Neuts % (Manual) 33 % (16-70) 06/15/18 19:13 Band Neuts % (Manual) 59 % (0-6) H 06/15/18 19:13 Lymphocytes % (Manual) 2 % (9-44) L 06/15/18 19:13 Monocytes % (Manual) 2 % (0-8) 06/15/18 19:13 Metamyelocytes % (Man) 4 % (0-1) H 06/15/18 19:13 Myelocytes % (Man) 1 % (0-0) H 06/15/18 14:30 Abs Neuts (Manual) 6.0 th/mm3 (1.8-7.7) 06/15/18 19:13 Differential Comment Auto diff final 06/18/18 18:35 Toxic Granulation 1+ (None) H 06/15/18 19:13 Toxic Vacuolation Present (None) H 06/15/18 19:13 Platelet Estimate Normal (Normal) 06/15/18 19:13 Platelet Morphology Normal (Normal) 06/15/18 19:13 PT 13.0 sec (9.8-11.6) H 06/16/18 13:55 INR 1.3 Ratio 06/16/18 13:55 APTT 43.3 sec (24.3-30.1) H 06/16/18 13:55 Puncture Site Kiera 06/16/18 02:34 Patient Temperature 98.6 06/16/18 02:34 O2 Saturation 97 % (90-100) 06/16/18 02:34 ABG pH 7.41 (7.380-7.420) 06/16/18 02:34 ABG pCO2 40 mmHg (38-42) 06/16/18 02:34 ABG pO2 124 mmHg (61-120) H 06/16/18 02:34 ABG HCO3 25 mmol/L (22-26) 06/16/18 02:34 ABG O2 Content 18.1 Vol % (12.0-20.0) 06/16/18 02:34 ABG Base Excess 0.5 mmol/L (-2-2) 06/16/18 02:34 ABG Methemoglobin 0.7 % (0-2) 06/16/18 02:34 Madi Test Present 06/15/18 18:40 Hemoglobin 13.1 G/DL (12.0-16.0) 06/16/18 02:34 Carboxyhemoglobin 0.9 % (0-4) 06/16/18 02:34 O2 Delivery Device Ventilator 06/16/18 02:34 Vent Setting See comment 06/16/18 02:34 Inspired O2 40 % 06/16/18 02:34 Critical Value No 06/16/18 02:34 Sodium 145 meq/L (136-145) 06/19/18 04:45 Potassium 3.2 meq/L (3.5-5.1) L D 06/19/18 04:45 Chloride 108 meq/L (98-107) H 06/19/18 04:45 Carbon Dioxide 29.5 meq/L (21.0-32.0) 06/19/18 04:45 Anion Gap 8 meq/L (5-15) 06/19/18 04:45 BUN 12 mg/dL (7-18) 06/19/18 04:45 Creatinine 0.64 mg/dL (0.60-1.30) 06/19/18 04:45 Estimated GFR Greater than 89 mL/min (>89) 06/19/18 04:45 POC Glucose 99 mg/dl (68-110) 06/19/18 17:19 Random Glucose 93 mg/dL (74-106) 06/19/18 04:45 Lactic Acid 1.3 mmol/L (0.4-2.0) 06/16/18 13:55 Calcium 7.0 mg/dL (8.5-10.1) L* 06/19/18 04:45 Prot Corrected Calcium 8.7 mg/dL (8.5-10.1) 06/17/18 06:26 Phosphorus 2.8 mg/dL (2.5-4.9) 06/19/18 04:45 Magnesium 2.0 mg/dL (1.5-2.5) 06/15/18 14:30 Total Bilirubin 1.2 mg/dL (0.2-1.0) H 06/15/18 14:30 Direct Bilirubin 0.2 mg/dL (0.0-0.2) 06/14/18 09:15 Indirect Bilirubin 1.3 mg/dL (0.0-0.8) H 06/14/18 09:15 AST 127 U/L (15-37) H 06/15/18 14:30 ALT 44 U/L (12-78) 06/15/18 14:30 Alkaline Phosphatase 37 U/L (45-117) L 06/15/18 14:30 Total Creatine Kinase 3754 U/L (39-308) H 06/19/18 10:20 CK-MB (CK-2) 7.4 ng/mL (0.5-3.6) H 06/19/18 10:20 CK-MB (CK-2) % 0.2 % (0.0-4.0) 06/19/18 10:20 Troponin I Less than 0.02 ng/mL (0.02-0.05) L 06/14/18 15:00 Total Protein 3.9 g/dL (6.4-8.2) L D 06/17/18 06:26 Albumin 1.5 g/dL (3.4-5.0) L 06/19/18 04:45 Urine Color Chanelle (Yellw/Straw) 06/15/18 15:02 Urine Clarity Cloudy (Clear) H 06/15/18 15:02 Urine pH 5.0 (5.0-8.5) 06/15/18 15:02 Ur Specific [place] 1.019 (1.002-1.035) 06/15/18 15:02 Urine Protein 30 mg/dL (Neg-Trace) H 06/15/18 15:02 Urine Glucose (UA) 50 mg/dL (Negative) 06/15/18 15:02 Urine Ketones Negative mg/dL (Negative) 06/15/18 15:02 Urine Occult Blood Large (Negative) H 06/15/18 15:02 Urine Nitrate Negative (Negative) 06/15/18 15:02 Urine Bilirubin Negative (Negative) 06/15/18 15:02 Urine Urobilinogen 4 or greater mg/dL (Less than 2) 06/15/18 15:02 Ur Leukocyte Esterase Trace (Negative) H 06/15/18 15:02 Urine RBC 59 /hpf (0-3) H 06/15/18 15:02 Urine WBC 17 /hpf (0-5) H 06/15/18 15:02 Urine WBC Clumps Rare (None) H 06/15/18 15:02 Ur Squamous Epith Cells 2 /hpf (0-5) 06/15/18 15:02 Amorphous Sediment Few /hpf (None) H 06/15/18 15:02 Urine Bacteria Few /hpf (None) H 06/15/18 15:02 Hyaline Casts 73 /lpf (0-3) 06/15/18 15:02 Urine Mucus Few /lpf (Occasional) H 06/15/18 15:02 Micro UA Comment Culture indicated 06/15/18 15:02 Ur Microscopic Review Not Reportable 06/15/18 15:02 Urine Culture Comments Culture indicated 06/15/18 15:02 Nasal Screen MRSA (PCR) Not detected (Negative) 06/15/18 08:20 Salicylates Less than 1.7 mg/dL (2.8-20.0) L 06/14/18 15:00 Urine Opiates Screen Neg (Neg) 06/14/18 17:25 Acetaminophen 4.9 mcg/mL (10.0-30.0) L 06/14/18 15:00 Ur Barbiturates Screen Neg (Neg) 06/14/18 17:25 Ur Amphetamine Screen Pos (Neg) H 06/14/18 17:25 U Benzodiazepines Scrn Neg (Neg) 06/14/18 17:25 Urine Cocaine Screen Neg (Neg) 06/14/18 17:25 U Cannabinoids Screen Pos (Neg) H 06/14/18 17:25 Serum Alcohol Less than 3 mg/dL (0-5) 06/14/18 09:15 Hepatitis A IgM Ab Nonreactive (Nonreactive) 06/14/18 15:50 Hep Bs Antigen Nonreactive (Nonreactive) 06/14/18 15:50 Hep B Core IgM Ab Nonreactive (Nonreactive) 06/14/18 15:50 Hep C IgG Ab Reactive (Nonreactive) H 06/14/18 15:50 ssions Abdomen X-Ray 06/14/18 00:00 CONCLUSION: 1. No radiopaque foreign body is noted. 2. No bowel obstruction, ileus or perforation. Head CT 06/15/18 00:00 CONCLUSION: 1. Negative CT Head non contrast. . Abdomen/Pelvis CT 06/15/18 08:46 CONCLUSION: 1. Pneumoperitoneum with diffusely thickened fluid-filled small bowel and moderate amount of ascites. 2. Small bilateral pleural effusions. 3. I spoke with the clinical team concerning the findings. Chest X-Ray 06/15/18 16:23 CONCLUSION: Stable endotracheal tube with the tip just above the level of the clavicles. New right-sided central line which terminates within the mid SVC. - Urinary Catheter Management Indwelling Urethral Catheter Cath placed during this visit: yes Reason for continuing: Hourly intake/output Insertion date: 06/15/18 Assessment and Plan - Assessment (1) Perforated abdominal viscus Status: Acute - Plan Extubated today All drips off Drains and marly dressing intact Continue slow progressive advance improvement - Attending Attestation NOTE FOR SURGICAL ATTENDING, DR. HERMELINDO BLACKMON I attest that I had a [id number] encounter with the patient on the same day, and personally performed and documented my assessment and findings in the medical record. The following services were provided during this hospital visit: Chart data review, vital sign assessments/reviewing monitor data Review of consultations notes if present. Medication orders/review and/or management Ordering and/or reviewing lab tests Ordering and/or interpreting/reviewing x-rays and/or diagnostic studies Care of the patient and discussion of the patient with the care team Documentation time To help prompt me to consider important information that might be impacting today's encounter and assessment, Information from prior notes written by myself or my colleagues may have been "brought forward/copy and pasted" into today's note.
[2018-06-20] MEDS: Insulin NovoLIN Regular Correctional Sugar Inj SQ SCH ×4 (02:14→19:16)
[2018-06-20] MEDS: Pantoprazole Inj 80 MG in Sodium Chlor 0.9% Inj 100 ML IV.CONT SCH ×3 (02:34→22:51)
[2018-06-20] MEDS: fentaNYL Citrate Inj 100 MCG/2 ML Ampul IV.PUSH PRN ×3 (03:03→21:48)
[2018-06-20] MEDS: Dextrose 5%/NaCl 0.45% Inj 1,000 ML IV.SIG SCH ×3 (03:19→20:25)
[2018-06-20] MEDS: Heparin - SQ 10,000 UNITS/ML Vial SQ SCH ×3 (05:27→21:48)
[2018-06-20 06:23] LABS: Albumin 1.6 g/dL (3.4-5.0); Anion Gap 7 meq/L (5-15); Blood Urea Nitrogen 8 mg/dL (7-18); Carbon Dioxide 28.4 meq/L (21.0-32.0); Chloride 110 meq/L (98-107); Glomerular Filtration Rate Greater Than 89 mL/min (>89); Glucose,Random 117 mg/dL (74-106); Phosphorus 2.3 mg/dL (2.5-4.9); Potassium 3.6 meq/L (3.5-5.1); Sodium 145 meq/L (136-145)
[2018-06-20 06:31] LABS: Calcium 7.1 mg/dL (8.5-10.1)
--- NOTE | 2018-06-20 10:59 | P.PNGS ---
Subjective Patient reports: still having pain, no bowel movement Physical Exam Vital signs: Vital Signs 06/19/18 12:00 06/19/18 16:00 06/19/18 19:51 Temperature 98.6 F 98.4 F Pulse Rate 68 75 Respiratory Rate 17 22 18 Blood Pressure 113/59 L 115/84 Pulse Oximetry 93 L 06/19/18 20:00 06/19/18 23:21 06/19/18 23:42 Temperature 97.4 F L Pulse Rate 68 Respiratory Rate 20 19 Blood Pressure 124/83 Pulse Oximetry 96 06/20/18 00:00 06/20/18 03:33 06/20/18 04:00 Temperature 98.2 F 98.2 F Pulse Rate 79 75 Respiratory Rate 22 Blood Pressure 130/80 132/84 Pulse Oximetry 06/20/18 05:41 06/20/18 08:00 Temperature 98.8 F Pulse Rate 81 Respiratory Rate 22 25 H Blood Pressure 128/82 Pulse Oximetry 97 Intake & Output 06/19/18 06/20/18 06/20/18 18:59 06:59 18:59 Intake Total 2200 / 2200 1500 / 1500 Output Total 2680 / 2680 1610 / 1610 Balance -480 / -480 -110 / -110 Weight 61.5 kg Intake: IV 2200 / 2200 1500 / 1500 Protonix Inj 80 MG In NS Inj 200 / 200 100 / 100 100 ML @ 10 mls/hr IV.CONT Q10H [facility] Rx#:[id number] Ofirmev Inj 1,000 mg In 100 ml 200 / 200 100 / 100 @ 400 mls/hr IV.SIG Q8H PRN Rx# :[id number] Azactam Inj 1,000 MG In NS Inj 200 / 200 100 / 100 100 ML @ 200 mls/hr IV.SIG Q8H [facility] Rx#:[id number] D5W/1/2 NS Inj 1,000 ML @ 100 1000 / 1000 1000 / 1000 mls/hr IV.SIG .Q10H [facility] Rx#: [id number] Diflucan 400 mg Premix Bag 200 200 / 200 ML @ 100 mls/hr IV.SIG Q24H [facility] Rx#:[id number] KCl 40 mEq Premix Inj 40 meq In 200 / 200 100 / 100 100 ml @ 25 mls/hr IV.SIG UNSCH PRN Rx#:[id number] Flagyl 500 MG Inj 100 ML @ 100 200 / 200 100 / 100 mls/hr IV.SIG Q8H [facility] Rx#: [id number] Output: Urine 250 / 250 1200 / 1200 Urine Amount (Catheter) 1999 Indwelling Urethral Catheter 1999 Gastric Drainage 300 / 300 50 / 50 Left Nare Nasogastric Tube 300 / 300 50 / 50 Wound Drainage 130 / 130 360 / 360 # 1 Left Lateral Abdomen 110 / 110 310 / 310 # 2 Abdomen Db 20 / 20 50 / 50 - Routine Respiratory Exam Present: CTA bilaterally - Routine Cardiovascular Exam Present: RRR - Routine Abdominal Exam Present: soft (+ttp, marly in place good sxn, [place] x2 serous) - Urinary Catheter Management Indwelling Urethral Catheter Cath placed during this visit: yes, but has since been removed by the nurse Reason for continuing: Hourly intake/output Insertion date: 06/15/18 Removal date: 06/19/18 Removal time: 15:00 Assessment and Plan - Assessment (1) Perforated abdominal viscus Status: Acute - Plan s/p Ex lap. repair or gastric ulcer marti patch washout eduin x2 PLAN iv abx pt ppi gtt- transition to po this week ng removed start sips of clears eduin sxn marly ok for dvt ppx keep in icu
[2018-06-20] MEDS ORDERED: HYDROmorphone PCA Inj 6 MG/30 ML PCA.VIAL PCA PRN (11:31)
[2018-06-20] MEDS ORDERED: Naloxone Inj 0.4 MG/ML Vial IV.PUSH PRN (11:31)
--- NOTE | 2018-06-20 11:55 | P.PNFP ---
Subjective Interval history: Patient seen and examined bedside this morning. Overnight patient pulled out NG tube because he was uncomfortable. Patient appears to be much more alert today and is having full conversations. He continues to complain of mild abdominal pain around his incision. No fever/chills. No chest pain/shortness of breath/dizziness. <Jagruti Arellano - 06/20/18 11:55> Results - Labs Result diagrams: 06/20/18 11:37 06/20/18 05:40 <Gunjan Simms - 06/20/18 15:33> Abnormal lab results 06/19/18 06/20/18 06/20/18 Range/Units 22:30 05:40 11:35 RBC (4.50-5.90) mil/mm3 Hgb (13.0-17.0) gm/dL Hct (39.0-51.0) % [place] % (Auto) (0.0-8.0) % [place] # (Auto) (0.0-0.9) th/mm3 Potassium 3.4 L (3.5-5.1) meq/L Chloride 110 H (98-107) meq/L Creatinine 0.51 L (0.60-1.30) mg/dL POC Glucose 157 H (68-110) mg/dl Random Glucose 117 H (74-106) mg/dL Calcium 7.1 L* (8.5-10.1) mg/dL Phosphorus 2.3 L (2.5-4.9) mg/dL Total Creatine Kinase (39-308) U/L Albumin 1.6 L (3.4-5.0) g/dL 06/20/18 06/20/18 Range/Units 11:37 11:37 RBC 3.72 L (4.50-5.90) mil/mm3 Hgb 10.9 L (13.0-17.0) gm/dL Hct 32.1 L (39.0-51.0) % [place] % (Auto) 16.2 H (0.0-8.0) % [place] # (Auto) 1.2 H (0.0-0.9) th/mm3 Potassium (3.5-5.1) meq/L Chloride (98-107) meq/L Creatinine (0.60-1.30) mg/dL POC Glucose (68-110) mg/dl Random Glucose (74-106) mg/dL Calcium (8.5-10.1) mg/dL Phosphorus (2.5-4.9) mg/dL Total Creatine Kinase 1320 H (39-308) U/L Albumin (3.4-5.0) g/dL Short CBC 06/20/18 Range/Units 11:37 WBC 7.2 (4.0-11.0) th/mm3 Hgb 10.9 L (13.0-17.0) gm/dL Hct 32.1 L (39.0-51.0) % Plt Count 240 (150-450) th/mm3 BMP 06/19/18 06/20/18 22:30 05:40 Sodium 145 Potassium 3.4 L 3.6 Chloride 110 H Carbon Dioxide 28.4 BUN 8 Creatinine 0.51 L Calcium 7.1 L* Cardiac Enzymes 06/20/18 Range/Units 11:37 Total Creatine Kinase 1320 H (39-308) U/L CK-MB (CK-2) 2.6 (0.5-3.6) ng/mL Liver Function 06/20/18 Range/Units 05:40 Albumin 1.6 L (3.4-5.0) g/dL <AnithanereydaGunjan - 06/20/18 15:33> Abnormal lab results 06/19/18 06/19/18 06/20/18 Range/Units 10:20 22:30 05:40 Potassium 3.4 L (3.5-5.1) meq/L Chloride 110 H (98-107) meq/L Creatinine 0.51 L (0.60-1.30) mg/dL POC Glucose (68-110) mg/dl Random Glucose 117 H (74-106) mg/dL Calcium 7.1 L* (8.5-10.1) mg/dL Phosphorus 2.3 L (2.5-4.9) mg/dL CK-MB (CK-2) 7.4 H (0.5-3.6) ng/mL Albumin 1.6 L (3.4-5.0) g/dL 06/20/18 Range/Units 11:35 Potassium (3.5-5.1) meq/L Chloride (98-107) meq/L Creatinine (0.60-1.30) mg/dL POC Glucose 157 H (68-110) mg/dl Random Glucose (74-106) mg/dL Calcium (8.5-10.1) mg/dL Phosphorus (2.5-4.9) mg/dL CK-MB (CK-2) (0.5-3.6) ng/mL Albumin (3.4-5.0) g/dL BMP 06/19/18 06/20/18 22:30 05:40 Sodium 145 Potassium 3.4 L 3.6 Chloride 110 H Carbon Dioxide 28.4 BUN 8 Creatinine 0.51 L Calcium 7.1 L* Cardiac Enzymes 06/19/18 Range/Units 10:20 CK-MB (CK-2) 7.4 H (0.5-3.6) ng/mL Liver Function 06/20/18 Range/Units 05:40 Albumin 1.6 L (3.4-5.0) g/dL <Jagruti Arellano - 06/20/18 11:55> Physical Exam Vital signs: Vital Signs 06/19/18 16:00 06/19/18 19:51 06/19/18 20:00 Temperature 98.4 F 97.4 F L Pulse Rate 75 68 Respiratory Rate 22 18 20 Blood Pressure 115/84 124/83 Pulse Oximetry 06/19/18 23:21 06/19/18 23:42 06/20/18 00:00 Temperature 98.2 F Pulse Rate 79 Respiratory Rate 19 Blood Pressure 130/80 Pulse Oximetry 96 06/20/18 03:33 06/20/18 04:00 06/20/18 05:41 Temperature 98.2 F Pulse Rate 75 Respiratory Rate 22 22 Blood Pressure 132/84 Pulse Oximetry 06/20/18 08:00 06/20/18 11:39 06/20/18 12:00 Temperature 98.8 F 98.6 F Pulse Rate 81 76 Respiratory Rate 25 H 16 Blood Pressure 128/82 123/92 H Pulse Oximetry 97 95 99 Intake & Output 06/19/18 06/20/18 06/20/18 18:59 06:59 18:59 Intake Total 2200 / 2200 1500 / 1500 100 / 100 Output Total 2680 / 2680 1610 / 1610 Balance -480 / -480 -110 / -110 100 / 100 Weight 61.5 kg Intake: IV 2200 / 2200 1500 / 1500 100 / 100 Protonix Inj 80 MG In NS Inj 200 / 200 100 / 100 100 / 100 100 ML @ 10 mls/hr IV.CONT Q10H TEOF[facility]O Rx#:[id number] Ofirmev Inj 1,000 mg In 100 ml 200 / 200 100 / 100 @ 400 mls/hr IV.SIG Q8H PRN Rx# :[id number] Azactam Inj 1,000 MG In NS Inj 200 / 200 100 / 100 100 ML @ 200 mls/hr IV.SIG Q8H [facility] Rx#:[id number] D5W/1/2 NS Inj 1,000 ML @ 100 1000 / 1000 1000 / 1000 mls/hr IV.SIG .Q10H TEOF[facility]O Rx#: [id number] Diflucan 400 mg Premix Bag 200 200 / 200 ML @ 100 mls/hr IV.SIG Q24H [facility]OF[facility]O Rx#:[id number] KCl 40 mEq Premix Inj 40 meq In 200 / 200 100 / 100 100 ml @ 25 mls/hr IV.SIG UNSCH PRN Rx#:[id number] Flagyl 500 MG Inj 100 ML @ 100 200 / 200 100 / 100 mls/hr IV.SIG Q8H TEOFILO Rx#: [id number] Output: Urine 250 / 250 1200 / 1200 Urine Amount (Catheter) 1999 Indwelling Urethral Catheter 1999 Gastric Drainage 300 / 300 50 / 50 Left Nare Nasogastric Tube 300 / 300 50 / 50 Wound Drainage 130 / 130 360 / 360 # 1 Left Lateral Abdomen 110 / 110 310 / 310 # 2 Abdomen Db 20 / 20 50 / 50 <Gunjan Simms - 06/20/18 15:33> Vital Signs 06/19/18 12:00 06/19/18 16:00 06/19/18 19:51 Temperature 98.6 F 98.4 F Pulse Rate 68 75 Respiratory Rate 17 22 18 Blood Pressure 113/59 L 115/84 Pulse Oximetry 93 L 06/19/18 20:00 06/19/18 23:21 06/19/18 23:42 Temperature 97.4 F L Pulse Rate 68 Respiratory Rate 20 19 Blood Pressure 124/83 Pulse Oximetry 96 06/20/18 00:00 06/20/18 03:33 06/20/18 04:00 Temperature 98.2 F 98.2 F Pulse Rate 79 75 Respiratory Rate 22 Blood Pressure 130/80 132/84 Pulse Oximetry 06/20/18 05:41 06/20/18 08:00 06/20/18 11:39 Temperature 98.8 F Pulse Rate 81 Respiratory Rate 22 25 H Blood Pressure 128/82 Pulse Oximetry 97 95 Intake & Output 06/19/18 06/20/18 06/20/18 18:59 06:59 18:59 Intake Total 2200 / 2200 1500 / 1500 Output Total 2680 / 2680 1610 / 1610 Balance -480 / -480 -110 / -110 Weight 61.5 kg Intake: IV 2200 / 2200 1500 / 1500 Protonix Inj 80 MG In NS Inj 200 / 200 100 / 100 100 ML @ 10 mls/hr IV.CONT Q10H TEOF[facility]O Rx#:[id number] Ofirmev Inj 1,000 mg In 100 ml 200 / 200 100 / 100 @ 400 mls/hr IV.SIG Q8H PRN Rx# :[id number] Azactam Inj 1,000 MG In NS Inj 200 / 200 100 / 100 100 ML @ 200 mls/hr IV.SIG Q8H TEOF[facility] Rx#:[id number] D5W/1/2 NS Inj 1,000 ML @ 100 1000 / 1000 1000 / 1000 mls/hr IV.SIG .Q10H TEOF[facility]O Rx#: [id number] Diflucan 400 mg Premix Bag 200 200 / 200 ML @ 100 mls/hr IV.SIG Q24H TEOF[facility]O Rx#:[id number] KCl 40 mEq Premix Inj 40 meq In 200 / 200 100 / 100 100 ml @ 25 mls/hr IV.SIG UNSCH PRN Rx#:[id number] Flagyl 500 MG Inj 100 ML @ 100 200 / 200 100 / 100 mls/hr IV.SIG Q8H TEOFILO Rx#: [id number] Output: Urine 250 / 250 1200 / 1200 Urine Amount (Catheter) 1999 Indwelling Urethral Catheter 1999 Gastric Drainage 300 / 300 50 / 50 Left Nare Nasogastric Tube 300 / 300 50 / 50 Wound Drainage 130 / 130 360 / 360 # 1 Left Lateral Abdomen 110 / 110 310 / 310 # 2 Abdomen Db 20 / 20 50 / 50 <Jagruti Arellano - 06/20/18 11:55> Narrative: Gen: Patient lying in bed Skin: Warm and dry, subclavian line in place Cardiac: Regular rate and rhythm, no murmur Commentary: Auscultation anteriorly, no wheezing Abd: dressing intact minimal areas of drainage on bandage from incision that have not progressed since yesterday. 2 MIHAELA drains placed with serosanguineous fluid draining. Ext: no edema of extremities noted, no tenderness Neuro/psych: AAO 3, motor and sensation intact in all extremities, cranial nerves intact grossly <EileenJagruti 06/20/18 11:55> - Urinary Catheter Management Indwelling Urethral Catheter Cath placed during this visit: no <DemiGunjan 06/20/18 15:33> yes, but has since been removed by the nurse <EileenJagruti 06/20/18 14:33> Reason for continuing: Hourly intake/output <EileenJagruti 06/20/18 11:55> Insertion date: 06/15/18 <JohnyUlysses winnory 06/20/18 11:55> Removal date: 06/19/18 <Ulysses Arellanoory 06/20/18 11:55> Removal time: 15:00 <EileenJagruti 06/20/18 11:55> Assessment and Plan - Assessment (1) Overdose Code(s): T50.901A - Poisoning by unspecified drugs, medicaments and biological substances, accidental (unintentional), initial encounter Status: Acute (2) Gastric ulcer with perforation Code(s): K25.5 - Chronic or unspecified gastric ulcer with perforation Status : Acute (3) Rhabdomyolysis Code(s): M62.82 - Rhabdomyolysis Status: Acute (4) ARMANI (acute kidney injury) Code(s): N17.9 - Acute kidney failure, unspecified Status: Acute (5) Weight loss Code(s): R63.4 - Abnormal weight loss Status: Acute (6) IVDU (intravenous drug user) Code(s): F19.90 - Other psychoactive substance use, unspecified, uncomplicated Status: Acute (7) Nutrition, metabolism, and development symptoms Code(s): R63.8 - Other symptoms and signs concerning food and fluid intake Status: Acute (8) DVT prophylaxis Status: Acute <AnithaGunjan dawn - 06/20/18 15:33> (1) Overdose Code(s): T50.901A - Poisoning by unspecified drugs, medicaments and biological substances, accidental (unintentional), initial encounter Status: Acute Plan: Improving -OB\psych drug screen positive for amphetamine and cannabinoids, negative for opiates, other metabolites are PENDING -Serum alcohol and aspirin NEGATIVE -Cullet Washer consulted -appreciate help management * Continue postoperative care * Lactic acid level 1.3 on 06/16 down from 2.8 on 06/15 * Continuous monitoring of heart rate and BP, maintain map greater than 65 mmHg * Maintain oxygen saturation above 92% * Monitor CBC and coags (2) Gastric ulcer with perforation Code(s): K25.5 - Chronic or unspecified gastric ulcer with perforation Status : Acute Plan: Gastritis with perforated gastric ulcer, postop day #5 from ex lap -NG tube removed by patient overnight, general surgery has advanced to clears -Continue Protonix drip, follow recommendations of general surgery -Gastroenterology signed off (3) Rhabdomyolysis Code(s): M62.82 - Rhabdomyolysis Status: Acute Plan: -CK 06/15 at 8800, decreasing to 1320 today -Creatinine normalized -Continue D51/2NS @ 100 mls hour -Nephro signed off (4) ARMANI (acute kidney injury) Code(s): N17.9 - Acute kidney failure, unspecified Status: Acute Plan: Improved. Nephro signed off. -Creatinine 0.63 06/18 -Continue IV hydration -Avoid nephrotoxic substances (5) Weight loss Code(s): R63.4 - Abnormal weight loss Status: Acute Plan: Patient has had a significant weight loss in the past month according to patient 's significant other. Gastritis versus drug use versus hepatitis versus immunodeficiency (HIV). -Supportive care -Continue fluids until patient is able to tolerate diet by mouth -Hepatitis panel positive for hepatitis C antibody -We will discuss HIV testing if and when patient is able to consent, possibly tomorrow (6) IVDU (intravenous drug user) Code(s): F19.90 - Other psychoactive substance use, unspecified, uncomplicated Status: Acute Plan: Patient with a history of IV drug use. -Blood cultures no growth in 5 day -Repeat blood cultures no growth in 3 days -Hepatitis panel positive for hep C -Case management consult to help with possible rehab placement when stable if patient is willing (7) Nutrition, metabolism, and development symptoms Code(s): R63.8 - Other symptoms and signs concerning food and fluid intake Status: Acute Plan: -Liquid diet -Continue IV hydration (8) DVT prophylaxis Status: Acute Plan: -Bilateral SCDs for DVT prophylaxis -Continue Heparin as general surgery approved restarting dvt prophylaxis <Jagruti Arellano - 06/20/18 14:28> - Attending Attestation Patient seen and examined, discussed with resident on 06/20/2018. I agree with assessment and management as documented and discussed with me. Pt reports abdominal pain, same as yesterday. He had BM overnight. He denies SOB. He has tolerated clear liquids at breakfast time. <Gunjan Simms - 06/20/18 15:33>
[2018-06-20 12:10] LABS: Baso % (Auto) 0.3 % (0.0-2.0); Eos # (Auto) 0.1 th/mm3 (0.0-0.4); Eos % (Auto) 0.9 % (0.0-4.0); Hematocrit 32.1 % (39.0-51.0); Hemoglobin 10.9 gm/dL (13.0-17.0); Lymph # (Auto) 1.1 th/mm3 (1.0-4.8); Lymph % (Auto) 14.7 % (9.0-44.0); Mean Corpuscular Hemoglobin 29.3 pg (27.0-34.0); Mean Corpuscular Volume 86.1 fL (80.0-100.0); Mean Platelet Volume 7.9 fL (7.0-11.0); Mono # (Auto) 1.2 th/mm3 (0.0-0.9); Mono % (Auto) 16.2 % (0.0-8.0); Neut # (Auto) 4.9 th/mm3 (1.8-7.7); Neut % (Auto) 67.9 % (16.0-70.0); Platelet Count 240 th/mm3 (150-450); Red Blood Count 3.72 mil/mm3 (4.50-5.90); Red Cell Distribution Width 13.9 % (11.6-17.2); White Blood Count 7.2 th/mm3 (4.0-11.0)
[2018-06-20 13:06] LABS: CKMB Percent 0.2 % (0.0-4.0); Creatine Kinase MB 2.6 ng/mL (0.5-3.6)
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
[2018-06-20 17:03] LABS: Calcium 7.3 mg/dL (8.5-10.1); Total Protein 4.5 g/dL (6.4-8.2)
[2018-06-21] MEDS: Insulin NovoLIN Regular Correctional Sugar Inj SQ SCH ×2 (00:50→06:15)
[2018-06-21] MEDS: fentaNYL Citrate Inj 100 MCG/2 ML Ampul IV.PUSH PRN ×2 (02:32→07:58)
[2018-06-21] MEDS: Heparin - SQ 10,000 UNITS/ML Vial SQ SCH ×3 (05:53→21:06)
[2018-06-21] MEDS: Dextrose 5%/NaCl 0.45% Inj 1,000 ML IV.SIG SCH (06:16)
--- NOTE | 2018-06-21 09:01 | P.PNFP ---
Subjective Interval history: Patient resting comfortably in bed. He is hungry. He has been tolerating clear fluids. He reports abdominal pain. Has had bowel movements. No pain with urination. Mild cough, but no shortness of breath. He reports some anxiety about his current situation and hospitalization. <Fadumo Mooney - 06/21/18 09:01> Results - Labs Result diagrams: 06/21/18 08:03 06/21/18 08:03 <DemiMarisole - 06/21/18 13:30> Abnormal lab results 06/20/18 06/21/18 06/21/18 Range/Units 05:40 08:03 08:03 RBC 4.06 L (4.50-5.90) mil/mm3 Hgb 11.8 L (13.0-17.0) gm/dL Hct 34.7 L (39.0-51.0) % [place] % (Auto) 17.8 H (0.0-8.0) % [place] # (Auto) 1.2 H (0.0-0.9) th/mm3 Potassium 3.4 L (3.5-5.1) meq/L BUN 6 L (7-18) mg/dL Creatinine 0.52 L (0.60-1.30) mg/dL Calcium 7.3 L* 7.5 L (8.5-10.1) mg/dL Total Creatine Kinase 542 H (39-308) U/L Total Protein 4.5 L D (6.4-8.2) g/dL Short CBC 06/21/18 Range/Units 08:03 WBC 7.0 (4.0-11.0) th/mm3 Hgb 11.8 L (13.0-17.0) gm/dL Hct 34.7 L (39.0-51.0) % Plt Count 261 (150-450) th/mm3 BMP 06/20/18 06/21/18 05:40 08:03 Sodium 143 Potassium 3.4 L Chloride 107 Carbon Dioxide 28.8 BUN 6 L Creatinine 0.52 L Calcium 7.3 L* 7.5 L Cardiac Enzymes 06/21/18 Range/Units 08:03 Total Creatine Kinase 542 H (39-308) U/L CK-MB (CK-2) 1.8 (0.5-3.6) ng/mL <Marisol Simmse - 06/21/18 13:30> Abnormal lab results 06/20/18 06/20/18 06/20/18 Range/Units 05:40 11:35 11:37 RBC 3.72 L (4.50-5.90) mil/mm3 Hgb 10.9 L (13.0-17.0) gm/dL Hct 32.1 L (39.0-51.0) % [place] % (Auto) 16.2 H (0.0-8.0) % [place] # (Auto) 1.2 H (0.0-0.9) th/mm3 POC Glucose 157 H (68-110) mg/dl Calcium 7.3 L* (8.5-10.1) mg/dL Total Creatine Kinase (39-308) U/L Total Protein 4.5 L D (6.4-8.2) g/dL 06/20/18 Range/Units 11:37 RBC (4.50-5.90) mil/mm3 Hgb (13.0-17.0) gm/dL Hct (39.0-51.0) % [place] % (Auto) (0.0-8.0) % [place] # (Auto) (0.0-0.9) th/mm3 POC Glucose (68-110) mg/dl Calcium (8.5-10.1) mg/dL Total Creatine Kinase 1320 H (39-308) U/L Total Protein (6.4-8.2) g/dL Short CBC 06/20/18 Range/Units 11:37 WBC 7.2 (4.0-11.0) th/mm3 Hgb 10.9 L (13.0-17.0) gm/dL Hct 32.1 L (39.0-51.0) % Plt Count 240 (150-450) th/mm3 BMP 06/20/18 05:40 Calcium 7.3 L* Cardiac Enzymes 06/20/18 Range/Units 11:37 Total Creatine Kinase 1320 H (39-308) U/L CK-MB (CK-2) 2.6 (0.5-3.6) ng/mL <Fadumo Mooney - 06/21/18 09:01> Physical Exam Vital signs: Vital Signs 06/20/18 16:00 06/20/18 20:00 06/20/18 22:52 Temperature 98.5 F 98.2 F Pulse Rate 70 87 Respiratory Rate 14 18 18 Blood Pressure 132/91 H 138/89 Pulse Oximetry 99 100 06/21/18 00:00 06/21/18 04:00 06/21/18 08:00 Temperature 98.3 F 98.5 F 97.6 F Pulse Rate 60 85 59 L Respiratory Rate 16 18 12 Blood Pressure 134/77 124/75 130/85 Pulse Oximetry 94 L 96 97 Intake & Output 06/20/18 06/21/18 06/21/18 18:59 06:59 18:59 Intake Total 1880 / 1880 3530 / 3530 Output Total 2465 / 2465 3185 / 3185 Balance -585 / -585 345 / 345 Weight 62.3 kg Intake: IV 1400 / 1400 800 / 800 Protonix Inj 80 MG In NS Inj 100 / 100 100 / 100 100 ML @ 10 mls/hr IV.CONT Q10H [facility] Rx#:[id number] Ofirmev Inj 1,000 mg In 100 ml 100 / 100 100 / 100 @ 400 mls/hr IV.SIG Q8H PRN Rx# :[id number] Azactam Inj 1,000 MG In NS Inj 100 / 100 200 / 200 100 ML @ 200 mls/hr IV.SIG Q8H [facility] Rx#:[id number] D5W/1/2 NS Inj 1,000 ML @ 100 1000 / 1000 mls/hr IV.SIG .Q10H [facility] Rx#: [id number] Diflucan 400 mg Premix Bag 200 200 / 200 ML @ 100 mls/hr IV.SIG Q24H [facility] Rx#:[id number] Flagyl 500 MG Inj 100 ML @ 100 100 / 100 200 / 200 mls/hr IV.SIG Q8H [facility]O Rx#: [id number] Oral 480 / 480 620 / 620 Other 2109 / 2109 Output: Urine 2375 / 2375 3100 / 3100 Stool 0 / 0 Wound Drainage 90 / 90 85 / 85 # 1 Left Lateral Abdomen 80 / 80 70 / 70 # 2 Abdomen Db 15 15 Other: Date of Last Bowel Movement 06/20/18 06/20/18 06/20/18 # Bowel Movements 3 <Vey,Gunjan - 06/21/18 13:30> Vital Signs 06/20/18 11:39 06/20/18 12:00 06/20/18 16:00 Temperature 98.6 F 98.5 F Pulse Rate 76 70 Respiratory Rate 16 14 Blood Pressure 123/92 H 132/91 H Pulse Oximetry 95 99 99 06/20/18 20:00 06/20/18 22:52 06/21/18 00:00 Temperature 98.2 F 98.3 F Pulse Rate 87 60 Respiratory Rate 18 18 16 Blood Pressure 138/89 134/77 Pulse Oximetry 100 94 L 06/21/18 04:00 Temperature 98.5 F Pulse Rate 85 Respiratory Rate 18 Blood Pressure 124/75 Pulse Oximetry 96 Intake & Output 06/20/18 06/21/18 06/21/18 18:59 06:59 18:59 Intake Total 1880 / 1880 3530 / 3530 Output Total 2465 / 2465 3185 / 3185 Balance -585 / -585 345 / 345 Weight 62.3 kg Intake: IV 1400 / 1400 800 / 800 Protonix Inj 80 MG In NS Inj 100 / 100 100 / 100 100 ML @ 10 mls/hr IV.CONT Q10H [facility] Rx#:[id number] Ofirmev Inj 1,000 mg In 100 ml 100 / 100 100 / 100 @ 400 mls/hr IV.SIG Q8H PRN Rx# :[id number] Azactam Inj 1,000 MG In NS Inj 100 / 100 200 / 200 100 ML @ 200 mls/hr IV.SIG Q8H [facility] Rx#:[id number] D5W/1/2 NS Inj 1,000 ML @ 100 1000 / 1000 mls/hr IV.SIG .Q10H [facility] Rx#: [id number] Diflucan 400 mg Premix Bag 200 200 / 200 ML @ 100 mls/hr IV.SIG Q24H [facility] Rx#:[id number] Flagyl 500 MG Inj 100 ML @ 100 100 / 100 200 / 200 mls/hr IV.SIG Q8H [facility] Rx#: [id number] Oral 480 / 480 620 / 620 Other 2109 / 2109 Output: Urine 2375 / 2375 3100 / 3100 Stool 0 / 0 Wound Drainage 90 / 90 85 / 85 # 1 Left Lateral Abdomen 80 / 80 70 / 70 # 2 Abdomen Db Other: Date of Last Bowel Movement 06/20/18 06/20/18 # Bowel Movements 3 <Fadumo Mooney - 06/21/18 09:01> - Constitutional no acute distress <Fadumo Mooney - 06/21/18 09:06> - Routine HEENT Exam Head: Present: normocephalic, atraumatic <Fadumo Mooney - 06/21/18 09:06> ENT: Present: mucous membranes moist <Fadumo Mooney - 06/21/18 09:06> - Routine Respiratory Exam Present: CTA bilaterally (anteriorly) <Fadumo Mooney - 06/21/18 09:06> - Routine Cardiovascular Exam Present: RRR, S1, S2 <Fadumo Mooney - 06/21/18 09:06> - Routine Abdominal Exam Comments: bowel sounds present, dressing in place. mild drainage on bandage. 2 MIHAELA drains with serosanguineous fluid <Fadumo Mooney - 06/21/18 09:06> - Routine Extremities Exam Absent: edema <Fadumo Mooney - 06/21/18 09:06> - Routine Neurological Exam Present: alert, oriented X3 <Fadumo Mooney - 06/21/18 09:06> - Urinary Catheter Management Indwelling Urethral Catheter Cath placed during this visit: no <AnithanereydaGunjan - 06/21/18 13:30> yes, but has since been removed by the nurse <Fadumo Mooney - 06/21/18 09:14> Reason for continuing: Hourly intake/output <Fadumo Mooney - 06/21/18 09: 01> Insertion date: 06/15/18 <CataudayFadumo Aaron - 06/21/18 09:01> Removal date: 06/19/18 <VinicioFadumo A - 06/21/18 09:01> Removal time: 15:00 <VinicioFadumo Gaines - 06/21/18 09:01> Assessment and Plan - Assessment (1) Overdose Code(s): T50.901A - Poisoning by unspecified drugs, medicaments and biological substances, accidental (unintentional), initial encounter Status: Acute (2) Gastric ulcer with perforation Code(s): K25.5 - Chronic or unspecified gastric ulcer with perforation Status : Acute (3) Rhabdomyolysis Code(s): M62.82 - Rhabdomyolysis Status: Acute (4) ARMANI (acute kidney injury) Code(s): N17.9 - Acute kidney failure, unspecified Status: Acute (5) Weight loss Code(s): R63.4 - Abnormal weight loss Status: Acute (6) IVDU (intravenous drug user) Code(s): F19.90 - Other psychoactive substance use, unspecified, uncomplicated Status: Acute (7) Nutrition, metabolism, and development symptoms Code(s): R63.8 - Other symptoms and signs concerning food and fluid intake Status: Acute (8) DVT prophylaxis Status: Acute <Gunjan Simms - 06/21/18 13:30> (1) Overdose Code(s): T50.901A - Poisoning by unspecified drugs, medicaments and biological substances, accidental (unintentional), initial encounter Status: Acute Plan: Improving. -OB\psych drug screen positive for amphetamine and cannabinoids, negative for opiates, other metabolites are PENDING -Serum alcohol and aspirin NEGATIVE -Packing Checker signed off * Continue postoperative care * Lactic acid level 1.3 on 06/16 down from 2.8 on 06/15 * Continuous monitoring of heart rate and BP, maintain map greater than 65 mmHg * Maintain oxygen saturation above 92% * Monitor CBC and coags (2) Gastric ulcer with perforation Code(s): K25.5 - Chronic or unspecified gastric ulcer with perforation Status : Acute Plan: Gastritis with perforated gastric ulcer, postop day #6 from ex lap -NG tube removed by patient 06/20, general surgery has advanced to clears. He is tolerating clear liquids and reports appetite. -Continue Protonix IV 40mg BID, follow recommendations of general surgery -Gastroenterology signed off (3) Rhabdomyolysis Code(s): M62.82 - Rhabdomyolysis Status: Acute Plan: -CK PENDING -Creatinine PENDING -Continue D51/2NS @ 100 mls hour -Nephro signed off (4) ARMANI (acute kidney injury) Code(s): N17.9 - Acute kidney failure, unspecified Status: Acute Plan: Improved. Nephro signed off. -Creatinine PENDING -Continue IV hydration -Avoid nephrotoxic substances (5) Weight loss Code(s): R63.4 - Abnormal weight loss Status: Acute Plan: Patient has had a significant weight loss in the past month according to patient 's significant other. Gastritis versus drug use versus hepatitis versus immunodeficiency (HIV). -Supportive care -Continue fluids until patient is able to tolerate diet by mouth -Hepatitis panel positive for hepatitis C antibody -We will discuss HIV testing if and when patient is able to consent, possibly tomorrow (6) IVDU (intravenous drug user) Code(s): F19.90 - Other psychoactive substance use, unspecified, uncomplicated Status: Acute Plan: Patient with a history of IV drug use. -Blood cultures no growth -Repeat blood cultures no growth -Hepatitis panel positive for hep C -Case management consult to help with possible rehab placement when stable if patient is willing (7) Nutrition, metabolism, and development symptoms Code(s): R63.8 - Other symptoms and signs concerning food and fluid intake Status: Acute Plan: -Liquid diet, general surgery to advance as tolerated -Continue IV hydration (8) DVT prophylaxis Status: Acute Plan: -Bilateral SCDs for DVT prophylaxis -Continue Heparin as general surgery approved restarting dvt prophylaxis <Fadumo Mooney - 06/21/18 09:13> - Attending Attestation Patient seen and examined this morning, discussed with resident team. I agree with assessment and management as documented and discussed with me. Pt reports continued abdominal pain. He is tolerating clear liquids. + bowel movements. Once able to take pills, pt would benefit from PO pain medication, as it may last longer than IV. <Gunjan Simms - 06/21/18 13:30>
[2018-06-21 09:16] LABS: Baso % (Auto) 0.4 % (0.0-2.0); Eos # (Auto) 0.2 th/mm3 (0.0-0.4); Hematocrit 34.7 % (39.0-51.0); Hemoglobin 11.8 gm/dL (13.0-17.0); Lymph # (Auto) 1.5 th/mm3 (1.0-4.8); Lymph % (Auto) 22.1 % (9.0-44.0); Mean Corpuscular Volume 85.5 fL (80.0-100.0); Mean Platelet Volume 8.1 fL (7.0-11.0); Mono # (Auto) 1.2 th/mm3 (0.0-0.9); Mono % (Auto) 17.8 % (0.0-8.0); Neut % (Auto) 56.7 % (16.0-70.0); Platelet Count 261 th/mm3 (150-450); Red Blood Count 4.06 mil/mm3 (4.50-5.90); Red Cell Distribution Width 13.9 % (11.6-17.2)
--- NOTE | 2018-06-21 09:25 | P.PNGS ---
Subjective Interval history: Wants a warm blanket No issues Tolerated clears; wants more to eat Physical Exam Vital signs: Vital Signs 06/20/18 11:39 06/20/18 12:00 06/20/18 16:00 Temperature 98.6 F 98.5 F Pulse Rate 76 70 Respiratory Rate 16 14 Blood Pressure 123/92 H 132/91 H Pulse Oximetry 95 99 99 06/20/18 20:00 06/20/18 22:52 06/21/18 00:00 Temperature 98.2 F 98.3 F Pulse Rate 87 60 Respiratory Rate 18 18 16 Blood Pressure 138/89 134/77 Pulse Oximetry 100 94 L 06/21/18 04:00 Temperature 98.5 F Pulse Rate 85 Respiratory Rate 18 Blood Pressure 124/75 Pulse Oximetry 96 Intake & Output 06/20/18 06/21/18 06/21/18 18:59 06:59 18:59 Intake Total 1880 / 1880 3530 / 3530 Output Total 2465 / 2465 3185 / 3185 Balance -585 / -585 345 / 345 Weight 62.3 kg Intake: IV 1400 / 1400 800 / 800 Protonix Inj 80 MG In NS Inj 100 / 100 100 / 100 100 ML @ 10 mls/hr IV.CONT Q10H [facility] Rx#:[id number] Ofirmev Inj 1,000 mg In 100 ml 100 / 100 100 / 100 @ 400 mls/hr IV.SIG Q8H PRN Rx# :[id number] Azactam Inj 1,000 MG In NS Inj 100 / 100 200 / 200 100 ML @ 200 mls/hr IV.SIG Q8H [facility] Rx#:[id number] D5W/1/2 NS Inj 1,000 ML @ 100 1000 / 1000 mls/hr IV.SIG .Q10H [facility] Rx#: [id number] Diflucan 400 mg Premix Bag 200 200 / 200 ML @ 100 mls/hr IV.SIG Q24H [facility] Rx#:[id number] Flagyl 500 MG Inj 100 ML @ 100 100 / 100 200 / 200 mls/hr IV.SIG Q8H [facility] Rx#: [id number] Oral 480 / 480 620 / 620 Other 0 / 2110 Output: Urine 2375 / 2375 3100 / 3100 Stool 0 / 0 Wound Drainage 90 / 90 85 / 85 # 1 Left Lateral Abdomen 80 / 80 70 / 70 # 2 Abdomen Db 10 / 10 15 / 15 Other: Date of Last Bowel Movement 06/20/18 06/20/18 # Bowel Movements 3 Narrative: Alert and awake Abd: MOOSE in place with good seal--- moderate amount of drainage; MIHAELA x2 both with serous fluid; abdomen soft; mildly tender to palpation - Urinary Catheter Management Indwelling Urethral Catheter Cath placed during this visit: yes, but has since been removed by the nurse Reason for continuing: Hourly intake/output Insertion date: 06/15/18 Removal date: 06/19/18 Removal time: 15:00 Assessment and Plan - Assessment (1) Perforated abdominal viscus Status: Acute Plan: 27 year old male s/p ex lap; repair of gastric ulcer; marti patch; washout -Advance diet to fulls -Continue routine MIHAELA care -MOOSE in place -Continue antibiotics---ID following -OOB as tolerated -Cut down fluid rate -Changed Protonix drip to IV push BID - Attending Attestation ok to advance diet slowly abx transfer soon The exam, history, and the medical decision-making described in the above note were completed with the assistance of the mid-level provider. I reviewed and agree with the findings presented. I attest that I had a [id number] encounter with the patient on the same day, and personally performed and documented my assessment and findings in the medical record.
[2018-06-21 09:35] LABS: Anion Gap 7 meq/L (5-15); Blood Urea Nitrogen 6 mg/dL (7-18); Calcium 7.5 mg/dL (8.5-10.1); Carbon Dioxide 28.8 meq/L (21.0-32.0); Chloride 107 meq/L (98-107); Glomerular Filtration Rate Greater Than 89 mL/min (>89); Glucose,Random 106 mg/dL (74-106); Potassium 3.4 meq/L (3.5-5.1); Sodium 143 meq/L (136-145)
[2018-06-21 09:38] LABS: Creatine Kinase 542 U/L (39-308)
[2018-06-21 10:04] LABS: CKMB Percent 0.3 % (0.0-4.0); Creatine Kinase MB 1.8 ng/mL (0.5-3.6)
[2018-06-21] MEDS: Sod Chloride 0.9% Inj 1,000 ML IV.CONT SCH (11:00)
[2018-06-21] MEDS: LORazepam 1 MG Tablet PO PRN ×2 (11:07→17:44)
[2018-06-21] MEDS ORDERED: Naloxone Inj 0.4 MG/ML Vial IV.PUSH PRN (11:34)
[2018-06-21] MEDS ORDERED: Ketorolac Inj 30 MG/ML (IVP) Vial IV.PUSH PRN (11:34)
[2018-06-21] MEDS: Morphine Inj 4 MG/ML Vial IV.PUSH PRN ×5 (12:33→23:56)
[2018-06-21] MEDS: Pantoprazole Inj 40 MG Vial IV.PUSH SCH (20:42)
[2018-06-22] MEDS: Morphine Inj 4 MG/ML Vial IV.PUSH PRN ×2 (03:25→07:58)
[2018-06-22 05:04] LABS: Baso # (Auto) 0.1 th/mm3 (0.0-0.2); Baso % (Auto) 0.5 % (0.0-2.0); Eos # (Auto) 0.3 th/mm3 (0.0-0.4); Eos % (Auto) 2.7 % (0.0-4.0); Hematocrit 37.7 % (39.0-51.0); Hemoglobin 12.6 gm/dL (13.0-17.0); Lymph # (Auto) 1.9 th/mm3 (1.0-4.8); Lymph % (Auto) 19.3 % (9.0-44.0); Mean Corpuscular HGB Conc 33.6 % (32.0-36.0); Mean Corpuscular Volume 86.4 fL (80.0-100.0); Mean Platelet Volume 8.1 fL (7.0-11.0); Mono # (Auto) 1.3 th/mm3 (0.0-0.9); Mono % (Auto) 13.4 % (0.0-8.0); Neut # (Auto) 6.2 th/mm3 (1.8-7.7); Neut % (Auto) 64.1 % (16.0-70.0); Platelet Count 326 th/mm3 (150-450); Red Blood Count 4.36 mil/mm3 (4.50-5.90); White Blood Count 9.7 th/mm3 (4.0-11.0)
[2018-06-22 05:28] LABS: Alanine Aminotransferase 73 U/L (12-78); Albumin 1.9 g/dL (3.4-5.0); Anion Gap 9 meq/L (5-15); Aspartate Aminotransferase 35 U/L (15-37); Blood Urea Nitrogen 7 mg/dL (7-18); Calcium 7.7 mg/dL (8.5-10.1); Carbon Dioxide 30.2 meq/L (21.0-32.0); Chloride 105 meq/L (98-107); Glomerular Filtration Rate Greater Than 89 mL/min (>89); Glucose,Random 116 mg/dL (74-106); Potassium 3.8 meq/L (3.5-5.1); Sodium 144 meq/L (136-145)
[2018-06-22 05:30] LABS: Alkaline Phosphatase 85 U/L (45-117); Creatine Kinase 321 U/L (39-308); Total Protein 5.3 g/dL (6.4-8.2)
[2018-06-22 05:46] LABS: CKMB Percent 0.4 % (0.0-4.0); Creatine Kinase MB 1.2 ng/mL (0.5-3.6)
[2018-06-22] MEDS: Heparin - SQ 10,000 UNITS/ML Vial SQ SCH ×3 (06:16→21:31)
[2018-06-22] MEDS: Pantoprazole Inj 40 MG Vial IV.PUSH SCH ×2 (07:59→21:31)
[2018-06-22] MEDS ORDERED: Morphine Sulfate Inj 2 MG/ML Vial IV.PUSH PRN ×2 (09:29)
--- NOTE | 2018-06-22 09:32 | P.PNFP ---
Subjective Interval history: Patient resting in bed at the time of examination. Patient reports mild abdominal pain. He did have some hallucinations with morphine overnight and became tearful when describing these. He has been tolerating full liquids since last night. He has had formed bowel movements. Denies chest pain, shortness of breath. <Fadumo Mooney - 06/22/18 10:57> Results - Labs Result diagrams: 06/22/18 04:40 06/22/18 04:40 <Mercedes Barkley - 06/22/18 11:39> Abnormal lab results 06/22/18 06/22/18 Range/Units 04:40 04:40 RBC 4.36 L (4.50-5.90) mil/mm3 Hgb 12.6 L (13.0-17.0) gm/dL Hct 37.7 L (39.0-51.0) % [place] % (Auto) 13.4 H (0.0-8.0) % [place] # (Auto) 1.3 H (0.0-0.9) th/mm3 Random Glucose 116 H (74-106) mg/dL Calcium 7.7 L (8.5-10.1) mg/dL Total Creatine Kinase 321 H (39-308) U/L Total Protein 5.3 L D (6.4-8.2) g/dL Albumin 1.9 L (3.4-5.0) g/dL Short CBC 06/22/18 Range/Units 04:40 WBC 9.7 (4.0-11.0) th/mm3 Hgb 12.6 L (13.0-17.0) gm/dL Hct 37.7 L (39.0-51.0) % Plt Count 326 (150-450) th/mm3 [facility] 06/22/18 04:40 Sodium 144 Potassium 3.8 Chloride 105 Carbon Dioxide 30.2 BUN 7 Creatinine 0.64 Calcium 7.7 L Cardiac Enzymes 06/22/18 Range/Units 04:40 Total Creatine Kinase 321 H (39-308) U/L CK-MB (CK-2) 1.2 (0.5-3.6) ng/mL Liver Function 06/22/18 Range/Units 04:40 Total Bilirubin 0.3 (0.2-1.0) mg/dL AST 35 (15-37) U/L ALT 73 (12-78) U/L Alkaline Phosphatase 85 (45-117) U/L Albumin 1.9 L (3.4-5.0) g/dL <Mercedes Barkley - 06/22/18 11:39> Abnormal lab results 06/21/18 06/22/18 06/22/18 Range/Units 08:03 04:40 04:40 RBC 4.36 L (4.50-5.90) mil/mm3 Hgb 12.6 L (13.0-17.0) gm/dL Hct 37.7 L (39.0-51.0) % [place] % (Auto) 13.4 H (0.0-8.0) % [place] # (Auto) 1.3 H (0.0-0.9) th/mm3 Potassium 3.4 L (3.5-5.1) meq/L BUN 6 L (7-18) mg/dL Creatinine 0.52 L (0.60-1.30) mg/dL Random Glucose 116 H (74-106) mg/dL Calcium 7.5 L 7.7 L (8.5-10.1) mg/dL Total Creatine Kinase 542 H 321 H (39-308) U/L Total Protein 5.3 L D (6.4-8.2) g/dL Albumin 1.9 L (3.4-5.0) g/dL Short CBC 06/22/18 Range/Units 04:40 WBC 9.7 (4.0-11.0) th/mm3 Hgb 12.6 L (13.0-17.0) gm/dL Hct 37.7 L (39.0-51.0) % Plt Count 326 (150-450) th/mm3 [facility] 06/21/18 06/22/18 08:03 04:40 Sodium 143 144 Potassium 3.4 L 3.8 Chloride 107 105 Carbon Dioxide 28.8 30.2 BUN 6 L 7 Creatinine 0.52 L 0.64 Calcium 7.5 L 7.7 L Cardiac Enzymes 06/21/18 06/22/18 Range/Units 08:03 04:40 Total Creatine Kinase 542 H 321 H (39-308) U/L CK-MB (CK-2) 1.8 1.2 (0.5-3.6) ng/mL Liver Function 06/22/18 Range/Units 04:40 Total Bilirubin 0.3 (0.2-1.0) mg/dL AST 35 (15-37) U/L ALT 73 (12-78) U/L Alkaline Phosphatase 85 (45-117) U/L Albumin 1.9 L (3.4-5.0) g/dL <Fadumo Mooney - 06/22/18 09:32> Physical Exam Vital signs: Vital Signs 06/21/18 12:00 06/21/18 16:00 06/21/18 20:00 Temperature 98.0 F 99.1 F 98.4 F Pulse Rate 88 78 97 H Respiratory Rate 18 16 14 Blood Pressure 123/69 119/72 129/85 Pulse Oximetry 98 94 L 99 06/22/18 00:00 06/22/18 04:00 06/22/18 08:30 Temperature 98.4 F 98.2 F Pulse Rate 77 75 Respiratory Rate 18 16 14 Blood Pressure 123/74 127/86 Pulse Oximetry 98 95 Intake & Output 06/21/18 06/22/18 06/22/18 18:59 06:59 18:59 Intake Total 920 / 920 3308 / 3308 Output Total 50 / 50 4340 / 4340 Balance 870 / 870 -1032 / -1032 Weight 65.1 kg Intake: IV 200 / 200 600 / 600 Azactam Inj 1,000 MG In NS Inj 100 / 100 200 / 200 100 ML @ 200 mls/hr IV.SIG Q8H [facility] Rx#:[id number] Diflucan 400 mg Premix Bag 200 200 / 200 ML @ 100 mls/hr IV.SIG Q24H [facility] Rx#:[id number] Flagyl 500 MG Inj 100 ML @ 100 100 / 100 200 / 200 mls/hr IV.SIG Q8H [facility] Rx#: [id number] Oral 720 / 720 1100 / 1100 Water Bolus Amount 0 / 0 Other 1608 / 1608 Output: Urine 4200 / 4200 Stool 0 / 0 Gastric Drainage 50 / 50 Left Nare Nasogastric Tube 50 / 50 Wound Drainage 50 / 50 90 / 90 # 1 Left Lateral Abdomen 10 / 10 80 / 80 # 2 Abdomen Db 40 / 40 10 / 10 Other: # Voids 5 Date of Last Bowel Movement 06/20/18 06/20/18 # Bowel Movements 3 <Mercedes Barkley - 06/22/18 11:39> Vital Signs 06/21/18 12:00 06/21/18 16:00 06/21/18 20:00 Temperature 98.0 F 99.1 F 98.4 F Pulse Rate 88 78 97 H Respiratory Rate 18 16 14 Blood Pressure 123/69 119/72 129/85 Pulse Oximetry 98 94 L 99 06/22/18 00:00 06/22/18 04:00 Temperature 98.4 F 98.2 F Pulse Rate 77 75 Respiratory Rate 18 16 Blood Pressure 123/74 127/86 Pulse Oximetry 98 95 Intake & Output 06/21/18 06/22/18 06/22/18 18:59 06:59 18:59 Intake Total 920 / 920 3308 / 3308 Output Total 50 / 50 4340 / 4340 Balance 870 / 870 -1032 / -1032 Weight 65.1 kg Intake: IV 200 / 200 600 / 600 Azactam Inj 1,000 MG In NS Inj 100 / 100 200 / 200 100 ML @ 200 mls/hr IV.SIG Q8H [facility] Rx#:[id number] Diflucan 400 mg Premix Bag 200 200 / 200 ML @ 100 mls/hr IV.SIG Q24H [facility] Rx#:[id number] Flagyl 500 MG Inj 100 ML @ 100 100 / 100 200 / 200 mls/hr IV.SIG Q8H [facility] Rx#: [id number] Oral 720 / 720 1100 / 1100 Water Bolus Amount 0 / 0 Other 1608 / 1608 Output: Urine 4200 / 4200 Stool 0 / 0 Gastric Drainage 50 / 50 Left Nare Nasogastric Tube 50 / 50 Wound Drainage 50 / 50 90 / 90 # 1 Left Lateral Abdomen 10 / 10 80 / 80 # 2 Abdomen Db 40 / 40 10 / 10 Other: # Voids 5 Date of Last Bowel Movement 06/20/18 06/20/18 # Bowel Movements 3 <Fadumo Mooney - 06/22/18 09:32> Narrative: Gen: Patient lying in bed Skin: Warm and dry, subclavian line in place CV: regular rate and rhythm Resp: CTAB anteriorly Abd: Bowel sounds present, large vertical incision with bandage overlying. minimal areas of drainage on bandage from incision. 2 MIHAELA drains placed with serosanguineous fluid draining. Ext: no edema of extremities noted Neuro/psych: Alert and oriented 3, responds to questions appropriately <Fadumo Mooney - 06/22/18 10:57> - Urinary Catheter Management Indwelling Urethral Catheter Cath placed during this visit: no <Mercedes Barkley - 06/22/18 11:39> yes, but has since been removed by the nurse <Fadumo Mooney - 06/22/18 10:57> Reason for continuing: Hourly intake/output <Fadumo Mooney - 06/22/18 09: 32> Insertion date: 06/15/18 <Fadumo Mooney - 06/22/18 09:32> Removal date: 06/19/18 <Fadumo Mooney - 06/22/18 09:32> Removal time: 15:00 <Fadumo Mooney - 06/22/18 09:32> Assessment and Plan - Assessment (1) Overdose Code(s): T50.901A - Poisoning by unspecified drugs, medicaments and biological substances, accidental (unintentional), initial encounter Status: Acute (2) Gastric ulcer with perforation Code(s): K25.5 - Chronic or unspecified gastric ulcer with perforation Status : Acute (3) Rhabdomyolysis Code(s): M62.82 - Rhabdomyolysis Status: Acute (4) ARMANI (acute kidney injury) Code(s): N17.9 - Acute kidney failure, unspecified Status: Acute (5) Weight loss Code(s): R63.4 - Abnormal weight loss Status: Acute (6) IVDU (intravenous drug user) Code(s): F19.90 - Other psychoactive substance use, unspecified, uncomplicated Status: Acute (7) Nutrition, metabolism, and development symptoms Code(s): R63.8 - Other symptoms and signs concerning food and fluid intake Status: Acute (8) DVT prophylaxis Status: Acute <Mercedes Barkley - 06/22/18 11:39> (1) Overdose Code(s): T50.901A - Poisoning by unspecified drugs, medicaments and biological substances, accidental (unintentional), initial encounter Status: Acute Plan: Improving. Patient was tearful today about his substance use issues. He is concerned that he may fall into old habits once he is discharged from the hospital. He has been unable to afford his depression and anxiety medications of late due to no insurance. He is interested in talking to psych about his mental health problems. -Psych consult -OB\psych drug screen positive for amphetamine and cannabinoids, negative for opiates, other metabolites are PENDING -Serum alcohol and aspirin NEGATIVE -[employer] signed off * Continue postoperative care * Lactic acid level 1.3 on 06/16 down from 2.8 on 06/15 * Continuous monitoring of heart rate and BP, maintain map greater than 65 mmHg * Maintain oxygen saturation above 92% * Monitor CBC and coags (2) Gastric ulcer with perforation Code(s): K25.5 - Chronic or unspecified gastric ulcer with perforation Status : Acute Plan: Gastritis with perforated gastric ulcer, postop day #7 from ex lap -NG tube removed by patient 06/20, general surgery has advanced to full liquids. He is tolerating full liquids and reports good appetite. -Continue Protonix IV 40mg BID, follow recommendations of general surgery -Continue pain management with Toradol and acetaminophen. We will avoid morphine as this gave him hallucinations and Dilaudid as this is his drug of choice. -Gastroenterology signed off (3) Rhabdomyolysis Code(s): M62.82 - Rhabdomyolysis Status: Acute Plan: -CK 321 today down from 542 9\11 -Creatinine 0.64 -Continue normal saline at 42 mils an hour -Nephro signed off (4) ARMANI (acute kidney injury) Code(s): N17.9 - Acute kidney failure, unspecified Status: Acute Plan: Improved. Nephro signed off. -Creatinine 0.64 -Continue IV hydration -Avoid nephrotoxic substances (5) Weight loss Code(s): R63.4 - Abnormal weight loss Status: Acute Plan: Patient has had a significant weight loss in the past month according to patient 's significant other. Gastritis versus drug use versus hepatitis versus immunodeficiency (HIV). -Supportive care -Continue fluids until patient is able to tolerate diet by mouth -Hepatitis panel positive for hepatitis C antibody. This was discussed with patient on . He was not aware of his hepatitis C status. -HIV testing was discussed on and patient consented to be tested for HIV during this hospitalization. (6) IVDU (intravenous drug user) Code(s): F19.90 - Other psychoactive substance use, unspecified, uncomplicated Status: Acute Plan: Patient with a history of IV drug use. -Blood cultures no growth -Repeat blood cultures no growth -Hepatitis panel positive for hep C -Case management consult to help with possible rehab placement when stable if patient is willing (7) Nutrition, metabolism, and development symptoms Code(s): R63.8 - Other symptoms and signs concerning food and fluid intake Status: Acute Plan: -Full liquid diet, general surgery to advance as tolerated -Continue IV hydration (8) DVT prophylaxis Status: Acute Plan: -Bilateral SCDs for DVT prophylaxis -Continue Heparin as general surgery approved restarting dvt prophylaxis <Fadumo Mooney - 06/22/18 10:43> - Assessment and Plan 1. Monitor neuro status closely and will place on a Precedex drip for agitation. 2. We will proceed with a CT scan of the brain without contrast to rule out acute intracranial process. 3. Continue with oxygen to maintain sats above 92%. 4. Bronchodilators and aspiration precautions. 5. If there is any worsening of mental status, we will proceed with intubation and mechanical ventilation for airway protection. A chest x-ray on arrival showed no acute findings. 6. Monitor heart rate and blood pressure closely and maintain MAP greater than 65 mmHg. 7. We will obtain baseline lactic acid level. 8. Monitor renal function, I's and O's, and avoid nephrotoxins. He received 3 liters of crystalloids so far. We will place on D5 1/2 NS at 100 mL an hour. 9. Continue with n.p.o. and Protonix drip. GI is following. Plan for EGD when more stable. 10. Monitor for signs of infection, which include fever and WBC. Follow up on blood cultures. Hold off on antibiotics at this time as there is no evidence of any infectious process. 11. Patient is for a CT abdomen and pelvis without contrast. 12. Place on sliding scale insulin with Accu-Cheks to maintain euglycemia. 13. Monitor CBC and coags. INR was 1.5 this morning. 14. GI prophylaxis on Protonix drip and DVT prophylaxis with SCDs for now given mild coagulopathy on arrival. 15. Further recommendations will be based on hospital course. <Fadumo Mooney - 06/22/18 09:32> - Attending Attestation Patient was seen, examined at 11:15 AM on June 22, 2018. Discussed with the entire medicine team. I agree with the findings and with the plan as documented. <Mercedes Barkley - 06/22/18 11:39>
[2018-06-22] MEDS: Ketorolac Inj 30 MG/ML (IVP) Vial IV.PUSH PRN ×2 (10:57→17:25)
[2018-06-22] MEDS: clonazePAM 0.5 MG Tablet PO SCH ×2 (13:36→21:31)
[2018-06-22] MEDS: Acetaminophen 325 MG Tablet PO PRN (13:45)
--- NOTE | 2018-06-22 13:45 | P.CONPSY ---
Provisional Diagnosis Admission Date: June 14, 2018 14:21 Sachse I.: Adjustment disorder with depressed mood, methamphetamines and cannabis use disorder, history of PTSD and depression Sachse II.: Deferred History of Present Illness Service: Medicine Primary Care Provider: No Primary Care Physician Family Provider: No Primary Care Physician Chief Complaint: Overdose History of Present Illness: The patient is a 27-year-old young man, homeless, unemployed, single, with a psychiatric history of self-reported PTSD, depression, methamphetamines and cannabis use disorder, IV drug user, no previous psychiatric hospitalizations, no previous suicide attempts, he has not been Grimaldo acted, no history of self cutting behavior, he has been on multiple psychotropics in the past, who presented to the ED via [facility] after drug overdose. Initial ER documentation: "boyfriend states patient has a history of opioid addiction and IV drug use and has been clean for many years, but the boyfriend noticed patient 's behavior changing over the last month. Patient's boyfriend states that the patient woke him up this morning about 6:30 AM begging for him to help him, grunting, and complaining of severe abdominal pain. Patient's boyfriend states that the patient has a history of Dilaudid and Suboxone use. He also uses cocaine, meth, marijuana, and MDMA. Boyfriend is not sure which substances patient used last night and this morning, but is confident that he overdosed. Patient has a history of severe gastritis in which he uses Zantac. Patient had 1 bout of coffee ground emesis in the ED. The boyfriend is not aware of any other past medical or surgical history". He was admitted due to Gastric ulcer with perforation, Rhabdomyolysis, ARMANI. Psychiatric was consulted to address depression and the potential suicidal attempt. Chart was reviewed. On my psychiatric evaluation the patient is calm, cooperative, pleasant. The patient reports that given the level of medical decompensation and the length of his hospitalization, he has been feeling increasingly depressed. He says that he has been thinking a lot, he says that he does not see a clear fusion in his life , he says that he wants to go back to [place] soon to restart his life and get a new job, "but my medical situation is improving very slowly". He reports that he has being very anxious in the last 3 days, having episodes of panic attacks, is sleeping very poorly at night, with moments of tears, depression, hopelessness, helplessness, feeling claustrophobic, but he denies suicidal and homicidal ideation, he denies visual and auditory hallucinations. Patient is fully oriented 3, no attention deficit, no fluctuation of consciousness is present. No loosening of associations, no ideas of reference, no paranoia, no delusions, no warren are present. PPHx: Depression, PTSD, anxiety, no previous psychiatric hospitalizations, no previous suicide attempt PMHx: Perforated stomach ulcer substance Hx: Patient uses crystal meth a regular basis, cannabis and Maria De Jesus occasionally, his IV drug Family Hx: Mother has bipolar Social Hx: The patient was born and raised in [facility], is now homeless, he has a boyfriend, unemployed, highest level of education is some college PMF - History History Provided By: Significant Other - Medical / Surgical Hx Neg / Unobtainable Medical Problems Denied: Unable to Obtain - Medical History Medical History: Medical History (Last Reviewed 06/22/18 @ 08:17 by [facility]) Medical history unknown - Tobacco History Second Hand Smoke Exposure: Yes Tobacco Use In Past 30 Days: Yes Smoking Status: Current every day smoker Tobacco Type: Cigarettes - Alcohol History How Often Do You Have a Drink Containing Alcohol: 2 to 3 times a week - Substance Use Type Methamphetamine Status: Active Route Used: By Mouth Marijuana Status: Active Route Used: Inhalation Other Type: MARIA DE JESUS Status: Active Route Used: By Mouth - Travel History Recent Travel in the [place] Within the Last 8 Weeks: No Recent Travel Out of the Country Within the Last 8 Weeks: No - Immunization History Tetanus Immunization: Unable to Assess Hx Influenza Vaccine This Season: Unable to Assess Medications and Allergies Active Medications: Active Medications Acetaminophen (Tylenol) 650 mg PO Q4H PRN PRN Reason: Temp > 100.4 Albuterol (Duoneb Neb (Prn)) 1 ampul NEB Q6HR NEB PRN PRN Reason: DYSPNEA Bisacodyl (Dulcolax Supp) 10 mg RECTAL DAILY PRN PRN Reason: SEVERE CONSITIPATION Bupropion HCl (Wellbutrin) 75 mg PO BID [facility] Clonazepam (Klonopin) 0.5 mg PO Q12HR [facility] Flumazenil (Romazecon Inj) 0.2 mg IV.PUSH Q1M PRN PRN Reason: OVERSEDATION Flumazenil (Romazecon Inj) 0.2 mg IV.PUSH Q1M PRN PRN Reason: OVERSEDATION Haloperidol Lactate (Haldol Inj) 1 mg IV.PUSH Q15M PRN PRN Reason: for severe agitation Last Admin: 06/17/18 04:17 Dose: 1 mg Haloperidol Lactate (Haldol Inj) 1 mg IV.PUSH Q15M PRN PRN Reason: for severe agitation Last Admin: 06/16/18 21:44 Dose: 1 mg Heparin Sodium (Porcine) (Heparin Inj) 5,000 units SQ Q8HR [facility]O Last Admin: 06/22/18 06:16 Dose: 5,000 units Aztreonam 1,000 mg/ Sodium (Chloride) 100 mls @ 200 mls/hr IV.SIG Q8H [facility] Last Admin: 06/22/18 07:59 Dose: 200 mls/hr Metronidazole/Sodium Chloride (Flagyl 500 Mg Inj) 100 mls @ 100 mls/hr IV.SIG Q8H [facility] Last Admin: 06/22/18 07:59 Dose: 100 mls/hr Fluconazole (Diflucan 400 Mg Premix Bag) 200 mls @ 100 mls/hr IV.SIG Q24H [facility] Last Admin: 06/22/18 08:01 Dose: 200 mls/hr Sodium Phosphate 30 mmol/ (Sodium Chloride) 260 mls @ 42 mls/hr IV.SIG UNSCH PRN PRN Reason: For Phosphorus < 2.5 mg/dL Acetaminophen (Ofirmev Inj) 1,000 mg in 100 mls @ 400 mls/hr IV.SIG Q8H PRN PRN Reason: PAIN SCALE 1 TO 10 Last Infusion: 06/21/18 05:51 Dose: Infused Sodium Chloride (Ns Inj) 1,000 mls @ 42 mls/hr IV.CONT .[id number] [facility] Last Admin: 06/21/18 11:00 Dose: 42 mls/hr Ketorolac Tromethamine (Toradol Inj) 15 mg IV.PUSH Q6H PRN PRN Reason: Pain 1-5; If Unable To Take Po Stop: 06/26/18 11:33 Ketorolac Tromethamine (Toradol Inj) 30 mg IV.PUSH Q6H PRN PRN Reason: PAIN 6-10;IF UNABLE TO TAKE PO Stop: 06/26/18 11:33 Last Admin: 06/22/18 10:57 Dose: 30 mg Lorazepam (Ativan) 1 mg PO Q4H PRN PRN Reason: for CIWA 8-10 Last Admin: 06/21/18 17:44 Dose: 1 mg Lorazepam (Ativan) 2 mg PO Q2H PRN PRN Reason: for CIWA 11-14 Lorazepam (Ativan Inj) 2 mg IV.PUSH Q1H PRN PRN Reason: for CIWA 15-20 Last Admin: 06/19/18 00:10 Dose: 2 mg Lorazepam (Ativan Inj) 2 mg IV.PUSH Q15M PRN PRN Reason: for CIWA > 20 Lorazepam (Ativan Inj) 1 mg IV.PUSH Q4H PRN PRN Reason: for CIWA 8-10 Last Admin: 06/21/18 01:20 Dose: 1 mg Lorazepam (Ativan Inj) 2 mg IV.PUSH Q2H PRN PRN Reason: for CIWA 11-14 Morphine Sulfate (Morphine Inj) 1 mg IV.PUSH Q3H PRN PRN Reason: BREAKTHROUGH PAIN Naloxone HCl (Narcan Inj) 0.4 mg IV.PUSH PRN PRN PRN Reason: SEE LABEL COMMENTS Naloxone HCl (Narcan Inj) 0.4 mg IV.PUSH UNSCH PRN PRN Reason: SEE LABEL COMMENTS Ondansetron HCl (Zofran Inj) 4 mg IV.PUSH Q6H PRN PRN Reason: NAUSEA OR VOMITING Last Admin: 06/19/18 19:09 Dose: 4 mg Pantoprazole Sodium (Protonix Inj) 40 mg IV.PUSH Q12H [facility] Last Admin: 06/22/18 07:59 Dose: 40 mg Sennosides (Senokot) 17.2 mg PO Q12H PRN PRN Reason: Moderate Constipation Allergies Allergy/AdvReac Type Severity Reaction Status Date / Time isosorbide Allergy Severe THROAT Verified 06/14/18 12:44 SWELLS nitroglycerin Allergy Severe THROAT Verified 06/14/18 12:44 SWELLS nitroprusside sodium Allergy Severe THROAT Verified 06/14/18 12:44 SWELLS sulfite Allergy Severe THROAT Verified 06/14/18 12:44 SWELLS penicillin G AdvReac Severe STS SHOCK, Verified 06/14/18 12:44 RASH Home Medications Medication Instructions Recorded Confirmed Type No Known Home Medications 06/14/18 06/14/18 History Exam Vital signs: Vital Signs 06/21/18 16:00 06/21/18 20:00 06/22/18 00:00 Temperature 99.1 F 98.4 F 98.4 F Pulse Rate 78 97 H 77 Respiratory Rate 16 14 18 Blood Pressure 119/72 129/85 123/74 Pulse Oximetry 94 L 99 98 06/22/18 04:00 06/22/18 08:30 06/22/18 11:30 Temperature 98.2 F Pulse Rate 75 Respiratory Rate 16 14 22 Blood Pressure 127/86 Pulse Oximetry 95 Intake & Output 06/21/18 06/22/18 06/22/18 18:59 06:59 18:59 Intake Total 920 / 920 3308 / 3308 Output Total 50 / 50 4340 / 4340 Balance 870 / 870 -1032 / -1032 Weight 65.1 kg Intake: IV 200 / 200 600 / 600 Azactam Inj 1,000 MG In NS Inj 100 / 100 200 / 200 100 ML @ 200 mls/hr IV.SIG Q8H [facility] Rx#:[id number] Diflucan 400 mg Premix Bag 200 200 / 200 ML @ 100 mls/hr IV.SIG Q24H [facility] Rx#:[id number] Flagyl 500 MG Inj 100 ML @ 100 100 / 100 200 / 200 mls/hr IV.SIG Q8H [facility] Rx#: [id number] Oral 720 / 720 1100 / 1100 Water Bolus Amount 0 / 0 Other 1608 / 1608 Output: Urine 4200 / 4200 Stool 0 / 0 Gastric Drainage 50 / 50 Left Nare Nasogastric Tube 50 / 50 Wound Drainage 50 / 50 90 / 90 # 1 Left Lateral Abdomen 10 / 10 80 / 80 # 2 Abdomen Db 40 / 40 10 / 10 Other: # Voids 5 Date of Last Bowel Movement 06/20/18 06/20/18 # Bowel Movements 3 Narrative: No EPS, no withdrawal symptoms, no stiffness, Mental Status Examination Appearance: Appropriate Consciousness: Alert Orientation: x4 Motor Activity: Normal gait Speech: Unremarkable Language: Adequate Fund of Knowledge: Adequate Attention and Concentration: Adequate Memory: Unremarkable Mood: Sad Affect: Appropriate Thought Process & Associations: Intact Thought Content: Appropriate Hallucination Type: None Delusion Type: None Suicidal Ideation: No Suicidal Plan: No Suicidal Intention: No Homicidal Ideation: No Homicidal Plan: No Homicidal Intention: No Insight: Adequate Judgment: Adequate Assessment and Plan - Assessment (1) Adjustment disorder with mixed anxiety and depressed mood Code(s): F43.23 - Adjustment disorder with mixed anxiety and depressed mood Status: Acute - Plan Plan: Estimated LOS: [] days Psychiatric evaluation today the patient presents quite distressed, tearful, endorses symptoms of depression, generalized pessimism, some level of hopelessness, helplessness, increased anxiety, insomnia, but not suicidal or homicidal ideation, visual or auditory hallucinations. I will start the patient Wellbutrin 75 mg twice daily for depression, clonazepam at low dose, 0.5 mg twice daily for anxiety and insomnia. Patient has being extensively educated about the importance of adhering to the medications and follow medical recommendations. Also brief supportive psychotherapy has been provided, motivation to continue sobriety once discharge from the hospital. Patient does not meet criteria for involuntary psychiatric admission. I will follow-up. Justification for Continued Inpatient Stay: No admission is indicated
[2018-06-22] MEDS: buPROPion 75 MG Tablet PO SCH ×2 (13:46→21:31)
[2018-06-22] MEDS: Sod Chloride 0.9% Inj 1,000 ML IV.CONT SCH (16:27)
--- NOTE | 2018-06-22 23:33 | P.PNGS ---
Subjective Patient reports: pain is less (anxious today, depressed. tolerating liquids, + bms) Physical Exam Vital signs: Vital Signs 06/22/18 00:00 06/22/18 04:00 06/22/18 08:00 Temperature 98.4 F 98.2 F 99 F Pulse Rate 77 75 55 L Respiratory Rate 18 16 31 H Blood Pressure 123/74 127/86 129/88 Pulse Oximetry 98 95 98 06/22/18 08:30 06/22/18 11:30 06/22/18 12:00 Temperature 98.3 F Pulse Rate 86 Respiratory Rate 14 22 32 H Blood Pressure 126/84 Pulse Oximetry 96 06/22/18 14:30 06/22/18 16:00 06/22/18 18:31 Temperature 98.7 F Pulse Rate 77 Respiratory Rate 20 10 L 20 Blood Pressure 132/92 H Pulse Oximetry 98 06/22/18 20:00 Temperature 98.5 F Pulse Rate 88 Respiratory Rate 17 Blood Pressure 132/93 H Pulse Oximetry 98 Intake & Output 06/22/18 06/22/18 06/23/18 06:59 18:59 06:59 Intake Total 3308 / 3308 2400 / 2400 400 / 400 Output Total 4340 / 4340 1565 / 1565 Balance -1032 / -1032 835 / 835 400 / 400 Weight 65.1 kg Intake: IV 600 / 600 1200 / 1200 400 / 400 NS Inj 1,000 ML @ 42 mls/hr IV. 1000 / 1000 CONT .[id number] [facility] Rx#:[id number] Azactam Inj 1,000 MG In NS Inj 200 / 200 100 / 100 100 / 100 100 ML @ 200 mls/hr IV.SIG Q8H [facility] Rx#:[id number] Diflucan 400 mg Premix Bag 200 200 / 200 200 / 200 ML @ 100 mls/hr IV.SIG Q24H [facility] Rx#:[id number] Flagyl 500 MG Inj 100 ML @ 100 200 / 200 100 / 100 100 / 100 mls/hr IV.SIG Q8H [facility] Rx#: [id number] Oral 1100 / 1100 1200 / 1200 Water Bolus Amount 0 / 0 Other 1608 / 1608 Output: Urine 4200 / 4200 1500 / 1500 Stool 0 / 0 Gastric Drainage 50 / 50 Left Nare Nasogastric Tube 50 / 50 Wound Drainage 90 / 90 65 / 65 # 1 Left Lateral Abdomen 80 / 80 60 / 60 # 2 Abdomen Db 5 / 5 Other: # Voids 4 Date of Last Bowel Movement 06/20/18 06/22/18 # Bowel Movements 3 1 - Constitutional no acute distress - Routine Cardiovascular Exam Present: RRR - Routine Abdominal Exam Present: soft (incisional tenderness, incision with eulalia c/d/i, eduin serous x2) - Urinary Catheter Management Indwelling Urethral Catheter Cath placed during this visit: yes, but has since been removed by the nurse Reason for continuing: Hourly intake/output Insertion date: 06/15/18 Removal date: 06/19/18 Removal time: 15:00 Assessment and Plan - Assessment (1) Perforated abdominal viscus Status: Acute Plan: 27 year old male s/p ex lap; repair of gastric ulcer; marti patch; washout -Advance diet to fulls -Continue routine EDUIN care -MOOSE in place -Continue antibiotics---ID following -OOB as tolerated -Cut down fluid rate -Changed Protonix drip to IV push BID - Plan s/p Ex lap. repair or gastric ulcer marti patch washout eduin x2 PLAN iv abx pt ppi iv keep fulls, advance tomorrow eduin sxn- d/c right sided drain ok for dvt ppx transfer to floor
[2018-06-23] MEDS: Ketorolac Inj 30 MG/ML (IVP) Vial IV.PUSH PRN ×3 (01:04→15:27)
[2018-06-23] MEDS: Heparin - SQ 10,000 UNITS/ML Vial SQ SCH ×3 (05:58→21:40)
[2018-06-23 07:17] LABS: Baso % (Auto) 0.3 % (0.0-2.0); Eos # (Auto) 0.3 th/mm3 (0.0-0.4); Eos % (Auto) 3.2 % (0.0-4.0); Hematocrit 39.3 % (39.0-51.0); Hemoglobin 13.3 gm/dL (13.0-17.0); Lymph # (Auto) 2.4 th/mm3 (1.0-4.8); Lymph % (Auto) 25.2 % (9.0-44.0); Mean Corpuscular HGB Conc 33.8 % (32.0-36.0); Mean Corpuscular Volume 85.9 fL (80.0-100.0); Mean Platelet Volume 8.3 fL (7.0-11.0); Mono # (Auto) 0.9 th/mm3 (0.0-0.9); Mono % (Auto) 9.3 % (0.0-8.0); Neut # (Auto) 5.9 th/mm3 (1.8-7.7); Platelet Count 377 th/mm3 (150-450); Red Blood Count 4.57 mil/mm3 (4.50-5.90); White Blood Count 9.5 th/mm3 (4.0-11.0)
[2018-06-23 07:22] LABS: Anion Gap 12 meq/L (5-15); Blood Urea Nitrogen 9 mg/dL (7-18); Calcium 7.8 mg/dL (8.5-10.1); Carbon Dioxide 25.8 meq/L (21.0-32.0); Chloride 106 meq/L (98-107); Glomerular Filtration Rate Greater Than 89 mL/min (>89); Glucose,Random 102 mg/dL (74-106); Sodium 144 meq/L (136-145)
[2018-06-23 07:25] LABS: Creatine Kinase 229 U/L (39-308)
[2018-06-23] MEDS: buPROPion 75 MG Tablet PO SCH ×2 (08:01→20:12)
[2018-06-23] MEDS: clonazePAM 0.5 MG Tablet PO SCH ×2 (08:01→20:12)
[2018-06-23] MEDS: Pantoprazole Inj 40 MG Vial IV.PUSH SCH ×2 (08:01→20:11)
--- NOTE | 2018-06-23 12:04 | P.PNFP ---
Subjective Interval history: Patient seen and examined bedside this morning. No acute events overnight. Patient has been tolerating liquids without any nausea or vomiting. Patient has been ambulating to chair without any difficulties. Positive bowel movements. No chest pain/shortness of breath/dizziness. Pain well controlled on current medications. <Jagruti Arellano - 06/23/18 12:04> Results - Labs Result diagrams: 06/23/18 05:24 06/23/18 05:24 <Mercedes Barkley - 06/23/18 12:52> Abnormal lab results 06/23/18 06/23/18 Range/Units 05:24 05:24 Sebastian % (Auto) 9.3 H (0.0-8.0) % Calcium 7.8 L (8.5-10.1) mg/dL Short CBC 06/23/18 Range/Units 05:24 WBC 9.5 (4.0-11.0) th/mm3 Hgb 13.3 (13.0-17.0) gm/dL Hct 39.3 (39.0-51.0) % Plt Count 377 (150-450) th/mm3 [facility] 06/23/18 05:24 Sodium 144 Potassium 4.0 Chloride 106 Carbon Dioxide 25.8 BUN 9 Creatinine 0.61 Calcium 7.8 L Cardiac Enzymes 06/23/18 Range/Units 05:24 Total Creatine Kinase 229 (39-308) U/L <Mercedes Barkley - 06/23/18 12:52> Abnormal lab results 06/23/18 06/23/18 Range/Units 05:24 05:24 Sebastian % (Auto) 9.3 H (0.0-8.0) % Calcium 7.8 L (8.5-10.1) mg/dL Short CBC 06/23/18 Range/Units 05:24 WBC 9.5 (4.0-11.0) th/mm3 Hgb 13.3 (13.0-17.0) gm/dL Hct 39.3 (39.0-51.0) % Plt Count 377 (150-450) th/mm3 [facility] 06/23/18 05:24 Sodium 144 Potassium 4.0 Chloride 106 Carbon Dioxide 25.8 BUN 9 Creatinine 0.61 Calcium 7.8 L Cardiac Enzymes 06/23/18 Range/Units 05:24 Total Creatine Kinase 229 (39-308) U/L <MciJagruti winn - 06/23/18 12:04> Physical Exam Vital signs: Vital Signs 06/22/18 14:30 06/22/18 16:00 06/22/18 18:31 Temperature 98.7 F Pulse Rate 77 Respiratory Rate 20 10 L 20 Blood Pressure 132/92 H Pulse Oximetry 98 06/22/18 20:00 06/22/18 21:55 06/23/18 00:00 Temperature 98.5 F 98.7 F Pulse Rate 88 102 H Respiratory Rate 17 13 17 Blood Pressure 132/93 H 131/77 Pulse Oximetry 98 99 06/23/18 04:00 06/23/18 08:00 06/23/18 08:30 Temperature 98.9 F 98.7 F Pulse Rate 84 87 Respiratory Rate 16 25 H 17 Blood Pressure 117/69 116/82 Pulse Oximetry 99 100 Intake & Output 06/22/18 06/23/18 06/23/18 18:59 06:59 18:59 Intake Total 2400 / 2400 600 / 600 Output Total 1565 / 1565 2570 / 2570 Balance 835 / 835 -1969 / -1969 Weight 53.5 kg Intake: IV 1200 / 1200 600 / 600 NS Inj 1,000 ML @ 42 mls/hr IV. 1000 / 1000 CONT .[id number] [facility] Rx#:[id number] Azactam Inj 1,000 MG In NS Inj 100 / 100 200 / 200 100 ML @ 200 mls/hr IV.SIG Q8H [facility] Rx#:[id number] Diflucan 400 mg Premix Bag 200 200 / 200 ML @ 100 mls/hr IV.SIG Q24H [facility] Rx#:[id number] Flagyl 500 MG Inj 100 ML @ 100 100 / 100 200 / 200 mls/hr IV.SIG Q8H [facility] Rx#: [id number] Oral 1200 / 1200 Output: Urine 1500 / 1500 2500 / 2500 Wound Drainage 65 / 65 70 / 70 # 1 Left Lateral Abdomen 60 / 60 40 / 40 # 2 Abdomen Db 5 / 5 30 / 30 Other: # Voids 4 5 Date of Last Bowel Movement 06/22/18 06/22/18 06/23/18 # Bowel Movements 1 Weight On Admission 65.1 kg <Mercedes Barkley - 06/23/18 12:52> Vital Signs 06/22/18 12:00 06/22/18 14:30 06/22/18 16:00 Temperature 98.3 F 98.7 F Pulse Rate 86 77 Respiratory Rate 32 H 20 10 L Blood Pressure 126/84 132/92 H Pulse Oximetry 96 98 06/22/18 18:31 06/22/18 20:00 06/22/18 21:55 Temperature 98.5 F Pulse Rate 88 Respiratory Rate 20 17 13 Blood Pressure 132/93 H Pulse Oximetry 98 06/23/18 00:00 06/23/18 04:00 06/23/18 08:00 Temperature 98.7 F 98.9 F 98.7 F Pulse Rate 102 H 84 87 Respiratory Rate 17 16 25 H Blood Pressure 131/77 117/69 116/82 Pulse Oximetry 99 99 100 06/23/18 08:30 Temperature Pulse Rate Respiratory Rate 17 Blood Pressure Pulse Oximetry Intake & Output 06/22/18 06/23/18 06/23/18 18:59 06:59 18:59 Intake Total 2400 / 2400 600 / 600 Output Total 1565 / 1565 2570 / 2570 Balance 835 / 835 -1969 / -1969 Weight 53.5 kg Intake: IV 1200 / 1200 600 / 600 NS Inj 1,000 ML @ 42 mls/hr IV. 1000 / 1000 CONT .[id number] [facility] Rx#:[id number] Azactam Inj 1,000 MG In NS Inj 100 / 100 200 / 200 100 ML @ 200 mls/hr IV.SIG Q8H [facility] Rx#:[id number] Diflucan 400 mg Premix Bag 200 200 / 200 ML @ 100 mls/hr IV.SIG Q24H [facility] Rx#:[id number] Flagyl 500 MG Inj 100 ML @ 100 100 / 100 200 / 200 mls/hr IV.SIG Q8H [facility] Rx#: [id number] Oral 1200 / 1200 Output: Urine 1500 / 1500 2500 / 2500 Wound Drainage 65 / 65 70 / 70 # 1 Left Lateral Abdomen 60 / 60 40 / 40 # 2 Abdomen Db 5 / 5 30 / 30 Other: # Voids 4 5 Date of Last Bowel Movement 06/22/18 06/22/18 06/23/18 # Bowel Movements 1 Weight On Admission 65.1 kg <Jagruti Arellano - 06/23/18 12:04> Narrative: Gen: Patient lying in bed Skin: Warm and dry CV: regular rate and rhythm Resp: CTAB anteriorly Abd: Bowel sounds present, surgical aides teacher in room and changing bandage over incision. minimal areas of drainage on bandage from incision. No concerns per surgical aides teacher, 1 MIHAELA drain is removed, 1 MIHAELA drain remains. Ext: no edema of extremities noted Neuro/psych: Alert and oriented 3, responds to questions appropriately <Jagruti Arellano 06/23/18 12:04> - Urinary Catheter Management Indwelling Urethral Catheter Cath placed during this visit: no <FilippoMercedes 06/23/18 12:52> yes, but has since been removed by the nurse <EileenJagruti 06/23/18 12:04> Reason for continuing: Hourly intake/output <EileenJagruti 06/23/18 12:04> Insertion date: 06/15/18 <JohnystefanogisellJagruti 06/23/18 12:04> Removal date: 06/19/18 <JohnystefanogisellJagruti 06/23/18 12:04> Removal time: 15:00 <EileenJagruti 06/23/18 12:04> Assessment and Plan - Assessment (1) Overdose Code(s): T50.901A - Poisoning by unspecified drugs, medicaments and biological substances, accidental (unintentional), initial encounter Status: Acute (2) Gastric ulcer with perforation Code(s): K25.5 - Chronic or unspecified gastric ulcer with perforation Status : Acute (3) Rhabdomyolysis Code(s): M62.82 - Rhabdomyolysis Status: Acute (4) ARMANI (acute kidney injury) Code(s): N17.9 - Acute kidney failure, unspecified Status: Acute (5) Weight loss Code(s): R63.4 - Abnormal weight loss Status: Acute (6) IVDU (intravenous drug user) Code(s): F19.90 - Other psychoactive substance use, unspecified, uncomplicated Status: Acute (7) Nutrition, metabolism, and development symptoms Code(s): R63.8 - Other symptoms and signs concerning food and fluid intake Status: Acute <Silvia Barkleyan 06/23/18 12:52> (1) Overdose Code(s): T50.901A - Poisoning by unspecified drugs, medicaments and biological substances, accidental (unintentional), initial encounter Status: Acute Plan: Improving. -Psych consult; tearful, depression, anxiety, insomnia. Start Wellbutrin twice daily, clonazepam twice daily for anxiety and insomnia. Does not meet criteria for admission. -OB\psych drug screen positive for amphetamine and cannabinoids, negative for opiates, other metabolites are PENDING -Serum alcohol and aspirin NEGATIVE -Circular Ripsaw Operator signed off * Continue postoperative care * Lactic acid level 1.3 on 06/16 down from 2.8 on 06/15 * Continuous monitoring of heart rate and BP, maintain map greater than 65 mmHg * Maintain oxygen saturation above 92% * Monitor CBC and coags (2) Gastric ulcer with perforation Code(s): K25.5 - Chronic or unspecified gastric ulcer with perforation Status : Acute Plan: Gastritis with perforated gastric ulcer, postop from ex lap -Per surgical recommendations; advance diet to full, continue MIHAELA care, continue antibiotics per ID, reduce fluid rate -Continue Protonix IV 40mg BID, follow recommendations of general surgery -Continue pain management with Toradol and acetaminophen. We will avoid morphine as this gave him hallucinations and Dilaudid as this is his drug of choice. -Gastroenterology signed off (3) Rhabdomyolysis Code(s): M62.82 - Rhabdomyolysis Status: Acute Plan: Resolved. -CK 229 (NORMAL) today , peak CK was 8800 on 06/15/18 -Creatinine WNL -Continue normal saline at 42 mils an hour -Nephro signed off (4) ARMANI (acute kidney injury) Code(s): N17.9 - Acute kidney failure, unspecified Status: Acute Plan: Resolved. Nephro signed off. -Creatinine 0.64 -Continue IV hydration -Avoid nephrotoxic substances (5) Weight loss Code(s): R63.4 - Abnormal weight loss Status: Acute Plan: Patient has had a significant weight loss in the past month according to patient 's significant other. Gastritis versus drug use versus hepatitis versus immunodeficiency (HIV). -Supportive care -Continue fluids until patient is able to tolerate diet by mouth -Hepatitis panel positive for hepatitis C antibody. This was discussed with patient on . He was not aware of his hepatitis C status. -HIV testing was discussed on and patient consented to be tested for HIV during this hospitalization. (6) IVDU (intravenous drug user) Code(s): F19.90 - Other psychoactive substance use, unspecified, uncomplicated Status: Acute Plan: Patient with a history of IV drug use. -Blood cultures no growth -Repeat blood cultures no growth -Hepatitis panel positive for hep C -Case management consult ; patient states he has found funds for a rehab placement via family (7) Nutrition, metabolism, and development symptoms Code(s): R63.8 - Other symptoms and signs concerning food and fluid intake Status: Acute Plan: Fluids: Normal saline at 42 mL's per hour, p.o. fluids Electrolytes: Normal, follow-up BMP and replete as needed Nutrition: Advance to regular diet today, soft diet DVT prophylaxis: Heparin 5000 units subcu every 8 hours per general surgery <Jagruti Arellano - 06/23/18 11:55> - Assessment and Plan Discharge Planning: Pending tolerance of diet, gradual improvement in mobility, clearance of general surgery <Jagruti Arellano - 06/23/18 12:04> - Attending Attestation Patient seen, examined and discussed with the entire medicine team. I agree with the findings and with the plan as documented. <Mercedes Barkley - 06/23/18 12:52>
[2018-06-23] MEDS: Acetaminophen 325 MG Tablet PO PRN ×2 (13:15→20:38)
[2018-06-23] MEDS: Lactobacillus Acidophilus/L. Spores Tablet PO SCH (13:18)
--- NOTE | 2018-06-23 13:20 | P.PNGS ---
Subjective Interval history: Very thankful for care Would like an Egg Mc[employer]in from [employer] Physical Exam Vital signs: Vital Signs 06/22/18 14:30 06/22/18 16:00 06/22/18 18:31 Temperature 98.7 F Pulse Rate 77 Respiratory Rate 20 10 L 20 Blood Pressure 132/92 H Pulse Oximetry 98 06/22/18 20:00 06/22/18 21:55 06/23/18 00:00 Temperature 98.5 F 98.7 F Pulse Rate 88 102 H Respiratory Rate 17 13 17 Blood Pressure 132/93 H 131/77 Pulse Oximetry 98 99 06/23/18 04:00 06/23/18 08:00 06/23/18 08:30 Temperature 98.9 F 98.7 F Pulse Rate 84 87 Respiratory Rate 16 25 H 17 Blood Pressure 117/69 116/82 Pulse Oximetry 99 100 Intake & Output 06/22/18 06/23/18 06/23/18 18:59 06:59 18:59 Intake Total 2400 / 2400 600 / 600 Output Total 1565 / 1565 2570 / 2570 Balance 835 / 835 -1969 / -1969 Weight 53.5 kg Intake: IV 1200 / 1200 600 / 600 NS Inj 1,000 ML @ 42 mls/hr IV. 1000 / 1000 CONT .[id number] [facility] Rx#:[id number] Azactam Inj 1,000 MG In NS Inj 100 / 100 200 / 200 100 ML @ 200 mls/hr IV.SIG Q8H [facility] Rx#:[id number] Diflucan 400 mg Premix Bag 200 200 / 200 ML @ 100 mls/hr IV.SIG Q24H [facility] Rx#:[id number] Flagyl 500 MG Inj 100 ML @ 100 100 / 100 200 / 200 mls/hr IV.SIG Q8H [facility] Rx#: [id number] Oral 1200 / 1200 Output: Urine 1500 / 1500 2500 / 2500 Wound Drainage 65 / 65 70 / 70 # 1 Left Lateral Abdomen 60 / 60 40 / 40 # 2 Abdomen Db 5 / 5 30 / 30 Other: # Voids 4 5 Date of Last Bowel Movement 06/22/18 06/22/18 06/23/18 # Bowel Movements 1 Weight On Admission 65.1 kg Narrative: Alert and awake Abd: Moose removed and replaced; RIGHT sided MIHAELA removed---dressing in place; LEFT sided MIHAELA with serous fluid; midline incision with eulalia---c/d/i No edema - Urinary Catheter Management Indwelling Urethral Catheter Cath placed during this visit: yes, but has since been removed by the nurse Reason for continuing: Hourly intake/output Insertion date: 06/15/18 Removal date: 06/19/18 Removal time: 15:00 Results - Labs 06/26/18 05:34 06/25/18 04:49 Assessment and Plan - Assessment (1) Perforated abdominal viscus Status: Acute Plan: 27 year old male s/p ex lap; repair of gastric ulcer; marti patch; washout -Advance diet to regular soft -Continue routine MIHAELA care ---RIGHT removed -MOOSE replaced -Continue antibiotics---ID following -OOB as tolerated -Changed Protonix drip to IV push BID -Okay to transfer to [facility] working on rehab placement - Attending Attestation patient seen at bedside improving advance diet soft abx transfer to floor The exam, history, and the medical decision-making described in the above note were completed with the assistance of the mid-level provider. I reviewed and agree with the findings presented. I attest that I had a [id number] encounter with the patient on the same day, and personally performed and documented my assessment and findings in the medical record.
[2018-06-23] MEDS: Sod Chloride 0.9% Inj 1,000 ML IV.CONT SCH (16:41)
--- NOTE | 2018-06-23 20:02 | P.PNADD ---
Addendum to Inpatient Note Reason for Addendum: Additional Documentation Additional information: Update: 06/23/18 at 19:10 pm S: Nurse called to inform resident's that patient told nursing staff that he fell earlier this evening. Nursing staff states that this was unwitnessed and that patient was found sitting up in bed. Per nursing staff, patient has ambulated around to the ICU for and to the bathroom after the fall without difficulty. Patient evaluated by resident team at 19:25 pm. Patient states that he experienced a mechanical fall onto his left knee while getting out of bed to use the restroom. Denies hitting his head, loss of consciousness, preceding dizziness or lightheadedness. Patient has been up and ambulating following fall , with mild pain in left medial knee. He also states he hears an occasional pop. 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 Patient states that he is in pain when he walks, but is normally very active and does not like being bedbound, preferring to be up out of bed despite the pain. He is also very anxious on examination, stating that he is getting overwhelmed by the amount of wires monitors he is currently attached to. Per nursing staff, patient is to be transferred out of the ICU to general medicine floor and suggest discontinuation of cardiac telemetry and IV fluids in order to make patient more comfortable. O: Patient anxious and pulling at telemetry leads, tearful at times. MSK: Mild tenderness to palpation of medial left knee. Small <0.5 cm well- healing scab on dorsal aspect of left knee. Sensation intact. No erythema or swelling of bilateral knees. Muscle strength 5/5 in bilateral lower extremities. A/P: Patient status post mechanical fall onto left knee. Due to lack of swelling and mild pain on medial aspect of left knee, doubt fracture at this time. -Will hold off on getting XR of L knee. Will consider XR of knee if worsening knee pain. -Will D/C IVF, since patient is tolerating PO without issue. -Will D/C cardiac telemetry due to patient's anxiety after review of cardiac telemetry, which showed no acute events in the last 24 hrs. Will order vital signs every 4 hours.
[2018-06-24] MEDS: Ketorolac Inj 30 MG/ML (IVP) Vial IV.PUSH PRN ×4 (03:17→22:29)
[2018-06-24] MEDS: Acetaminophen 325 MG Tablet PO PRN ×2 (06:27→18:40)
[2018-06-24] MEDS: Heparin - SQ 10,000 UNITS/ML Vial SQ SCH ×3 (07:14→22:33)
[2018-06-24 07:19] LABS: Baso % (Auto) 0.3 % (0.0-2.0); Eos # (Auto) 0.3 th/mm3 (0.0-0.4); Eos % (Auto) 2.4 % (0.0-4.0); Hematocrit 33.2 % (39.0-51.0); Hemoglobin 11.3 gm/dL (13.0-17.0); Lymph # (Auto) 2.1 th/mm3 (1.0-4.8); Lymph % (Auto) 17.2 % (9.0-44.0); Mean Corpuscular Hemoglobin 28.8 pg (27.0-34.0); Mean Corpuscular Volume 84.5 fL (80.0-100.0); Mean Platelet Volume 8.4 fL (7.0-11.0); Mono # (Auto) 1.1 th/mm3 (0.0-0.9); Mono % (Auto) 9.2 % (0.0-8.0); Neut # (Auto) 8.4 th/mm3 (1.8-7.7); Neut % (Auto) 70.9 % (16.0-70.0); Platelet Count 428 th/mm3 (150-450); Red Blood Count 3.92 mil/mm3 (4.50-5.90); Red Cell Distribution Width 13.7 % (11.6-17.2); White Blood Count 11.9 th/mm3 (4.0-11.0)
[2018-06-24 07:35] LABS: Alanine Aminotransferase 46 U/L (12-78); Albumin 1.9 g/dL (3.4-5.0); Anion Gap 8 meq/L (5-15); Aspartate Aminotransferase 16 U/L (15-37); Blood Urea Nitrogen 15 mg/dL (7-18); Calcium 7.9 mg/dL (8.5-10.1); Carbon Dioxide 26.6 meq/L (21.0-32.0); Chloride 106 meq/L (98-107); Glomerular Filtration Rate Greater Than 89 mL/min (>89); Glucose,Random 89 mg/dL (74-106); Potassium 3.9 meq/L (3.5-5.1); Sodium 141 meq/L (136-145)
[2018-06-24 07:37] LABS: Alkaline Phosphatase 86 U/L (45-117); Total Protein 5.7 g/dL (6.4-8.2)
[2018-06-24] MEDS: Pantoprazole Inj 40 MG Vial IV.PUSH SCH (08:28)
[2018-06-24] MEDS: clonazePAM 0.5 MG Tablet PO SCH ×2 (08:28→20:04)
[2018-06-24] MEDS: Lactobacillus Acidophilus/L. Spores Tablet PO SCH (08:28)
[2018-06-24] MEDS: buPROPion 75 MG Tablet PO SCH ×2 (08:28→20:04)
--- NOTE | 2018-06-24 10:11 | P.PNFP ---
Subjective Interval history: Patient seen and examined at bedside today. Patient states he is tired today. He has been walking around the floor and tolerating that well. His diet has been advanced to soft solids. He is having formed bowel movements. Denies chest pain, shortness of breath. <DeeptividalFadumo A - 06/24/18 10:26> Results - Labs Result diagrams: 06/24/18 05:53 06/24/18 05:53 <Mercedes Barkley - 06/24/18 13:53> Abnormal lab results 06/24/18 06/24/18 06/24/18 Range/Units 05:53 05:53 05:53 WBC 11.9 H (4.0-11.0) th/mm3 RBC 3.92 L (4.50-5.90) mil/mm3 Hgb 11.3 L D (13.0-17.0) gm/dL Hct 33.2 L (39.0-51.0) % Neut % (Auto) 70.9 H (16.0-70.0) % [place] % (Auto) 9.2 H (0.0-8.0) % Neut # (Auto) 8.4 H (1.8-7.7) th/mm3 [place] # (Auto) 1.1 H (0.0-0.9) th/mm3 Creatinine 0.59 L (0.60-1.30) mg/dL Calcium 7.9 L (8.5-10.1) mg/dL Troponin I Less than 0.02 L (0.02-0.05) ng/mL Total Protein 5.7 L (6.4-8.2) g/dL Albumin 1.9 L (3.4-5.0) g/dL Short CBC 06/24/18 Range/Units 05:53 WBC 11.9 H (4.0-11.0) th/mm3 Hgb 11.3 L D (13.0-17.0) gm/dL Hct 33.2 L (39.0-51.0) % Plt Count 428 (150-450) th/mm3 BMP 06/24/18 05:53 Sodium 141 Potassium 3.9 Chloride 106 Carbon Dioxide 26.6 BUN 15 Creatinine 0.59 L Calcium 7.9 L Cardiac Enzymes 06/24/18 Range/Units 05:53 Troponin I Less than 0.02 L (0.02-0.05) ng/mL Liver Function 06/24/18 Range/Units 05:53 Total Bilirubin 0.2 (0.2-1.0) mg/dL AST 16 (15-37) U/L ALT 46 (12-78) U/L Alkaline Phosphatase 86 (45-117) U/L Albumin 1.9 L (3.4-5.0) g/dL <Silvia Barkleyan - 06/24/18 13:53> Abnormal lab results 06/24/18 06/24/18 Range/Units 05:53 05:53 WBC 11.9 H (4.0-11.0) th/mm3 RBC 3.92 L (4.50-5.90) mil/mm3 Hgb 11.3 L D (13.0-17.0) gm/dL Hct 33.2 L (39.0-51.0) % Neut % (Auto) 70.9 H (16.0-70.0) % [place] % (Auto) 9.2 H (0.0-8.0) % Neut # (Auto) 8.4 H (1.8-7.7) th/mm3 [place] # (Auto) 1.1 H (0.0-0.9) th/mm3 Creatinine 0.59 L (0.60-1.30) mg/dL Calcium 7.9 L (8.5-10.1) mg/dL Total Protein 5.7 L (6.4-8.2) g/dL Albumin 1.9 L (3.4-5.0) g/dL Short CBC 06/24/18 Range/Units 05:53 WBC 11.9 H (4.0-11.0) th/mm3 Hgb 11.3 L D (13.0-17.0) gm/dL Hct 33.2 L (39.0-51.0) % Plt Count 428 (150-450) th/mm3 [facility] 06/24/18 05:53 Sodium 141 Potassium 3.9 Chloride 106 Carbon Dioxide 26.6 BUN 15 Creatinine 0.59 L Calcium 7.9 L Liver Function 06/24/18 Range/Units 05:53 Total Bilirubin 0.2 (0.2-1.0) mg/dL AST 16 (15-37) U/L ALT 46 (12-78) U/L Alkaline Phosphatase 86 (45-117) U/L Albumin 1.9 L (3.4-5.0) g/dL <Fadumo Mooney - 06/24/18 10:11> Physical Exam Vital signs: Vital Signs 06/23/18 16:00 06/23/18 16:15 06/23/18 20:00 Temperature 97.3 F L 98.3 F Pulse Rate 90 72 Respiratory Rate 15 15 16 Blood Pressure 130/80 138/82 Pulse Oximetry 06/24/18 00:00 06/24/18 06:00 06/24/18 08:00 Temperature 98.6 F 98.1 F 97.4 F L Pulse Rate 86 93 H 76 Respiratory Rate 18 15 18 Blood Pressure 134/82 145/81 H 139/82 Pulse Oximetry 98 100 06/24/18 12:00 Temperature 97.8 F Pulse Rate 76 Respiratory Rate 18 Blood Pressure 140/82 Pulse Oximetry 99 Intake & Output 06/23/18 06/24/18 06/24/18 18:59 06:59 18:59 Intake Total 1800 / 1800 450 / 450 400 / 400 Output Total Balance 1785 / 1785 420 / 420 400 / 400 Weight 53.5 kg Intake: IV 600 / 600 200 / 200 400 / 400 Azactam Inj 1,000 MG In NS Inj 200 / 200 100 / 100 100 / 100 100 ML @ 200 mls/hr IV.SIG Q8H TEOFILO Rx#:[id number] Diflucan 400 mg Premix Bag 200 200 / 200 200 / 200 ML @ 100 mls/hr IV.SIG Q24H TEOFILO Rx#:[id number] Flagyl 500 MG Inj 100 ML @ 100 200 / 200 100 / 100 100 / 100 mls/hr IV.SIG Q8H TEOFILO Rx#: [id number] Oral 1200 / 1200 250 / 250 Output: Wound Drainage # 1 Left Lateral Abdomen Other: # Voids 5 1 Date of Last Bowel Movement 06/23/18 06/23/18 # Bowel Movements 3 <Mercedes Barkley - 06/24/18 13:53> Vital Signs 06/23/18 12:00 06/23/18 13:45 06/23/18 16:00 Temperature 98.3 F 97.3 F L Pulse Rate 87 90 Respiratory Rate 21 14 15 Blood Pressure 130/86 130/80 Pulse Oximetry 06/23/18 16:15 06/23/18 20:00 06/24/18 00:00 Temperature 98.3 F 98.6 F Pulse Rate 72 86 Respiratory Rate 15 16 18 Blood Pressure 138/82 134/82 Pulse Oximetry 06/24/18 06:00 06/24/18 08:00 Temperature 98.1 F 97.4 F L Pulse Rate 93 H 76 Respiratory Rate 15 18 Blood Pressure 145/81 H 139/82 Pulse Oximetry 98 100 Intake & Output 06/23/18 06/24/18 06/24/18 18:59 06:59 18:59 Intake Total 1800 / 1800 450 / 450 Output Total Balance 1785 / 1785 420 / 420 Weight 53.5 kg Intake: IV 600 / 600 200 / 200 Azactam Inj 1,000 MG In NS Inj 200 / 200 100 / 100 100 ML @ 200 mls/hr IV.SIG Q8H TEOFILO Rx#:[id number] Diflucan 400 mg Premix Bag 200 200 / 200 ML @ 100 mls/hr IV.SIG Q24H TEOFILO Rx#:[id number] Flagyl 500 MG Inj 100 ML @ 100 200 / 200 100 / 100 mls/hr IV.SIG Q8H TEOFILO Rx#: [id number] Oral 1200 / 1200 250 / 250 Output: Wound Drainage # 1 Left Lateral Abdomen Other: # Voids 5 1 Date of Last Bowel Movement 06/23/18 06/23/18 # Bowel Movements 3 <Fadumo Mooney A - 06/24/18 10:11> - Constitutional no acute distress <Fadumo Mooney A - 06/24/18 10:26> - Routine HEENT Exam Head: Present: normocephalic, atraumatic <Fadumo Mooney - 06/24/18 10:26> ENT: Present: mucous membranes moist <Fadumo Mooney A - 06/24/18 10:26> - Routine Respiratory Exam Present: CTA bilaterally <Fadumo Mooney - 06/24/18 10:26> - Routine Cardiovascular Exam Present: RRR, S1, S2 <Fadumo Mooney - 06/24/18 10:26> - Routine Abdominal Exam Present: normoactive bowel sounds <Fadumo Mooney - 06/24/18 10:26> Comments: bandage in place. no drainage. left MIHAELA drain with minimal serosanguinous fluid <Fadumo Mooney - 06/24/18 10:26> - Urinary Catheter Management Indwelling Urethral Catheter Cath placed during this visit: no <Silvia Barkleyan 06/24/18 13:53> yes, but has since been removed by the nurse <Fadumo Mooney - 06/24/18 10:26> Reason for continuing: Hourly intake/output <Fadumo Mooney - 06/24/18 10: 11> Insertion date: 06/15/18 <Fadumo Mooney - 06/24/18 10:11> Removal date: 06/19/18 <Fadumo Mooney - 06/24/18 10:11> Removal time: 15:00 <Fadumo Mooney - 06/24/18 10:11> Assessment and Plan - Assessment (1) Overdose Code(s): T50.901A - Poisoning by unspecified drugs, medicaments and biological substances, accidental (unintentional), initial encounter Status: Acute (2) Gastric ulcer with perforation Code(s): K25.5 - Chronic or unspecified gastric ulcer with perforation Status : Acute (3) Rhabdomyolysis Code(s): M62.82 - Rhabdomyolysis Status: Acute (4) ARMANI (acute kidney injury) Code(s): N17.9 - Acute kidney failure, unspecified Status: Acute (5) Weight loss Code(s): R63.4 - Abnormal weight loss Status: Acute (6) IVDU (intravenous drug user) Code(s): F19.90 - Other psychoactive substance use, unspecified, uncomplicated Status: Acute (7) Nutrition, metabolism, and development symptoms Code(s): R63.8 - Other symptoms and signs concerning food and fluid intake Status: Acute <Mercedes Barkley - 06/24/18 13:53> (1) Overdose Code(s): T50.901A - Poisoning by unspecified drugs, medicaments and biological substances, accidental (unintentional), initial encounter Status: Acute Plan: Improving. -Psych consult; tearful, depression, anxiety, insomnia. Start Wellbutrin twice daily, clonazepam twice daily for anxiety and insomnia. Does not meet criteria for admission. -OB\psych drug screen positive for amphetamine and cannabinoids, negative for opiates, other metabolites are PENDING -Serum alcohol and aspirin NEGATIVE -Nurse Aide signed off * Continue postoperative care * Lactic acid level 1.3 on 06/16 down from 2.8 on 06/15 * Continuous monitoring of heart rate and BP, maintain map greater than 65 mmHg * Maintain oxygen saturation above 92% * Monitor CBC and coags (2) Gastric ulcer with perforation Code(s): K25.5 - Chronic or unspecified gastric ulcer with perforation Status : Acute Plan: Gastritis with perforated gastric ulcer, postop from ex lap. -Per surgical recommendations; advance diet to soft, continue MIHAELA care -continue antibiotics per ID, will transition to PO per ID -Continue Protonix IV 40mg BID, follow recommendations of general surgery -Continue pain management with Toradol and acetaminophen. We will avoid morphine as this gave him hallucinations and Dilaudid as this is his drug of choice. -Gastroenterology signed off (3) Rhabdomyolysis Code(s): M62.82 - Rhabdomyolysis Status: Acute Plan: Resolved. -CK 229 (NORMAL) 06/23 , peak CK was 8800 on 06/15/18 -Creatinine WNL -Nephro signed off (4) ARMANI (acute kidney injury) Code(s): N17.9 - Acute kidney failure, unspecified Status: Acute Plan: Resolved. Nephro signed off. -Creatinine 0.51 on 06/24 -Continue IV hydration -Avoid nephrotoxic substances (5) Weight loss Code(s): R63.4 - Abnormal weight loss Status: Acute Plan: Patient has had a significant weight loss in the past month according to patient 's significant other. Gastritis versus drug use versus hepatitis versus immunodeficiency (HIV). -Supportive care -Continue fluids until patient is able to tolerate diet by mouth -Hepatitis panel positive for hepatitis C antibody. This was discussed with patient on . He was not aware of his hepatitis C status. -HIV testing was discussed on and patient consented to be tested for HIV during this hospitalization. Patient HIV Ab nonreactive (6) IVDU (intravenous drug user) Code(s): F19.90 - Other psychoactive substance use, unspecified, uncomplicated Status: Acute Plan: Patient with a history of IV drug use. -Blood cultures no growth -Repeat blood cultures no growth -Hepatitis panel positive for hep C -Case management consult; patient states he has found funds for a rehab placement via family (7) Nutrition, metabolism, and development symptoms Code(s): R63.8 - Other symptoms and signs concerning food and fluid intake Status: Acute Plan: Fluids: discontinued Electrolytes: Normal, follow-up BMP and replete as needed Nutrition: soft diet DVT prophylaxis: Heparin 5000 units subcu every 8 hours per general surgery <Fadumo Mooney - 06/24/18 10:11> - Assessment and Plan Patient will likely be transitioned to PO antibiotics today. Per discussion with surgery UNIT OPERATOR, patient will be medically cleared from their end. He will be going to his grandmother's house after discharge and then possibly rehab. <Fadumo Mooney - 06/24/18 10:26> - Attending Attestation Patient seen and examined, discussed with the medicine team. I agree with the findings and with the plan. <Mercedes Barkley - 06/24/18 13:53>
--- NOTE | 2018-06-24 11:38 | P.PNGS ---
Subjective Interval history: Doing well; no issues Physical Exam Vital signs: Vital Signs 06/23/18 12:00 06/23/18 13:45 06/23/18 16:00 Temperature 98.3 F 97.3 F L Pulse Rate 87 90 Respiratory Rate 21 14 15 Blood Pressure 130/86 130/80 Pulse Oximetry 06/23/18 16:15 06/23/18 20:00 06/24/18 00:00 Temperature 98.3 F 98.6 F Pulse Rate 72 86 Respiratory Rate 15 16 18 Blood Pressure 138/82 134/82 Pulse Oximetry 06/24/18 06:00 06/24/18 08:00 Temperature 98.1 F 97.4 F L Pulse Rate 93 H 76 Respiratory Rate 15 18 Blood Pressure 145/81 H 139/82 Pulse Oximetry 98 100 Intake & Output 06/23/18 06/24/18 06/24/18 18:59 06:59 18:59 Intake Total 1800 / 1800 450 / 450 Output Total Balance 1785 / 1785 420 / 420 Weight 53.5 kg Intake: IV 600 / 600 200 / 200 Azactam Inj 1,000 MG In NS Inj 200 / 200 100 / 100 100 ML @ 200 mls/hr IV.SIG Q8H TEOFILO Rx#:[id number] Diflucan 400 mg Premix Bag 200 200 / 200 ML @ 100 mls/hr IV.SIG Q24H TEOFILO Rx#:[id number] Flagyl 500 MG Inj 100 ML @ 100 200 / 200 100 / 100 mls/hr IV.SIG Q8H TEOFILO Rx#: [id number] Oral 1200 / 1200 250 / 250 Output: Wound Drainage # 1 Left Lateral Abdomen Other: # Voids 5 1 Date of Last Bowel Movement 06/23/18 06/23/18 # Bowel Movements 3 Narrative: Alert and awake Abd: LEFT MOOSE in place with good seal; MIHAELA with serous fluid; soft; minimally tender - Urinary Catheter Management Indwelling Urethral Catheter Cath placed during this visit: yes, but has since been removed by the nurse Reason for continuing: Hourly intake/output Insertion date: 06/15/18 Removal date: 06/19/18 Removal time: 15:00 Results - Labs 06/26/18 05:34 06/25/18 04:49 Assessment and Plan - Assessment (1) Perforated abdominal viscus Status: Acute Plan: 27 year old male s/p ex lap; repair of gastric ulcer; marti patch; washout -Tolerating regular soft -Remove LEFT MIHAELA drain -MOOSE in good working function -Continue antibiotics---ID following ---transition to PO -OOB as tolerated -Changed Protonix drip to PO BID -Plan for DC tomorrow - Attending Attestation patient seen at bedside doing better anticipate d/c 24-48 hours change to po meds The exam, history, and the medical decision-making described in the above note were completed with the assistance of the mid-level provider. I reviewed and agree with the findings presented. I attest that I had a [id number] encounter with the patient on the same day, and personally performed and documented my assessment and findings in the medical record.
[2018-06-24] MEDS: Ciprofloxacin 500 MG Tablet PO SCH (20:04)
[2018-06-24] MEDS: metroNIDAZOLE 500 MG Tablet PO SCH (22:29)
[2018-06-25] MEDS: Ketorolac Inj 30 MG/ML (IVP) Vial IV.PUSH PRN ×3 (05:16→18:19)
[2018-06-25] MEDS: metroNIDAZOLE 500 MG Tablet PO SCH ×3 (05:19→22:02)
[2018-06-25 05:53] LABS: Baso # (Auto) 0.1 th/mm3 (0.0-0.2); Baso % (Auto) 0.5 % (0.0-2.0); Eos # (Auto) 0.2 th/mm3 (0.0-0.4); Eos % (Auto) 1.7 % (0.0-4.0); Hematocrit 34.5 % (39.0-51.0); Hemoglobin 11.5 gm/dL (13.0-17.0); Lymph # (Auto) 2.1 th/mm3 (1.0-4.8); Lymph % (Auto) 16.6 % (9.0-44.0); Mean Corpuscular HGB Conc 33.4 % (32.0-36.0); Mean Corpuscular Hemoglobin 28.7 pg (27.0-34.0); Mean Corpuscular Volume 85.9 fL (80.0-100.0); Mean Platelet Volume 8.4 fL (7.0-11.0); Mono # (Auto) 0.9 th/mm3 (0.0-0.9); Mono % (Auto) 6.8 % (0.0-8.0); Neut # (Auto) 9.3 th/mm3 (1.8-7.7); Neut % (Auto) 74.4 % (16.0-70.0); Platelet Count 482 th/mm3 (150-450); Red Blood Count 4.02 mil/mm3 (4.50-5.90); Red Cell Distribution Width 13.9 % (11.6-17.2); White Blood Count 12.5 th/mm3 (4.0-11.0)
[2018-06-25] MEDS: Heparin - SQ 10,000 UNITS/ML Vial SQ SCH ×3 (06:00→22:02)
[2018-06-25 06:15] LABS: Alanine Aminotransferase 38 U/L (12-78); Albumin 1.9 g/dL (3.4-5.0); Anion Gap 9 meq/L (5-15); Aspartate Aminotransferase 17 U/L (15-37); Blood Urea Nitrogen 12 mg/dL (7-18); Calcium 7.9 mg/dL (8.5-10.1); Chloride 107 meq/L (98-107); Glomerular Filtration Rate Greater Than 89 mL/min (>89); Glucose,Random 104 mg/dL (74-106); Potassium 3.5 meq/L (3.5-5.1); Sodium 144 meq/L (136-145)
[2018-06-25 06:17] LABS: Alkaline Phosphatase 81 U/L (45-117); Total Protein 5.7 g/dL (6.4-8.2)
--- NOTE | 2018-06-25 09:14 | P.PNFP ---
Subjective Interval history: Patient seen and examined at bedside today. Patient reports that he does not have a PCP when he is discharged. He is not sure when he is following up with surgery upon discharge. He is tolerating his regular diet. He reports formed bowel movements, mild abdominal pain. He reports a mild headache, gas pain, mild shortness of breath which he attributes to anxiety. Patient's white blood cell count 12.5 today from 9.5 on 06/23. It was explained to patient that because of his extensive surgery that the team did not feel safe discharging him today with his white cell increasing. After much discussion, patient agrees to stay. It was explained to him that if his white blood cell count is stable or lower tomorrow morning, he will be discharged. <Fadumo Mooney - 06/25/18 09:11> Results - Labs Result diagrams: 06/25/18 04:49 06/25/18 04:49 <Mercedes Barkley - 06/25/18 10:35> Abnormal lab results 06/24/18 06/25/18 06/25/18 Range/Units 05:53 04:49 04:49 WBC 12.5 H (4.0-11.0) th/mm3 RBC 4.02 L (4.50-5.90) mil/mm3 Hgb 11.5 L (13.0-17.0) gm/dL Hct 34.5 L (39.0-51.0) % Plt Count 482 H (150-450) th/mm3 Neut % (Auto) 74.4 H (16.0-70.0) % Neut # (Auto) 9.3 H (1.8-7.7) th/mm3 Calcium 7.9 L (8.5-10.1) mg/dL Troponin I Less than 0.02 L (0.02-0.05) ng/mL Total Protein 5.7 L (6.4-8.2) g/dL Albumin 1.9 L (3.4-5.0) g/dL Short CBC 06/25/18 Range/Units 04:49 WBC 12.5 H (4.0-11.0) th/mm3 Hgb 11.5 L (13.0-17.0) gm/dL Hct 34.5 L (39.0-51.0) % Plt Count 482 H (150-450) th/mm3 [facility] 06/25/18 04:49 Sodium 144 Potassium 3.5 Chloride 107 Carbon Dioxide 28.0 BUN 12 Creatinine 0.71 Calcium 7.9 L Cardiac Enzymes 06/24/18 Range/Units 05:53 Troponin I Less than 0.02 L (0.02-0.05) ng/mL Liver Function 06/25/18 Range/Units 04:49 Total Bilirubin 0.3 (0.2-1.0) mg/dL AST 17 (15-37) U/L ALT 38 (12-78) U/L Alkaline Phosphatase 81 (45-117) U/L Albumin 1.9 L (3.4-5.0) g/dL <Filippo,Mercedes - 06/25/18 10:35> Abnormal lab results 06/24/18 06/25/18 06/25/18 Range/Units 05:53 04:49 04:49 WBC 12.5 H (4.0-11.0) th/mm3 RBC 4.02 L (4.50-5.90) mil/mm3 Hgb 11.5 L (13.0-17.0) gm/dL Hct 34.5 L (39.0-51.0) % Plt Count 482 H (150-450) th/mm3 Neut % (Auto) 74.4 H (16.0-70.0) % Neut # (Auto) 9.3 H (1.8-7.7) th/mm3 Calcium 7.9 L (8.5-10.1) mg/dL Troponin I Less than 0.02 L (0.02-0.05) ng/mL Total Protein 5.7 L (6.4-8.2) g/dL Albumin 1.9 L (3.4-5.0) g/dL Short CBC 06/25/18 Range/Units 04:49 WBC 12.5 H (4.0-11.0) th/mm3 Hgb 11.5 L (13.0-17.0) gm/dL Hct 34.5 L (39.0-51.0) % Plt Count 482 H (150-450) th/mm3 [facility] 06/25/18 04:49 Sodium 144 Potassium 3.5 Chloride 107 Carbon Dioxide 28.0 BUN 12 Creatinine 0.71 Calcium 7.9 L Cardiac Enzymes 06/24/18 Range/Units 05:53 Troponin I Less than 0.02 L (0.02-0.05) ng/mL Liver Function 06/25/18 Range/Units 04:49 Total Bilirubin 0.3 (0.2-1.0) mg/dL AST 17 (15-37) U/L ALT 38 (12-78) U/L Alkaline Phosphatase 81 (45-117) U/L Albumin 1.9 L (3.4-5.0) g/dL <Fadumo Mooney - 06/25/18 09:11> Physical Exam Vital signs: Vital Signs 06/24/18 12:00 06/24/18 16:00 06/24/18 20:00 Temperature 97.8 F 98.0 F 97.7 F Pulse Rate 76 86 81 Respiratory Rate 18 18 15 Blood Pressure 140/82 141/83 H 130/88 Pulse Oximetry 99 98 100 06/25/18 00:00 Temperature 98.5 F Pulse Rate 78 Respiratory Rate 16 Blood Pressure 125/81 Pulse Oximetry 100 Intake & Output 06/24/18 06/25/18 06/25/18 18:59 06:59 18:59 Intake Total 1600 / 1600 1300 / 1300 Balance 1600 / 1600 1300 / 1300 Weight 53.5 kg Intake: IV 400 / 400 100 / 100 Azactam Inj 1,000 MG In NS Inj 100 / 100 100 ML @ 200 mls/hr IV.SIG Q8H TEOFILO Rx#:[id number] Diflucan 400 mg Premix Bag 200 200 / 200 ML @ 100 mls/hr IV.SIG Q24H TEOFILO Rx#:[id number] Flagyl 500 MG Inj 100 ML @ 100 100 / 100 100 / 100 mls/hr IV.SIG Q8H TEOFILO Rx#: [id number] Oral 1200 / 1200 1200 / 1200 Other: # Voids 4 4 # Bowel Movements 0 <Mercedes Barkley - 06/25/18 10:35> Vital Signs 06/24/18 12:00 06/24/18 16:00 06/24/18 20:00 Temperature 97.8 F 98.0 F 97.7 F Pulse Rate 76 86 81 Respiratory Rate 18 18 15 Blood Pressure 140/82 141/83 H 130/88 Pulse Oximetry 99 98 100 06/25/18 00:00 Temperature 98.5 F Pulse Rate 78 Respiratory Rate 16 Blood Pressure 125/81 Pulse Oximetry 100 Intake & Output 06/24/18 06/25/18 06/25/18 18:59 06:59 18:59 Intake Total 1600 / 1600 1300 / 1300 Balance 1600 / 1600 1300 / 1300 Weight 53.5 kg Intake: IV 400 / 400 100 / 100 Azactam Inj 1,000 MG In NS Inj 100 / 100 100 ML @ 200 mls/hr IV.SIG Q8H TEOFILO Rx#:[id number] Diflucan 400 mg Premix Bag 200 200 / 200 ML @ 100 mls/hr IV.SIG Q24H TEOFILO Rx#:[id number] Flagyl 500 MG Inj 100 ML @ 100 100 / 100 100 / 100 mls/hr IV.SIG Q8H TEOFILO Rx#: [id number] Oral 1200 / 1200 1200 / 1200 Other: # Voids 4 4 # Bowel Movements 0 <Fadumo Mooney - 06/25/18 09:11> - Constitutional no acute distress <Fadumo Mooney - 06/25/18 09:11> - Routine HEENT Exam Head: Present: normocephalic, atraumatic <Fadumo Mooney - 06/25/18 09:11> ENT: Present: mucous membranes moist <Fadumo Mooney - 06/25/18 09:11> - Routine Respiratory Exam Present: CTA bilaterally <Fadumo Mooney - 06/25/18 09:11> - Routine Cardiovascular Exam Present: RRR, S1, S2 <Fadumo Mooney - 06/25/18 09:11> - Routine Abdominal Exam Present: soft, normoactive bowel sounds, tenderness <Fadumo Mooney - 06/25 09:11> Comments: bandage clean and dry, both MIHAELA drains have been removed <Fadumo Mooney - 06/25/18 09:11> - Routine Neurological Exam Present: alert, oriented X3 <Fadumo Mooney - 06/25/18 09:11> - Urinary Catheter Management Indwelling Urethral Catheter Cath placed during this visit: no <Mercedes Barkley - 06/25/18 10:35> yes, but has since been removed by the nurse <Fadumo Mooney - 06/25/18 09:11> Reason for continuing: Hourly intake/output <Fadumo Mooney - 06/25/18 09: 11> Insertion date: 06/15/18 <Fadumo Mooney - 06/25/18 09:11> Removal date: 06/19/18 <Fadumo Mooney - 06/25/18 09:11> Removal time: 15:00 <Fadumo Mooney - 06/25/18 09:11> Assessment and Plan - Assessment (1) Leukocytosis Code(s): D72.829 - Elevated white blood cell count, unspecified Status: Acute (2) Overdose Code(s): T50.901A - Poisoning by unspecified drugs, medicaments and biological substances, accidental (unintentional), initial encounter Status: Acute (3) Gastric ulcer with perforation Code(s): K25.5 - Chronic or unspecified gastric ulcer with perforation Status : Acute (4) Rhabdomyolysis Code(s): M62.82 - Rhabdomyolysis Status: Acute (5) ARMANI (acute kidney injury) Code(s): N17.9 - Acute kidney failure, unspecified Status: Acute (6) Weight loss Code(s): R63.4 - Abnormal weight loss Status: Acute (7) IVDU (intravenous drug user) Code(s): F19.90 - Other psychoactive substance use, unspecified, uncomplicated Status: Acute (8) Nutrition, metabolism, and development symptoms Code(s): R63.8 - Other symptoms and signs concerning food and fluid intake Status: Acute <Mercedes Barkley - 06/25/18 10:35> (1) Leukocytosis Code(s): D72.829 - Elevated white blood cell count, unspecified Status: Acute Plan: Patient with a WBC of 12.5 today up from 9.5 on June 23. Patient is afebrile, vitals WNL, tolerating meals. Due to patient's extensive surgery, team does not feel comfortable sending him home today. We will do a repeat CBC in the morning, if the WBCs are stable or lower he will be discharged. If his leukocytosis is not improved, we may consider abdominal imaging to rule out abscess. This team put a call into the nurse practitioner of the surgeon to communicate the plan. (2) Overdose Code(s): T50.901A - Poisoning by unspecified drugs, medicaments and biological substances, accidental (unintentional), initial encounter Status: Acute Plan: Improving. -Psych consult; tearful, depression, anxiety, insomnia. Start Wellbutrin twice daily, clonazepam twice daily for anxiety and insomnia. Does not meet criteria for admission. -OB\psych drug screen positive for amphetamine and cannabinoids, negative for opiates, other metabolites are PENDING -Serum alcohol and aspirin NEGATIVE -Milliner Helper signed off * Continue postoperative care * Lactic acid level 1.3 on 06/16 down from 2.8 on 06/15 * Continuous monitoring of heart rate and BP, maintain map greater than 65 mmHg * Maintain oxygen saturation above 92% * Monitor CBC and coags (3) Gastric ulcer with perforation Code(s): K25.5 - Chronic or unspecified gastric ulcer with perforation Status : Acute Plan: Gastritis with perforated gastric ulcer, postop from ex lap. -Per surgical recommendations; advance diet to soft -continue antibiotics per ID, now PO -Continue Protonix PO BID, follow recommendations of general surgery -Continue pain management with Toradol and acetaminophen. We will avoid morphine as this gave him hallucinations and Dilaudid as this is his drug of choice. -Gastroenterology signed off (4) Rhabdomyolysis Code(s): M62.82 - Rhabdomyolysis Status: Acute Plan: Resolved. -CK 229 (NORMAL) 06/23 , peak CK was 8800 on 06/15/18 -Creatinine WNL -Nephro signed off (5) ARMANI (acute kidney injury) Code(s): N17.9 - Acute kidney failure, unspecified Status: Acute Plan: Resolved. Nephro signed off. -Creatinine 0.71 on 06/25 -Avoid nephrotoxic substances (6) Weight loss Code(s): R63.4 - Abnormal weight loss Status: Acute Plan: Patient has had a significant weight loss in the past month according to patient 's significant other. Gastritis versus drug use versus hepatitis versus immunodeficiency (HIV). -Supportive care -Hepatitis panel positive for hepatitis C antibody. This was discussed with patient on . He was not aware of his hepatitis C status. -HIV testing was discussed on and patient consented to be tested for HIV during this hospitalization. Patient HIV Ab nonreactive (7) IVDU (intravenous drug user) Code(s): F19.90 - Other psychoactive substance use, unspecified, uncomplicated Status: Acute Plan: Patient with a history of IV drug use. -Blood cultures no growth -Repeat blood cultures no growth -Hepatitis panel positive for hep C -Case management consult; patient states he has found funds for a rehab placement via family (8) Nutrition, metabolism, and development symptoms Code(s): R63.8 - Other symptoms and signs concerning food and fluid intake Status: Acute Plan: Fluids: discontinued Electrolytes: Normal, follow-up BMP and replete as needed Nutrition: soft diet DVT prophylaxis: Heparin 5000 units subcu every 8 hours per general surgery <Fadumo Mooney - 06/25/18 08:57> - Assessment and Plan Patient was transitioned to PO antibiotics on 06/24. Per discussion with surgery ASSISTANT PROFESSOR OF DIETETICS, patient will be medically cleared from their end. If patient's WBCs stable or lower tomorrow morning, patient will be discharged. He will be going to his grandmother's house after discharge and then possibly rehab. Case management gave him the information for clinics where he could follow-up for primary care. <Fadumo Mooney - 06/25/18 09:11> - Attending Attestation Pt. seen and discussed with Dr. Mooney. I agree with the findings and the plan. <Mercedes Barkley - 06/25/18 10:35>
[2018-06-25] MEDS: Lactobacillus Acidophilus/L. Spores Tablet PO SCH (09:38)
[2018-06-25] MEDS: buPROPion 75 MG Tablet PO SCH ×2 (09:38→22:02)
[2018-06-25] MEDS: Ciprofloxacin 500 MG Tablet PO SCH ×2 (09:38→22:01)
[2018-06-25] MEDS: clonazePAM 0.5 MG Tablet PO SCH ×2 (09:38→22:02)
--- NOTE | 2018-06-25 18:17 | P.PNGS ---
Subjective Patient reports: feels better Physical Exam Vital signs: Vital Signs 06/24/18 20:00 06/25/18 00:00 06/25/18 12:00 Temperature 97.7 F 98.5 F 98 F Pulse Rate 81 78 93 H Respiratory Rate 15 16 20 Blood Pressure 130/88 125/81 139/74 Pulse Oximetry 100 100 100 06/25/18 16:00 Temperature 98.1 F Pulse Rate 80 Respiratory Rate 20 Blood Pressure 141/85 H Pulse Oximetry 100 Intake & Output 06/24/18 06/25/18 06/25/18 18:59 06:59 18:59 Intake Total 1600 / 1600 1300 / 1300 Balance 1600 / 1600 1300 / 1300 Weight 53.5 kg Intake: IV 400 / 400 100 / 100 Azactam Inj 1,000 MG In NS Inj 100 / 100 100 ML @ 200 mls/hr IV.SIG Q8H TEOFILO Rx#:[id number] Diflucan 400 mg Premix Bag 200 200 / 200 ML @ 100 mls/hr IV.SIG Q24H TEOFILO Rx#:[id number] Flagyl 500 MG Inj 100 ML @ 100 100 / 100 100 / 100 mls/hr IV.SIG Q8H TEOFILO Rx#: [id number] Oral 1200 / 1200 1200 / 1200 Other: # Voids 4 4 # Bowel Movements 0 - Constitutional no acute distress - Routine Abdominal Exam Present: soft Comments: inc c/d/i, no infection, no peritonitis or rebound - Urinary Catheter Management Indwelling Urethral Catheter Cath placed during this visit: yes, but has since been removed by the nurse Reason for continuing: Hourly intake/output Insertion date: 06/15/18 Removal date: 06/19/18 Removal time: 15:00 Assessment and Plan - Assessment (1) Perforated abdominal viscus Status: Acute Plan: 27 year old male s/p ex lap; repair of gastric ulcer; marti patch; washout -Tolerating regular diet -Remove LEFT MIHAELA drain -increased WBC, would check CT scan if WBC increases tomorrow, pt has high risk for IAA due to large rupture
--- NOTE | 2018-06-25 22:21 | ECG ---
Date Performed: 06/24/2018 Time Performed: 13:05:51 PTAGE: 27 years EKG: Sinus rhythm BORDERLINE RIGHT AXIS DEVIATION BORDERLINE ECG NO PREVIOUS TRACING DOCTOR: Cornelius Doherty Interpretating Date/Time 06/25/2018 22:14:08
[2018-06-26] MEDS: Ketorolac Inj 30 MG/ML (IVP) Vial IV.PUSH PRN ×2 (00:23→06:44)
[2018-06-26] MEDS: Heparin - SQ 10,000 UNITS/ML Vial SQ SCH (05:43)
[2018-06-26] MEDS: metroNIDAZOLE 500 MG Tablet PO SCH (05:43)
[2018-06-26 05:57] LABS: Baso # (Auto) 0.1 th/mm3 (0.0-0.2); Baso % (Auto) 0.6 % (0.0-2.0); Eos # (Auto) 0.3 th/mm3 (0.0-0.4); Eos % (Auto) 2.6 % (0.0-4.0); Hematocrit 32.2 % (39.0-51.0); Hemoglobin 10.9 gm/dL (13.0-17.0); Lymph # (Auto) 2.4 th/mm3 (1.0-4.8); Lymph % (Auto) 20.1 % (9.0-44.0); Mean Corpuscular HGB Conc 33.7 % (32.0-36.0); Mean Corpuscular Hemoglobin 28.5 pg (27.0-34.0); Mean Corpuscular Volume 84.7 fL (80.0-100.0); Mean Platelet Volume 7.8 fL (7.0-11.0); Mono # (Auto) 1.5 th/mm3 (0.0-0.9); Mono % (Auto) 12.3 % (0.0-8.0); Neut # (Auto) 7.6 th/mm3 (1.8-7.7); Neut % (Auto) 64.4 % (16.0-70.0); Platelet Count 561 th/mm3 (150-450); Red Cell Distribution Width 13.8 % (11.6-17.2); White Blood Count 11.9 th/mm3 (4.0-11.0)
[2018-06-26] MEDS: Lactobacillus Acidophilus/L. Spores Tablet PO SCH (08:17)
[2018-06-26] MEDS: clonazePAM 0.5 MG Tablet PO SCH (08:17)
[2018-06-26] MEDS: Ciprofloxacin 500 MG Tablet PO SCH (08:17)
[2018-06-26] MEDS: buPROPion 75 MG Tablet PO SCH (08:17)
--- NOTE | 2018-06-26 09:32 | P.DS ---
Date of admission: 06/14/18 14:21 Primary care physician: No Primary Care Physician Brief History from admission: History provided by patient's boyfriend as the patient is thrashing about and unable to respond to questions. 27-year-old male who presented to the ED via [facility] after drug overdose. Boyfriend states patient has a history of opioid addiction and IV drug use and has been clean for many years, but the boyfriend noticed patient's behavior changing over the last month. Patient's boyfriend states that the patient woke him up this morning about 6:30 AM begging for him to help him, grunting, and complaining of severe abdominal pain. Patient's boyfriend states that the patient has a history of Dilaudid and Suboxone use. He also uses cocaine, meth, marijuana, and MDMA. Boyfriend is not sure which substances patient used last night and this morning, but is confident that he overdosed. Patient has a history of severe gastritis in which he uses Zantac. Patient had 1 bout of coffee ground emesis in the ED. The boyfriend is not aware of any other past medical or surgical history. DS: Diagnosis - Discharge Diagnosis (1) Leukocytosis Status: Acute (2) Overdose Status: Acute (3) Gastric ulcer with perforation Status: Acute (4) Rhabdomyolysis Status: Acute (5) ARMANI (acute kidney injury) Status: Acute (6) Weight loss Status: Acute (7) IVDU (intravenous drug user) Status: Acute (8) Nutrition, metabolism, and development symptoms Status: Acute DS: Medications - Discharge Medications Prescriptions: bupropion HCl 75 mg PO BID 30 Days #60 tab ciprofloxacin HCl 500 mg PO Q12HR 5 Days tab clonazepam [Klonopin] 0.5 mg PO Q12HR 30 Days tab metronidazole 500 mg PO Q8HR 5 Days tab pantoprazole 40 mg PO BID 30 Days #60 tab tramadol [Ultram] 50 mg PO Q4-6H PRN 3 Days #18 tab PRN Reason: Abdominal Pain DS: Summary Hospital Course: 27-year-old male, history of IV drug use and gastritis, presented to ED after drug overdose and developed gastric ulcer with perforation. Patient initially noncommunicative and drug screen tested positive for amphetamine, marijuana. Patient transferred to ICU due to unresponsive state, and scow captain was consulted. Patient decompensated on the first night of admission and became hypotensive with respiratory distress. Patient also had rhabdo myelolysis and AK I at this time, with peak CK levels on 06/15. Patient was intubated and CT was done revealing gastric ulcer perforation. Patient was taken to the OR on 06/15 under general surgery and exploratory laparotomy with perforated gastric ulcer repair was performed. General surgery continue to follow throughout the rest of the hospitalization and advanced diet gradually. Regular diet was tolerated before discharge. ID followed as well, and gave the final p.o. antibiotic recommendations. Patient was informed of hepatitis C positive status , and HIV negative status. Due to murmur on 06/26 it was recommended that the patient get an echocardiogram, however it was on a Wednesday and echocardiogram team could not come until later in the afternoon. Patient refused this testing. He states he is appropriate follow-up as an outpatient and will do a outpatient. - Time Spent with Patient Total time spent providing and/or coordinating discharge services: Greater than 30 minutes - Quality: VTE Deep Vein Thrombosis/Pulmonary Embolism Present on Admission: No Exam Vital signs: Vital Signs 06/25/18 12:00 06/25/18 16:00 06/25/18 20:00 Temperature 98 F 98.1 F 99.1 F Pulse Rate 93 H 80 92 H Respiratory Rate 20 20 16 Blood Pressure 139/74 141/85 H 140/80 Pulse Oximetry 100 100 96 06/26/18 00:47 Temperature 98.9 F Pulse Rate 90 Respiratory Rate 17 Blood Pressure 136/85 Pulse Oximetry 99 Intake & Output 06/25/18 06/26/18 06/26/18 18:59 06:59 18:59 Intake Total 780 / 780 Balance 780 / 780 Weight 53.5 kg Intake: Oral 780 / 780 Other: # Voids 4 Results Procedures completed during hospitalization: Ex Lap with gastric ulcer repair 06/15 MIHAELA drain insertion and removal x 2 Subclavian line insertion and removal x 1 Intubation x 1 Labs on day of discharge: Labs from last 24 hours 06/26/18 05:34 WBC 11.9 H RBC 3.80 L Hgb 10.9 L Hct 32.2 L MCV 84.7 MCH 28.5 MCHC 33.7 RDW 13.8 Plt Count 561 H MPV 7.8 Neut % (Auto) 64.4 Lymph % (Auto) 20.1 [place] % (Auto) 12.3 H Eos % (Auto) 2.6 Baso % (Auto) 0.6 Neut # (Auto) 7.6 Lymph # (Auto) 2.4 [place] # (Auto) 1.5 H Eos # (Auto) 0.3 Baso # (Auto) 0.1 WBC Differential . Differential Comment Auto diff final - Impressions ITS Impressions Abdomen X-Ray 06/14/18 00:00 CONCLUSION: 1. No radiopaque foreign body is noted. 2. No bowel obstruction, ileus or perforation. Head CT 06/15/18 00:00 CONCLUSION: 1. Negative CT Head non contrast. . Abdomen/Pelvis CT 06/15/18 08:46 CONCLUSION: 1. Pneumoperitoneum with diffusely thickened fluid-filled small bowel and moderate amount of ascites. 2. Small bilateral pleural effusions. 3. I spoke with the clinical team concerning the findings. Chest X-Ray 06/15/18 16:23 CONCLUSION: Stable endotracheal tube with the tip just above the level of the clavicles. New right-sided central line which terminates within the mid SVC. Discharge Plan - Discharge Disposition Patient Disposition: 01 Discharge Home - Discharge Condition Condition: Stable - Discharge Order Discharge Orders: Discharge Order (Routine); Ordered 06/26/18 Ordered By: Jagruti Arellano - Discharge Details Anticipated Discharge Date: 06/26/18 - Physicians Team Primary Care Provider: Primary Care Sara Robbins Attending Provider: Mercedes Barkley Other Providers: Remi Tran MD ; Kartik Garcia MD ; Winston Sabillon MD ; Lyric Haque MD ; Sur[facility] ; Richard Huntley MD
--- NOTE | 2018-06-26 09:32 | P.PNFP ---
Subjective Interval history: Patient seen and examined bedside this morning. Patient continues to complain of mild right shoulder pain extending into the right side of chest. This is exacerbated with movements. He denies any nausea/vomiting. No difficulties breathing. No shortness of breath or dizziness. Patient is dressed and ready to go home. Results - Labs Result diagrams: 06/26/18 05:34 06/25/18 04:49 Abnormal lab results 06/26/18 Range/Units 05:34 WBC 11.9 H (4.0-11.0) th/mm3 RBC 3.80 L (4.50-5.90) mil/mm3 Hgb 10.9 L (13.0-17.0) gm/dL Hct 32.2 L (39.0-51.0) % Plt Count 561 H (150-450) th/mm3 [place] % (Auto) 12.3 H (0.0-8.0) % [place] # (Auto) 1.5 H (0.0-0.9) th/mm3 Short CBC 06/26/18 Range/Units 05:34 WBC 11.9 H (4.0-11.0) th/mm3 Hgb 10.9 L (13.0-17.0) gm/dL Hct 32.2 L (39.0-51.0) % Plt Count 561 H (150-450) th/mm3 Physical Exam Vital signs: Vital Signs 06/25/18 12:00 06/25/18 16:00 06/25/18 20:00 Temperature 98 F 98.1 F 99.1 F Pulse Rate 93 H 80 92 H Respiratory Rate 20 20 16 Blood Pressure 139/74 141/85 H 140/80 Pulse Oximetry 100 100 96 06/26/18 00:47 Temperature 98.9 F Pulse Rate 90 Respiratory Rate 17 Blood Pressure 136/85 Pulse Oximetry 99 Intake & Output 06/25/18 06/26/18 06/26/18 18:59 06:59 18:59 Intake Total 780 / 780 Balance 780 / 780 Weight 53.5 kg Intake: Oral 780 / 780 Other: # Voids 4 Narrative: General: Well-nourished, well-developed, in no acute distress Skin: Intact, no rash present HEENT: Neck supple, no nodules appreciated Cardio: Regular rate and rhythm, 2 out of 6 systolic murmur Respiratory: Clear to auscultation bilaterally, no wheezing, rales, crackles. Abdominal: Normal bowel sounds, soft, nondistended, no tenderness. Large incision is midline and with eulalia. No drainage. Both drains have been removed. - Urinary Catheter Management Indwelling Urethral Catheter Cath placed during this visit: yes, but has since been removed by the nurse Reason for continuing: Hourly intake/output Insertion date: 06/15/18 Removal date: 06/19/18 Removal time: 15:00 Assessment and Plan - Assessment (1) Murmur, cardiac Code(s): R01.1 - Cardiac murmur, unspecified Status: Acute Plan: Systolic 2 out of 6 murmur on exam today, history of IV drug use -No fevers or night sweats, patient appears well clinically -Blood cultures negative Follow-up echocardiogram; test done this morning before discharge, will follow up results as outpatient -Will call at [phone], or [phone] (2) Leukocytosis Code(s): D72.829 - Elevated white blood cell count, unspecified Status: Acute Plan: Stable WBC 11.9. Okay for DC today and follow-up CBC in 1 week Patient is afebrile, vitals WNL, tolerating meals. (3) Overdose Code(s): T50.901A - Poisoning by unspecified drugs, medicaments and biological substances, accidental (unintentional), initial encounter Status: Acute Plan: Improving. -Psych consult; tearful, depression, anxiety, insomnia. Start Wellbutrin twice daily, clonazepam twice daily for anxiety and insomnia. Does not meet criteria for admission. -OB\psych drug screen positive for amphetamine and cannabinoids, negative for opiates, other metabolites are PENDING -Serum alcohol and aspirin NEGATIVE -Wound Specialist signed off * Continue postoperative care * Lactic acid level 1.3 on 06/16 down from 2.8 on 06/15 * Continuous monitoring of heart rate and BP, maintain map greater than 65 mmHg * Maintain oxygen saturation above 92% * Monitor CBC and coags (4) Gastric ulcer with perforation Code(s): K25.5 - Chronic or unspecified gastric ulcer with perforation Status : Acute Plan: Gastritis with perforated gastric ulcer, postop from ex lap. -Per surgical recommendations; advance diet to soft -continue antibiotics per ID, now PO, will DC on Cipro and Flagyl 5 days -Continue Protonix PO BID, follow recommendations of general surgery -Continue pain management with Toradol and acetaminophen. We will avoid morphine as this gave him hallucinations and Dilaudid as this is his drug of choice. -Gastroenterology signed off (5) Rhabdomyolysis Code(s): M62.82 - Rhabdomyolysis Status: Acute Plan: Resolved. -CK 229 (NORMAL) 06/23 , peak CK was 8800 on 06/15/18 -Creatinine WNL -Nephro signed off (6) ARMANI (acute kidney injury) Code(s): N17.9 - Acute kidney failure, unspecified Status: Acute Plan: Resolved. Nephro signed off. -Creatinine 0.71 on 06/25 -Avoid nephrotoxic substances (7) Weight loss Code(s): R63.4 - Abnormal weight loss Status: Acute Plan: Patient has had a significant weight loss in the past month according to patient 's significant other. Gastritis versus drug use versus hepatitis versus immunodeficiency (HIV). -Supportive care -Hepatitis panel positive for hepatitis C antibody. This was discussed with patient on . He was not aware of his hepatitis C status. -HIV testing was discussed on and patient consented to be tested for HIV during this hospitalization. Patient HIV Ab nonreactive (8) IVDU (intravenous drug user) Code(s): F19.90 - Other psychoactive substance use, unspecified, uncomplicated Status: Acute Plan: Patient with a history of IV drug use. -Blood cultures no growth -Repeat blood cultures no growth -Hepatitis panel positive for hep C -Case management consult; patient states he has found funds for a rehab placement via family (9) Nutrition, metabolism, and development symptoms Code(s): R63.8 - Other symptoms and signs concerning food and fluid intake Status: Acute Plan: Fluids: discontinued Electrolytes: Normal, follow-up BMP and replete as needed Nutrition: soft diet DVT prophylaxis: Heparin 5000 units subcu every 8 hours per general surgery - Assessment and Plan Patient was transitioned to PO antibiotics on 06/24. Per discussion with surgery BODY CORPORATE MANAGER, patient will be medically cleared from their end. He will be going to his grandmother's house after discharge and then possibly rehab. Case management gave him the information for clinics where he could follow-up for primary care. Discharge Planning: Okay for DC today
--- NOTE | 2018-06-26 13:22 | P.PNADD ---
Addendum to Inpatient Note Reason for Addendum: Additional Documentation Additional information: Pain scripts wrote for 3 days with acute pain indicated. EForsce was queried. No anomalies noted.
--- NOTE | 2018-06-26 13:23 | ECHRPT ---
Indication: CHEST PAIN CONCLUSIONS The left ventricular systolic function is hyperdynamic with an estimated ejection fraction in the ra nge of 60- 65%. Normal left ventricular size. Wall thickness is normal. No regional wall motion abnormalities are present. [id number] mitral valve regurgitation. There is trace tricuspid valve regurgitation. The estimated pulmonary arterial pressure is 34.2 mmHg. BP: / HR: Rhythm: Sinus MEASUREMENTS (Male / Female) Normal Values Technical Quality:Good 2D ECHO LV Diastolic Diameter PLAX 4.3 cm 4.2 - 5.9 / 3.9 - 5.3 cm LV Systolic Diameter PLAX 2.9 cm IVS Diastolic Thickness 0.8 cm 0.6 - 1.0 / 0.6 - 0.9 cm LVPW Diastolic Thickness 0.8 cm 0.6 - 1.0 / 0.6 - 0.9 cm LV Relative Wall Thickness 0.4 RV Internal Dim ED PLAX 2.0 cm LVOT Diameter 1.8 cm LA Systolic Diameter LX 2.0 cm 3.0 - 4.0 / 2.7 - 3.8 cm LV Ejection Fraction MOD 4C 68.9 % LV Ejection Fraction 4C AL 70.3 % M-MODE Aortic Root Diameter MM 2.0 cm LA Systolic Diameter MM 2.6 cm LA Ao Ratio MM 1.3 AV Cusp Separation MM 1.8 cm DOPPLER AV Peak Velocity 147.0 cm/s AV Peak Gradient 8.6 mmHg LVOT Peak Velocity 120.0 cm/s LVOT Peak Gradient 5.8 mmHg AV Area Cont Eq pk 2.1 cm MV Area PHT 4.0 cm Mitral E Point Velocity 65.6 cm/s Mitral A Point Velocity 60.2 cm/s Mitral E to A Ratio 1.1 LV E' Lateral Velocity 19.2 cm/s Mitral E to LV E' Lateral Ratio 3.4 LV E' Septal Velocity 10.7 cm/s Mitral E to LV E' Septal Ratio 6.1 TR Peak Velocity 246.0 cm/s TR Peak Gradient 24.2 mmHg Right Atrial Pressure 10.0 mmHg Pulmonary Artery Systolic Pressu 34.2 mmHg Right Ventricular Systolic Press 34.2 mmHg PV Peak Velocity 92.3 cm/s PV Peak Gradient 3.4 mmHg FINDINGS LEFT VENTRICLE The left ventricular systolic function is hyperdynamic with an estimated ejection fraction in the ra nge of 65- 70%. Normal left ventricular size. Wall thickness is normal. No regional wall motion abnormalities are present. RIGHT VENTRICLE Normal right ventricular size and systolic function. LEFT ATRIUM The left atrial size is normal. RIGHT ATRIUM The right atrial size is normal. ATRIAL SEPTUM Normal atrial septal thickness without atrial level shunting by limited color doppler interrogation. AORTA The aortic root and proximal ascending aorta are normal in size on limited imaging. MITRAL VALVE Structurally normal mitral valve. [id number] mitral valve regurgitation. AORTIC VALVE Trileaflet aortic valve. No aortic valve stenosis or regurgitation. TRICUSPID VALVE Structurally normal tricuspid valve. There is trace tricuspid valve regurgitation. The estimated pulmonary arterial pressure is 34.2 mmHg. PULMONARY VALVE No pulmonary valve regurgitation or stenosis. VESSELS The inferior vena cava is normal in size. PERICARDIUM No pericardial effusion. Cornelius Doherty MD (Electronically Signed) Final Date:26 June 2018 13:22
--- NOTE | 2018-06-28 10:32 | P.PNADD ---
Addendum to Inpatient Note Reason for Addendum: Additional Documentation Additional information: Attempted to contact patient regarding normal echo results via phone with the 2 numbers he provided upon discharge and there was no answer with one phone number and the other phone number belongs to another person. No message left.
== END 2018-06-26 11:23 | disposition home or self-care (01) ==
LOC: NEPC 08:54 → NEDA 14:21 → HIMC 17:35 → N03 06-15 16:58 → N07 06-24 04:25
PROVIDERS: ADMIT Family Medicine; ATTEND Family Medicine